=== PATIENT | female | born 1935 | race Caucasian/White ===

== ENCOUNTER 2019-10-21 13:04 | Inpatient (IN) | payer MEDICARE, SELFPAY ==
[2019-10-21 13:56] VITALS: BMI 28.0
[2019-10-21 14:09] VITALS: BP 154/78; PULSE 84; RESP 18; TEMP 36.3; O2SAT 95
--- NOTE | 2019-10-21 14:21 | CTR_ITS ---
PROCEDURE INFORMATION: Exam: CT Angiography Chest With Contrast Exam date and time: 10/21/2019 6:28 PM Age: 84 years old Clinical indication: Abdominal pain; Other: Hypoxia; Prior surgery; Surgery date: 6+ months; Additional info: Abdominal pain and hypoxia TECHNIQUE: Imaging protocol: Computed tomographic angiography of the chest with intravenous contrast. 3D rendering: MIP and/or 3D reconstructed images were created by the technologist. Total DLP: 1273.65 mGy-cm Radiation optimization: All CT scans at this facility use at least one of these dose optimization techniques: automated exposure control; mA and/or kV adjustment per patient size (includes targeted exams where dose is matched to clinical indication); or iterative reconstruction. Contrast material: OMNI 350; Contrast volume: 95 ml; Contrast route: 20G; COMPARISON: CTA Chest-Pulmonary Emb [id number] 04/22/2018 3:14 PM FINDINGS: Pulmonary arteries: Acute bilateral pulmonary embolism it is present including a saddle embolus. Aorta: Unremarkable. No aortic aneurysm. No aortic dissection. Lungs: There is no pulmonary infarction or atelectasis. Pleural space: Unremarkable. No pneumothorax. No pleural effusion. Heart: No indication of right ventricular strain. Heavy calcified plaque in the coronary arteries. The left atrium is mildly enlarged. Lymph nodes: Unremarkable. No enlarged lymph nodes. Bones/joints: Degenerative changes in the right glenohumeral joint. Soft tissues: Unremarkable. Other findings: Clots are nonocclusive. Mild generalized pulmonary fibrosis. IMPRESSION: Acute saddle pulmonary embolus. However no significant right ventricular strain. No pulmonary infarction. PROCEDURE INFORMATION: Exam: CT Abdomen And Pelvis With Contrast Exam date and time: 10/21/2019 6:28 PM Age: 84 years old Clinical indication: Abdominal pain; Other: Hypoxia; Prior surgery; Surgery date: 6+ months; Additional info: Abdominal pain and hypoxia TECHNIQUE: Imaging protocol: Computed tomography of the abdomen and pelvis with intravenous contrast. Total DLP: 1273.65 mGy-cm Radiation optimization: All CT scans at this facility use at least one of these dose optimization techniques: automated exposure control; mA and/or kV adjustment per patient size (includes targeted exams where dose is matched to clinical indication); or iterative reconstruction. Contrast material: OMNI 350; Contrast volume: 95 ml; Contrast route: 20G; COMPARISON: CTA Chest-Pulmonary Emb [id number] 04/22/2018 3:14 PM FINDINGS: Liver: Normal. No mass. Gallbladder and bile ducts: Normal. No calcified stones. No ductal dilation. Pancreas: Normal. No ductal dilation. Spleen: Normal. No splenomegaly. Adrenals: Normal. No mass. Kidneys and ureters: Normal. No hydronephrosis. Stomach and bowel: There is edema and wall thickening in the ascending colon indicating colitis. No pneumatosis, perforation or abscess. The transverse and descending colon are normal. Appendix: No evidence of appendicitis. Intraperitoneal space: No free fluid or mesenteric edema. In the right lower quadrant there is a circumscribed fluid collection measuring 4.6 x 3.1 cm. Several additional adjacent smaller fluid collections measuring up to 2.4 cm. These are most likely seromas or liquified hematomas. Vasculature: Numerous calcified plaques in the abdominal aorta. Lymph nodes: Unremarkable. No enlarged lymph nodes. Bladder: Unremarkable as visualized. Reproductive: The uterus is surgically absent and the ovaries are not seen. Bones/joints: Chronic lumbar degenerative disc disease without significant central spinal stenosis. Soft tissues: Unremarkable. CT/CT angio chest w abd pel w con IMPRESSION: 1. Colitis of the ascending colon. No perforation or abscess. No pneumatosis. 2. Extensive atherosclerosis. 3. Several right lower quadrant fluid collections. These are probably seromas or liquified hematomas. Radiation Dose CTDIVOL = (mGy): DLP = 1273.65~1273.65 (mGy-cm)
[2019-10-21 15:40] VITALS: BP 183/74; PULSE 76; RESP 18; TEMP 36.6; O2SAT 98
[2019-10-21 17:04] LABS: Alanine Aminotransferase 11 U/L (0-33); Albumin Level 3.5 g/dL (3.5-5.2); Alkaline Phosphatase 111 IU/L (35-105); Anion Gap 17.4 (5-19); Aspartate Amino Transferase 21 U/L (0-32); Blood Urea Nitrogen 16 mg/dL (8-23); C Reactive Protein 97.5 mg/L (0.0-4.9); Calcium 9.6 mg/Dl (8.8-10.2); Carbon Dioxide 22 mmol/L (22-29); Chloride 103 mmol/L (98-107); Globulin 3.8 g/dL (1.3-4.6); Glucose 95 mg/dL (74-106); Potassium 3.4 mmol/L (3.5-5.1); Sodium 139 mmol/L (136-145); Total Bilirubin 0.3 mg/dL (0.15-1.2); Total Protein 7.3 g/dL (6.6-8.7)
--- NOTE | 2019-10-21 17:14 | PC.PHAR ---
Vancomycin dosing per Pharmacy 1250 mg q24h Patient: Floor: Age: 84 yo Serum creatinine: 0.7 mg/dL Height: 61.8 Inches Weight (kg): 70 IBW (kg): 49.64 Dosing wt(kg): 70 Estimated Creatinine clearance (ml/min): 48.6 CRCL method: Cockcroft and Gault using ibw(default). Drug selected: Vancomycin Loading dose (mg): Vd (liters): 49.0 (factor used: 0.7 L/kg) Vinnie (hr-1): 0.045 Half life (hrs): 15.40 CLvanco= 2.205 L/hr Recommended dose: 1250 mg Interval: 24 hrs Infusion time (hrs): 1 Predicted peak (mcg/mL): 37.8 Predicted trough (mcg/mL): 13.43 Total body weight is being used for vancomycin dosing. Recommendations: Give Vancomycin 1250 mg q 24 hrs with an expected Cpeak of 37.8 mcg/ml and an expected Ctrough of 13.43 mcg/ml
[2019-10-21 17:18] LABS: Basophils % 0.4 %; Eosinophils # 0.2 10^3/uL (0.0-0.8); Eosinophils % 1.9 %; Hematocrit 35.1 % (37.0-47.0); Hemoglobin 10.2 g/dL (11.5-15.3); Lymphocytes # 2.6 10^3/uL (0.8-4.8); Lymphocytes % 25.3 %; Mean Corpuscular HGB Conc 29.1 g/dL (30.0-36.0); Mean Corpuscular Hemoglobin 25.6 pg (28.0-34.0); Mean Corpuscular Volume 88.2 fL (81-99); Monocytes # 0.7 10^3/uL (0.2-0.9); Monocytes % 6.8 %; Neutrophils # 6.7 10^3/uL (1.8-7.7); Neutrophils % 65.2 %; Nucleated Red Blood Cells % 0 %; Platelet Count 292 10^3/cmm (130-400); Red Blood Count 3.98 10^6/uL (4.1-5.3); Red Cell Distribution Width 16.8 % (12.1-15.1); White Blood Count 10.3 10^3/uL (4.0-10.0)
[2019-10-21] MEDS: enoxaparin 40 mg/0.4 mL Syringe SUBCUT (18:58)
[2019-10-21 20:00] VITALS: BP 150/73; PULSE 73; RESP 20; TEMP 37.4; O2SAT 96
[2019-10-21 20:12] LABS: Urine Appearance SL Hazy (CLEAR); Urine Color Yellow (Yellow); pH Urine 5 (5-7)
[2019-10-21 20:13] LABS: Add Urine Microscopic? YES; Bilirubin Urine Neg (NEGATIVE); Blood Urine Neg (Negative); Glucose Urine UA Norm (Normal); Ketones Urine 1+ (Negative); Nitrate Urine Positive (Negative); Protein Urine Trace (Negative); Urobilinogen Urine 1 mg/dL (Negative)
[2019-10-21 20:22] LABS: Leukocyte Esterase Urine Trace (Negative)
[2019-10-21 20:24] LABS: Bacteria Urine 4+; Calcium Oxalate Crystals Urine 40-55 /hpf
[2019-10-21 20:25] LABS: Add Urine Culture? Yes; Amorphous Sediment Urine 4+
[2019-10-21] MEDS: piperacillin-tazobactam 3.375 GM in sodium chloride 0.9% (plus) 50 ML IV (21:27)
[2019-10-22] VITALS (7 sets, daily range): BP systolic 146–198; BP diastolic 68–74; PULSE 76–96; RESP 16–20; TEMP 36.4–36.9; O2SAT 95–97
[2019-10-22] MEDS: iohexol 350 mg/mL 100 mL Btl IV (01:52)
[2019-10-22 02:13] LABS: Erythrocyte Sedimentation Rate 45 mm/hr (0-15)
[2019-10-22] MEDS: piperacillin-tazobactam 3.375 GM in sodium chloride 0.9% (plus) 50 ML IV ×3 (05:11→21:14)
--- NOTE | 2019-10-22 07:23 | USCV_ITS ---
Ana Laurent Age: 84 Gender: F : 1935 Exam Date: 10/22/2019 08:30 Ordering Phys: Ousmane Reaves MD Technologist: Delia Garcias [place]am Location: [facility] [place] Indication: pe HISTORY: Pulmonary embolism. PROCEDURES: Venous duplex imaging was performed in bilateral lower extremities. The following venous structures were evaluated: common femoral vein, profunda vein, proximal portion of the greater saphenous vein, superficial femoral vein, and the popliteal vein. In addition, the posterior tibial and peroneal trunk were evaluated. Serial compression, augmentation maneuvers, and spectral Doppler flow evaluation were performed. FINDINGS: Normal 2-D Doppler and augmentation and compressibility throughout the lower extremity venous structures. Additional imaging through the proximal calf veins also reveals no thrombus. Limited evaluation of the greater saphenous vein is patent with no thrombus.. CONCLUSIONS No evidence of right lower extremity DVT. No evidence of left lower extremity DVT. Hossein Duncan MD (Electronically Signed) Final Date: 22 October 2019 13:17 S
--- NOTE | 2019-10-22 07:29 | P.HP_ITS ---
Providers/Chief Complaint Admitting Physician: Ousmane Reaves MD Primary Care Provider: Ousmane Reaves MD Chief Complaint: hypoxia/abdominal pain History of Present Illness Ana Laurent is a 84 year old female who presents to the clinic with increasing shortness of breath. She started having symptoms of increasing shortness of breath about 3 months ago. She noted it when walking her dog 1 day. She has an extensive history of coronary disease. She was seen by cardiology and evaluated for this. An angiogram was done and showed a blockage in the right coronary. Dr. Steward was only able to stent this. She was then sent to [facility] to have this fixed. They were able to get it opened up and a stent placed. She did not have any improvement in her symptoms though. This was done towards the end of August. Her shortness of breath is progressively gotten a bit worse since then. She is also noted over the past 4 weeks increasing weakness, difficulty with swallowing. She is also developed some diarrhea and right lower quadrant pain. Patient was evaluated in the clinic for this couple weeks ago. Stool studies at that time including C. difficile was a ll negative. Labs were all normal with the exception of a markedly elevated CRP up to a 75. Sed rate was 39. CBC was normal at that time. Patient was given 80 mg of Depo-Medrol last week with no improvement in her symptoms. She was noted in the clinic to be slightly hypoxic which she had not been before. For this reason she was directly admitted yesterday to the hospital. Past medical history Coronary artery disease with no history of MIs though. She has had 3 stents placed in the past. 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 History of hypertension, hyperlipidemia, osteoarthritis, peripheral vascular disease, obstructive sleep apnea but she does not wear her machine. Past surgical history 3 stents placed in 2005. Total abdominal hysterectomy at age 25 for a bad infection. 5 vaginal deliveries. Subclavian bypass in 1988. Bladder tie up with mesh in 1983. Carpal tunnel in both hands. Right elbow bursa removed. Right shoulder surgery. Angiogram again in July 2019 that revealed some occlusions in August 2019 right coronary artery stent was placed Family history Noncontributory Social history Patient goes by Andrew. She is and has 1 child lives in the area. 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 She likes to work on her computer and play with her dogs currently. She quit smoking and drinking at the age of 50. [id number] smoking history prior to this. No alcohol use currently. Review of Systems Narrative: General: No chronic fevers or chronic weight changes. HEENT: No acute changes in vision. No acute hearing loss. No new difficulty swallowing. Heart: See history of present illness. Lungs: No history of TB. No chronic lung disease. GI: No history of GI bleeding. No hepatitis. No chronic nausea or vomitting. Renal: No dysuria or frequency. No hematuria Neuro: No acute neurological changes or deficits. Musculoskeletal: No acutely worsening joint pain or swelling. Medications/Allergies Home Medications Medication Instructions Recorded Confirmed Last Taken Type acetaminophen [Tylenol Extra 500 mg PO DAILY PRN 10/21/19 10/21/19 10/20/19 20:00 History Strength] aspirin [Aspir-81] 81 mg PO DAILY 10/21/19 10/21/19 10/20/19 20:00 History clopidogrel [Plavix] 75 mg PO DAILY 10/21/19 10/21/19 10/21/19 08:00 History coenzyme Q10 [CoQ-10] 100 mg PO DAILY 10/21/19 10/21/19 10/20/19 20:00 History isosorbide mononitrate 30 mg PO BID 10/21/19 10/21/19 10/21/19 08:00 History losartan 50 mg PO DAILY 10/21/19 10/21/19 10/21/19 08:00 History metoprolol tartrate 50 mg PO BID 10/21/19 10/21/19 10/21/19 08:00 History mirtazapine 15 mg PO DAILY 10/21/19 10/21/19 10/20/19 20:00 History nitroglycerin [Nitrostat] 0.4 mg SUBLINGUAL Q5M PRN 10/21/19 10/21/19 Unknown History sertraline [Zoloft] 100 mg PO DAILY 10/21/19 10/21/19 10/21/19 08:00 History Allergies Allergy/AdvReac Type Severity Reaction Status Date / Time morphine Allergy Unknown Unknown Verified 10/21/19 14:37 Sulfa (Sulfonamide Allergy Unknown Unknown Verified 10/21/19 14:37 Antibiotics) PFSH Acute PFSH: Statuses (acute, chronic, etc) shown below reflect problem list status as previously entered and may not be historically accurate Medical History (Updated 10/22/19 @ 07:44 by Ousmane Revaes MD) Coronary arteriosclerosis (Acute) Pulmonary embolism (Acute) This appears to be her primary problem. After talking with her I have to think that her first PE was probably 3 months ago when all of this dyspnea started. Her symptoms did not improve after she had her coronary stent place d. I suspect the PE has progressed since then. We will go ahead and put her on Lovenox. Transition to Eliquis in the next few days. We will go ahead and do an ultrasound of her legs. No obvious etiology for this is found yet. CT of the abdomen pelvis revealed no malignancy. She had no trauma or recent hospitalization prior to this 3 months ago to explain a PE. Continue oxygen for now as well. Family History (Updated 10/21/19 @ 14:19 by Ruthie Altman RN) Sister Cancer Mother Cardiac complication Father Cardiac complication Social History (Updated 10/21/19 @ 14:22 by Ruthie Altman RN) Smoking and tobacco status: former smoker Quit status (tobacco): has quit using tobacco Second hand smoke exposure: No Smoking risk assessment/counseling performed?: No Alcohol intake: former Desire information about alcohol rehabilitation?: No Counseling given: No Substance/Drug Use: never Marital status: Number of children: 5 Number of grandchildren: 29 Highest education level completed: High School Graduate service: No Current occupational status: retired Vitals/I&O/Wt Last Vital Signs Temp 97.6 F 10/22/19 04:00 Pulse 85 10/22/19 04:00 Resp 18 10/22/19 04:00 BP 187/68 10/22/19 04:00 Pulse Ox 97 10/22/19 04:00 10/21/19 10/22/19 10/22/19 22:59 06:59 14:59 Intake Total 120 / 460 340 / 460 Output Total 150 / 650 500 / 650 Balance -30 / -190 -160 / -190 Weight last 48 hrs Weight 73.845 kg Weight 69.763 kg Weight 69.4 kg Physical Exam Narrative: EXAM NARRATIVE: General: No acute distress, Alert. Well nourished. HEENT: PERRLA, EOMI. vision grossly normal. Throat clear. Neck: supple, no adenopathy. Heart: Regular rate and rhythm. No murmurs, rubs or gallops. Normal capillary refill. Lungs: Clear to auscultation. No wheezes, rhonchi or rales. Abdomen: Positive bowel sounds. Non-tender, non-distended. No hepatosplenomegaly. No gaurding. Extremities: No clubbing, cyanosis, or edema. Negative Virgen's. Data Micro: Micro: Microbiology 10/21/19 16:10 Blood Culture - Pr eliminary Blood [facility] 10/21/19 16:19 Blood Culture - Pr eliminary Blood [facility] A&P Assessment and plan (1) Pulmonary embolism: Status: Acute Code(s): I26.99 - Other pulmonary embolism without acute cor pulmonale (2) Coronary arteriosclerosis: This appears stable at this point. She had her last angiogram and stenting of the RCA done in August. Status: Acute Code(s): I25.10 - Atherosclerotic heart disease of [place] coronary artery without angina pectoris (3) Colitis: She has had the symptoms going on for about a month. Stool cultures were all negative in the clinic 2 weeks ago. We will go ahead and repeat stool cultures and C. difficile. She is on Zosyn and we will add Flagyl at this time. Continue the vancomycin for right now. May remove this in the next couple days. She had a colonoscopy about 12 years ago that was normal. Discussed with her malignancy seems a bit unlikely. Status: Acute Code(s): K52.9 - Noninfective gastroenteritis and colitis, unspecified (4) Dysphagia: This is also new for her in the past 2 to 3 weeks. Unclear what the etiology for this is. We will get a swallowing study done today. She may need to have an EGD done at some point as well. Status: Acute Code(s): R13.10 - Dysphagia, unspecified Attestations Medical Necessity Statement*: Patient is an 84-year-old female with shortness of breath hypoxia secondary to pulmonary embolism. She also has severe colitis all requiring inpatient hospitalization and IV treatments. Coding Level of Care Code Acute [facility] Intern for [facility] Diagnoses Pulmonary embolism I26.99 Coronary arteriosclerosis I25.10 Colitis K52.9 Dysphagia R13.10
[2019-10-22] MEDS: losartan 50 mg Tablet PO (09:27)
[2019-10-22] MEDS: pantoprazole DR 40 mg Tablet PO (09:28)
[2019-10-22] MEDS: enoxaparin 80 mg/0.8 mL Syringe 70 MG SUBCUT ×2 (09:28→21:13)
[2019-10-22] MEDS: metroNIDAZOLE IV 500 MG/100 ML PREMIX 100 MG IV ×2 (09:39→18:59)
[2019-10-22] MEDS: mirtazapine 15 mg Tablet PO (09:45)
[2019-10-22] MEDS: sodium chloride 0.9% 1,000 ML 75 ML IV (09:45)
[2019-10-22 12:19] LABS: Glucose Point of Care 149 mg/dL (70-110)
--- NOTE | 2019-10-22 12:24 | PC.NURSE ---
Patient stated that she just could not eat any of her lunch that she was not hungry, but she ate her ice cream.
--- NOTE | 2019-10-22 14:07 | PC.CHAP ---
Pastoral Care Encounter/Spiritual Assessment Type of Contact [] Declined recovery assistant visit [] Patient/Family/Request visit [] Outpatient visit [] Follow-up visit [] Physician referral [] Code/Alert [] Routine visit [] Staff referral [] Actively dying [] Patient sleeping [] Family support [] [] Out of room [] Palliative care [] [] Receiving care in room [] Pre-surgical visit [] Trauma [] Long length of stay [] ICU visit [] Other: Relational/Emotional Strength [] Patient feels connected with others/family/visitors/staff [] Distress [] Loneliness/isolation [] Abandonment Spirituality of Patient [x Person of Bonny [x] Attends Muslim of their [place] [x Believes in Prayer [] Reads Bible or Yarsanism materials [] There are Spiritual issues to be addressed Front Desk Agent Interventions [x] Prayer [x] Active listening [x Non-anxious presence [x] Spiritual/emotional support [] Crisis/trauma care [] Spiritual counseling [] Bereavement support [] Provided bereavement packet [] Provided Bible/devotional materials [] Provided toy/stuffed animal, coloring book to patient or family member [x] Completed spiritual assessment [] Provided Communion [] Anointing/[place] [] Salvation [] Other: Impact on Illness or Injury [] Angry [] Fearful [] Anxious [] Often cries [] Exhaustion [] Unable to work [] Unable to attend mandaen [x] Unable to walk/stand [] Unable to read [] Unable to drive [x Unable to eat/drink [] Unable to sleep [] Unable to be with family [] Other: Summary she says that food has no taste and this has been a problem for weeks un able to walk visited by pancho seaman Time spent with patient 9 min
--- NOTE | 2019-10-22 14:30 | FL_ITS ---
WS: [id number] MODIFIED BARIUM SWALLOW TECHNIQUE: Modified barium swallow with speech therapy using multiple consistencies. FLUOROSCOPY TIME: 1.7 minutes. CLINICAL INFORMATION: Oropharyngeal dysphagia COMPARISON: None. FINDINGS: Multiple consistencies utilized. Pooling in the vallecula. No evidence of derian aspiration. Penetrati on with tomato juice and thin liquids. Barium tablet briefly lodged at the GE junction which subseque ntly cleared with additional contrast. No visualized high-grade stricture. This can be further evalua emerald with endoscopy. Mild esophageal dysmotility with delayed emptying. FL/FL barium swallow modifd [id number] IMPRESSION: 1. No evidence of derian aspiration. Penetration with thin liquids. 2. Delayed transit of the barium tablet at the GE junction with mild narrowing . This can be further evaluated with endoscopy. No high-grade stricture. 3. Mild esophageal dysmotility with delayed emptying.
[2019-10-22] MEDS: metoprolol tartrate 50 mg Tablet PO (18:58)
[2019-10-22] MEDS: isosorbide mononitrate ER 30 mg Tablet PO (18:58)
--- NOTE | 2019-10-22 19:00 | PC.NURSE ---
Introduction of staff and report received, aidet.
[2019-10-23] VITALS (8 sets, daily range): BP systolic 172–195; BP diastolic 70–81; PULSE 16–93; RESP 16–22; TEMP 36.6–36.8; O2SAT 95–97
[2019-10-23] MEDS: metroNIDAZOLE IV 500 MG/100 ML PREMIX 100 MG IV ×3 (02:27→17:18)
[2019-10-23] MEDS: sodium chloride 0.9% 1,000 ML 75 ML IV ×2 (04:17→17:17)
[2019-10-23] MEDS: piperacillin-tazobactam 3.375 GM in sodium chloride 0.9% (plus) 50 ML IV ×3 (04:21→21:22)
[2019-10-23 06:14] LABS: Basophils % 0.3 %; Eosinophils # 0.2 10^3/uL (0.0-0.8); Eosinophils % 1.8 %; Hematocrit 34.1 % (37.0-47.0); Hemoglobin 10.4 g/dL (11.5-15.3); Lymphocytes # 3.1 10^3/uL (0.8-4.8); Lymphocytes % 32.5 %; Mean Corpuscular HGB Conc 30.5 g/dL (30.0-36.0); Mean Corpuscular Hemoglobin 26.1 pg (28.0-34.0); Mean Corpuscular Volume 85.5 fL (81-99); Monocytes # 0.7 10^3/uL (0.2-0.9); Monocytes % 6.8 %; Neutrophils # 5.5 10^3/uL (1.8-7.7); Neutrophils % 58.3 %; Nucleated Red Blood Cells % 0 %; Platelet Count 286 10^3/cmm (130-400); Red Blood Count 3.99 10^6/uL (4.1-5.3); Red Cell Distribution Width 16.6 % (12.1-15.1); White Blood Count 9.5 10^3/uL (4.0-10.0)
[2019-10-23 06:17] LABS: Alanine Aminotransferase 9 U/L (0-33); Alkaline Phosphatase 95 IU/L (35-105); Anion Gap 20.6 (5-19); Blood Urea Nitrogen 6 mg/dL (8-23); Calcium 9.2 mg/Dl (8.8-10.2); Carbon Dioxide 22 mmol/L (22-29); Chloride 102 mmol/L (98-107); Globulin 2.3 g/dL (1.3-4.6); Glucose 117 mg/dL (74-106); Potassium 3.6 mmol/L (3.5-5.1); Sodium 141 mmol/L (136-145); Total Bilirubin 0.5 mg/dL (0.15-1.2); Total Protein 6.3 g/dL (6.6-8.7)
--- NOTE | 2019-10-23 06:55 | PM.PN ---
Vitals/I&O/Wt Last Vital Signs Temp 98.0 F 10/23/19 04:00 Pulse 78 10/23/19 04:00 Resp 20 H 10/23/19 04:00 BP 195/71 10/23/19 04:00 Pulse Ox 96 10/23/19 04:00 10/22/19 10/22/19 10/23/19 14:59 22:59 06:59 Intake Total 750 / 2900.000 1142.917 / 2900.000 1007.083 / 2900.000 Output Total 550 / 1250 700 / 1250 Balance 200 / 1650.000 442.917 / 8833.249 9260.083 / 1650.000 Weight last 48 hrs Weight 151 lb 2 oz Weight 146 lb 8 oz Weight 162 lb 12.8 oz Weight 153 lb 12.8 oz Weight 153 lb Physical Exam Narrative: EXAM NARRATIVE: General: No acute distress, Alert. Well nourished. Heart: Regular rate and rhythm. No murmurs, rubs or gallops. Normal capillary refill. Lungs: Clear to auscultation. No wheezes, rhonchi or rales. Abdomen: Positive bowel sounds. Mild right lower quadrant tenderness. This is better from yesterday., non-distended. No hepatosplenomegaly. No gaurding. Extremities: No clubbing, cyanosis, or edema. Negative Virgen's Data Micro: Micro: Microbiology 10/21/19 16:10 Blood Culture - Pr eliminary Blood NEGATIVE TO MANUEL E 10/21/19 16:19 Blood Culture - Pr eliminary Blood NEGATIVE TO MANUEL E A&P Assessment and plan (1) Pulmonary embolism: This appears to be her primary problem. Patient seems to be improving. She has less shortness of breath. No chest pain. Oxygen saturations seem to be doing well. We will probably plan to transition to Eliis tomorrow. Continue the Lovenox for now. Status: Acute Code(s): I26.99 - Other pulmonary embolism without acute cor pulmonale (2) Coronary arteriosclerosis: This appears stable at this point. She had her last angiogram and stenting of the RCA done in August. Status: Acute Code(s): I25.10 - Atherosclerotic heart disease of [place] coronary artery without angina pectoris (3) Colitis: She has had the symptoms going on for about a month. Stool cultures were all negative in the clinic 2 weeks ago. We will continue with Zeynep and Carmen for now. Still awaiting repeat stool cultures. 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 Status: Acute Code(s): K52.9 - Noninfective gastroenteritis and colitis, unspecified (4) Dysphagia: This appears to be functional based off of her barium swallow test. No strictures or masses seen. She thinks she will do better with her appetite when she gets home.. Status: Acute Code(s): R13.10 - Dysphagia, unspecified Attestations Medical Necessity Statement*: Patient has pulmonary embolism and severe colitis requiring continued inpatient IV treatments and monitoring. Anticipate discharge home in the next 1 to 2 days. Coding Level of Care Code Acute Family Practice Physician for [facility] Diagnoses Pulmonary embolism I26.99 Coronary arteriosclerosis I25.10 Colitis K52.9 Dysphagia R13.10
[2019-10-23 07:42] LABS: C Reactive Protein 103.9 mg/L (0.0-4.9)
[2019-10-23 07:52] LABS: Aspartate Amino Transferase 21 U/L (0-32)
[2019-10-23] MEDS: ondansetron 2 mg/ML SDV 2 mL 4 MG IVP ×3 (10:05→22:56)
[2019-10-23] MEDS: isosorbide mononitrate ER 30 mg Tablet PO ×2 (10:08→17:21)
[2019-10-23] MEDS: clopidogrel 75 mg Tablet PO (10:08)
[2019-10-23] MEDS: pantoprazole DR 40 mg Tablet PO (10:08)
[2019-10-23] MEDS: metoprolol tartrate 50 mg Tablet PO ×2 (10:08→17:21)
[2019-10-23] MEDS: losartan 50 mg Tablet PO (10:09)
[2019-10-23] MEDS: enoxaparin 80 mg/0.8 mL Syringe 70 MG SUBCUT ×2 (10:09→21:23)
[2019-10-23] MEDS: mirtazapine 15 mg Tablet PO (10:09)
[2019-10-24] VITALS (7 sets, daily range): BP systolic 165–195; BP diastolic 71–79; PULSE 76–86; RESP 18–20; TEMP 36.4–37.1; O2SAT 80–98
[2019-10-24] MEDS: metroNIDAZOLE IV 500 MG/100 ML PREMIX 100 MG IV ×2 (01:36→10:09)
[2019-10-24] MEDS: piperacillin-tazobactam 3.375 GM in sodium chloride 0.9% (plus) 50 ML IV (04:28)
[2019-10-24] MEDS: ondansetron 2 mg/ML SDV 2 mL 4 MG IVP (04:36)
--- NOTE | 2019-10-24 07:08 | USCV_ITS ---
Ana Laurent Age: 84 Gender: F : 1935 Exam Date: 10/24/2019 13:43 Ordering Phys: Ousmane Reaves MD Technologist: Maris Roland [place] [facility] [place]: PE BILATERALLY BP: 165 / 52 HR: 80 Rhythm: Sinus Technical Quality: MEASUREMENTS (Male / Female) Normal Values 2D ECHO LV Diastolic Diameter PLAX 4.1 cm 4.2 - 5.9 / 3.9 - 5.3 cm LV Systolic Diameter PLAX 1.8 cm LV Chamber Size 3.1 cm IVS Diastolic Thickness 1.1 cm 0.6 - 1.0 / 0.6 - 0.9 cm IVS Systolic Thickness 1.3 cm LVPW Diastolic Thickness 1.4 cm 0.6 - 1.0 / 0.6 - 0.9 cm LVPW Systolic Thickness 1.7 cm RV Chamber Size 2.4 cm LVOT Diameter 2.0 cm LV Ejection Fraction 2D Teich 86.5 % LV Ejection Fraction MOD 2C 70.9 % LV Ejection Fraction 2C AL 74.4 % LA Diameter 2.9 cm LA Width 2.7 cm LA Height 4.1 cm RA Width 2.7 cm RA Height 3.0 cm Aorta at Sinotubular Diameter 2.6 cm M-MODE LV Diastolic Diameter MM 3.9 cm 4.2 - 5.9 / 3.9 - 5.3 cm LV Systolic Diameter MM 2.5 cm LV Ejection Fraction MM Teich 68.6 % IVS Diastolic Thickness MM 1.3 cm 0.6 - 1.0 / 0.6 - 0.9 cm IVS Systolic Thickness MM 1.3 cm LVPW Diastolic Thickness MM 1.3 cm 0.6 - 1.0 / 0.6 - 0.9 cm LVPW Systolic Thickness MM 1.5 cm RV Diastolic Diameter MM 1.4 cm Aortic Annulus Diameter 2.8 cm LA Ao Ratio MM 1.0 MV E Point Septal Separation 0.3 cm DOPPLER AV Peak Velocity 172.0 cm/s LVOT Peak Velocity 88.0 cm/s AV Area Cont Eq vti 1.9 cm squared AV Area Cont Eq pk 1.7 cm squared MV Area PHT 4.2 cm squared Mitral E to A Ratio 0.8 MV E' Velocity 10.0 cm/s Mitral E to MV E' Ratio 10.0 Mitral E to LV E' Lateral Ratio 9.7 Mitral E to LV E' Septal Ratio 10.4 TR Peak Velocity 331.7 cm/s TR Peak Gradient 44.0 mmHg TR Mean Velocity 291.6 cm/s TR Mean Gradient 34.3 mmHg TR Velocity Time Integral 116.6 cm TV Peak E Velocity 56.0 cm/s PV Peak Velocity 77.0 cm/s RV Acceleration Time 0.2 s RV Ejection Time 0.3 s RV AcT/ET 0.5 FINDINGS Left Ventricle Normal left ventricular size and systolic function, EF 64 %. Moderate left ventricular hypertrophy. No regional wall motion abnormalities. Grade I/IV diastolic dysfunction (abnormal relaxation filling pattern), normal to mildly elevated filling pressures. Right Ventricle The right ventricle is normal in size and function. Right Atrium The right atrium is normal in size. Left Atrium The left atrium is normal in size. Mitral Valve Mild mitral valve regurgitation. Aortic Valve Trace aortic valve regurgitation. Thickened aortic valve. Tricuspid Valve Moderate tricuspid valve regurgitation. Pulmonic Valve Trace pulmonary valve regurgitation. Pericardium Normal pericardium without effusion. Aorta Normal ascending aorta dimension. CONCLUSIONS Normal left ventricular size and systolic function, EF 64 %. Moderate left ventricular hypertrophy. No regional wall motion abnormalities. Grade I/IV diastolic dysfunction (abnormal relaxation filling pattern), normal to mildly elevated filling pressures. Mild mitral valve regurgitation. Trace aortic valve regurgitation. Thickened aortic valve. Moderate tricuspid valve regurgitation. Trace pulmonary valve regurgitation. There is no pericardial effusion. There are no intracardiac masses. No previous study is available for comparison. Dr Reynaldo Helm MD [facility] (Electronically Signed) Final Date: 24 October 2019 19:55 S
[2019-10-24] MEDS: metoprolol tartrate 50 mg Tablet PO ×2 (08:04→17:19)
[2019-10-24] MEDS: isosorbide mononitrate ER 30 mg Tablet PO ×2 (08:04→17:18)
[2019-10-24] MEDS: losartan 50 mg Tablet PO (08:05)
[2019-10-24] MEDS: clopidogrel 75 mg Tablet PO (08:05)
[2019-10-24] MEDS: mirtazapine 15 mg Tablet PO (08:05)
[2019-10-24] MEDS: levofloxacin-dextrose 5 % 750 MG/150 ML PREMIX 150 MG IV (08:05)
[2019-10-24] MEDS: pantoprazole DR 40 mg Tablet PO (08:06)
[2019-10-24] MEDS: enoxaparin 80 mg/0.8 mL Syringe 70 MG SUBCUT (08:07)
[2019-10-24] MEDS: sodium chloride 0.9% 1,000 ML 75 ML IV (08:14)
[2019-10-24 08:28] LABS: C Reactive Protein 62.3 mg/L (0.0-4.9)
--- NOTE | 2019-10-24 11:35 | PC.SOCIAL ---
IMM Page 2 of IMM explained to and signed by patient. Initialed, dated, and timed and placed in chart. Copy provided to patient.
--- NOTE | 2019-10-24 13:09 | PM.PN ---
Subjective Subjective: Interval history: Overall patient seems to be improving. No chest pain. Shortness of breath is improving. Less weakness. She still has poor appetite. Nothing tastes well. She thinks it is due to her poor dentition for which she has been seeing a dentist. Her abdominal pain is a lot better. She still having diarrhea though and some stool incontinence. Vitals/I&O/Wt Last Vital Signs Temp 98.1 F 10/24/19 11:58 Pulse 86 10/24/19 11:58 Resp 18 10/24/19 11:58 BP 176/78 10/24/19 11:58 Pulse Ox 96 10/24/19 11:58 10/23/19 10/24/19 10/24/19 22:59 06:59 14:59 Intake Total 1365 / 2785 1150 / 2785 100 / 100 Balance 1365 / 2784 1150 / 2784 100 / 100 Weight last 48 hrs Weight 70.987 kg Weight 72.745 kg Weight 72.03 kg Weight 68.549 kg Physical Exam Narrative: EXAM NARRATIVE: General: No acute distress, Alert. Well nourished. Heart: Regular rate and rhythm. No murmurs, rubs or gallops. Normal capillary refill. Lungs: Clear to auscultation. No wheezes, rhonchi or rales. Abdomen: Positive bowel sounds. Mild right lower quadrant tenderness, much improved. , non-distended. No hepatosplenomegaly. No gaurding. Extremities: No clubbing, cyanosis, or edema. Negative Virgen's A&P Assessment and plan (1) Pulmonary embolism: This appears to be her primary problem. Patient seems to be improving. She has less shortness of breath. No chest pain. Oxygen saturations seem to be doing well. Changed over to Eliquis today. Will probably discharge her on that tomorrow. Go ahead and try to wean oxygen to room air. Discussed with her she may need this for a short time after discharge. Status: Acute Code(s): I26.99 - Other pulmonary embolism without acute cor pulmonale (2) Coronary arteriosclerosis: This appears stable at this point. She had her last angiogram and stenting of the RCA done in August. Status: Acute Code(s): I25.10 - Atherosclerotic heart disease of [place] coronary artery without angina pectoris (3) Colitis: She has had the symptoms going on for about a month. Stool cultures were all negative in the clinic 2 weeks ago. Stool studies here in the hospital are pending still. With continued diarrhea we will change the Zosyn over to Levaquin. We will change to oral Flagyl and Levaquin. Her CRP is improved significantly today from yesterday. If she continues to do well anticipate discharge tomorrow. Status: Acute Code(s): K52.9 - Noninfective gastroenteritis and colitis, unspecified (4) Dysphagia: This appears to be functional based off of her barium swallow test. No strictures or masses seen. She thinks she will do better with her appetite when she gets home.. Status: Acute Code(s): R13.10 - Dysphagia, unspecified Attestations Medical Necessity Statement*: 84-year-old female with pulmonary embolism and colitis requiring continued inpatient treatments. Anticipate discharge probably tomorrow. Coding Level of Care Code Acute Director Business Integration for [facility] Diagnoses Pulmonary embolism I26.99 Coronary arteriosclerosis I25.10 Colitis K52.9 Dysphagia R13.10
[2019-10-24] MEDS: lactobacillus 1 Tablet 4 TAB PO ×2 (16:28→21:17)
[2019-10-24] MEDS: metroNIDAZOLE 500 MG Tablet PO ×2 (16:28→21:22)
[2019-10-24] MEDS: apixaban 5 mg Tablet 10 MG PO (17:20)
[2019-10-25] VITALS (8 sets, daily range): BP systolic 154–197; BP diastolic 69–93; PULSE 64–97; RESP 18; TEMP 36.7–36.9; O2SAT 80–97
[2019-10-25] MEDS: levoFLOXacin 750 mg Tablet PO (06:23)
[2019-10-25] MEDS: clopidogrel 75 mg Tablet PO (08:19)
[2019-10-25] MEDS: apixaban 5 mg Tablet 10 MG PO (08:19)
[2019-10-25] MEDS: losartan 50 mg Tablet PO (08:20)
[2019-10-25] MEDS: metoprolol tartrate 50 mg Tablet PO (08:20)
[2019-10-25] MEDS: isosorbide mononitrate ER 30 mg Tablet PO (08:20)
[2019-10-25] MEDS: lactobacillus 1 Tablet 4 TAB PO (08:25)
[2019-10-25] MEDS: pantoprazole DR 40 mg Tablet PO (08:25)
[2019-10-25] MEDS: metroNIDAZOLE 500 MG Tablet PO (08:25)
--- NOTE | 2019-10-25 12:04 | PM.DCS ---
Discharge Providers Date of Admission: 10/21/19 13:04 Date of Discharge: 10/25/19 Attending Provider at Admission: Ousmane Reaves MD Attending Provider at Discharge: Mandy Steen MD Primary Care Provider: Ousmane Reaves MD Diagnoses at Discharge Discharge Diagnosis (1) Pulmonary embolism: Status: Acute Problem details: 5 mg twice dailyDischarge to home with Eliquis 10 mg twice daily (2) Coronary arteriosclerosis: Status: Acute (3) Colitis: Status: Acute Problem details: Continue on Levaquin and Flagyl Loose stools have improved (4) Dysphagia: Status: Acute Reason for Visit Reason for Visit: Reason For Visit: hypoxia/abdominal pain Hospital Course Hospital Course: Patient is an 84-year-old female that presented to her primary care provider's office due to increasing shortness of breath. She had been having increasing shortness of breath for the past 3 months. Patient was directly admitted to the hospital from her primary care provider's office and noted to have saddle pulmonary embolism. She was started on Lovenox and monitored closely. Patient was also noted to have dysphasia over the past 2 to 3 weeks and recommendation was to have outpatient EGD. She was also noted to have concern for colitis which had been progressive over the past month. She had repeat cultures performed in the hospital which were negative for any infectious process. Patient was On Flagyl and Levaquin and eventually transitioned from Lovenox to Eliquis. On date of discharge patient reported that she was feeling better she denied any chest pain or shortness of breath. Discussed with patient plan of care and medication changes and she verbalized understanding and agreed with plan. Physical Exam Const: COMMON NORMALS: oriented x3 and alert GENERAL APPEARANCE: cooperative ORIENTATION/CONSCIOUSNESS: Yes awake, Yes oriented to person, Yes oriented to place and Yes oriented to time HENMT: COMMON NORMALS: normocephalic and head/scalp atraumatic HEAD & SCALP: normocephalic and atraumatic Eye: COMMON NORMALS: PERRL PUPIL: Yes PERRL Resp: COMMON NORMALS: normal respiratory effort and clear to auscultation bilaterally EFFORT & INSPECTION: Yes able to speak in complete sentences AUSCULTATION: clear to auscultation bilaterally, no rhonchi and no wheezes Cardio: COMMON NORMALS: regular rate, regular rhythm and no murmurs RATE: regular rate RHYTHM: regular rhythm GI: COMMON NORMALS: soft to palpation and non-tender INSPECTION: No abdominal distension AUSCULTATION: Yes normoactive bowel sounds PALPATION: Yes soft Extremity: COMMON NORMALS: no clubbing, cyanosis or edema and no calf tenderness Neuro: COMMON NORMALS: oriented x3, CN's II-XII intact bilaterally, moves all extremities and no focal motor deficits SENSORIUM/ORIENTATION: Yes alert, Yes oriented to person, Yes oriented to place and Yes oriented to time SPEECH: speech normal Psych: COMMON NORMALS: mental status grossly normal and cooperative Skin: COMMON NORMALS: no rashes or lesions noted GENERAL SKIN EXAM: no rashes or lesions noted Discharge Data Data Completed and Pending: Completed Studies During Hospitalization Category Date Time Status CT abdomen pelvis [CT angio chest w abd pel w con] Cat Scan 10/21/19 14:21 Completed Routine CV echo complete* [id number] Routine Ultrasound 10/24/19 07:08 [place] [id number] Routin e Ultrasound 10/22/19 07:23 Completed Pending at discharge Category Date Time Status FL barium swallow modifd [id number] Rout ine Exams 10/22/19 07:23 Ordered Blood Culture Sta t Lab 10/21/19 16:10 Results Ova and Parasite Exam Stat Lab 10/22/19 07:27 Uncollected Vitals: Last Vital Signs Temp 98.5 F 10/25/19 08:00 Pulse 94 10/25/19 09:18 Resp 18 10/25/19 08:00 BP 154/69 10/25/19 08:00 Pulse Ox 97 10/25/19 09:18 Discharge Plan Discharge Patient Disposition: Home, Self-Care Condition: Stable Prescriptions: New metronidazole 500 mg Tablet 500 mg PO TID 7 Days Qty: 21 RF: 0 levofloxacin 750 mg Tablet 750 mg PO DAILY@0600 7 Days Qty: 7 RF: 0 Floranex 1 million cell Tablet 4 tab PO TID 30 Days Qty: 360 RF: 0 pantoprazole 40 mg Tablet,Delayed Release (Dr/Ec) 40 mg PO DAILY 30 Days Qty: 30 RF: 0 Eliquis 5 mg (74 tabs) tablets,dose pack See Rx Instructions .ROUTE .COMPLEX Qty: 74 RF: 0 Continued Plavix 75 mg Tablet 75 mg PO DAILY RF: 0 isosorbide mononitrate 30 mg Tablet Extended Release 24 Hr 30 mg PO BID RF: 0 losartan 50 mg Tablet 50 mg PO DAILY RF: 0 Zoloft 100 mg Tablet 100 mg PO DAILY RF: 0 metoprolol tartrate 50 mg Tablet 50 mg PO BID RF: 0 mirtazapine 15 mg Tablet 15 mg PO DAILY RF: 0 Nitrostat 0.4 mg Tablet, Sublingual 0.4 mg SUBLINGUAL Q5M PRN (Reason: Chest Pain) RF: 0 Aspir-81 81 mg Tablet,Delayed Release (Dr/Ec) 81 mg PO DAILY RF: 0 Tylenol Extra Strength 500 mg Tablet 500 mg PO DAILY PRN (Reason: Pain) RF: 0 CoQ-10 100 mg Capsule 100 mg PO DAILY RF: 0 Discharge Orders: Discharge Order (Routine); Ordered 10/25/19 Ordered By: Mandy Steen Other Ambulatory Orders: DME: Oxygen (Order) Location: None Selected Ordered By: Mandy Steen Referrals: Ousmane Reaves MD [Primary Care Provider] - 1-3 days (As previously scheduled) Discharge Diet: Elizabeth, low-fat cardiac diet, increase as tolerated Discharge Activity: Increase activity as tolerated Activity Restrictions/Additional Instructions: Gradually increase activity as tolerated. Continue with oxygen by nasal cannula as prescribed, and follow-up with primary care provider to titrate off oxygen as tolerated Started on Eliquis, 10mg twice daily for 1 week then change to 5mg twice daily and continue on this dose. Call Your physician or present to the ER for any acute illness or concerns Discharge Attestations Time Spent in Discharge Care*: greater than 30 min Quality Metrics Clinical Quality Measures During this hospital stay, did patient experience: VTE Contraindication to Overlap Therapy: Overlap treatment not indicated VTE Discharge Education: Education about treatment options/disease process, Medication side effects education and Follow-up arranged Coding Level of Care Code Acute Operational Assistant for [facility] Diagnoses Pulmonary embolism I26.99 Coronary arteriosclerosis I25.10 Colitis K52.9 Dysphagia R13.10
--- NOTE | 2019-10-25 12:53 | PC.NURSE ---
Discharge prescriptions electronically sent to [facility] pharmacy in error. This nurse called in prescriptions to [facility] for pt family to shredder picker. This nurse left a voicemail with [facility] pharmacy to cancel the orders sent to them in error.
== END 2019-10-25 18:09 | disposition home or self-care (01) | DRG 176 ==
PROVIDERS: Admitting Provider Family Medicine; Family Provider Family Medicine; PCP Family Medicine; Visit Provider Family Medicine
DX: I26.99 Other pulmonary embolism without acute cor pulmonale (principal); K52.9 Noninfective gastroenteritis and colitis, unspecified; I25.10 Atherosclerotic heart disease of native coronary artery without angina pectoris; Z87.891 Personal history of nicotine dependence; Z79.02 Long term (current) use of antithrombotics/antiplatelets; Z79.82 Long term (current) use of aspirin; Z95.5 Presence of coronary angioplasty implant and graft; I10 Essential (primary) hypertension; E78.5 Hyperlipidemia, unspecified; M19.90 Unspecified osteoarthritis, unspecified site; I73.9 Peripheral vascular disease, unspecified; G47.33 Obstructive sleep apnea (adult) (pediatric)
CPT/HCPCS: 36415; 36416; 71275; 74177; 74230; 80053; 81003; 82962; 85025; 85651; 86140; 87040; 87046; 87493; 87505; 92611; 93306; 93970; 96105; 96372; 96375; 99221; G0379; J1650; J1956; J2405; J2543; J3370; J7030; J7050; Q9967; S0030

== ENCOUNTER 2019-11-04 12:32 | Inpatient (IN) | payer MEDICARE, SELFPAY ==
[2019-11-04 13:48] VITALS: BMI 27.1
[2019-11-04 13:51] VITALS: BP 169/81; PULSE 102; RESP 20; TEMP 36.5; O2SAT 97
--- NOTE | 2019-11-04 14:03 | CT_ITS ---
WS: [id number] CT ABDOMEN PELVIS TECHNIQUE: Contrast-enhanced CT of the abdomen and pelvis with coronal and sagittal reformatted image s. CLINICAL INFORMATION: dehydration, vomitting COMPARISON: None. DLP: 888.[address] scans at [facility] use at least one of these dose optimization techniques: automat ed exposure control; mA and/or kV adjustment per patient size (includes targeted exams where dose is matched to clinical indication); or iterative reconstruction. FINDINGS: Again seen is diffuse enhancing colonic thickening with inflammatory stranding and edema involving th e ascending right colon. Diffuse bowel wall thickening and enhancement extends to the hepatic flexure . Diffuse submucosal heterogeneous enhancement is similar in appearance. Findings are consistent with ascending colitis. No evidence of perforation or pneumatosis. Fluid-filled distal cecum. Multiple en larged lymph nodes in the right lower quadrant likely reactive. Recommend follow-up colitis to resolu tion to exclude underlying carcinoma. Normal liver. Normal portal vein and splenic vein. Normal spleen. Normal pancreas. Adrenal glands are normal. Normal renal parenchymal enhancement. Aortic calcification. A few air-fluid levels in small bowel in the midabdomen likely due to ileus. Again seen are small flu id collections in the right lower quadrant and along the proximal inguinal canal. The largest measuri ng 3.7 x 2.3 CM previously felt to represent resolving hematoma or seroma. Infected fluid collections not excluded. Regardless these are decreased in size from previous. Additional smaller surrounding f luid collections have also improved. CT/CT abdomen pelvis w con* [id number] IMPRESSION: 1. Diffuse ascending colitis with prominent submucosal enhancement is not sign ificantly changed since the prior examination. Recommend follow-up to resolutio n to exclude underlying carcinoma. No pneumatosis or free air. 2. Fluid distended loops of small bowel in the midabdomen likely due to ileus. 3. Prominent lymph nodes in the right lower quadrant likely reactive. 4. Small previously described fluid collections along the right lower quadrant and proximal inguinal canal have decreased in size compared to previous. 5. Tiny bilateral pleural effusions with bibasilar atelectasis.
[2019-11-04] MEDS: sodium chlor 0.9% + KCl 20 mEq 20 MEQ/1,000 ML BAG 125 MEQ IV (14:33)
[2019-11-04] MEDS: ondansetron 2 mg/ML SDV 2 mL 4 MG IVP ×2 (14:35→21:23)
[2019-11-04 14:47] VITALS: PULSE 79; O2SAT 94
[2019-11-04 14:48] LABS: Basophils % 0.4 %; Eosinophils % 0.4 %; Hematocrit 33.4 % (37.0-47.0); Lymphocytes # 1.5 10^3/uL (0.8-4.8); Lymphocytes % 19.4 %; Mean Corpuscular HGB Conc 29.9 g/dL (30.0-36.0); Mean Corpuscular Hemoglobin 25.3 pg (28.0-34.0); Mean Corpuscular Volume 84.3 fL (81-99); Mean Platelet Volume 9.6 fL (7.4-10.4); Monocytes # 0.6 10^3/uL (0.2-0.9); Neutrophils # 5.4 10^3/uL (1.8-7.7); Neutrophils % 71.4 %; Nucleated Red Blood Cells % 0 %; Platelet Count 325 10^3/cmm (130-400); Red Blood Count 3.96 10^6/uL (4.1-5.3); Red Cell Distribution Width 17.5 % (12.1-15.1); White Blood Count 7.6 10^3/uL (4.0-10.0)
[2019-11-04 15:07] LABS: Alanine Aminotransferase 7 U/L (0-33); Albumin Level 3.3 g/dL (3.5-5.2); Alkaline Phosphatase 73 IU/L (35-105); Anion Gap 16.5 (5-19); Aspartate Amino Transferase 15 U/L (0-32); Blood Urea Nitrogen 12 mg/dL (8-23); Calcium 9.5 mg/Dl (8.8-10.2); Carbon Dioxide 28 mmol/L (22-29); Chloride 98 mmol/L (98-107); Globulin 4.2 g/dL (1.3-4.6); Glucose 133 mg/dL (74-106); Lipase 34 U/L (13-60); Sodium 140 mmol/L (136-145); Total Bilirubin 0.4 mg/dL (0.15-1.2); Total Protein 7.5 g/dL (6.6-8.7)
[2019-11-04 15:40] LABS: Potassium 2.5 mmol/L (3.5-5.1)
[2019-11-04 15:54] VITALS: BP 186/72; PULSE 79; RESP 18; TEMP 36.9; O2SAT 95
[2019-11-04] MEDS: potassium chloride premix 40 MEQ/100 ML PREMIX 25 MEQ IV ×2 (17:08→21:28)
[2019-11-04] MEDS: lidocaine 1% INJ 20 mL 5 ML IV (17:12)
[2019-11-04] MEDS: metroNIDAZOLE IV 500 MG/100 ML PREMIX 100 MG IV (17:52)
[2019-11-04] MEDS: metoprolol tartrate 50 mg Tablet PO (17:54)
[2019-11-04] MEDS: apixaban 5 mg Tablet PO (17:54)
[2019-11-04] MEDS: isosorbide mononitrate ER 30 mg Tablet PO (17:54)
[2019-11-04 19:10] VITALS: BP 177/88; PULSE 92; RESP 20; TEMP 36.9; O2SAT 94
[2019-11-04] MEDS: lactobacillus 1 Tablet 4 TAB PO (21:23)
[2019-11-04] MEDS: acetaminophen 325 mg Tablet 650 MG PO (21:23)
[2019-11-04] MEDS: piperacillin-tazobactam 3.375 GM in sodium chloride 0.9% (plus) 50 ML IV (21:24)
[2019-11-05] VITALS (7 sets, daily range): BP systolic 124–187; BP diastolic 71–97; PULSE 79–105; RESP 18–20; TEMP 36.3–36.6; O2SAT 92–98
[2019-11-05] MEDS: metroNIDAZOLE IV 500 MG/100 ML PREMIX 100 MG IV ×3 (01:41→19:06)
[2019-11-05 04:22] LABS: Basophils % 0.2 %; Eosinophils % 0.5 %; Hematocrit 32.6 % (37.0-47.0); Hemoglobin 9.6 g/dL (11.5-15.3); Lymphocytes # 1.5 10^3/uL (0.8-4.8); Lymphocytes % 25.5 %; Mean Corpuscular HGB Conc 29.4 g/dL (30.0-36.0); Mean Corpuscular Volume 84.9 fL (81-99); Mean Platelet Volume 10.2 fL (7.4-10.4); Monocytes # 0.5 10^3/uL (0.2-0.9); Neutrophils # 3.9 10^3/uL (1.8-7.7); Neutrophils % 64.3 %; Nucleated Red Blood Cells % 0 %; Platelet Count 299 10^3/cmm (130-400); Red Blood Count 3.84 10^6/uL (4.1-5.3); Red Cell Distribution Width 17.9 % (12.1-15.1)
[2019-11-05 04:38] LABS: Alanine Aminotransferase < 5 U/L (0-33); Albumin Level 2.5 g/dL (3.5-5.2); Alkaline Phosphatase 62 IU/L (35-105); Anion Gap 19.6 (5-19); Aspartate Amino Transferase 14 U/L (0-32); Blood Urea Nitrogen 9 mg/dL (8-23); Calcium 9.2 mg/Dl (8.8-10.2); Carbon Dioxide 19 mmol/L (22-29); Chloride 105 mmol/L (98-107); Globulin 3.7 g/dL (1.3-4.6); Glucose 130 mg/dL (74-106); Potassium 3.6 mmol/L (3.5-5.1); Sodium 140 mmol/L (136-145); Total Bilirubin 0.4 mg/dL (0.15-1.2); Total Protein 6.2 g/dL (6.6-8.7)
[2019-11-05] MEDS: piperacillin-tazobactam 3.375 GM in sodium chloride 0.9% (plus) 50 ML IV ×3 (05:23→22:08)
[2019-11-05] MEDS: sodium chlor 0.9% + KCl 20 mEq 20 MEQ/1,000 ML BAG 125 MEQ IV ×2 (05:25→21:59)
--- NOTE | 2019-11-05 07:43 | P.HP_ITS ---
Providers/Chief Complaint Admitting Physician: Ousmane Reaves MD Primary Care Provider: Ousmane Reaves MD Chief Complaint: NAUSEA, VOMITING, DEHYDRATION History of Present Illness Ana Laurent is a 84 year old female who presented to the clinic yesterday with increasing weakness, nausea and vomiting. She also had increasing diarrhea. Patient was admitted 2 weeks ago for a 3-month history of increasing shortness of breath and at that point developing abdominal pain and diarrhea. She was found to have a saddle embolism and was placed on Eliquis which she is still taking. She was also found to have a markedly elevated CRP and mildly elevated white blood cell count and significant colitis in the ascending colon on CT scan. Patient was placed on vancomycin, Flagyl, and Zosyn. She had had stool cultures done in the clinic prior to that admission which were negative. She had stool cultures performed again during the admission which were negative. She had a C. difficile done last night which was negative as well. Patient was discharged home on Levaquin and Flagyl after her last admission. She had had a round of steroids to try to help with the diarrhea and colitis in the clinic prior to her last admission which did not help. It was after this that she was admitted to the hospital last time. After getting home from the hospital 2 weeks ago she is continued to decline. Her diarrhea has returned. It had resolved at the time of her discharge. She is now developed some nausea and vomiting. She has no appetite. She had a fairly sudden onset a few weeks ago of feel like things tasted bad and has not really been able to eat well since then. She does also have some dental work that is needing to be done. This morning she is feeling a little bit better. Had some vomiting again last night. No fevers overnight. Past medical history Coronary artery disease with no history of MIs though. She has had [address] aced in the past. Dr. 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 History of hypertension, hyperlipidemia, osteoarthritis, peripheral vascular disease, obstructive sleep apnea but she does not wear her machine. Past surgical history 3 stents placed in 2005. Total abdominal hysterectomy at age 25 for a bad infection. 5 vaginal deliveries. Subclavian bypass in 1988. Bladder tie up with mesh in 1983. Carpal tunnel in both hands. Right elbow bursa removed. Right shoulder surgery. Angiogram again in July 2019 that revealed some occlusions in August 2019 right coronary artery stent was placed Family history Noncontributory Social history Patient goes by Andrew. She is and has 1 child lives in the area. 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 She likes to work on her computer and play with her dogs currently. She quit smoking and drinking at the age of 50. [id number] smoking history prior to this. No alcohol use currently. Review of Systems Narrative: General: No chronic fevers or chronic weight changes. HEENT: No acute changes in vision. No acute hearing loss. No new difficulty swallowing. Heart: She has significant coronary disease and see past medical history Lungs: No history of TB. No chronic lung disease. GI: No history of GI bleeding. No hepatitis. No chronic nausea or vomitting. Renal: No dysuria or frequency. No hematuria Neuro: No acute neurological changes or deficits. Musculoskeletal: No acutely worsening joint pain or swelling. Medications/Allergies Home Medications Medication Instructions Recorded Confirmed Last Taken Type glucosamine sulfate [Glucosamine] 1,000 mg PO DAILY 11/04/19 11/05/19 Unknown History rosuvastatin [Crestor] 20 mg PO BEDTIME 11/04/19 11/05/19 Unknown History Allergies Allergy/AdvReac Type Severity Reaction Status Date / Time morphine Allergy Unknown Unknown Verified 10/21/19 14:37 Sulfa (Sulfonamide Allergy Unknown Unknown Verified 10/21/19 14:37 Antibiotics) belladonna alkaloids Allergy Unknown Verified 11/04/19 16:37 imipramine Allergy Unknown Verified 11/04/19 16:37 nitrofurantoin Allergy Unknown Verified 11/04/19 16:37 PFSH Acute PFSH: Statuses (acute, chronic, etc) shown below reflect problem list status as previously entered and may not be historically accurate Medical History (Updated 11/05/19 @ 07:56 by Ousmane Reaves MD) Coronary arteriosclerosis (Acute) Pulmonary embolism (Acute) Family History (Updated 10/21/19 @ 14:19 by Ruthie Altman RN) Sister Cancer Mother Cardiac complication Father Cardiac complication Social History (Updated 10/21/19 @ 14:22 by Ruthie Altman, MONIQUE) Smoking and tobacco status: former smoker Quit status (tobacco): has quit using tobacco Second hand smoke exposure: No Smoking risk assessment/counseling performed?: No Alcohol intake: former Desire information about alcohol rehabilitation?: No Counseling given: No Marital status: Number of children: 5 Number of grandchildren: 29 Highest education level completed: High School Graduate service: No Current occupational status: retired Vitals/I&O/Wt Last Vital Signs Temp 97.5 F L 11/05/19 04:00 Pulse 97 11/05/19 04:00 Resp 18 11/05/19 04:00 BP 144/81 11/05/19 04:00 Pulse Ox 96 11/05/19 04:00 11/04/19 11/05/19 11/05/19 22:59 06:59 14:59 Intake Total 784.583 / 1305.416 520.833 / 1305.416 Balance 784.583 / 1305.416 520.833 / 1305.416 Weight last 48 hrs Weight 145 lb 2 oz Weight 143 lb 9.6 oz Physical Exam Narrative: EXAM NARRATIVE: General: No acute distress, Alert. Well nourished. HEENT: PERRLA, EOMI. vision grossly normal. Throat clear. Neck: supple, no adenopathy. Heart: Regular rate and rhythm. No murmurs, rubs or gallops. Normal capillary refill. Lungs: Clear to auscultation. No wheezes, rhonchi or rales. Abdomen: Positive bowel sounds. Non-tender, non-distended. No hepatosplenomegaly. No gaurding. Extremities: No clubbing, cyanosis, or edema. Negative Virgen's. Data : 11/05/19 03:30 11/05/19 03:30 Micro: Microbiology 11/05/19 02:00 C.difficile Toxin B Gene (PCR) - Final Stool A&P Assessment and plan (1) Colitis: This seems to be her primary problem right now. She has a significant ascending colon colitis. Stool cultures have been negative x3. It appears to be infectious. It had no response to the steroids early in the course. She had some significant improvement with IV vancomycin, Flagyl, Zosyn on her last admission. She got worse when she was sent home with just Levaquin and Flagyl. CRP is markedly elevated. Discussed with her the risks of doing a colonoscopy at this point. I think we will keep that as a last resort. We will start her on IV Flagyl and Zosyn and see how she does. May need to consider Zithromax. She is getting a bit malnourished due to the prolonged course. Encourage aggressive protein shakes and oral intake. She is also been having significant difficulty with no appetite and everything tastes poorly. She had sudden onset of this a few weeks ago. At the same time she had difficulties swallowing. Swallowing study showed some oropharyngeal dysfunction. We will go ahead and get a MRI of her head to rule out any CVA or tumor. Status: Acute Code(s): K52.9 - Noninfective gastroenteritis and colitis, unspecified (2) Pulmonary embolism: She had a saddle embolism diagnosed 2 weeks ago at her last admission. She is still on Eliquis. Stable from the standpoint. Source had not been fo und. Ultrasound of her legs at that time were negative. Status: Acute Code(s): I26.99 - Other pulmonary embolism without acute cor pulmonale (3) Coronary arteriosclerosis: Stable Status: Acute Code(s): I25.10 - Atherosclerotic heart disease of [place] coronary artery without angina pectoris (4) Dysphagia: Status: Acute Code(s): R13.10 - Dysphagia, unspecified Attestations Medical Necessity Statement*: This is an 84-year-old female with significant colitis and ileus dehydration with nausea and vomiting requiring continued inpatient IV treatments and monitoring. Coding Level of Care Code Acute It Admin for [facility] Diagnoses Colitis K52.9 Pulmonary embolism I26.99 Coronary arteriosclerosis I25.10 Dysphagia R13.10
[2019-11-05] MEDS: apixaban 5 mg Tablet PO ×2 (09:54→19:07)
[2019-11-05] MEDS: lactobacillus 1 Tablet 4 TAB PO ×3 (09:54→22:00)
[2019-11-05] MEDS: pantoprazole DR 40 mg Tablet PO (09:54)
[2019-11-05] MEDS: losartan 50 mg Tablet PO (09:55)
[2019-11-05] MEDS: isosorbide mononitrate ER 30 mg Tablet PO ×2 (09:58→19:07)
[2019-11-05] MEDS: clopidogrel 75 mg Tablet PO (09:58)
[2019-11-05] MEDS: metoprolol tartrate 50 mg Tablet PO ×2 (09:58→19:07)
--- NOTE | 2019-11-05 10:32 | MR_ITS ---
WS: [id number] MRI BRAIN WITH AND WITHOUT CONTRAST HISTORY: evaluate for CVA/ Tumor COMPARISON: None available. TECHNIQUE: Multiplanar imaging performed through the brain with Prohance 13 ml's IV. No acute infarcts are seen. Dey-white matter differentiation is well preserved. Mild scattered micro vascular ischemic changes in the white matter. No prior infarcts. No susceptibility artifacts or prior lacunar infarcts. Mild bilateral cerebral atrophy as expected fo r age. Ventricles and extra-axial spaces are normal. Clivus and pituitary gland are normal. Increased ischemic changes in the darrell bilaterally. Increased soft tissue surrounding the odontoid pr ocess. Decreased signal intensity in the odontoid. May be related to pannus. Correlate for possible r heumatoid arthritis. Postcontrast images are negative for masses or vascular malformations. Dural venous sinuses are normal. Paranasal sinuses: Well aerated with no significant disease. Mastoid air cells: Normal. Calvarium and scalp: Normal. MR/MR head wo/w con [id number] IMPRESSION: 1. No acute infarct or enhancing mass. 2. Mild atrophy and chronic ischemic changes in the supratentorial white matte r and also in the darrell. 3. Increased soft tissue, likely pannus, surrounding the odontoid process. Thi s can be seen with inflammatory arthritis.
[2019-11-05] MEDS: ondansetron 2 mg/ML SDV 2 mL 4 MG IVP ×2 (13:04→17:20)
--- NOTE | 2019-11-05 19:00 | PC.NURSE ---
INTRODUCTION OF STAFF AND REPORT RECEIVED, AIDET.
[2019-11-05] MEDS: acetaminophen 325 mg Tablet 650 MG PO (22:00)
[2019-11-06] VITALS (9 sets, daily range): BP systolic 148–180; BP diastolic 68–84; PULSE 68–100; RESP 18–22; TEMP 36.4–36.9; O2SAT 91–98
[2019-11-06] MEDS: metroNIDAZOLE IV 500 MG/100 ML PREMIX 100 MG IV ×3 (02:53→18:09)
[2019-11-06 05:35] LABS: Basophils % 0.4 %; Eosinophils # 0.1 10^3/uL (0.0-0.8); Hematocrit 28.2 % (37.0-47.0); Hemoglobin 8.3 g/dL (11.5-15.3); Lymphocytes % 28.6 %; Mean Corpuscular HGB Conc 29.4 g/dL (30.0-36.0); Mean Corpuscular Hemoglobin 25.2 pg (28.0-34.0); Mean Corpuscular Volume 85.5 fL (81-99); Mean Platelet Volume 10.1 fL (7.4-10.4); Monocytes # 0.6 10^3/uL (0.2-0.9); Monocytes % 8.3 %; Neutrophils # 4.4 10^3/uL (1.8-7.7); Neutrophils % 61.4 %; Nucleated Red Blood Cells % 0 %; Platelet Count 307 10^3/cmm (130-400); Red Cell Distribution Width 17.6 % (12.1-15.1); White Blood Count 7.1 10^3/uL (4.0-10.0)
[2019-11-06] MEDS: piperacillin-tazobactam 3.375 GM in sodium chloride 0.9% (plus) 50 ML IV ×3 (05:44→22:30)
[2019-11-06] MEDS: sodium chlor 0.9% + KCl 20 mEq 20 MEQ/1,000 ML BAG 125 MEQ IV ×2 (05:57→15:20)
[2019-11-06 06:05] LABS: Alanine Aminotransferase 8 U/L (0-33); Albumin Level 2.6 g/dL (3.5-5.2); Alkaline Phosphatase 57 IU/L (35-105); Anion Gap 15.5 (5-19); Aspartate Amino Transferase 28 U/L (0-32); Blood Urea Nitrogen 13 mg/dL (8-23); C Reactive Protein 39.5 mg/L (0.0-4.9); Calcium 8.7 mg/Dl (8.8-10.2); Carbon Dioxide 22 mmol/L (22-29); Chloride 104 mmol/L (98-107); Globulin 3.1 g/dL (1.3-4.6); Glucose 87 mg/dL (74-106); Potassium 3.5 mmol/L (3.5-5.1); Sodium 138 mmol/L (136-145); Total Bilirubin 0.3 mg/dL (0.15-1.2); Total Protein 5.7 g/dL (6.6-8.7)
[2019-11-06] MEDS: clopidogrel 75 mg Tablet PO (08:55)
[2019-11-06] MEDS: isosorbide mononitrate ER 30 mg Tablet PO ×2 (08:56→18:09)
[2019-11-06] MEDS: lactobacillus 1 Tablet 4 TAB PO ×3 (08:56→20:35)
[2019-11-06] MEDS: metoprolol tartrate 50 mg Tablet PO ×2 (08:56→18:09)
[2019-11-06] MEDS: losartan 50 mg Tablet PO (08:56)
[2019-11-06] MEDS: pantoprazole DR 40 mg Tablet PO (08:56)
[2019-11-06] MEDS: apixaban 5 mg Tablet PO ×2 (08:56→18:09)
[2019-11-06] MEDS: ondansetron 2 mg/ML SDV 2 mL 4 MG IVP (13:55)
--- NOTE | 2019-11-06 14:21 | P.PN_ITS ---
Subjective Subjective: Interval history: Patient seen to be feeling a bit better today. She had a lot of diarrhea last night. Abdominal pain though seems improved this morning. She is only had one episode of diarrhea this morning. She was able to eat a little bit yesterday and done well with breakfast this morning. No fevers or chills. MRI came back unremarkable. Vitals/I&O/Wt Last Vital Signs Temp 98.4 F 11/06/19 10:54 Pulse 78 11/06/19 10:54 Resp 18 11/06/19 10:54 BP 150/84 11/06/19 10:54 Pulse Ox 97 11/06/19 10:54 11/05/19 11/06/19 11/06/19 22:59 06:59 14:59 Intake Total 270 / 2791.25 1131.25 / 2791.25 938.75 / 938.75 Balance 270 / 2791.25 1131.25 / 2791.25 938.75 / 938.75 Weight last 48 hrs Weight 146 lb 6 oz Weight 145 lb 2 oz Physical Exam Narrative: EXAM NARRATIVE: General: No acute distress, Alert. Well nourished. Heart: Regular rate and rhythm. No murmurs, rubs or gallops. Normal capillary refill. Lungs: Clear to auscultation. No wheezes, rhonchi or rales. Abdomen: Positive bowel sounds. Non-tender, non-distended. No hepatosplenomegaly. No gaurding. Extremities: No clubbing, cyanosis, or edema. Negative Virgen's Data : 11/06/19 04:20 11/06/19 04:20 A&P Assessment and plan (1) Colitis: Still suspect this is infectious. Seems to be improving. CRP is markedly better today. We will continue IV antibiotics. Continue to monitor. Status: Acute Code(s): K52.9 - Noninfective gastroenteritis and colitis, unspecified (2) Pulmonary embolism: Continue Eliquis. Status: Acute Code(s): I26.99 - Other pulmonary embolism without acute cor pulmonale (3) Dysphagia: Status: Acute Code(s): R13.10 - Dysphagia, unspecified (4) Anemia: This may be secondary to colitis and anticoagulation. Monitor this closely. May need to stop some of the anticoagulation. Status: Acute Code(s): D64.9 - Anemia, unspecified Attestations Medical Necessity Statement*: 84-year-old female with severe colitis requiring continued IV treatments and monitoring. Coding Level of Care Code Acute Retail Consultant for [facility] Diagnoses Colitis K52.9 Pulmonary embolism I26.99 Dysphagia R13.10 Anemia D64.9
[2019-11-06] MEDS: acetaminophen 325 mg Tablet 650 MG PO (20:35)
[2019-11-07] VITALS (11 sets, daily range): BP systolic 107–194; BP diastolic 61–108; PULSE 74–99; RESP 18; TEMP 36.5–36.7; O2SAT 93–97
[2019-11-07] MEDS: metroNIDAZOLE IV 500 MG/100 ML PREMIX 100 MG IV ×3 (02:43→21:27)
[2019-11-07] MEDS: sodium chlor 0.9% + KCl 20 mEq 20 MEQ/1,000 ML BAG 125 MEQ IV ×3 (02:44→21:23)
--- NOTE | 2019-11-07 07:21 | XRR_ITS ---
PROCEDURE INFORMATION: Exam: XR Abdomen, 1 View Exam date and time: 11/07/2019 8:25 AM Age: 84 years old Clinical indication: Abdominal pain; Additional info: Ileus follow up TECHNIQUE: Imaging protocol: XR of the abdomen. Views: Frontal supine view of the abdomen. 1 View. COMPARISON: CT abdomen pelvis w con* [id number] 11/04/2019 3:40 PM FINDINGS: Lower thorax: Asymmetric elevation of the right hemidiaphragm. Gastrointestinal tract: Marked small bowel dilatation in the setting of CT detected obstruction at the level of the ascending colon. Vasculature: Pelvic vascular calcifications. Bones/joints: Degenerative change. XR/XR KUB [id number] IMPRESSION: Marked small bowel dilatation in the setting of CT detected obstruction at the level of the ascending colon.
[2019-11-07] MEDS: piperacillin-tazobactam 3.375 GM in sodium chloride 0.9% (plus) 50 ML IV ×3 (08:51→23:51)
[2019-11-07] MEDS: ondansetron 2 mg/ML SDV 2 mL 4 MG IVP ×2 (09:19→14:46)
[2019-11-07] MEDS: apixaban 5 mg Tablet PO ×2 (10:08→19:30)
[2019-11-07] MEDS: clopidogrel 75 mg Tablet PO (10:08)
[2019-11-07] MEDS: pantoprazole DR 40 mg Tablet PO (10:08)
[2019-11-07] MEDS: isosorbide mononitrate ER 30 mg Tablet PO ×2 (10:08→19:31)
[2019-11-07] MEDS: losartan 50 mg Tablet PO ×2 (10:09→19:30)
[2019-11-07] MEDS: metoprolol tartrate 50 mg Tablet PO ×2 (10:09→19:30)
[2019-11-07] MEDS: lactobacillus 1 Tablet 4 TAB PO ×3 (10:09→22:08)
--- NOTE | 2019-11-07 12:12 | PC.SOCIAL ---
IMM Update Pg 2 of IMM given and explained to patient who voiced understanding. Signed/dated/timed and placed in chart. Copy provided to patient.
--- NOTE | 2019-11-07 13:01 | P.PN_ITS ---
Subjective Subjective: Interval history: Patient still struggling with nausea. She had some vomiting yesterday. So far this morning she has not had any vomiting. No fevers or chills. No chest pain. No increased shortness of breath. Diarrhea has improved some today. No abdominal pain. Vitals/I&O/Wt Last Vital Signs Temp 98.1 F 11/07/19 11:16 Pulse 80 11/07/19 11:16 Resp 18 11/07/19 11:16 BP 194/80 11/07/19 11:16 Pulse Ox 94 11/07/19 11:16 11/06/19 11/07/19 11/07/19 22:59 06:59 14:59 Intake Total 1270 / 2810.00 270 / 2810.00 1000 / 1000 Balance 1270 / 2810.00 270 / 2810.00 1000 / 1000 Weight last 48 hrs Weight 149 lb Weight 146 lb 6 oz Physical Exam Narrative: EXAM NARRATIVE: General: No acute distress, Alert. Well nourished. Heart: Regular rate and rhythm. No murmurs, rubs or gallops. Normal capillary refill. Lungs: Clear to auscultation. No wheezes, rhonchi or rales. Abdomen: Positive bowel sounds. Non-tender, non-distended. No hepatosplenomegaly. No gaurding. Extremities: No clubbing, cyanosis, or edema. Negative Virgen's Data : 11/06/19 04:20 11/06/19 04:20 A&P Assessment and plan (1) Colitis: Still suspect this is infectious. Seems to be improving, but slowly. Still seems to have some obstructive process going on.. We will add oral vancomycin. We will continue IV antibiotics. Start PPN for nutrition. If she continues to vomit we will place an NG tube. Continue to monitor. Status: Acute Code(s): K52.9 - Noninfective gastroenteritis and colitis, unspecified (2) Pulmonary embolism: Continue Eliquis. Status: Acute Code(s): I26.99 - Other pulmonary embolism without acute cor pulmonale (3) Dysphagia: Status: Acute Code(s): R13.10 - Dysphagia, unspecified (4) Anemia: This may be secondary to colitis and anticoagulation. Monitor this closely. May need to stop some of the anticoagulation. Status: Acute Code(s): D64.9 - Anemia, unspecified Attestations Medical Necessity Statement*: This is an 84-year-old female with colitis of un clear etiology. Requiring continued inpatient treatment and monitoring. 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
--- NOTE | 2019-11-07 17:18 | PC.RESP ---
Information left with patient for Pulmonary Rehab.
[2019-11-07] MEDS: labetalol 5 mg/mL SDV 20mL 10 MG IVP (17:55)
--- NOTE | 2019-11-07 19:56 | PC.NURSE ---
pt iv in right ac was leaking, fluids stopped and a new iv was started in the same area with a 22g by natalie AMAYA. FLUIDS WERE RESTARTED.
[2019-11-07] MEDS: acetaminophen 325 mg Tablet 650 MG PO (22:08)
[2019-11-08] VITALS (7 sets, daily range): BP systolic 168–182; BP diastolic 50–92; PULSE 72–89; RESP 17–18; TEMP 36.4–36.8; O2SAT 93–98
[2019-11-08] MEDS: metroNIDAZOLE IV 500 MG/100 ML PREMIX 100 MG IV ×3 (05:11→21:26)
[2019-11-08 06:23] LABS: Basophils % 0.7 %; Eosinophils # 0.1 10^3/uL (0.0-0.8); Eosinophils % 1.9 %; Hematocrit 30.5 % (37.0-47.0); Hemoglobin 8.8 g/dL (11.5-15.3); Lymphocytes # 2.1 10^3/uL (0.8-4.8); Lymphocytes % 35.2 %; Mean Corpuscular HGB Conc 28.9 g/dL (30.0-36.0); Mean Corpuscular Hemoglobin 24.6 pg (28.0-34.0); Mean Corpuscular Volume 85.4 fL (81-99); Mean Platelet Volume 9.5 fL (7.4-10.4); Monocytes # 0.5 10^3/uL (0.2-0.9); Monocytes % 9.2 %; Neutrophils # 3.1 10^3/uL (1.8-7.7); Neutrophils % 52.7 %; Nucleated Red Blood Cells % 0 %; Platelet Count 307 10^3/cmm (130-400); Red Blood Count 3.57 10^6/uL (4.1-5.3); Red Cell Distribution Width 17.9 % (12.1-15.1); White Blood Count 5.9 10^3/uL (4.0-10.0)
[2019-11-08] MEDS: piperacillin-tazobactam 3.375 GM in sodium chloride 0.9% (plus) 50 ML IV (06:37)
[2019-11-08 06:40] LABS: Alanine Aminotransferase 8 U/L (0-33); Albumin Level 2.9 g/dL (3.5-5.2); Alkaline Phosphatase 60 IU/L (35-105); Anion Gap 16.5 (5-19); Aspartate Amino Transferase 22 U/L (0-32); Blood Urea Nitrogen 4 mg/dL (8-23); C Reactive Protein 16.7 mg/L (0.0-4.9); Calcium 8.7 mg/dL (8.5-10.5); Carbon Dioxide 20 mmol/L (22-29); Chloride 105 mmol/L (98-107); Creatinine Clr Calc Pharmacy 47.8724; Globulin 3.2 g/dL (1.3-4.6); Glucose 112 mg/dL (74-106); Potassium 3.5 mmol/L (3.5-5.1); Sodium 138 mmol/L (136-145); Total Bilirubin 0.2 mg/dL (0.15-1.2); Total Protein 6.1 g/dL (6.6-8.7)
--- NOTE | 2019-11-08 08:30 | USR_ITS ---
PROCEDURE INFORMATION: Exam: US Duplex Right Lower Extremity Veins, Limited Exam date and time: 11/08/2019 8:32 AM Age: 84 years old Clinical indication: Swelling (edema) of limb; Upper extremity, right; Additional info: Arm swelling TECHNIQUE: Imaging protocol: Real-time Duplex ultrasound of the Right Lower Extremity with 2-D mcdowell scale, color Doppler flow and spectral waveform analysis with image documentation. Limited exam was focused on the right lower extremity veins. COMPARISON: No relevant prior studies available. FINDINGS: Right deep veins: Unremarkable. The common femoral, femoral, proximal profunda femoral and popliteal veins are patent without thrombus. Normal Doppler waveforms. Normal compressibility and/or augmentation response. Right superficial veins: Unremarkable. Saphenofemoral junction is patent without thrombus. Soft tissues: Diffuse right arm edema. Other findings: No DVT. [place] [id number] IMPRESSION: 1. Diffuse right arm edema. 2. No DVT.
--- NOTE | 2019-11-08 08:35 | USR_ITS ---
PROCEDURE INFORMATION: Exam: US Abdomen Limited, Right Upper Quadrant Exam date and time: 11/08/2019 10:05 AM Age: 84 years old Clinical indication: Nausea; Additional info: Gallbladder US TECHNIQUE: Imaging protocol: Real-time ultrasound of the abdomen with image documentation. Examination was focused on the right upper quadrant. COMPARISON: US abdomen limited [id number] 05/21/2018 7:14 AM FINDINGS: Liver: 12.5 cm liver. Gallbladder: 2 mm gallbladder wall. Possible gallbladder Phrygian cap. Common bile duct: 4 mm common bile duct. Pancreas: Visualized pancreas is unremarkable. Right kidney: 11.5 x 4.3 x 4.3 cm right kidney with 1.3 cm right renal cortex. Aorta: 1.5 cm proximal abdominal aortic diameter. Other findings: Examination is limited by bowel gas. US/US abdomen limited [id number] IMPRESSION: Normal gallbladder.
--- NOTE | 2019-11-08 08:40 | PM.PN ---
Subjective Subjective: Interval history: Nausea is improved significantly overnight. Doing better this morning. Actually sipping on some juice this morning. No fevers or chills. No chest pain. No shortness of breath. Right arm has swollen up some but we think that is from when infiltrate. No redness or pain. Still having some diarrhea but not as bad as it was. No abdominal pain. Vitals/I&O/Wt Last Vital Signs Temp 98.1 F 11/08/19 07:31 Pulse 72 11/08/19 07:31 Resp 18 11/08/19 07:31 BP 179/72 11/08/19 07:31 Pulse Ox 95 11/08/19 07:31 11/07/19 11/08/19 11/08/19 22:59 06:59 14:59 Intake Total 1150 / 2350 50 / 2350 Balance 1150 / 2350 50 / 2350 Weight last 48 hrs Weight 150 lb 3.2 oz Weight 149 lb Physical Exam Narrative: EXAM NARRATIVE: General: No acute distress, Alert. Well nourished. Heart: Regular rate and rhythm. No murmurs, rubs or gallops. Normal capillary refill. Lungs: Clear to auscultation. No wheezes, rhonchi or rales. Abdomen: Positive bowel sounds. Non-tender, non-distended. No hepatosplenomegaly. No gaurding. Extremities: No clubbing, cyanosis, or edema. Negative Virgen's Data : 11/08/19 05:35 11/08/19 05:35 A&P Assessment and plan (1) Colitis: Still suspect this is infectious. Seems to be improving, but slowly. CRP is markedly improved. Doing oral vancomycin, IV Zosyn and Flagyl. We will hold off on colonoscopy as long as we continue to have improvement. Cultures have been negative by multiple times. Still not taking very good oral intake with no appetite. We will check a gallbladder ultrasound today. With right arm swelling we will get an ultrasound of her arm today as well. Continue PPN at the same dosing for now. Status: Acute Code(s): K52.9 - Noninfective gastroenteritis and colitis, unspecified (2) Pulmonary embolism: Continue Eliquis. Status: Acute Code(s): I26.99 - Other pulmonary embolism without acute cor pulmonale (3) Dysphagia: Status: Acute Code(s): R13.10 - Dysphagia, unspecified (4) Anemia: This may be secondary to colitis and anticoagulation. Monitor this closely. May need to stop some of the anticoagulation. Status: Acute Code(s): D64.9 - Anemia, unspecified Attestations Medical Necessity Statement*: 84-year-old female with severe colitis requiring continued inpatient treatment with IV therapies. 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
--- NOTE | 2019-11-08 08:43 | PC.NURSE ---
New IV placed in left forearm, 20 g x1 attempt with good blood return. IV to right AC pulled out while patient up to bathroom. Site where IV was is noted to be swollen, and pink at insertion site.
[2019-11-08] MEDS: metoprolol tartrate 50 mg Tablet PO ×2 (09:52→17:23)
[2019-11-08] MEDS: pantoprazole DR 40 mg Tablet PO (09:52)
[2019-11-08] MEDS: losartan 50 mg Tablet PO ×2 (09:52→17:22)
[2019-11-08] MEDS: lactobacillus 1 Tablet 4 TAB PO ×3 (09:52→21:27)
[2019-11-08] MEDS: clopidogrel 75 mg Tablet PO (09:53)
[2019-11-08] MEDS: apixaban 5 mg Tablet PO ×2 (09:53→17:23)
[2019-11-08] MEDS: isosorbide mononitrate ER 30 mg Tablet PO ×2 (09:53→17:23)
--- NOTE | 2019-11-08 09:55 | PC.NURSE ---
Ultrasound in room finishing ordered procedure at this time. 0 s/s of distress noted.
--- NOTE | 2019-11-08 13:44 | PC.NURSE ---
Pt resting in bed. Cool wash cloth placed on right arm R/T swelling from previous IV. Pt denies any complaints at this time. Pt does state that when she tried to eat her sandwich at lunch she felt a little nauseous 0 s/s of distress noted at this time.
--- NOTE | 2019-11-08 15:20 | PC.NURSE ---
Pt resting quietly in bed with eyes closed Daughter at bedside. Call to Dr Reaves regarding unable to obtain second IV site. Order to place IV in foot if able to obtain.
[2019-11-08] MEDS: ondansetron 2 mg/ML SDV 2 mL 4 MG IVP (17:23)
--- NOTE | 2019-11-08 18:17 | PC.NURSE ---
Attempt to obtain IV in left foot x1 attempt w/o success.
[2019-11-08] MEDS: sodium chlor 0.9% + KCl 20 mEq 20 MEQ/1,000 ML BAG 125 MEQ IV (20:13)
[2019-11-08] MEDS: acetaminophen 325 mg Tablet 650 MG PO (21:27)
[2019-11-09] VITALS (8 sets, daily range): BP systolic 154–193; BP diastolic 60–90; PULSE 74–95; RESP 17–24; TEMP 36.5–36.9; O2SAT 92–98
[2019-11-09] MEDS: piperacillin-tazobactam 3.375 GM in sodium chloride 0.9% (plus) 50 ML IV ×3 (01:02→17:22)
[2019-11-09] MEDS: metroNIDAZOLE IV 500 MG/100 ML PREMIX 100 MG IV ×3 (05:03→21:03)
[2019-11-09] MEDS: sodium chlor 0.9% + KCl 20 mEq 20 MEQ/1,000 ML BAG 125 MEQ IV (05:04)
--- NOTE | 2019-11-09 07:43 | CTR_ITS ---
PROCEDURE INFORMATION: Exam: CT Abdomen And Pelvis With Contrast Exam date and time: 11/09/2019 7:51 AM Age: 84 years old Clinical indication: Abdominal tenderness and other: Colitis; Abdominal pain; Generalized; Prior surgery; Surgery date: 6+ months; Surgery type: Gb, hyst; Additional info: Colitis follow up TECHNIQUE: Imaging protocol: Computed tomography of the abdomen and pelvis with intravenous contrast. Total DLP: 835.08 mGy-cm Radiation optimization: All CT scans at this facility use at least one of these dose optimization techniques: automated exposure control; mA and/or kV adjustment per patient size (includes targeted exams where dose is matched to clinical indication); or iterative reconstruction. Contrast material: Omnipaque 300; Contrast volume: 95 ml; Contrast route: IV; COMPARISON: CT abdomen pelvis w con* [id number] 11/04/2019 3:40 PM FINDINGS: Liver: Normal. No mass. Gallbladder and bile ducts: A normal gallbladder appears to be present despite the clinical history. No calculi. Pancreas: Normal. No ductal dilation. Spleen: Normal. No splenomegaly. Adrenals: Normal. No mass. Kidneys and ureters: Mild bilateral renal cortical scarring. 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 Distal small bowel luminal dilatation likely secondary to right colonic partial obstruction. Appendix: No evidence of appendicitis. Intraperitoneal space: Nonspecific mild posterior pelvic peritoneal fluid. Vasculature: Marked aortic atherosclerotic calcification without aneurysm. The iliac arteries show marked bilateral atherosclerotic calcifications without evidence of aneurysm. LAD and RCA calcified coronary atherosclerosis. Lymph nodes: Abnormal lymph nodes medial to the ascending colon demonstrating peripheral enhancement and infiltration of the surrounding adipose, the largest measuring up to 2 9.6 mm short axis, approximately 8 in number. Bladder: 2.4 mm periurethral calculus redemonstrated. Reproductive: The uterus is status post hysterectomy. The ovaries are not identified. Bones/joints: L5-S1 spondylosis with LEFT neural foraminal stenosis. No acute fracture. Soft tissues: Unremarkable. Other findings: Benign-appearing left mammary macrocalcification. CT/CT abdomen pelvis w con* [id number] IMPRESSION: 1. 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 2. Abnormal pericolonic lymphadenopathy as described. Neoplastic involvement suggested. 3. Mild bilateral renal cortical scarring. 4. Nonspecific mild posterior pelvic peritoneal fluid, new. 5. Prior hysterectomy. 6. Coronary atherosclerosis. Radiation Dose CTDIVOL = (mGy): DLP = 835.08 (mGy-cm)
--- NOTE | 2019-11-09 07:46 | P.PN_ITS ---
Subjective Subjective: Interval history: Overall her nausea is improved. She did have one episode of emesis yesterday evening but she thinks it was after taking the oral vancomycin. No fevers or chills. No significant abdominal pain. Diarrhea seems to be improving some though. She continues to have no appetite though. She has very poor IV access. Vitals/I&O/Wt Last Vital Signs Temp 98 F 11/09/19 04:00 Pulse 78 11/09/19 04:00 Resp 17 11/09/19 04:00 BP 165/84 11/09/19 04:00 Pulse Ox 93 11/09/19 04:00 11/08/19 11/09/19 11/09/19 22:59 06:59 14:59 Intake Total 660 / 2510 1240 / 2510 Output Total 425 / 425 Balance 235 / 2085 1240 / 5 Weight last 48 hrs Weight 150 lb 1.6 oz Weight 150 lb 3.2 oz Physical Exam Narrative: EXAM NARRATIVE: General: No acute distress, Alert. Well nourished. Heart: Regular rate and rhythm. No murmurs, rubs or gallops. Normal capillary refill. Lungs: Clear to auscultation. No wheezes, rhonchi or rales. Abdomen: Positive bowel sounds. Non-tender, non-distended. No hepatosplenomegaly. No gaurding. Extremities: No clubbing, cyanosis, or edema. Negative Virgen's Data : 11/08/19 05:35 11/08/19 05:35 A&P Assessment and plan (1) Colitis: Still suspect this is infectious. Seems to be improving, but slowly. CRP is markedly improved. Doing oral vancomycin, IV Zosyn and Flagyl. We will hold off on colonoscopy as long as we continue to have improvement. Cultures have been negative by multiple times. Still not taking very good oral intake with no appetite. -Gallbladder ultrasound was negative -We will proceed with repeat CT scan of the abdomen and pelvis this morning. -Continue PPN and encourage better oral intake. -Plan for PICC line in the morning for better IV access. Status: Acute Code(s): K52.9 - Noninfective gastroenteritis and colitis, unspecified (2) Pulmonary embolism: Continue Eliquis. Status: Acute Code(s): I26.99 - Other pulmonary embolism without acute cor pulmonale (3) Dysphagia: Status: Acute Code(s): R13.10 - Dysphagia, unspecified (4) Anemia: This may be secondary to colitis and anticoagulation. Monitor this closely. May need to stop some of the anticoagulation. Status: Acute Code(s): D64.9 - Anemia, unspecified Attestations Medical Necessity Statement*: Patient is 84-year-old female with significant colitis and poor appetite requiring continued inpatient monitoring and treatment. 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
[2019-11-09] MEDS: lactobacillus 1 Tablet 4 TAB PO ×3 (08:16→21:00)
[2019-11-09] MEDS: losartan 50 mg Tablet PO ×2 (08:16→17:22)
[2019-11-09] MEDS: metoprolol tartrate 50 mg Tablet PO ×2 (08:17→17:22)
[2019-11-09] MEDS: apixaban 5 mg Tablet PO ×2 (08:17→17:22)
[2019-11-09] MEDS: clopidogrel 75 mg Tablet PO (08:17)
[2019-11-09] MEDS: pantoprazole DR 40 mg Tablet PO (08:17)
[2019-11-09] MEDS: isosorbide mononitrate ER 30 mg Tablet PO ×2 (08:17→17:22)
[2019-11-09] MEDS: iohexol 300 mg/mL 100 mL Btl IV (08:21)
--- NOTE | 2019-11-09 09:24 | PC.SOCIAL ---
IMM Update Pg. 2 of IMM given and explained to patient. Copy provided.
--- NOTE | 2019-11-09 11:27 | PC.NURSE ---
Pt resting in bed with eyes closed. 0 s/s of distress noted. Resp even and unlabored.
[2019-11-09] MEDS: ondansetron 2 mg/ML SDV 2 mL 4 MG IVP ×2 (11:44→15:09)
--- NOTE | 2019-11-09 12:29 | PC.NURSE ---
Call from Dr Reaevs at this time for update. Reported patient IV to left FA began leaking and had to be removed, and that TPN was being ran through that site. Order to hold TPN and continue with fluids and iv abt at this time.
--- NOTE | 2019-11-09 15:05 | PC.NURSE ---
Call to Dr Reaves regarding patient emesis x1, and abdominal pain. New orders received to DC oral vancomycin and for toradol 15mg IVP Q6 hours as needed.
[2019-11-09] MEDS: ketorolac 30 mg/mL INJ 15 MG IVP (15:09)
--- NOTE | 2019-11-09 15:29 | PC.NURSE ---
Pt with small emesis x2. PRN medication given as ordered.
[2019-11-09] MEDS: acetaminophen 325 mg Tablet 650 MG PO (21:00)
[2019-11-10] VITALS (7 sets, daily range): BP systolic 153–187; BP diastolic 67–92; PULSE 73–106; RESP 17–24; TEMP 36.6–37.2; O2SAT 91–98
[2019-11-10] MEDS: piperacillin-tazobactam 3.375 GM in sodium chloride 0.9% (plus) 50 ML IV ×3 (00:59→17:29)
[2019-11-10] MEDS: metroNIDAZOLE IV 500 MG/100 ML PREMIX 100 MG IV ×3 (05:03→20:49)
[2019-11-10 06:38] LABS: Basophils % 0.6 %; Eosinophils # 0.2 10^3/uL (0.0-0.8); Eosinophils % 3.4 %; Hematocrit 29.4 % (37.0-47.0); Hemoglobin 8.8 g/dL (11.5-15.3); Lymphocytes # 1.9 10^3/uL (0.8-4.8); Lymphocytes % 35.9 %; Mean Corpuscular HGB Conc 29.9 g/dL (30.0-36.0); Mean Corpuscular Hemoglobin 24.6 pg (28.0-34.0); Mean Corpuscular Volume 82.4 fL (81-99); Mean Platelet Volume 9.6 fL (7.4-10.4); Monocytes # 0.4 10^3/uL (0.2-0.9); Monocytes % 7.9 %; Neutrophils # 2.8 10^3/uL (1.8-7.7); Neutrophils % 51.8 %; Nucleated Red Blood Cells % 0 %; Platelet Count 304 10^3/cmm (130-400); Red Blood Count 3.57 10^6/uL (4.1-5.3); Red Cell Distribution Width 18.4 % (12.1-15.1); White Blood Count 5.4 10^3/uL (4.0-10.0)
[2019-11-10 06:42] LABS: Alanine Aminotransferase 10 U/L (0-33); Albumin Level 3.2 g/dL (3.5-5.2); Alkaline Phosphatase 55 IU/L (35-105); Anion Gap 13.3 (5-19); Aspartate Amino Transferase 23 U/L (0-32); Blood Urea Nitrogen 4 mg/dL (8-23); C Reactive Protein 9.3 mg/L (0.0-4.9); Calcium 8.9 mg/dL (8.5-10.5); Carbon Dioxide 26 mmol/L (22-29); Chloride 102 mmol/L (98-107); Glucose 101 mg/dL (74-106); Potassium 3.3 mmol/L (3.5-5.1); Sodium 138 mmol/L (136-145); Total Bilirubin 0.4 mg/dL (0.15-1.2); Total Protein 6.2 g/dL (6.6-8.7)
--- NOTE | 2019-11-10 06:59 | PM.PN ---
Subjective Subjective: Interval history: Overall her nausea is improved. She had one episode of emesis but again thinks it is associated with the vancomycin. This was stopped. Diarrhea is improved significantly. She still has some intermittent pain. No pain this morning though. Vitals/I&O/Wt Last Vital Signs Temp 98.0 F 11/10/19 04:00 Pulse 73 11/10/19 04:00 Resp 20 H 11/10/19 04:00 BP 153/67 11/10/19 04:00 Pulse Ox 97 11/10/19 04:00 11/09/19 11/09/19 11/10/19 14:59 22:59 06:59 Intake Total 750 / 1380 630 / 1380 Output Total 300 / 550 250 / 550 Balance 450 / 830 380 / 830 Weight last 48 hrs Weight 146 lb 12.8 oz Weight 146 lb 12.8 oz Weight 150 lb 1.6 oz Physical Exam Narrative: EXAM NARRATIVE: General: No acute distress, Alert. Well nourished. Heart: Regular rate and rhythm. No murmurs, rubs or gallops. Normal capillary refill. Lungs: Clear to auscultation. No wheezes, rhonchi or rales. Abdomen: Positive bowel sounds. Non-tender, non-distended. No hepatosplenomegaly. No gaurding. Extremities: No clubbing, cyanosis, or edema. Negative Virgen's Data : 11/10/19 06:16 11/10/19 06:16 CT Abd/Pel: Radiologist's impression: CT/CT abdomen pelvis w con* [id number] IMPRESSION: 1. 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 2. Abnormal pericolonic lymphadenopathy as described. Neoplastic involvement suggested. 3. Mild bilateral renal cortical scarring. 4. Nonspecific mild posterior pelvic peritoneal fluid, new. 5. Prior hysterectomy. 6. Coronary atherosclerosis. 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 I will review this with the radiologist this morning. Most likely proceed with consultation of surgery to attempt colonoscopy and biopsy. - Still suspect there is an infectious component. Some of her symptoms have improved including the diarrhea with the antibiotics. She does not seem to be tolerating vancomycin well though. Her CRP is now down to 9 from initially being over 100 on admission. Continue with IV Flagyl and Zosyn. -Gallbladder ultrasound was negative -She has poor IV access we will plan for PICC line today.. Status: Acute Code(s): K52.9 - Noninfective gastroenteritis and colitis, unspecified (2) Pulmonary embolism: Continue Eliquis. Status: Acute Code(s): I26.99 - Other pulmonary embolism without acute cor pulmonale (3) Dysphagia: Status: Acute Code(s): R13.10 - Dysphagia, unspecified (4) Anemia: This may be secondary to colitis and anticoagulation. Monitor this closely. May need to stop some of the anticoagulation. Status: Acute Code(s): D64.9 - Anemia, unspecified Attestations Medical Necessity Statement*: 84-year-old female with colitis and pulmonary embolism and possible colon cancer requiring continued inpatient treatment and monitoring. 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
[2019-11-10] MEDS: labetalol 5 mg/mL SDV 20mL 10 MG IVP (08:14)
[2019-11-10] MEDS: isosorbide mononitrate ER 30 mg Tablet PO ×2 (08:15→17:29)
[2019-11-10] MEDS: clopidogrel 75 mg Tablet PO (08:15)
[2019-11-10] MEDS: losartan 50 mg Tablet PO ×2 (08:15→17:29)
[2019-11-10] MEDS: lactobacillus 1 Tablet 4 TAB PO ×3 (08:15→20:45)
[2019-11-10] MEDS: pantoprazole DR 40 mg Tablet PO (08:15)
[2019-11-10] MEDS: metoprolol tartrate 50 mg Tablet PO ×2 (08:15→17:29)
[2019-11-10] MEDS: apixaban 5 mg Tablet PO (08:15)
--- NOTE | 2019-11-10 12:00 | XR_ITS ---
WS: [id number] PORTABLE CHEST HISTORY: PICC PLACEMENT COMPARISON: 04/16/2018 Right-sided PICC line terminates in the distal SVC/RIGHT atrial junction. Lungs are clear and well expanded. No pleural effusion or pneumothorax. Cardiac size: Mildly enlarged cardiac silhouette. Mediastinum/Aorta: Mild atherosclerosis aorta. Surgical clips overlying the LEFT lower neck. No osseous abnormality seen. XR/XR chest 1V portable [id number] IMPRESSION: Satisfactory positioning of a RIGHT PICC line.
--- NOTE | 2019-11-10 12:05 | PC.NURSE ---
Dr Reaves in patient room discussing plan of care with patient and family
--- NOTE | 2019-11-10 13:05 | PC.NURSE ---
Pt off unit having PICC line placed per Dr washington
--- NOTE | 2019-11-10 14:17 | PC.NURSE ---
Pt resting in bed with eyes closed. 0 s/s of distress noted.
--- NOTE | 2019-11-10 16:18 | PM.CONSULT ---
Providers/Reason For Consult Consulting Physican/Specialty*: Dr. Reaves Reason for Consult*: Ascending colon mass Attending Physician: Ousmane Reaves MD Primary Care Provider: Ousmane Reaves MD History of Present Illness History of Present Illness Ana Laurent is a 84 year old female who has been having a rough course over the last 4 months with abdominal pain, nausea vomiting and chronic diarrhea. She has had multiple school cultures which have been negative. She was recently diagnosed with PE and has been on Eliquis. She was seen in the clinic with abdominal pain, worsening diarrhea and weakness and was therefore admitted to the hospital for IV antibiotics. She had a repeat CT scan today which showed worsening inflammation with mass in the ascending colon. In the hospital she continues to have multiple loose bowel movements and she had one episode of nausea and vomiting prior to my evaluation. She has had a colonoscopy a long time ago. Her father had colon cancer. Review of Systems General: Reports: 10 or more systems reviewed and unremarkable except in HPI and below Meds/Allergies Home Medications and Allergies Home Medications Medication Instructions Recorded Confirmed Type acetaminophen [Tylenol Extra 500 mg PO DAILY PRN 10/21/19 11/05/19 History Strength] clopidogrel [Plavix] 75 mg PO DAILY 10/21/19 11/05/19 History coenzyme Q10 [CoQ-10] 100 mg PO BEDTIME 10/21/19 11/05/19 History isosorbide mononitrate 30 mg PO BID 10/21/19 11/05/19 History losartan 50 mg PO DAILY 10/21/19 11/05/19 History metoprolol tartrate 100 mg PO BID 10/21/19 11/05/19 History nitroglycerin [Nitrostat] 0.4 mg SUBLINGUAL Q5M PRN 10/21/19 11/05/19 History sertraline [Zoloft] 100 mg PO DAILY 10/21/19 11/05/19 History glucosamine sulfate [Glucosamine] 1,000 mg PO DAILY 11/04/19 11/05/19 History rosuvastatin [Crestor] 20 mg PO BEDTIME 11/04/19 11/05/19 History Allergies Allergy/AdvReac Type Severity Reaction Status Date / Time morphine Allergy Unknown Unknown Verified 10/21/19 14:37 Sulfa (Sulfonamide Allergy Unknown Unknown Verified 10/21/19 14:37 Antibiotics) belladonna alkaloids Allergy Unknown Verified 11/04/19 16:37 imipramine Allergy Unknown Verified 11/04/19 16:37 nitrofurantoin Allergy Unknown Verified 11/04/19 16:37 Current Medications Current Medications Generic Name Dose Route Start Last Admin Trade Name Freq PRN Reason Stop Dose Admin Acetaminophen 650 mg 11/04/19 21:00 11/09/19 21:00 Tylenol PO 650 mg BEDTIME NICK Administration Apixaban 5 mg 11/04/19 18:00 11/10/19 08:15 Eliquis PO 5 mg BID NICK Administration Clopidogrel Bisulfate 75 mg 11/05/19 09:00 11/10/19 08:15 Plavix PO 75 mg DAILY NICK Administration Piperacillin Sod/Tazobactam 50 mls @ 12.5 mls/hr 11/04/19 18:00 11/10/19 08:14 Sod 3.375 gm/ Sodium Chloride IV 12.5 mls/hr Q8H NICK Administration Protocol Metronidazole 500 mg in 100 mls @ 100 mls/hr 11/04/19 16:30 11/10/19 14:05 Flagyl Iv IV 100 mls/hr Q8H NICK Administration Protocol Multivitamins 10 ml/ Chromium/ 1,015 mls @ 42 mls/hr 11/08/19 16:30 11/08/19 17:17 Copper/Manganese/Zinc 5 ml/ IV 42 mls/hr Amino Acids/Electrolytes .Q24H NICK Administration Fat Emulsion Intravenous 125 mls @ 10.417 mls/hr 11/07/19 17:00 11/08/19 17:18 Intralipid 20% IV 10.4 mls/hr Q24H NICK Administration Isosorbide Mononitrate 30 mg 11/04/19 18:00 11/10/19 08:15 Imdur PO 30 mg BID NICK Administration Ketorolac Tromethamine 15 mg 11/09/19 15:01 11/09/19 15:09 Toradol IVP 11/14/19 15:00 15 mg Q6H PRN Administration MODERATE PAIN Labetalol HCl 10 mg 11/07/19 16:22 11/10/19 08:14 Trandate IVP 10 mg Q2H PRN Administration for high blood pressure Lactobacillus Acidophilus 4 tab 11/04/19 21:00 11/10/19 15:27 Floranex PO 4 tab TID NICK Administration Losartan Potassium 50 mg 11/07/19 18:00 11/10/19 08:15 Cozaar PO 50 mg BID NICK Administration Metoprolol Tartrate 50 mg 11/04/19 18:00 11/10/19 08:15 Lopressor PO 50 mg BID NICK Administration Ondansetron HCl 4 mg 11/04/19 13:15 11/09/19 15:09 Zofran IVP 4 mg Q4H PRN Administration NAUSEA AND VOMITING Pantoprazole Sodium 40 mg 11/05/19 09:00 11/10/19 08:15 Protonix PO 40 mg DAILY NICK Administration PFSH Acute PFSH: Statuses (acute, chronic, etc) shown below reflect problem list status as previously entered and may not be historically accurate Medical History (Updated 11/10/19 @ 21:45 by Torey Kwon MD) Coronary arteriosclerosis (Acute) Pulmonary embolism (Acute) Surgical History History of hysterectomy (Acute) Family History (Updated 10/21/19 @ 14:19 by Ruthie Altman RN) Sister Cancer Mother Cardiac complication Father Cardiac complication Social History (Updated 10/21/19 @ 14:22 by Ruthie Altman RN) Smoking and tobacco status: former smoker Quit status (tobacco): has quit using tobacco Second hand smoke exposure: No Smoking risk assessment/counseling performed?: No Alcohol intake: former Desire information about alcohol rehabilitation?: No Counseling given: No Marital status: Number of children: 5 Number of grandchildren: 29 Highest education level completed: High School Graduate service: No Current occupational status: retired Vitals/I&O/Wt Last Vital Signs Temp 98.2 F 11/10/19 12:00 Pulse 91 11/10/19 16:02 Resp 18 11/10/19 12:00 BP 165/75 11/10/19 12:00 Pulse Ox 96 11/10/19 16:02 11/10/19 11/10/19 11/10/19 06:59 14:59 22:59 Intake Total 150 / 1530 Balance 150 / 980 Weight last 48 hrs Weight 146 lb 12.8 oz Weight 146 lb 12.8 oz Weight 150 lb 1.6 oz Physical Exam Narrative: EXAM NARRATIVE: HEENT: Normocephalic Eye: Sclera /conjunctiva normal Respiratory and chest: Bilateral clear breath sounds on auscultation Cardiovascular: Normal S1 and S2 heart sounds Abdomen: Soft to palpation, soft, minimally distended, tender, no guarding or rigidity Neurological: Oriented to place person and time Skin: Intact, no lesions appreciated on gross exam Data Imaging^: CT Abd/Pel: Radiologist's impression: 1. 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 2. Abnormal pericolonic lymphadenopathy as described. Neoplastic involvement suggested. 3. Mild bilateral renal cortical scarring. 4. Nonspecific mild posterior pelvic peritoneal fluid, new. 5. Prior hysterectomy. 6. Coronary atherosclerosis. A&P Assessment and plan (1) Pulmonary embolism: We will hold the Eliquis tomorrow prior to colonoscopy the day after. We can start the Lovenox after the colonoscopy. Status: Acute Code(s): I26.99 - Other pulmonary embolism without acute cor pulmonale (2) Colonic mass: Will plan for colonoscopy under MAC day after tomorrow Bowel prep instructions placed Clear liquid diet tomorrow Procedure, risks, benefits and alternatives have been discussed with the patient who wishes to proceed with surgery. Status: Acute Code(s): K63.89 - Other specified diseases of intestine Consult Attestations Medical Necessity Statement: Colitis with ascending colon mass Coding Level of Care Code Acute Administrative Officer for Ketan Reddy Diagnoses Pulmonary embolism I26.99 Colonic mass K63.89
--- NOTE | 2019-11-10 19:02 | PC.NURSE ---
Introduction of staff and report received, aidet.
[2019-11-10] MEDS: ondansetron 2 mg/ML SDV 2 mL 4 MG IVP (20:45)
[2019-11-10] MEDS: acetaminophen 325 mg Tablet 650 MG PO (20:47)
[2019-11-10 21:10] LABS: Carcinoembryonic Antigen 72.8 ng/mL (0.0-4.7)
[2019-11-10 22:23] LABS: Glucose Point of Care 116 mg/dL (70-110)
[2019-11-11] VITALS (8 sets, daily range): BP systolic 157–196; BP diastolic 72–91; PULSE 78–98; RESP 16–20; TEMP 36.5–37; O2SAT 90–97
[2019-11-11] MEDS: piperacillin-tazobactam 3.375 GM in sodium chloride 0.9% (plus) 50 ML IV ×3 (01:47→18:23)
[2019-11-11] MEDS: labetalol 5 mg/mL SDV 20mL 10 MG IVP (04:31)
[2019-11-11] MEDS: metroNIDAZOLE IV 500 MG/100 ML PREMIX 100 MG IV ×3 (05:07→21:47)
--- NOTE | 2019-11-11 06:51 | PM.PN ---
Subjective Subjective: Interval history: Overall her nausea is improved. She had an episode of nausea and vomiting again last night. She is starting to have more right upper quadrant abdominal pain. Diarrhea is still doing well.. Vitals/I&O/Wt Last Vital Signs Temp 98.1 F 11/11/19 04:00 Pulse 78 11/11/19 04:00 Resp 17 11/11/19 04:00 BP 183/72 11/11/19 05:50 Pulse Ox 97 11/11/19 04:00 11/10/19 11/10/19 11/11/19 14:59 22:59 06:59 Intake Total 50 / 1020 970 / 1020 Output Total 1500 / 1900 400 / 1900 Balance 50 / -880 -530 / -880 -400 / -880 Weight last 48 hrs Weight 142 lb 14.4 oz Weight 146 lb 12.8 oz Weight 146 lb 12.8 oz Physical Exam Narrative: EXAM NARRATIVE: General: No acute distress, Alert. Well nourished. Heart: Regular rate and rhythm. No murmurs, rubs or gallops. Normal capillary refill. Lungs: Clear to auscultation. No wheezes, rhonchi or rales. Abdomen: Positive bowel sounds. Mild right upper quadrant pain., non-distended. No hepatosplenomegaly. No gaurding. Extremities: No clubbing, cyanosis, or edema. Negative Virgen's Data : 11/10/19 06:16 11/10/19 06:16 A&P Assessment and plan (1) Colitis: -CT scan from 11/09/2019 is suspicious for a constricting colon adenocarcinoma. Surgery is been consulted and will plan for a colonoscopy tomorrow.. - Still suspect there is an infectious component. Some of her symptoms have improved including the diarrhea with the antibiotics. She does not seem to be tolerating vancomycin well though. Her CRP is now down to 9 from initially being over 100 on admission. Continue with IV Flagyl and Zosyn. -Gallbladder ultrasound was negative -PICC line has been placed and will start TPN today.. Status: Acute Code(s): K52.9 - Noninfective gastroenteritis and colitis, unspecified (2) Pulmonary embolism: Continue to hold Eliquis in anticipation of procedure. We will give Lovenox x1 this morning and probably hold anticoagulation until after the colonoscopy is done tomorrow. Status: Acute Code(s): I26.99 - Other pulmonary embolism without acute cor pulmonale (3) Dysphagia: Status: Acute Code(s): R13.10 - Dysphagia, unspecified (4) Anemia: This may be secondary to colitis and anticoagulation. Monitor this closely. May need to stop some of the anticoagulation. Status: Acute Code(s): D64.9 - Anemia, unspecified Attestations Medical Necessity Statement*: This is an 84-year-old female with colitis and a sending colon stricture most likely secondary to malignancy. She requires continued inpatient testing and treatment. Coding Level of Care Code Acute Magazine Supervisor for [facility] Fwd Diagnoses Colitis K52.9 Pulmonary embolism I26.99 Dysphagia R13.10 Anemia D64.9
[2019-11-11] MEDS: enoxaparin 40 mg/0.4 mL Syringe SUBCUT (08:28)
[2019-11-11] MEDS: lactobacillus 1 Tablet 4 TAB PO ×3 (08:29→21:41)
[2019-11-11] MEDS: isosorbide mononitrate ER 30 mg Tablet PO (08:29)
[2019-11-11] MEDS: clopidogrel 75 mg Tablet PO (08:29)
[2019-11-11] MEDS: losartan 50 mg Tablet PO (08:30)
[2019-11-11] MEDS: pantoprazole DR 40 mg Tablet PO (08:31)
[2019-11-11] MEDS: metoprolol tartrate 50 mg Tablet PO (08:31)
[2019-11-11] MEDS: magnesium citrate Btl 296 mL PO (11:40)
[2019-11-11] MEDS: bisacodyl 5 mg Tablet 40 MG PO (11:41)
[2019-11-11] MEDS: ondansetron 2 mg/ML SDV 2 mL 4 MG IVP ×3 (11:41→19:52)
--- NOTE | 2019-11-11 14:03 | XR_ITS ---
WS: [id number] Portable AP upright chest, 11/11/2019 Clinical Data: PICC placement, replaced Comparison: Portable chest, 11/10/2019 Findings: The right PICC line has been replaced. The new PICC line enters from the right and ends in the superior vena cava. No pneumothorax is seen. The pulmonary vascularity is not increased. No pneum onia or pneumothorax is seen. There are surgical clips in the left supraclavicular fossa. XR/XR chest 1V portable [id number] Impression: Right PICC line.
[2019-11-11] MEDS: sodium chloride 0.9% 1,000 ML 30 ML IV (14:05)
--- NOTE | 2019-11-11 19:05 | PC.NURSE ---
Introduction of staff and report received, aidet.
[2019-11-11] MEDS: acetaminophen 325 mg Tablet 650 MG PO (21:41)
[2019-11-12] VITALS (18 sets, daily range): BP systolic 147–204; BP diastolic 70–99; PULSE 81–108; RESP 16–20; TEMP 36.4–36.9; O2SAT 92–100
[2019-11-12] MEDS: ondansetron 2 mg/ML SDV 2 mL 4 MG IVP ×3 (00:36→13:40)
[2019-11-12] MEDS: piperacillin-tazobactam 3.375 GM in sodium chloride 0.9% (plus) 50 ML IV ×2 (00:59→18:15)
[2019-11-12 04:08] LABS: Basophils % 0.2 %; Eosinophils % 0.5 %; Hematocrit 32.4 % (37.0-47.0); Hemoglobin 9.8 g/dL (11.5-15.3); Lymphocytes # 1.6 10^3/uL (0.8-4.8); Lymphocytes % 24.3 %; Mean Corpuscular HGB Conc 30.2 g/dL (30.0-36.0); Mean Corpuscular Hemoglobin 24.8 pg (28.0-34.0); Mean Platelet Volume 10.1 fL (7.4-10.4); Monocytes # 0.4 10^3/uL (0.2-0.9); Monocytes % 6.1 %; Neutrophils # 4.5 10^3/uL (1.8-7.7); Neutrophils % 68.4 %; Nucleated Red Blood Cells % 0 %; Platelet Count 337 10^3/cmm (130-400); Red Blood Count 3.95 10^6/uL (4.1-5.3); Red Cell Distribution Width 18.7 % (12.1-15.1); White Blood Count 6.6 10^3/uL (4.0-10.0)
[2019-11-12 04:26] LABS: Albumin Level 3.1 g/dL (3.5-5.2); Alkaline Phosphatase 57 IU/L (35-105); Anion Gap 16.6 (5-19); Blood Urea Nitrogen 9 mg/dL (8-23); Calcium 9.3 mg/dL (8.5-10.5); Carbon Dioxide 27 mmol/L (22-29); Chloride 99 mmol/L (98-107); Globulin 4.1 g/dL (1.3-4.6); Glucose 224 mg/dL (74-106); Potassium 3.6 mmol/L (3.5-5.1); Sodium 139 mmol/L (136-145); Total Bilirubin 0.4 mg/dL (0.15-1.2); Total Protein 7.2 g/dL (6.6-8.7)
[2019-11-12 05:27] LABS: C Reactive Protein 14.3 mg/L (0.0-4.9)
[2019-11-12 05:52] LABS: Alanine Aminotransferase 12 U/L (0-33); Aspartate Amino Transferase 30 U/L (0-32)
[2019-11-12] MEDS: labetalol 5 mg/mL SDV 20mL 10 MG IVP (06:57)
[2019-11-12] MEDS: metroNIDAZOLE IV 500 MG/100 ML PREMIX 100 MG IV ×3 (07:15→21:55)
--- NOTE | 2019-11-12 08:36 | P.PN_ITS ---
Subjective Subjective: Interval history: Patient a lot more nausea and vomiting overnight. Having more abdominal pain. No fevers or chills. Vitals/I&O/Wt Last Vital Signs Temp 97.9 F 11/12/19 08:30 Pulse 87 11/12/19 08:30 Resp 18 11/12/19 08:30 BP 147/96 11/12/19 08:30 Pulse Ox 94 11/12/19 08:30 11/11/19 11/12/19 11/12/19 22:59 06:59 14:59 Intake Total 250 / 600 300 / 600 Output Total 750 / 750 Balance 250 / -150 -450 / -150 Weight last 48 hrs Weight 145 lb 1.6 oz Weight 142 lb 14.4 oz Physical Exam Narrative: EXAM NARRATIVE: General: No acute distress, Alert. Well nourished. Heart: Regular rate and rhythm. No murmurs, rubs or gallops. Normal capillary refill. Lungs: Clear to auscultation. No wheezes, rhonchi or rales. Abdomen: Positive bowel sounds. Mild right upper quadrant pain., non-distended. No hepatosplenomegaly. No gaurding. Extremities: No clubbing, cyanosis, or edema. Negative Virgen's Data : 11/12/19 03:28 11/12/19 03:28 A&P Assessment and plan (1) Colitis: -CT scan from 11/09/2019 is suspicious for a constricting colon adenocarcinoma. CEA level was elevated. Surgery is been consulted and will plan for a colonoscopy this morning probable resection tomorrow. I feel like she is having some obstruction from this and will probably need an NG tube this morning... - Still suspect there is an infectious component. Some of her symptoms have improved including the diarrhea with the antibiotics. She does not seem to be tolerating vancomycin well though. Her CRP is now down to 9 from initially being over 100 on admission. Continue with IV Flagyl and Zosyn. -Gallbladder ultrasound was negative -PICC line has been placed and will continue TPN... Status: Acute Code(s): K52.9 - Noninfective gastroenteritis and colitis, unspecified (2) Pulmonary embolism: Continue to hold Eliquis in anticipation of procedure. We will give Lovenox x1 this morning and probably hold anticoagulation until after the colonoscopy is done. Status: Acute Code(s): I26.99 - Other pulmonary embolism without acute cor pulmonale (3) Dysphagia: Status: Acute Code(s): R13.10 - Dysphagia, unspecified (4) Anemia: This may be secondary to colitis and anticoagulation. Monitor this closely. May need to stop some of the anticoagulation. 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 Coding Level of Care Code Acute Director Biology for [facility] Fwd Diagnoses Colitis K52.9 Pulmonary embolism I26.99 Dysphagia R13.10 Anemia D64.9
[2019-11-12] MEDS: sodium chloride 0.9% 1,000 ML 30 ML IV ×2 (08:40→14:26)
--- NOTE | 2019-11-12 08:48 | ANES.PREANES ---
Pre-Anesthetic Assessment Pre-Anesthetic Assessment: Height/Weight: Height 1.55 m Weight 65.816 kg Temp Pulse Resp BP Pulse Ox 97.9 F 87 18 147/96 94 11/12/19 08:30 11/12/19 08:30 11/12/19 08:30 11/12/19 08:30 11/12/19 08:30 Preop Diagnosis: Ascending colon mass Proposed Procedure: Operation Date: 11/12/19 12:40 Proposed Procedures p Colonoscopy(Not Applicable) - Torey Kwon MD Familial anesthetic complications: No trouble with anesthisa Was Beta Daniel taken within 24 hours: N/A Last intake: NPO for days, unfortunately since taking the colon prep patient has been vomiting quite a bit, currently nauseated. Last vomited < 1 hr ago Social: Packs per day: Former smoker (20 pack years, quit at age 50) Comment: Former alcohol, quit drinking at age 50 Airway: Cervical ROM: WNL MP: 1 Dentition: Chipped (missing and crowns) Additional comments: [place] artery bypass in 1988 Pulmonary: Pulmonary: Sleep apnea (CPAP (but not wearing it)) and SOB Comments: Patient found to saddle thrombus (PE), with out pulmonary infarction or significant RV strain. She is was on eliquis (PE) and plavix (for stent), she'd been having increase SOB and fatigue, came to hsopital with mild hypoxia CV/HEM: CV/HEM: CAD Comments: Stents,l most recent one in RCA in sep 02. Echo 10/24/19 w/ ef 64%, LVH grade I diastolic dysfunction, mild MVR, trace TVR, PVR, mild to mod LVH : : None reported Hepatic: Hepatic: None reported GI: Comments: Colon mass leading to near obstruction vs inflammation/infectious component. Discussed with surgeon that if patient needs surgery, colonoscopy may be redundant. Doyle states that we do need a diagnosis as this may not actually be cancer and the colonoscopy can potentially help us avoid a more invasive surgery on this high risk patient Metabolic: Metabolic: None reported Musc/skel: Musc/skel: None reported Neuropsych: Neuropsych: None reported Anesthetic Plan: ASA status: V Anesthesia: General Risk of > 500 ml blood loss (7ml/kg in children): No Other Pertinent Information: Patient rescinding DNR during procedure, afterwads she wishes to revert to DNR Meds/Allergies Current Medications: Current Medications Generic Name Dose Route Start Last Admin Trade Name Troyq PRN Reason Stop Dose Admin Acetaminophen 650 mg 11/04/19 21:00 11/11/19 21:41 Tylenol PO 650 mg BEDTIME NICK Administration Apixaban 5 mg 11/04/19 18:00 11/10/19 08:15 Eliquis PO 5 mg BID NICK Administration Clopidogrel Bisulf ate 75 mg 11/05/19 09:00 11/11/19 08:29 Plavix PO 75 mg DAILY NICK Administration Piperacillin Sod/T azobactam 50 mls @ 12.5 mls /hr 11/04/19 18:00 11/12/19 00:59 Sod 3.375 gm/ So dium Chloride IV 12.5 mls/hr Q8H NICK Administration Protocol Metronidazole 500 mg in 100 mls @ 100 mls/hr 11/04/19 16:30 11/12/19 07:15 Flagyl Iv IV 100 mls/hr Q8H NICK Administration Protocol Multivitamins 10 m l/ Chromium/ 1,015 mls @ 0 mls /hr 11/11/19 09:00 11/11/19 09:23 Copper/Manganese/Z inc 5 ml/ IV 30 mls/hr Amino Acids/Electr olytes .Q0M NICK Administration Protocol Per Protocol Fat Emulsion Intra venous 125 mls @ 10.417 mls/hr 11/11/19 09:00 11/11/19 09:25 Intralipid 20% IV 10.4 mls/hr Q24H NICK Administration Sodium Chloride 1,000 mls @ 30 ml s/hr 11/11/19 09:16 11/12/19 08:40 Sodium Chloride 0.9% IV 11/12/19 09:15 30 mls/hr .Q24H ONE Administration Isosorbide Mononit rate 30 mg 11/04/19 18:00 11/11/19 18:26 Imdur PO Not Given BID [facility] Ketorolac Trometha mine 15 mg 11/09/19 15:01 11/09/19 15:09 Toradol IVP 11/14/19 15:00 15 mg Q6H PRN Administration MODERATE PAIN Labetalol HCl 10 mg 11/07/19 16:22 11/12/19 06:57 Trandate IVP 10 mg Q2H PRN Administration for high blood pr essure Lactobacillus Acid ophilus 4 tab 11/04/19 21:00 11/11/19 21:41 Floranex PO 4 tab TID NICK Administration Losartan Potassium 50 mg 11/07/19 18:00 11/11/19 18:26 Cozaar PO Not Given BID NICK Metoprolol Tartrat e 50 mg 11/04/19 18:00 11/11/19 18:26 Lopressor PO Not Given BID NICK Ondansetron HCl 4 mg 11/04/19 13:15 11/12/19 06:00 Zofran IVP 4 mg Q4H PRN Administration NAUSEA AND VOMITI NG Pantoprazole Sodiu m 40 mg 11/05/19 09:00 11/11/19 08:31 Protonix PO 40 mg DAILY NICK Administration PFSH Anesthesia PFSH: Medical History (Updated 11/10/19 @ 21:45 by Torey Kwon MD) Coronary arteriosclerosis (Acute) Pulmonary embolism (Acute) Surgical History (Updated 11/10/19 @ 21:44 by Torey Kwon MD) History of hysterectomy (Acute) Status post colonoscopy (Acute) Family History (Updated 10/21/19 @ 14:19 by Ruthie Altman RN) Sister Cancer Mother Cardiac complication Father Cardiac complication Social History (Updated 10/21/19 @ 14:22 by Ruthie Altman RN) Smoking and tobacco status: former smoker Quit status (tobacco): has quit using tobacco Second hand smoke exposure: No Smoking risk assessment/counseling performed?: No Alcohol intake: former Desire information about alcohol rehabilitation?: No Counseling given: No Marital status: Number of children: 5 Number of grandchildren: 29 Highest education level completed: High School Graduate service: No Current occupational status: retired Data Anesthesia CBC & Chem 7: 11/12/19 03:28 11/12/19 03:28 Other Labs: Laboratory Results - last 48 hr 11/10/19 11/10/19 11/12/19 17:00 21:47 03:28 WBC 6.6 RBC 3.95 L Hgb 9.8 L Hct 32.4 L MCV 82.0 MCH 24.8 L MCHC 30.2 RDW 18.7 H Plt Count 337 MPV 10.1 Neut % (Auto) 68.4 Lymph % (Auto) 24.3 [place] % (Auto) 6.1 Eos % (Auto) 0.5 Baso % (Auto) 0.2 Neut # (Auto) 4.5 Lymph # (Auto) 1.6 [place] # (Auto) 0.4 Eos # (Auto) 0.0 Baso # (Auto) 0.0 Nucleated RBC % (auto) 0 Nucleated RBCs # 0.0 Sodium Potassium Chloride Carbon Dioxide Anion Gap BUN Creatinine Glucose POC Glucose 116 Calcium Total Bilirubin AST ALT Alkaline Phosphatase C-Reactive Protein Total Protein Albumin Globulin Carcinoembryonic Ag 72.8 H 11/12/19 03:28 WBC RBC Hgb Hct MCV MCH MCHC RDW Plt Count MPV Neut % (Auto) Lymph % (Auto) [place] % (Auto) Eos % (Auto) Baso % (Auto) Neut # (Auto) Lymph # (Auto) [place] # (Auto) Eos # (Auto) Baso # (Auto) Nucleated RBC % (auto) Nucleated RBCs # Sodium 139 Potassium 3.6 Chloride 99 Carbon Dioxide 27 Anion Gap 16.6 BUN 9 Creatinine 0.6 Glucose 224 H POC Glucose Calcium 9.3 Total Bilirubin 0.4 AST 30 ALT 12 Alkaline Phosphatase 57 C-Reactive Protein 14.3 H Total Protein 7.2 Albumin 3.1 L Globulin 4.1 Carcinoembryonic Ag Cardiac Studies: No Data to Display
[2019-11-12] MEDS: labetalol 5 mg/mL SDV 20mL IVP ×3 (10:35→11:07)
--- NOTE | 2019-11-12 10:43 | SUR.PHASEI ---
1029- RECEIVED PATIENT IN PACU FROM OR VIA [facility]. RESP ARE EVEN AND NONLABORED. SIMPLE MASK APPLIED AT 6LPM, SAT 100%. SHE IS AWAKE BUT DROWSY. NG TO RIGHT NARE, CLAMPED AND SECURED. SCDS ON AND PUMPING. NO S/S PAIN OR NAUSEA.
--- NOTE | 2019-11-12 10:52 | PM.OP ---
Operative Report Date of procedure: 11/12/19 Pre-op Diagnosis: Ascending colon mass Post-op diagnosis: same Post-op Diagnosis: 7 mm pedunculated polyp sigmoid colon removed with a hot snare Diverticulosis Internal hemorrhoids Procedure Done: Colonoscopy with biopsy using cold biopsy forceps Colonoscopy with polypectomy using hot snare Specimens removed/disposition: Biopsies from ascending colon mass Surgeon: Torey Kwon Anesthesia: General Condition: stable Disposition: PACU Procedure: The patient was taken to the operating room and intubated under general anesthesia. She was placed in left lateral position and an NG tube was placed with drainage of 400 cc of bilious output. Digital rectal exam revealed internal hemorrhoids Ascending colon: There was a circumferential malignant appearing mass noted in the ascending colon beyond which I could not pass the colonoscopy. Multiple biopsies were obtained with cold biopsy forceps Transverse colon: Normal Descending colon: Normal Sigmoid colon: 7 mm pedunculated polyp removed with a hot snare, moderate closest Rectum:: Internal hemorrhoids The patient was transferred to PACU with NG tube in place
--- NOTE | 2019-11-12 10:53 | SUR.PHASEI ---
1055- ATTEMPT TO UPDATE FAMILY IN SURGICAL WAITING AREA, NO FAMILY PRESENT
--- NOTE | 2019-11-12 11:08 | P.PN_ITS ---
Subjective Subjective: Interval history: Patient had multiple episodes of nausea and vomiting though she was able to do the bowel prep Medications: Reviewed: Yes Vitals/I&O/Wt Last Vital Signs Temp 98.2 F 11/12/19 11:05 Pulse 85 11/12/19 11:05 Resp 18 11/12/19 11:05 BP 194/89 11/12/19 11:05 Pulse Ox 97 11/12/19 11:05 11/11/19 11/12/19 11/12/19 22:59 06:59 14:59 Intake Total 250 / 600 300 / 600 557.5 / 557.5 Output Total 750 / 750 0 / 0 Balance 250 / -150 -450 / -150 557.5 / 557.5 Weight last 48 hrs Weight 145 lb 1.6 oz Weight 142 lb 14.4 oz Physical Exam Narrative: EXAM NARRATIVE: Abdomen: Soft, tender, mildly distended Data : 11/12/19 03:28 11/12/19 03:28 A&P Assessment and plan (1) Colonic mass: Plan for colonoscopy under MAC Placement of NG tube while patient is intubated Procedure, risks, benefits and alternatives have been discussed with the patient who wishes to proceed with surgery. Status: Acute Code(s): K63.89 - Other specified diseases of intestine Attestations Medical Necessity Statement*: Colonic mass Coding Level of Care Code Acute Cook Restaurant for Ketan Reddy Diagnoses Colonic mass K63.89
[2019-11-12] MEDS: ketorolac 30 mg/mL INJ 15 MG IVP (13:46)
[2019-11-12 14:06] LABS: Glucose Point of Care 112 mg/dL (70-110)
[2019-11-12] MEDS: lactobacillus 1 Tablet 4 TAB PO ×2 (15:38→21:57)
[2019-11-12] MEDS: losartan 50 mg Tablet PO (18:12)
[2019-11-12] MEDS: isosorbide mononitrate ER 30 mg Tablet PO (18:12)
[2019-11-12] MEDS: metoprolol tartrate 50 mg Tablet PO (18:13)
--- NOTE | 2019-11-12 19:00 | PC.NURSE ---
Introduction of staff and report received, aidet.
[2019-11-12] MEDS: acetaminophen 325 mg Tablet 650 MG PO (21:58)
[2019-11-13] VITALS (27 sets, daily range): BP systolic 124–186; BP diastolic 68–99; PULSE 82–100; RESP 16–24; TEMP 36.4–36.8; O2SAT 90–100
[2019-11-13] MEDS: piperacillin-tazobactam 3.375 GM in sodium chloride 0.9% (plus) 50 ML IV (04:04)
[2019-11-13] MEDS: metroNIDAZOLE IV 500 MG/100 ML PREMIX 100 MG IV ×2 (06:42→17:55)
[2019-11-13] MEDS: losartan 50 mg Tablet PO ×2 (08:44→18:00)
[2019-11-13] MEDS: metoprolol tartrate 50 mg Tablet PO ×2 (08:44→18:00)
[2019-11-13] MEDS: isosorbide mononitrate ER 30 mg Tablet PO ×2 (08:44→17:59)
[2019-11-13] MEDS: phenol oral Spray 177 mL 5 SPRAY MUCOUS MEM (08:45)
--- NOTE | 2019-11-13 09:11 | P.ANES_ITS ---
Pre-Anesthetic Assessment Pre-Anesthetic Assessment: Height/Weight: Height 1.55 m Weight 64.909 kg Temp Pulse Resp BP Pulse Ox 97.5 F L 92 17 162/78 91 11/13/19 07:19 11/13/19 08:48 11/13/19 08:48 11/13/19 08:44 11/13/19 08:48 Preop Diagnosis: Ascending colon mass Proposed Procedure: Operation Date: 11/12/19 12:40 Proposed Procedures p Colonoscopy(Not Applicable) - Torey Kwon MD Operation Date: 11/13/19 09:00 Proposed Procedures p Laparoscopic Colon Resection(Not Applicable) - Torey Kwon MD Last intake: Intake Last Liquid Date 11/12/19 Last Liquid Time 07:00 Last Solid Date 11/12/19 Last Solid Time 23:55 Social: Social History: Tobacco (quit) Exam: Pre-Anes Outpt Exam: alert, oriented x 3, clear to auscultation bilaterally and regular rate & rhythm Airway: Submandibular: WNL Cervical ROM: WNL MP: 2 Dentition: Other (teeth poor) Pulmonary: Pulmonary: POLANCO and Sleep apnea Comments: PE CV/HEM: CV/HEM: CAD and HTN Comments: PTCA 08/2019 : : None reported Hepatic: Hepatic: None reported Metabolic: Metabolic: Hyperlipidemia [facility] [place]/skel: Musc/skel: OA/DJD Neuropsych: Neuropsych: Anxiety and Depression Anesthetic Plan: ASA status: IV Anesthesia: Anesthesia Evaluation Other: Pt very high risk for PE Risk of > 500 ml blood loss (7ml/kg in children): Yes, adequate IV access and fluids planned Meds/Allergies Current Medications: Current Medications Generic Name Dose Route Start Last Admin Trade Name Troyq PRN Reason Stop Dose Admin Acetaminophen 650 mg 11/04/19 21:00 11/12/19 21:58 Tylenol PO 650 mg BEDTIME NICK Administration Clopidogrel Bisulf ate 75 mg 11/05/19 09:00 11/11/19 08:29 Plavix PO 75 mg DAILY NICK Administration Piperacillin Sod/T azobactam 50 mls @ 12.5 mls /hr 11/04/19 18:00 11/13/19 04:04 Sod 3.375 gm/ So dium Chloride IV 12.5 mls/hr Q8H NICK Administration Protocol Metronidazole 500 mg in 100 mls @ 100 mls/hr 11/04/19 16:30 11/13/19 06:42 Flagyl Iv IV 100 mls/hr Q8H NICK Administration Protocol Multivitamins 10 m l/ Chromium/ 1,015 mls @ 0 mls /hr 11/11/19 09:00 11/11/19 09:23 Copper/Manganese/Z inc 5 ml/ IV 30 mls/hr Amino Acids/Electr olytes .Q0M NICK Administration Protocol Per Protocol Fat Emulsion Intra venous 125 mls @ 10.417 mls/hr 11/11/19 09:00 11/12/19 21:30 Intralipid 20% IV Infused Q24H NICK Infusion Isosorbide Mononit rate 30 mg 11/04/19 18:00 11/13/19 08:44 Imdur PO 30 mg BID NICK Administration Ketorolac Trometha mine 15 mg 11/09/19 15:01 11/12/19 13:46 Toradol IVP 11/14/19 15:00 15 mg Q6H PRN Administration MODERATE PAIN Labetalol HCl 5 mg 11/12/19 10:38 11/12/19 11:07 Trandate IVP 5 mg Q2H PRN Administration for high blood pr essure Lactobacillus Acid ophilus 4 tab 11/04/19 21:00 11/12/19 21:57 Floranex PO 4 tab TID [facility] Administration Losartan Potassium 50 mg 11/07/19 18:00 11/13/19 08:44 Cozaar PO 50 mg BID NICK Administration Metoprolol Tartrat e 50 mg 11/04/19 18:00 11/13/19 08:44 Lopressor PO 50 mg BID NICK Administration Ondansetron HCl 4 mg 11/04/19 13:15 11/12/19 13:40 Zofran IVP 4 mg Q4H PRN Administration NAUSEA AND VOMITI NG Pantoprazole Sodiu m 40 mg 11/05/19 09:00 11/11/19 08:31 Protonix PO 40 mg DAILY NICK Administration Phenol 5 spray 11/13/19 07:13 11/13/19 08:45 Phenaseptic MUCOUS MEM 5 spray Q2H PRN Administration SORE THROAT PFSH Anesthesia PFSH: Medical History Congestive heart failure (CHF) (Acute) Coronary arteriosclerosis (Acute) FH: CABG (coronary artery bypass surgery) (Acute) Pulmonary embolism (Acute) Urinary incontinence (Acute) Surgical History History of hysterectomy (Acute) Status post colonoscopy (Acute) Family History Sister Cancer Mother Cardiac complication Father Cardiac complication Social History Smoking and tobacco status: former smoker Quit status (tobacco): has quit using tobacco Second hand smoke exposure: No Smoking risk assessment/counseling performed?: No Alcohol intake: former Desire information about alcohol rehabilitation?: No Counseling given: No Marital status: Number of children: 5 Number of grandchildren: 29 Highest education level completed: High School Graduate service: No Current occupational status: retired Data Anesthesia CBC & Chem 7: 11/12/19 03:28 11/12/19 03:28 Other Labs: Laboratory Results - last 48 hr 11/12/19 11/12/19 11/12/19 03:28 03:28 13:59 WBC 6.6 RBC 3.95 L Hgb 9.8 L Hct 32.4 L MCV 82.0 MCH 24.8 L MCHC 30.2 RDW 18.7 H Plt Count 337 MPV 10.1 Neut % (Auto) 68.4 Lymph % (Auto) 24.3 [place] % (Auto) 6.1 Eos % (Auto) 0.5 Baso % (Auto) 0.2 Neut # (Auto) 4.5 Lymph # (Auto) 1.6 [place] # (Auto) 0.4 Eos # (Auto) 0.0 Baso # (Auto) 0.0 Nucleated RBC % (auto) 0 Nucleated RBCs # 0.0 Sodium 139 Potassium 3.6 Chloride 99 Carbon Dioxide 27 Anion Gap 16.6 BUN 9 Creatinine 0.6 Glucose 224 H POC Glucose 112 Calcium 9.3 Total Bilirubin 0.4 AST 30 ALT 12 Alkaline Phosphatase 57 C-Reactive Protein 14.3 H Total Protein 7.2 Albumin 3.1 L Globulin 4.1 Cardiac Studies: No Data to Display
--- NOTE | 2019-11-13 09:29 | PM.PN ---
Subjective Subjective: Interval history: No issues overnight, patient denies any significant abdominal pain, NG output has been bilious Medications: Reviewed: Yes Vitals/I&O/Wt Last Vital Signs Temp 98.2 F 11/13/19 09:18 Pulse 100 11/13/19 09:18 Resp 18 11/13/19 09:18 BP 175/99 11/13/19 09:18 Pulse Ox 96 11/13/19 09:18 11/12/19 11/13/19 11/13/19 22:59 06:59 14:59 Intake Total 300 / 1177.5 220 / 1177.5 Output Total 300 / 1850 1550 / 1850 Balance 0 / -672.5 -1330 / -672.5 Weight last 48 hrs Weight 143 lb 1.6 oz Weight 145 lb 1.6 oz Physical Exam Narrative: EXAM NARRATIVE: Abdomen: Soft, minimally distended, nontender Data : 11/12/19 03:28 11/12/19 03:28 A&P Assessment and plan (1) Primary adenocarcinoma of ascending colon: Plan for laparoscopic possible open extended right hemicolectomy under general anesthesia today Procedure, risks, benefits and alternatives have been discussed with the patient who wishes to proceed with surgery. Type and screen Status: Acute Code(s): C18.2 - Malignant neoplasm of ascending colon Attestations Medical Necessity Statement*: Obstructing colon mass Coding Level of Care Code Acute Technical Support Professional for [facility] Fw Diagnoses Primary adenocarcinoma of ascending colon C18.2
[2019-11-13] MEDS: sodium chloride 0.9% 1,000 ML 30 ML IV (09:35)
--- NOTE | 2019-11-13 11:22 | SUR.OPER ---
Family called in OPS waiting area and updated on patient status
[2019-11-13] MEDS: fentaNYL 50 mcg/mL INJ 2mL IVP ×2 (12:31→12:36)
[2019-11-13] MEDS: HYDROmorphone 1 mg/mL INJ 1 mL 0.25 MG IVP (13:00)
--- NOTE | 2019-11-13 13:11 | SUR.PHASEI ---
REPORT CALLED EARLIER, PT WAS DOZIING BUT AWAKES AND RATES PAIN AT 10 SO SEE PAIN MED GIVEN AT 1300, PT NOW SLEEPS IF NOT DISTURBED AND BP LOWER AT 168/80 WELL IN PT NORMAL NUMBERS ABD SOFT EXOFIN D/I NO S/S OF PAIN
--- NOTE | 2019-11-13 14:02 | SUR.PHASEI ---
1330 PTTO ROOM, FAMILY IN ROOM , PT AWAKES AND TALKES TO FAMILY AND NURSE HILARIO CAMPBELL NG IN PLACE SECURED WITH VENAGUARD, CLAMPED , MEJÍA WITH YELLOW URINE, ABD SOFT WITH DRESSING D/I BP 155/73, HR 73, RESP 20 SATS ON 3LNC 100%
--- NOTE | 2019-11-13 14:36 | P.PN_ITS ---
Subjective Subjective: Interval history: Patient was seen this morning prior to surgery and again this afternoon. She seems to be doing well postop. She is awake. Having some discomfort from the NG tube. Overall seem to done well with surgery. No chest pain or shortness of breath. Medications: Reviewed: Yes Vitals/I&O/Wt Last Vital Signs Temp 98.2 F 11/13/19 13:10 Pulse 89 11/13/19 13:10 Resp 19 H 11/13/19 13:10 BP 168/80 11/13/19 13:10 Pulse Ox 99 11/13/19 13:10 11/12/19 11/13/19 11/13/19 22:59 06:59 14:59 Intake Total 300 / 1177.5 220 / 1177.5 1999 Output Total 300 / 1850 1550 / 1850 175 / 175 Balance 0 / -672.5 -1330 / -672.5 1825 / 1825 Weight last 48 hrs Weight 143 lb 1.6 oz Weight 145 lb 1.6 oz Physical Exam Narrative: EXAM NARRATIVE: General: No acute distress, Alert. Well nourished. Heart: Regular rate and rhythm. No murmurs, rubs or gallops. Normal capillary refill. Lungs: Clear to auscultation. No wheezes, rhonchi or rales. Abdomen: Absent. Mild right upper quadrant pain., non-distended. No hepatosplenomegaly. No gaurding. Extremities: No clubbing, cyanosis, or edema. Negative Virgen's Urinary Catheter Management^: Olmstead: Cath Placed During This Visit: no Data : 11/12/19 03:28 11/12/19 03:28 A&P Assessment and plan (1) Primary adenocarcinoma of ascending colon: -Doing well postoperatively. Pain is well controlled at this time. Co ntinue to follow normal postoperative care. Status: Acute Code(s): C18.2 - Malignant neoplasm of ascending colon (2) Colitis: -I feel like this is improved. We will probably continue antibiotics for a little while longer. Status: Acute Code(s): K52.9 - Noninfective gastroenteritis and colitis, unspecified (3) Pulmonary embolism: Continue to hold Eliquis in anticipation of procedure. Restart Lovenox postoperatively. Status: Acute Code(s): I26.99 - Other pulmonary embolism without acute cor pulmonale (4) Dysphagia: Status: Acute Code(s): R13.10 - Dysphagia, unspecified (5) Anemia: This may be secondary to colitis and anticoagulation. Monitor this closely. . Status: Acute Code(s): D64.9 - Anemia, unspecified Attestations Medical Necessity Statement*: This is an 84-year-old female with a right colon adenocarcinoma requiring surgery. She requiring continued inpatient postoperative care. Coding Level of Care Code Acute Health Program Specialist for [facility] Fwd Diagnoses Primary adenocarcinoma of ascending colon C18.2 Colitis K52.9 Pulmonary embolism I26.99 Dysphagia R13.10 Anemia D64.9
--- NOTE | 2019-11-13 15:38 | PC.SOCIAL ---
IMM updated Pg 2 of IMM was updated with patient and daughter and a copy was provided. Daughter verbalized understanding and had no questions. Patient was sleeping. Initialed, dated, and timed copy in chart.
[2019-11-13] MEDS: HYDROcodone-acetaminophen 5-325 mg Tablet 1 TAB PO (16:24)
[2019-11-13] MEDS: famotidine 20 mg/2 mL INJ IVP (16:29)
[2019-11-13] MEDS: docusate sodium 100 mg Capsule PO (17:59)
--- NOTE | 2019-11-13 18:08 | PC.NURSE ---
NG clamped for 30 minutes to allow for absorption of medications.
--- NOTE | 2019-11-13 18:57 | P.OP_ITS ---
Operative Report Date of procedure: November 13, 2019 Pre-op Diagnosis: Ascending colon mass Post-op Diagnosis: Adenocarcinoma ascending colon No evidence of liver metastasis No evidence of peritoneal carcinomatosis Procedure Done: Laparoscopic extended right hemicolectomy with stapled [id number] anastomosis Pathology: Ileum, ascending colon, proximal 2/3 transverse colon Surgeon: Torey Kwon Anesthesia: General Estimated blood loss (mL): 50 IV fluids (mL): 1,400 Urine output (mL): 100 Condition: stable Disposition: PACU Procedure: The patient was taken to the operating room and placed in the supine position under general anesthesia after IV antibiotic had been administered. A Olmstead catheter was placed and the abdomen was prepped and draped in a sterile manner. A 2 cm midline supraumbilical incision was made and using open Segal technique the peritoneal cavity was entered and an 11 mm port was placed and 15 mm of pneumoperitoneum was created. 10 mm 30? scope was introduced. 5 mm ports were placed in the suprapubic region, left upper and left lower quadrant in the midclavicular line under direct visualization. The patient was placed in Trendelenburg position and steep tilt to the left placing the small bowel in the left side within the peritoneal cavity and the transverse colon was retracted superiorly. The cecum was retracted laterally and the tenting of the ileocolic pedicle was noted. The peritoneum overlying the pedicle was opened and a window created posterior to the pedicle just lateral to the third portion of the duodenum. Dissection was carried superiorly lateral to the duodenum along the avascular plane. Using LigaSure the ileocolic pedicle was divided. The avascular plane was dissected laterally towards the right paracolic gutter and superiorly towards the hepatic flexure.The transverse mesocolon was divided using LigaSure and this was continued medially. The right colic vessels were divided with LigaSure. The mid colic vessels were then skeletonized and divided with LigaSure. The anterior leaflet of the greater omentum was divided near the midpoint of the transverse colon to enter the lesser sac. The greater omentum was divided using LigaSure and the hepatic flexure was taken down. The dissection was carried along the line of Toldt until the ascending colon and down to ileum to completely free it up. The mesentery of the terminal ileum was divided using LigaSure. At this point the pneumoperitoneum was released and the mobilized colon and small bowel was exteriorized through the supraumbilical incision which had been extended and a wound protector had been placed. Interrupted 4-0 Vicryl suture was placed to approximate the ileum to the transverse colon and enterotomies were created on the transverse colon and small bowel and and 75 mm blue load JUANIS stapler was introduced and fired creating a [id number] stapled anastomosis. There was no bleeding noted from the staple line and enterotomies were grasped with Allis clamps and another load of 75 mm blue load JUANIS stapler x 2 was fired to resect the specimen distal to the enterotomies. 4-0 Vicryl sutures were placed on the edges and the intersection of the staple line. The bowel was reintroduced into the peritoneal cavity, and a GelPort placed and pneumoperitoneum was recreated. 20 cc of saline mixed with 20 cc of 1% lidocaine with 20 cc of was injected under laparoscopic visualization for a TAP block bilaterally. The peritoneal cavity was irrigated with 2 L of warm saline. All ports were removed under direct visualization and there was no bleeding noted from the port sites. The midline incision was closed using running #1 loop PDS. The wound was irrigated with saline, and subcutaneous tissue approxim ated using 3-0 Vicryl suture and skin at all 4 port sites were closed with 4-0 Monocryl and surgical glue. The patient was transferred to the recovery room in stable condition with a Olmstead catheter and NG tube in place.
[2019-11-13] MEDS: morphine 4 mg/mL SDV 1 mL 3 MG IVP ×2 (19:28→22:17)
--- NOTE | 2019-11-13 19:55 | PC.RESP ---
pt sleeping no respiratory distress noted at this time
[2019-11-13] MEDS: enoxaparin 60 mg/0.6 mL Syringe SUBCUT (22:15)
[2019-11-13] MEDS: lactobacillus 1 Tablet 4 TAB PO (22:16)
[2019-11-13] MEDS: acetaminophen 325 mg Tablet 650 MG PO (22:16)
[2019-11-14] VITALS (9 sets, daily range): BP systolic 113–189; BP diastolic 69–98; PULSE 88–107; RESP 16–19; TEMP 36.6–36.9; O2SAT 90–95
[2019-11-14] MEDS: metroNIDAZOLE IV 500 MG/100 ML PREMIX 100 MG IV ×2 (03:43→03:48)
[2019-11-14] MEDS: famotidine 20 mg/2 mL INJ IVP ×2 (03:43→15:39)
[2019-11-14] MEDS: HYDROcodone-acetaminophen 5-325 mg Tablet 1 TAB PO (03:44)
[2019-11-14 06:04] LABS: Basophils % 0.4 %; Eosinophils # 0.1 10^3/uL (0.0-0.8); Eosinophils % 1.1 %; Hematocrit 27.6 % (37.0-47.0); Hemoglobin 7.9 g/dL (11.5-15.3); Lymphocytes # 1.6 10^3/uL (0.8-4.8); Lymphocytes % 22.8 %; Mean Corpuscular HGB Conc 28.6 g/dL (30.0-36.0); Mean Corpuscular Hemoglobin 24.2 pg (28.0-34.0); Mean Corpuscular Volume 84.7 fL (81-99); Mean Platelet Volume 10.3 fL (7.4-10.4); Monocytes # 0.5 10^3/uL (0.2-0.9); Monocytes % 7.4 %; Neutrophils # 4.8 10^3/uL (1.8-7.7); Nucleated Red Blood Cells % 0 %; Platelet Count 256 10^3/cmm (130-400); Red Blood Count 3.26 10^6/uL (4.1-5.3); Red Cell Distribution Width 19.4 % (12.1-15.1); White Blood Count 7.1 10^3/uL (4.0-10.0)
[2019-11-14 06:21] LABS: Blood Urea Nitrogen 18 mg/dL (8-23); Carbon Dioxide 27 mmol/L (22-29); Chloride 103 mmol/L (98-107); Glucose 155 mg/dL (74-106); Osmolality Calculated 288 mOsm/kg (285-295); Sodium 139 mmol/L (136-145)
[2019-11-14] MEDS: potassium chloride premix 40 MEQ/100 ML PREMIX 25 MEQ IV (08:11)
[2019-11-14] MEDS: lidocaine 1% INJ 20 mL 5 ML IV (08:14)
[2019-11-14] MEDS: enoxaparin 60 mg/0.6 mL Syringe SUBCUT ×2 (08:24→20:17)
[2019-11-14] MEDS: metoprolol tartrate 50 mg Tablet PO ×2 (08:28→17:58)
[2019-11-14] MEDS: clopidogrel 75 mg Tablet PO (08:28)
[2019-11-14] MEDS: docusate sodium 100 mg Capsule PO ×2 (08:29→17:59)
[2019-11-14] MEDS: lactobacillus 1 Tablet 4 TAB PO ×3 (08:29→20:22)
[2019-11-14] MEDS: losartan 50 mg Tablet PO ×2 (08:30→18:00)
[2019-11-14] MEDS: isosorbide mononitrate ER 30 mg Tablet PO ×2 (08:30→18:00)
[2019-11-14] MEDS: acetaminophen 500 mg Tablet PO (10:05)
--- NOTE | 2019-11-14 10:30 | P.PN_ITS ---
Subjective Subjective: Interval history: Status post laparoscopic extended right hemicolectomy postop day 1 Patient slept well last night her abdominal pain is bearable. No flatus or BM. NG output was less than 200 cc. Vitals/I&O/Wt Last Vital Signs Temp 97.9 F 11/14/19 08:00 Pulse 88 11/14/19 08:00 Resp 16 11/14/19 08:00 BP 151/71 11/14/19 08:30 Pulse Ox 95 11/14/19 08:00 11/13/19 11/14/19 11/14/19 22:59 06:59 14:59 Intake Total 280 / 2280 120 / 120 Output Total 100 / 850 575 / 850 175 / 175 Balance 180 / 1430 -575 / 1430 -55 / -55 Weight last 48 hrs Weight 158 lb 3 oz Weight 143 lb 1.6 oz Physical Exam Narrative: EXAM NARRATIVE: Abdomen: Soft, minimally distended, tender, incision clean dry and intact, NG tube to suction, Olmstead to gravity Urinary Catheter Management^: Ol[place]: Cath Placed During This Visit: no Data : 11/14/19 05:10 11/14/19 05:10 A&P Assessment and plan (1) Pulmonary embolism: Restarted Lovenox last night at 60 mg subcu twice daily, will hold off on Eliquis at this point Status: Acute Code(s): I26.99 - Other pulmonary embolism without acute cor pulmonale (2) Status post partial colectomy: DC Olmstead catheter Clamp NG tube Start clear liquid diet Continue TPN Stop antibiotics after completing 2 doses of Ancef and Flagyl Ambulate with physical therapy Status: Acute Code(s): Z90.49 - Acquired absence of other specified parts of digestive tract (3) Anemia: Hemoglobin is down to 7.9 at this point patient is asymptomatic Status: Acute Code(s): D64.9 - Anemia, unspecified Attestations Medical Necessity Statement*: Status post partial colectomy requiring continued inpatient stay for resolution of ileus Coding Level of Care Code Acute [employer] Locomotive for Chg Fwd Diagnoses Pulmonary embolism I26.99 Status post partial colectomy Z90.49 Anemia D64.9
--- NOTE | 2019-11-14 13:18 | P.PN_ITS ---
Subjective Subjective: Interval history: Seems to be doing well this morning. Pain seems well controlled. Still having some out the NG tube. No nausea. No fevers or chills. No chest pain or shortness of breath. Medications: Reviewed: Yes Vitals/I&O/Wt Last Vital Signs Temp 98.4 F 11/14/19 12:00 Pulse 96 11/14/19 12:00 Resp 18 11/14/19 12:00 BP 159/83 11/14/19 12:00 Pulse Ox 95 11/14/19 12:00 11/13/19 11/14/19 11/14/19 22:59 06:59 14:59 Intake Total 280 / 2280 120 / 120 Output Total 100 / 850 575 / 850 175 / 175 Balance 180 / 1430 -575 / 1430 -55 / -55 Weight last 48 hrs Weight 158 lb 3 oz Weight 143 lb 1.6 oz Physical Exam Narrative: EXAM NARRATIVE: General: No acute distress, Alert. Well nourished. Heart: Regular rate and rhythm. No murmurs, rubs or gallops. Normal capillary refill. Lungs: Clear to auscultation. No wheezes, rhonchi or rales. Abdomen: Absent. Mild right upper quadrant pain., non-distended. No hepatosplenomegaly. No gaurding. Extremities: No clubbing, cyanosis, or edema. Negative Virgen's Urinary Catheter Management^: Olmstead: Cath Placed During This Visit: no Data : 11/14/19 05:10 11/14/19 05:10 Other Labs: Laboratory Tests 11/14/19 05:10 Hgb 7.9 L All Labs last 24 hrs except CBC/BMP 11/04/19 11/05/19 11/06/19 14:26 03:30 04:20 RBC Hgb 10.0 L 9.6 L 8.3 L MCV MCH MCHC RDW MPV Neut % (Auto) Lymph % (Auto) [place] % (Auto) Eos % (Auto) Baso % (Auto) Neut # (Auto) Lymph # (Auto) [place] # (Auto) Eos # (Auto) Baso # (Auto) Nucleated RBC % (auto) Nucleated RBCs # Calculated Osmolality Calcium 11/08/19 11/10/19 11/12/19 05:35 06:16 03:28 RBC Hgb 8.8 L 8.8 L 9.8 L MCV MCH MCHC RDW MPV Neut % (Auto) Lymph % (Auto) [place] % (Auto) Eos % (Auto) Baso % (Auto) Neut # (Auto) Lymph # (Auto) [place] # (Auto) Eos # (Auto) Baso # (Auto) Nucleated RBC % (auto) Nucleated RBCs # Calculated Osmolality Calcium 11/14/19 11/14/19 05:10 05:10 RBC 3.26 L Hgb 7.9 L MCV 84.7 MCH 24.2 L MCHC 28.6 L RDW 19.4 H MPV 10.3 Neut % (Auto) 68.0 Lymph % (Auto) 22.8 [place] % (Auto) 7.4 Eos % (Auto) 1.1 Baso % (Auto) 0.4 Neut # (Auto) 4.8 Lymph # (Auto) 1.6 [place] # (Auto) 0.5 Eos # (Auto) 0.1 Baso # (Auto) 0.0 Nucleated RBC % (auto) 0 Nucleated RBCs # 0.0 Calculated Osmolality 288 Calcium 8.0 L A&P Assessment and plan (1) Primary adenocarcinoma of ascending colon: -Postop day 1. Doing well postoperatively. Pain is well controlled at this time. Continue to follow normal postoperative care per Dr. Kwon. Status: Acute Code(s): C18.2 - Malignant neoplasm of ascending colon (2) Colitis: -I feel like this is improved. We will probably go ahead and stop antibiotics postoperatively. Status: Acute Code(s): K52.9 - Noninfective gastroenteritis and colitis, unspecified (3) Pulmonary embolism: -Stable. Continue with Lovenox. Will transition back to Eliquis upon discharge.. Status: Acute Code(s): I26.99 - Other pulmonary embolism without acute cor pulmonale (4) Dysphagia: Status: Acute Code(s): R13.10 - Dysphagia, unspecified (5) Anemia: -Chronic I suspect due to the colon malignancy. Acutely worsened postoperatively. Not symptomatic. -We will repeat a CBC this afternoon continue to monitor closely. -Would not transfuse until hemoglobin is less than 7 or she becomes symptomatic. Status: Acute Code(s): D64.9 - Anemia, unspecified Attestations Medical Necessity Statement*: 84-year-old female status post right hemicolectomy requiring continued inpatient postoperative care. Coding Level of Care Code Acute [place] Layer for g Fwd Diagnoses Primary adenocarcinoma of ascending colon C18.2 Colitis K52.9 Pulmonary embolism I26.99 Dysphagia R13.10 Anemia D64.9
[2019-11-14 14:42] LABS: Basophils % 0.3 %; Eosinophils # 0.1 10^3/uL (0.0-0.8); Hematocrit 30.2 % (37.0-47.0); Lymphocytes # 2.4 10^3/uL (0.8-4.8); Mean Corpuscular HGB Conc 29.8 g/dL (30.0-36.0); Mean Corpuscular Hemoglobin 25.9 pg (28.0-34.0); Mean Corpuscular Volume 86.8 fL (81-99); Mean Platelet Volume 10.1 fL (7.4-10.4); Monocytes # 0.5 10^3/uL (0.2-0.9); Monocytes % 5.4 %; Neutrophils # 6.8 10^3/uL (1.8-7.7); Neutrophils % 68.9 %; Nucleated Red Blood Cells % 0 %; Platelet Count 290 10^3/cmm (130-400); Red Blood Count 3.48 10^6/uL (4.1-5.3); Red Cell Distribution Width 19.6 % (12.1-15.1); White Blood Count 9.9 10^3/uL (4.0-10.0)
[2019-11-14] MEDS: acetaminophen 325 mg Tablet 650 MG PO (20:19)
--- NOTE | 2019-11-14 20:30 | PC.NURSE ---
While patient was taking her night time medications she began to vomit. NG hooked back up to intermit suction. Patient had a total of 800 out. NG was again capped off at 2200. Patient is resting in bed.
[2019-11-14] MEDS: sodium chlor 0.9% + KCl 20 mEq 20 MEQ/1,000 ML BAG 55 MEQ IV (20:50)
[2019-11-15] VITALS (10 sets, daily range): BP systolic 161–198; BP diastolic 80–102; PULSE 87–114; RESP 16–18; TEMP 36.3–37.1; O2SAT 91–95
--- NOTE | 2019-11-15 00:11 | PC.NURSE ---
Patient's son called the nurses station and stated that the patient has been moaning in her sleep. Patient's son wants the NG tube reconnected to intermit suction for a little while. Patient agrees. NG tube hooked back up to intermit suction at this time.
[2019-11-15] MEDS: HYDROcodone-acetaminophen 5-325 mg Tablet 1 TAB PO ×2 (00:53→10:57)
--- NOTE | 2019-11-15 00:53 | PC.NURSE ---
NG tube clamped at this time for 45 minutes so pain pill can have time to work. Offered patient IV Morphine instead of Hydrocodone but patient requested the pill.
--- NOTE | 2019-11-15 01:35 | PC.NURSE ---
NG tube placed back on intermit suction at this time.
[2019-11-15] MEDS: famotidine 20 mg/2 mL INJ IVP ×2 (04:31→14:35)
[2019-11-15 06:33] LABS: Basophils % 0.2 %; Eosinophils # 0.2 10^3/uL (0.0-0.8); Eosinophils % 2.3 %; Hematocrit 28.4 % (37.0-47.0); Hemoglobin 8.4 g/dL (11.5-15.3); Lymphocytes # 2.3 10^3/uL (0.8-4.8); Lymphocytes % 28.6 %; Mean Corpuscular HGB Conc 29.6 g/dL (30.0-36.0); Mean Corpuscular Hemoglobin 24.7 pg (28.0-34.0); Mean Corpuscular Volume 83.5 fL (81-99); Mean Platelet Volume 10.7 fL (7.4-10.4); Monocytes # 0.6 10^3/uL (0.2-0.9); Monocytes % 6.7 %; Neutrophils % 61.8 %; Nucleated Red Blood Cells % 0 %; Platelet Count 200 10^3/cmm (130-400); Red Cell Distribution Width 19.3 % (12.1-15.1); White Blood Count 8.2 10^3/uL (4.0-10.0)
[2019-11-15 07:00] LABS: Alanine Aminotransferase < 5 U/L (0-33); Albumin Level 2.7 g/dL (3.5-5.2); Alkaline Phosphatase 58 IU/L (35-105); Anion Gap 13.4 (5-19); Aspartate Amino Transferase 15 U/L (0-32); Blood Urea Nitrogen 13 mg/dL (8-23); Calcium 8.8 mg/dL (8.5-10.5); Carbon Dioxide 26 mmol/L (22-29); Chloride 103 mmol/L (98-107); Globulin 3.4 g/dL (1.3-4.6); Glucose 132 mg/dL (74-106); Magnesium 2.1 mg/dL (1.7-2.3); Potassium 3.4 mmol/L (3.5-5.1); Sodium 139 mmol/L (136-145); Total Bilirubin 0.4 mg/dL (0.15-1.2); Total Protein 6.1 g/dL (6.6-8.7)
[2019-11-15] MEDS: enoxaparin 60 mg/0.6 mL Syringe SUBCUT ×2 (07:46→20:14)
[2019-11-15] MEDS: docusate sodium 100 mg Capsule PO ×2 (09:20→18:36)
[2019-11-15] MEDS: losartan 50 mg Tablet PO ×2 (09:20→18:36)
[2019-11-15] MEDS: clopidogrel 75 mg Tablet PO (09:20)
[2019-11-15] MEDS: lactobacillus 1 Tablet 4 TAB PO ×3 (09:20→20:15)
[2019-11-15] MEDS: isosorbide mononitrate ER 30 mg Tablet PO ×2 (09:20→18:36)
[2019-11-15] MEDS: metoprolol tartrate 50 mg Tablet PO (09:21)
--- NOTE | 2019-11-15 10:30 | PM.PN ---
Subjective Subjective: Interval history: Patient had been doing well yesterday with clears and NG tube clamped but last night had an episode of emesis. This morning she has been passing flatus and had small bowel movement Vitals/I&O/Wt Last Vital Signs Temp 98.6 F 11/15/19 07:41 Pulse 114 H 11/15/19 07:41 Resp 16 11/15/19 07:41 BP 165/85 11/15/19 09:20 Pulse Ox 91 11/15/19 07:41 11/14/19 11/15/19 11/15/19 22:59 06:59 14:59 Intake Total 485 / 605 360 / 360 Output Total 150 / 325 100 / 100 Balance 335 / 280 260 / 260 Weight last 48 hrs Weight 158 lb 4.8 oz Weight 158 lb 3 oz Physical Exam Narrative: EXAM NARRATIVE: Abdomen: Soft, minimally tender, minimally distended, incision clean dry and intact. NG tube clamped Urinary Catheter Management^: [place]: Cath Placed During This Visit: no Data : 11/15/19 05:44 11/15/19 05:44 A&P Assessment and plan (1) Status post partial colectomy: Patient has been doing well, postop ileus appears to be resolving. Her hemoglobin is at 8.2 continue clear liquid Clamp NG tube Protonix 40 mg IV twice daily Lactulose 15 cc p.o. twice daily Continue TPN Ambulate with physical therapy Status: Acute Code(s): Z90.49 - Acquired absence of other specified parts of digestive tract Attestations Medical Necessity Statement*: Status post laparoscopic right colectomy with postop ileus will need continued inpatient stay to ensure resolution Coding Level of Care Code Acute Funeral Home Attendant for Chg Fwd Diagnoses Status post partial colectomy Z90.49
[2019-11-15 12:20] LABS: Hematocrit 31.7 % (37.0-47.0); Hemoglobin 9.2 g/dL (11.5-15.3)
--- NOTE | 2019-11-15 13:30 | PC.SOCIAL ---
IMM Updated Updated pt on Pg 2 IMM. No questions voiced. A copy was provided & left on pt's bedside table. Signed, dated, & timed original in chart.
[2019-11-15] MEDS: sodium chlor 0.9% + KCl 20 mEq 20 MEQ/1,000 ML BAG 55 MEQ IV (14:35)
--- NOTE | 2019-11-15 16:43 | P.PN_ITS ---
Subjective Subjective: Interval history: This morning patient was seen ambulating the hallways, doing better, had one small bowel movement this morning, not passing gas, [place] catheter was removed, currently enjoying a clear liquid diet, her hemoglobin is 9.2, is trending down, denies bloody stools, or black stools Vitals/I&O/Wt Last Vital Signs Temp 97.7 F 11/15/19 11:55 Pulse 107 H 11/15/19 11:55 Resp 16 11/15/19 11:55 BP 198/80 11/15/19 11:55 Pulse Ox 95 11/15/19 11:55 11/15/19 11/15/19 11/15/19 06:59 14:59 22:59 Intake Total 1576.25 / 1576.25 Output Total 200 / 200 Balance 1376.25 / 1376.25 Weight last 48 hrs Weight 71.804 kg Weight 71.753 kg Physical Exam Const: COMMON NORMALS: no apparent distress and oriented x3 HENMT: COMMON NORMALS: normocephalic HEAD & SCALP: normocephalic Neck/C-Spine: COMMON NORMALS: no JVD Resp: COMMON NORMALS: normal respiratory effort, no retractions, no use of accessory muscles and clear to auscultation bilaterally AUSCULTATION: clear to auscultation bilaterally Cardio: COMMON NORMALS: no JVD, regular rate, regular rhythm, S1 normal heart sound and S2 normal heart sound RATE: regular rate RHYTHM: regular rhythm HEART SOUNDS: S1 normal and S2 normal GI: COMMON NORMALS: normal to inspection, nondistended, normoactive bowel sounds and soft to palpation PALPATION: Yes soft OTHER: Surgical site looks clean and dry Extremity: COMMON NORMALS: normal capillary refill, no clubbing, cyanosis or edema, no calf tenderness and no pedal edema Neuro: COMMON NORMALS: oriented x3 Psych: COMMON NORMALS: mental status grossly normal Urinary Catheter Management^: [place]: Cath Placed During This Visit: no Data : 11/15/19 11:47 11/15/19 05:44 A&P Assessment and plan (1) Primary adenocarcinoma of ascending colon: Postop day [address] Kwon on consult NG tube clamped Clear liquid diet receiving TPN On Protonix 40 twice daily Lactulose Physical therapy Status: Acute Code(s): C18.2 - Malignant neoplasm of ascending colon (2) Anemia: Hemoglobin 9.2, no active signs of bleeding Patient is on Lovenox and Plavix Monitor for bloody stools, monitor hemodynamics Monitor hemoglobin, transfuse if less than 8 Status: Acute Code(s): D64.9 - Anemia, unspecified (3) Dysphagia: Protonix Status: Acute Code(s): R13.10 - Dysphagia, unspecified (4) Pulmonary embolism: On therapeutic Lovenox Status: Acute Code(s): I26.99 - Other pulmonary embolism without acute cor pulmonale (5) Coronary arteriosclerosis: On Plavix Status: Acute Code(s): I25.10 - Atherosclerotic heart disease of [place] coronary artery without angina pectoris Attestations Medical Necessity Statement*: Primary adenocarcinoma of the ascending colon status post right hemicolectomy Coding Level of Care Code Acute Inventory Specialist for [facility] Fwd Diagnoses Primary adenocarcinoma of ascending colon C18.2 Anemia D64.9 Dysphagia R13.10 Pulmonary embolism I26.99 Coronary arteriosclerosis I25.10
[2019-11-15] MEDS: metoprolol tartrate 50 mg Tablet 75 MG PO (18:36)
[2019-11-15] MEDS: amlodipine 10 mg Tablet PO (18:37)
[2019-11-15 19:36] LABS: Hematocrit 30.2 % (37.0-47.0)
[2019-11-15] MEDS: hyDRALAzine 20 mg/mL INJ 1 mL 10 MG IVP (20:14)
[2019-11-15] MEDS: acetaminophen 325 mg Tablet 650 MG PO (20:16)
[2019-11-15 22:11] LABS: Glucose Point of Care 136 mg/dL (70-110)
[2019-11-16] VITALS (9 sets, daily range): BP systolic 142–177; BP diastolic 72–85; PULSE 102–118; RESP 18–24; TEMP 36.4–37.2; O2SAT 92–94
[2019-11-16 05:00] LABS: Basophils % 0.3 %; Eosinophils # 0.2 10^3/uL (0.0-0.8); Eosinophils % 2.8 %; Hematocrit 27.9 % (37.0-47.0); Hemoglobin 8.3 g/dL (11.5-15.3); Lymphocytes # 1.6 10^3/uL (0.8-4.8); Lymphocytes % 23.5 %; Mean Corpuscular HGB Conc 29.7 g/dL (30.0-36.0); Mean Corpuscular Hemoglobin 24.7 pg (28.0-34.0); Mean Platelet Volume 10.3 fL (7.4-10.4); Monocytes # 0.4 10^3/uL (0.2-0.9); Monocytes % 6.5 %; Neutrophils # 4.5 10^3/uL (1.8-7.7); Neutrophils % 66.6 %; Nucleated Red Blood Cells % 0 %; Platelet Count 249 10^3/cmm (130-400); Red Blood Count 3.36 10^6/uL (4.1-5.3); Red Cell Distribution Width 19.5 % (12.1-15.1); White Blood Count 6.8 10^3/uL (4.0-10.0)
[2019-11-16 05:29] LABS: Anion Gap 14.2 (5-19); Blood Urea Nitrogen 8 mg/dL (8-23); Calcium 8.7 mg/dL (8.5-10.5); Carbon Dioxide 26 mmol/L (22-29); Chloride 101 mmol/L (98-107); Glucose 145 mg/dL (74-106); Osmolality Calculated 284 mOsm/kg (285-295); Potassium 3.2 mmol/L (3.5-5.1); Sodium 138 mmol/L (136-145)
[2019-11-16 05:55] LABS: Magnesium 1.9 mg/dL (1.7-2.3); Phosphorus 2.3 mg/dL (2.5-4.5)
[2019-11-16] MEDS: enoxaparin 60 mg/0.6 mL Syringe SUBCUT (07:51)
[2019-11-16] MEDS: famotidine 20 mg/2 mL INJ IVP ×2 (07:51→19:08)
--- NOTE | 2019-11-16 08:28 | P.PN_ITS ---
Subjective Subjective: Interval history: Patient had episode of gagging while trying to swallow pills and therefore her NG tube was hooked up to suction last night currently is clamped. Patient denies significant abdominal pain nausea or vomiting. Her son thinks that she is passing flatus though she is not sure. No bowel movements Medications: Reviewed: Yes Vitals/I&O/Wt Last Vital Signs Temp 97.9 F 11/16/19 07:38 Pulse 118 H 11/16/19 07:38 Resp 24 H 11/16/19 07:38 BP 142/85 11/16/19 07:38 Pulse Ox 94 11/16/19 07:38 11/15/19 11/16/19 11/16/19 22:59 06:59 14:59 Intake Total 125 / 1941.25 240 / 1941.25 Output Total 650 / 1200 350 / 1200 Balance -525 / 741.25 -110 / 741.25 Weight last 48 hrs Weight 160 lb Weight 158 lb 1.6 oz Weight 158 lb 4.8 oz Physical Exam Narrative: EXAM NARRATIVE: Abdomen: Soft, minimally tender, minimally distended, incision clean dry and intact Urinary Catheter Management^: [place]: Cath Placed During This Visit: no Data : 11/16/19 04:25 11/16/19 04:25 A&P Assessment and plan (1) Status post partial colectomy: Continue clear liquid diet DC NG tube Continue TPN Protonix 40 mg IV twice daily Ambulate with physical therapy Hypokalemia: 60 mEq KCl p.o. given Status: Acute Code(s): Z90.49 - Acquired absence of other specified parts of digestive tract (2) Anemia: Status: Acute Code(s): D64.9 - Anemia, unspecified Attestations Medical Necessity Statement*: Status post right hemicolectomy postop ileus aw aiting return of bowel function Coding Level of Care Code Acute Person Investigator for [facility] Fwd Diagnoses Status post partial colectomy Z90.49 Anemia D64.9
[2019-11-16 09:54] LABS: Ferritin 191 ng/mL (15-150); Iron 35 ug/dL (37-145); Percent Saturation 19.2 % (20-50); Total Iron Binding Capacity 182 mcg/dl; Unsaturated Iron Binding 147 ug/dL (112-347)
[2019-11-16] MEDS: potassium chloride oral liq 20 mEq/15 mL UDC 60 MEQ PO (10:25)
[2019-11-16] MEDS: sodium chlor 0.9% + KCl 20 mEq 20 MEQ/1,000 ML BAG 55 MEQ IV (10:26)
[2019-11-16] MEDS: lactobacillus 1 Tablet 4 TAB PO ×3 (10:27→20:36)
[2019-11-16] MEDS: sennosides-docusate Tablet 1 TAB PO ×2 (10:28→17:34)
[2019-11-16] MEDS: isosorbide mononitrate ER 30 mg Tablet PO ×2 (10:28→17:34)
[2019-11-16] MEDS: metoprolol tartrate 50 mg Tablet 75 MG PO ×2 (10:28→17:34)
[2019-11-16] MEDS: losartan 50 mg Tablet PO ×2 (10:29→17:34)
[2019-11-16] MEDS: amlodipine 10 mg Tablet PO (10:29)
[2019-11-16] MEDS: ondansetron 2 mg/ML SDV 2 mL 4 MG IVP ×2 (10:56→17:08)
[2019-11-16 11:57] LABS: Hematocrit 33.3 % (37.0-47.0); Hemoglobin 9.6 g/dL (11.5-15.3)
--- NOTE | 2019-11-16 13:46 | PC.CHAP ---
Pastoral Care Encounter/Spiritual Assessment Type of Contact [] Declined stoneworking belt sander visit [x] Patient/Family/Request visit [] Outpatient visit [] Follow-up visit [] Physician referral [] Code/Alert [x] Routine visit [] Staff referral [] Actively dying [] Patient sleeping [x] Family support [] [] Out of room [] Palliative care [] [] Receiving care in room [] Pre-surgical visit [] Trauma [] Long length of stay [] ICU visit [x] Other: pt. had surgery and wanted Saw Runner visit Relational/Emotional Strength [x] Patient feels connected with others/family/visitors/staff [] Distress [] Loneliness/isolation [] Abandonment Spirituality of Patient [x] Person of [place] [x] Attends Anglican of their [place] [x] Believes in Prayer [x] Reads Bible or Hindu materials [] There are Spiritual issues to be addressed Saw Runner Interventions [x] Prayer [x] Active listening [x] Non-anxious presence [x] Spiritual/emotional support [] Crisis/trauma care [x] Spiritual counseling [] Bereavement support [] Provided bereavement packet [] Provided Bible/devotional materials [] Provided toy/stuffed animal, coloring book to patient or family member [] Provided Communion [] Anointing/[place] [] Salvation [x] Completed spiritual assessment [] Other: Impact on Illness or Injury [] Angry [] Fearful [] Anxious [] Often cries [] Exhaustion [] Unable to work [] Unable to attend temple [] Unable to walk/stand [] Unable to read [] Unable to drive [] Unable to eat/drink [] Unable to sleep [] Unable to be with family [] Patient intubated [] Other: Summaryx= a very nice lady , her daughter in law was there with her and her son will stay the night. Time spent with patient 15 min,
[2019-11-16 14:09] LABS: Hematocrit 29.3 % (37.0-47.0); Hemoglobin 8.9 g/dL (11.5-15.3)
--- NOTE | 2019-11-16 19:02 | P.PN_ITS ---
Subjective Subjective: Interval history: This morning patient has been ambulating, currently on a clear liquid diet, had a small bowel movement this morning, no abdominal pain, surgical site looks clean and dry, urinating appropriately, has no other complaints Vitals/I&O/Wt Last Vital Signs Temp 98.6 F 11/16/19 15:24 Pulse 112 H 11/16/19 15:24 Resp 20 H 11/16/19 15:24 BP 147/82 11/16/19 17:34 Pulse Ox 94 11/16/19 15:24 11/16/19 11/16/19 11/16/19 06:59 14:59 22:59 Intake Total 240 / 1941.25 1600 / 1600 360 / 1960 Output Total 350 / 1200 100 / 100 Balance -110 / 741.25 1600 / 1600 260 / 1860 Weight last 48 hrs Weight 72.575 kg Weight 71.713 kg Weight 71.804 kg Physical Exam Const: COMMON NORMALS: no apparent distress and oriented x3 HENMT: COMMON NORMALS: normocephalic HEAD & SCALP: normocephalic Neck/C-Spine: COMMON NORMALS: no JVD Resp: COMMON NORMALS: normal respiratory effort, no retractions, no use of accessory muscles and clear to auscultation bilaterally AUSCULTATION: clear to auscultation bilaterally Cardio: COMMON NORMALS: no JVD, regular rate, regular rhythm, S1 normal heart sound and S2 normal heart sound RATE: regular rate RHYTHM: regular rhythm HEART SOUNDS: S1 normal and S2 normal GI: COMMON NORMALS: normal to inspection, nondistended, normoactive bowel sounds, soft to palpation, non-tender, no hepatosplenomegaly, no masses and no bruits PALPATION: Yes soft and Yes no hepatosplenomegaly OTHER: Vertical incision site looks clean and dry Extremity: COMMON NORMALS: normal capillary refill, no clubbing, cyanosis or edema, no calf tenderness and no pedal edema Neuro: COMMON NORMALS: oriented x3 Psych: COMMON NORMALS: mental status grossly normal Urinary Catheter Management^: [place]: Cath Placed During This Visit: no Data : 11/16/19 13:53 11/16/19 04:25 A&P Assessment and plan (1) Primary adenocarcinoma of ascending colon: Postop day [address] Kwon on consult NG tube removed Clear liquid diet receiving TPN On Protonix 40 twice daily Lactulose Physical therapy Status: Inactive Code(s): C18.2 - Malignant neoplasm of ascending colon (2) Anemia: Hemoglobin 8.3, no active signs of bleeding Patient is on Lovenox for saddle embolus and Plavix for CAD. This morning these medications were held -I had a discussion about the risks and benefits of Lovenox and Plavix, risks of continuing the medication include worsening GI bleed, risk of holding the medications include DVTs PEs and [place]. Patient voiced understanding, all questions answered, patient agrees to hold the medications and monitor hemoglobin -If tomorrow patient's hemoglobin remained stable, likely continue to hold Plavix, we can try heparin drip and monitor hemoglobin -Other possibilities if patient's hemoglobin remains low is an IVC filter, however patient is wary about another surgical procedure Monitor for bloody stools, monitor hemodynamics Monitor hemoglobin, transfuse if less than 8 Status: Acute Code(s): D64.9 - Anemia, unspecified (3) Dysphagia: Protonix Status: Acute Code(s): R13.10 - Dysphagia, unspecified (4) Pulmonary embolism: On therapeutic Lovenox Status: Acute Code(s): I26.99 - Other pulmonary embolism without acute cor pulmonale (5) Coronary arteriosclerosis: Plavix has been held Status: Acute Code(s): I25.10 - Atherosclerotic heart disease of [place] coronary artery without angina pectoris Attestations Medical Necessity Statement*: Patient requires continued hospitalization status post right hemicolectomy, concerns for bleeding Coding Level of Care Code Acute Access Nurse for [facility] Fwd Diagnoses Primary adenocarcinoma of ascending colon C18.2 Anemia D64.9 Dysphagia R13.10 Pulmonary embolism I26.99 Coronary arteriosclerosis I25.10
[2019-11-16 20:10] LABS: Hematocrit 26.2 % (37.0-47.0)
[2019-11-16] MEDS: acetaminophen 325 mg Tablet 650 MG PO (20:36)
[2019-11-17] VITALS (8 sets, daily range): BP systolic 133–179; BP diastolic 73–94; PULSE 84–92; RESP 16–20; TEMP 36.6–37.2; O2SAT 94–97
[2019-11-17 02:39] LABS: Basophils % 0.3 %; Eosinophils # 0.3 10^3/uL (0.0-0.8); Eosinophils % 4.1 %; Hemoglobin 8.3 g/dL (11.5-15.3); Lymphocytes # 1.7 10^3/uL (0.8-4.8); Lymphocytes % 28.7 %; Mean Corpuscular HGB Conc 29.6 g/dL (30.0-36.0); Mean Corpuscular Hemoglobin 24.6 pg (28.0-34.0); Mean Corpuscular Volume 83.1 fL (81-99); Mean Platelet Volume 10.2 fL (7.4-10.4); Monocytes # 0.4 10^3/uL (0.2-0.9); Monocytes % 5.8 %; Neutrophils # 3.7 10^3/uL (1.8-7.7); Neutrophils % 60.8 %; Nucleated Red Blood Cells % 0 %; Platelet Count 265 10^3/cmm (130-400); Red Blood Count 3.37 10^6/uL (4.1-5.3); Red Cell Distribution Width 19.8 % (12.1-15.1); White Blood Count 6.1 10^3/uL (4.0-10.0)
[2019-11-17 02:52] LABS: Anion Gap 14.8 (5-19); Blood Urea Nitrogen 9 mg/dL (8-23); Calcium 8.9 mg/dL (8.5-10.5); Carbon Dioxide 22 mmol/L (22-29); Chloride 104 mmol/L (98-107); Creatinine Clr Calc Pharmacy 49.3941; Glucose 114 mg/dL (74-106); Osmolality Calculated 279 mOsm/kg (285-295); Potassium 4.8 mmol/L (3.5-5.1); Sodium 136 mmol/L (136-145)
[2019-11-17 02:53] LABS: Magnesium 1.9 mg/dL (1.7-2.3); Phosphorus 4.1 mg/dL (2.5-4.5)
[2019-11-17] MEDS: famotidine 20 mg/2 mL INJ IVP ×2 (08:35→21:41)
[2019-11-17] MEDS: sodium chlor 0.9% + KCl 20 mEq 20 MEQ/1,000 ML BAG 55 MEQ IV (08:35)
[2019-11-17] MEDS: isosorbide mononitrate ER 30 mg Tablet PO ×2 (08:36→17:42)
[2019-11-17] MEDS: lactobacillus 1 Tablet 4 TAB PO ×3 (08:36→21:42)
[2019-11-17] MEDS: amlodipine 10 mg Tablet PO (08:36)
[2019-11-17] MEDS: losartan 50 mg Tablet PO ×2 (08:36→17:42)
[2019-11-17] MEDS: sennosides-docusate Tablet 1 TAB PO ×2 (08:36→17:42)
[2019-11-17] MEDS: metoprolol tartrate 50 mg Tablet 75 MG PO ×2 (08:36→17:42)
[2019-11-17 08:46] LABS: Hematocrit 30.5 % (37.0-47.0); Hemoglobin 8.7 g/dL (11.5-15.3)
--- NOTE | 2019-11-17 09:15 | PC.NURSE ---
Unable to save scan of TPN. Order verified with second nurse and pharmacy. TPN began at 0915.
--- NOTE | 2019-11-17 11:42 | PC.SOCIAL ---
IMM updated Pg 2 of IMM was updated with patient and a copy provided. She verbalized understanding and had no questions. Initialed, dated, and timed copy in chart.
--- NOTE | 2019-11-17 12:52 | P.PN_ITS ---
Subjective Subjective: Interval history: Patient seems to be doing better. Pains better. She is passing little bit of stool and some gas. Still struggling little bit to eat. Has some nausea with this. No fevers or chills. No chest pain or shortness of breath. Medications: Reviewed: Yes Vitals/I&O/Wt Last Vital Signs Temp 98.6 F 11/17/19 11:21 Pulse 84 11/17/19 11:21 Resp 18 11/17/19 11:21 BP 150/94 11/17/19 11:21 Pulse Ox 95 11/17/19 11:21 11/16/19 11/17/19 11/17/19 22:59 06:59 14:59 Intake Total 835 / 3835 1400 / 3835 120 / 120 Output Total 100 / 100 Balance 735 / 3735 1400 / 3735 120 / 120 Weight last 48 hrs Weight 146 lb 5 oz Weight 160 lb Weight 158 lb 1.6 oz Physical Exam Narrative: EXAM NARRATIVE: General: No acute distress, Alert. Well nourished. Heart: Regular rate and rhythm. No murmurs, rubs or gallops. Normal capillary refill. Lungs: Clear to auscultation. No wheezes, rhonchi or rales. Abdomen: Still a bit quiet.. Mild right upper quadrant pain., non-distended. No hepatosplenomegaly. No gaurding. Extremities: No clubbing, cyanosis, or edema. Negative Virgen's Urinary Catheter Management^: [place]: Cath Placed During This Visit: no Data : 11/17/19 08:33 11/17/19 02:30 A&P Assessment and plan (1) Primary adenocarcinoma of ascending colon: -Postop day 4. Doing well postoperatively. Pain is well controlled at this time. Continue to follow normal postoperative care per Dr. Kwon. Continue advancing diet as tolerated. We will probably consider stopping TPN tomorrow. Status: Inactive Code(s): C18.2 - Malignant neoplasm of ascending colon (2) Colitis: -I feel like this is improved. Status: Acute Code(s): K52.9 - Noninfective gastroenteritis and colitis, unspecified (3) Pulmonary embolism: -Stable. Continue with Lovenox. Will transition back to [facility] upon discharge.. Status: Acute Code(s): I26.99 - Other pulmonary embolism without acute cor pulmonale (4) Dysphagia: Status: Acute Code(s): R13.10 - Dysphagia, unspecified (5) Anemia: -Chronic I suspect due to the colon malignancy. Acutely worsened postoperatively. Not symptomatic. -We will repeat a CBC this afternoon continue to monitor closely. -Would not transfuse until hemoglobin is less than 7 or she becomes symptomatic. Status: Acute Code(s): D64.9 - Anemia, unspecified Attestations Medical Necessity Statement*: 84-year-old female with status post bowel resection secondary to adenocarcinoma requiring continued inpatient hos pitalization for postoperative care. Coding Level of Care Code Acute Photo Finish Photographer for [facility] Fwd Diagnoses Primary adenocarcinoma of ascending colon C18.2 Colitis K52.9 Pulmonary embolism I26.99 Dysphagia R13.10 Anemia D64.9
--- NOTE | 2019-11-17 12:56 | PM.PN ---
Subjective Subjective: Interval history: Patient has been doing well, had multiple bowel movements over the last 24 hours, had some nausea but no vomiting. She would like to have some regular food Medications: Reviewed: Yes Vitals/I&O/Wt Last Vital Signs Temp 98.6 F 11/17/19 11:21 Pulse 84 11/17/19 11:21 Resp 18 11/17/19 11:21 BP 150/94 11/17/19 11:21 Pulse Ox 95 11/17/19 11:21 11/16/19 11/17/19 11/17/19 22:59 06:59 14:59 Intake Total 835 / 3835 1400 / 3835 120 / 120 Output Total 100 / 100 Balance 735 / 3735 1400 / 3735 120 / 120 Weight last 48 hrs Weight 146 lb 5 oz Weight 160 lb Weight 158 lb 1.6 oz Physical Exam Narrative: EXAM NARRATIVE: Abdomen: Soft, minimally distended, minimally tender, incision clean dry and intact Urinary Catheter Management^: [place]: Cath Placed During This Visit: no Data : 11/17/19 08:33 11/17/19 02:30 A&P Assessment and plan (1) Status post partial colectomy: Advance to GI soft diet with Ensure TPN can be discontinued once she is finished the current back Hopefully she can go to rehab tomorrow Maintain aggressive bowel regimen Status: Acute Code(s): Z90.49 - Acquired absence of other specified parts of digestive tract (2) Pulmonary embolism: Her hemoglobin has remained stable and we can therefore restart the Lovenox Status: Acute Code(s): I26.99 - Other pulmonary embolism without acute cor pulmonale Attestations Medical Necessity Statement*: Status post right hemicolectomy postop ileus Coding Level of Care Code Acute Strategic Business Development for [facility] Fwd Diagnoses Status post partial colectomy Z90.49 Pulmonary embolism I26.99
[2019-11-17 14:20] LABS: Hemoglobin 8.2 g/dL (11.5-15.3)
[2019-11-17] MEDS: acetaminophen 325 mg Tablet 650 MG PO (21:41)
[2019-11-18] VITALS: BP 159/82; PULSE 91; RESP 20; TEMP 36.6; O2SAT 94
[2019-11-18] MEDS: sodium chlor 0.9% + KCl 20 mEq 20 MEQ/1,000 ML BAG 55 MEQ IV ×2 (03:06→20:40)
[2019-11-18 04:00] VITALS: BP 157/73; PULSE 68; RESP 18; TEMP 36.7; O2SAT 93
[2019-11-18 05:49] LABS: Magnesium 1.9 mg/dL (1.7-2.3); Phosphorus 4.4 mg/dL (2.5-4.5)
[2019-11-18 07:16] VITALS: BP 176/85; PULSE 83; RESP 16; TEMP 36.8; O2SAT 94
[2019-11-18] MEDS: famotidine 20 mg/2 mL INJ IVP ×2 (09:25→19:53)
[2019-11-18] MEDS: lactobacillus 1 Tablet 4 TAB PO ×3 (09:26→20:40)
[2019-11-18] MEDS: sennosides-docusate Tablet 1 TAB PO ×2 (09:26→18:20)
[2019-11-18] MEDS: isosorbide mononitrate ER 30 mg Tablet PO ×2 (09:26→18:20)
[2019-11-18] MEDS: losartan 50 mg Tablet PO ×2 (09:26→18:20)
[2019-11-18] MEDS: metoprolol tartrate 50 mg Tablet 75 MG PO ×2 (09:26→18:20)
[2019-11-18] MEDS: amlodipine 10 mg Tablet PO (09:26)
--- NOTE | 2019-11-18 10:44 | PC.NURSE ---
TPN and fat emulsions given per Dr order at this time.Unable to scan medications, verified by this nurse and Bryant AMAYA
[2019-11-18 10:58] VITALS: BP 174/94; PULSE 97; RESP 16; TEMP 36.7; O2SAT 91
--- NOTE | 2019-11-18 11:57 | PM.PN ---
Subjective Subjective: Interval history: Overall she still struggling with some nausea and not eating as well as she should. No fevers or chills. No chest pain or shortness of breath. She is having some gas and passing small bowel movements. Medications: Reviewed: Yes Vitals/I&O/Wt Last Vital Signs Temp 98.0 F 11/18/19 10:58 Pulse 97 11/18/19 10:58 Resp 16 11/18/19 10:58 BP 174/94 11/18/19 10:58 Pulse Ox 91 11/18/19 10:58 11/17/19 11/18/19 11/18/19 22:59 06:59 14:59 Intake Total 749 / 2349 1000 / 2349 120 / 120 Balance 749 / 2349 1000 / 2349 120 / 120 Weight last 48 hrs Weight 147 lb 4 oz Weight 146 lb 5 oz Physical Exam Narrative: EXAM NARRATIVE: General: No acute distress, Alert. Well nourished. Heart: Regular rate and rhythm. No murmurs, rubs or gallops. Normal capillary refill. Lungs: Clear to auscultation. No wheezes, rhonchi or rales. Abdomen: Still a bit quiet.. Mild right upper quadrant pain., non-distended. No hepatosplenomegaly. No gaurding. Extremities: No clubbing, cyanosis, or edema. Negative Virgen's Urinary Catheter Management^: [place]: Cath Placed During This Visit: no Data : 11/17/19 14:12 11/17/19 02:30 A&P Assessment and plan (1) Primary adenocarcinoma of ascending colon: -Postop day 5. Doing well postoperatively. Pain is well controlled at this time. Continue to follow normal postoperative care per Dr. Kwon. Continue advancing diet as tolerated. We will probably consider stopping TPN tomorrow. Likely discharge to rehab in the next 1 to 2 days. Status: Inactive Code(s): C18.2 - Malignant neoplasm of ascending colon (2) Colitis: -I feel like this is improved. Status: Acute Code(s): K52.9 - Noninfective gastroenteritis and colitis, unspecified (3) Pulmonary embolism: -Stable. Continue with Lovenox. [facility].. Status: Acute Code(s): I26.99 - Other pulmonary embolism without acute cor pulmonale (4) Dysphagia: Status: Acute Code(s): R13.10 - Dysphagia, unspecified (5) Anemia: -Chronic I suspect due to the colon malignancy. Acutely worsened postoperatively. Not symptomatic. -We will repeat a CBC this afternoon continue to monitor closely. -Would not transfuse until hemoglobin is less than 7 or she becomes symptomatic. Status: Acute Code(s): D64.9 - Anemia, unspecified Attestations Medical Necessity Statement*: 84-year-old female status post hemicolectomy having a slow recovery. Need to continued postoperative care in the hospital setting. Coding Level of Care Code Acute Neighborhood Service Center Director for [facility] Fwd Diagnoses Primary adenocarcinoma of ascending colon C18.2 Colitis K52.9 Pulmonary embolism I26.99 Dysphagia R13.10 Anemia D64.9
--- NOTE | 2019-11-18 13:21 | PC.NURSE ---
The patient is refusing to eat. She only is taking in fluids. Family is upset with her because she just refuses to take a thien of anything. She just wont try it.
--- NOTE | 2019-11-18 14:51 | PC.NURSE ---
This nurse called to patient room for patient complaint of feeling like she could pass out upon arriving in room patient states i just got a sharp pain under my breast bone, its gone now though Pt assisted to bed at this time w/ steady gait noted. Denies any pain/discomfort when this nurse exits room
[2019-11-18 15:49] VITALS: BP 167/84; PULSE 95; RESP 16; TEMP 36.7; O2SAT 94
--- NOTE | 2019-11-18 16:41 | PM.PN ---
Subjective Subjective: Interval history: Patient doing fairly well, no nausea or vomiting, tolerating GI soft diet though she does not have much of an appetite. Had small bowel movements Vitals/I&O/Wt Last Vital Signs Temp 98.1 F 11/18/19 15:49 Pulse 95 11/18/19 15:49 Resp 16 11/18/19 15:49 BP 167/84 11/18/19 15:49 Pulse Ox 94 11/18/19 15:49 11/18/19 11/18/19 11/18/19 06:59 14:59 22:59 Intake Total 1000 / 2349 480 / 720 240 / 720 Balance 1000 / 2349 480 / 720 240 / 720 Weight last 48 hrs Weight 147 lb 4 oz Weight 146 lb 5 oz Physical Exam Narrative: EXAM NARRATIVE: Abdomen: Soft, tender, nondistended, incision clean dry and intact Urinary Catheter Management^: [place]: Cath Placed During This Visit: yes, but has since been removed by the nurse Reason for Continuing Indwelling Catheter: Not indwelling catheter Urinary Catheter Date of Insertion: 11/13/19 Urinary Catheter Time of Insertion: 10:05 Date Urinary Catheter Removed: 11/14/19 Time Urinary Catheter Discontinued: 09:30 Data : 11/17/19 14:12 11/17/19 02:30 A&P Assessment and plan (1) Status post partial colectomy: With postop ileus, appears to be resolving Continue Lovenox DC TPN once her oral intake is improved Encouraged to increase oral nutritional supplements Hopefully she can go to group home in the next day or so Status: Acute Code(s): Z90.49 - Acquired absence of other specified parts of digestive tract Attestations Medical Necessity Statement*: Status post right hemicolectomy with ileus resolving Coding Level of Care Code Acute Wheel Of Fortune Dealer for [facility] Fwd Diagnoses Status post partial colectomy Z90.49
--- NOTE | 2019-11-18 18:22 | PC.NURSE ---
Pt resting in bed with eyes open. Alert and oriented. Pt has ambulated x3 this shift. Tolerated well.
--- NOTE | 2019-11-18 19:00 | PC.NURSE ---
INTRODUCTION OF STAFF AND REPORT RECEIVED, AIDET.
[2019-11-18 20:00] VITALS: BP 169/74; PULSE 82; RESP 20; TEMP 36.9; O2SAT 94
[2019-11-18] MEDS: acetaminophen 325 mg Tablet 650 MG PO (20:40)
[2019-11-19] VITALS: BP 159/68; PULSE 75; RESP 20; TEMP 36.4; O2SAT 95
[2019-11-19 04:00] VITALS: BP 168/75; PULSE 91; RESP 20; TEMP 36.4; O2SAT 95
[2019-11-19 05:54] LABS: Basophils % 0.5 %; Eosinophils # 0.1 10^3/uL (0.0-0.8); Eosinophils % 2.9 %; Hemoglobin 7.9 g/dL (11.5-15.3); Lymphocytes # 1.3 10^3/uL (0.8-4.8); Lymphocytes % 28.4 %; Mean Corpuscular HGB Conc 29.3 g/dL (30.0-36.0); Mean Corpuscular Volume 85.4 fL (81-99); Mean Platelet Volume 11.5 fL (7.4-10.4); Monocytes # 0.3 10^3/uL (0.2-0.9); Monocytes % 7.7 %; Neutrophils # 2.7 10^3/uL (1.8-7.7); Nucleated Red Blood Cells % 0 %; Platelet Count 177 10^3/cmm (130-400); Red Blood Count 3.16 10^6/uL (4.1-5.3); Red Cell Distribution Width 19.7 % (12.1-15.1); White Blood Count 4.4 10^3/uL (4.0-10.0)
[2019-11-19 06:09] LABS: Alanine Aminotransferase 29 U/L (0-33); Albumin Level 2.9 g/dL (3.5-5.2); Alkaline Phosphatase 115 IU/L (35-105); Anion Gap 14.8 (5-19); Aspartate Amino Transferase 43 U/L (0-32); Blood Urea Nitrogen 10 mg/dL (8-23); C Reactive Protein 8.4 mg/L (0.0-4.9); Calcium 8.9 mg/dL (8.5-10.5); Carbon Dioxide 21 mmol/L (22-29); Chloride 104 mmol/L (98-107); Globulin 3.2 g/dL (1.3-4.6); Potassium 4.8 mmol/L (3.5-5.1); Sodium 135 mmol/L (136-145); Total Bilirubin 0.2 mg/dL (0.15-1.2); Total Protein 6.1 g/dL (6.6-8.7)
[2019-11-19 06:35] LABS: Carcinoembryonic Antigen 28.4 ng/mL (0.0-4.7)
[2019-11-19 07:35] VITALS: BP 138/79; PULSE 91; RESP 18; TEMP 36.7; O2SAT 95
[2019-11-19 09:15] LABS: Glucose 409 mg/dL (65-115)
[2019-11-19] MEDS: losartan 50 mg Tablet PO (09:41)
[2019-11-19] MEDS: metoprolol tartrate 50 mg Tablet 75 MG PO (09:41)
[2019-11-19] MEDS: amlodipine 10 mg Tablet PO (09:42)
[2019-11-19] MEDS: famotidine 20 mg/2 mL INJ IVP (09:42)
[2019-11-19] MEDS: sennosides-docusate Tablet 1 TAB PO (09:42)
[2019-11-19] MEDS: isosorbide mononitrate ER 30 mg Tablet PO (09:42)
[2019-11-19] MEDS: lactobacillus 1 Tablet 4 TAB PO (09:42)
[2019-11-19 10:40] VITALS: BP 138/79; PULSE 91; RESP 18; TEMP 36.7; O2SAT 95
[2019-11-19 11:54] VITALS: BP 163/73; PULSE 80; RESP 18; TEMP 36.6; O2SAT 94
--- NOTE | 2019-11-19 12:36 | P.PN_ITS ---
Subjective Subjective: Interval history: Patient doing well denies any pain, tolerating GI soft diet, had bowel movements Vitals/I&O/Wt Last Vital Signs Temp 97.9 F 11/19/19 11:54 Pulse 80 11/19/19 11:54 Resp 18 11/19/19 11:54 BP 163/73 11/19/19 11:54 Pulse Ox 94 11/19/19 11:54 11/18/19 11/19/19 11/19/19 22:59 06:59 14:59 Intake Total 1446.167 / 1926.167 240 / 240 Output Total 200 / 200 Balance 1246.167 / 1726.167 240 / 240 Weight last 48 hrs Weight 143 lb Weight 143 lb 3 oz Weight 143 lb 3 oz Weight 143 lb 3 oz Weight 147 lb 4 oz Physical Exam Narrative: EXAM NARRATIVE: Abdomen: Soft, nondistended, nontender Urinary Catheter Management^: [place]: Cath Placed During This Visit: yes, but has since been removed by the nurse Reason for Continuing Indwelling Catheter: Not indwelling catheter Urinary Catheter Date of Insertion: 11/13/19 Urinary Catheter Time of Insertion: 10:05 Date Urinary Catheter Removed: 11/14/19 Time Urinary Catheter Discontinued: 09:30 Data : 11/19/19 05:14 11/19/19 05:14 A&P Assessment and plan (1) Status post partial colectomy: Doing well DC to skilled nursing today Status: Resolved Code(s): Z90.49 - Acquired absence of other specified parts of digestive tract Attestations Medical Necessity Statement*: Status post total partial colectomy Coding Level of Care Code Acute Sole Filler for [facility] Fwd Diagnoses Status post partial colectomy Z90.49
--- NOTE | 2019-11-19 14:07 | PM.DCS ---
Discharge Providers Date of Admission: 11/04/19 12:32 Date of Discharge: Date of Discharge: November 19, 2019 Attending Provider at Admission: Ousmane Reaves MD Attending Provider at Discharge: Ousmane Reaves MD Primary Care Provider: Ousmane Reaves MD Diagnoses at Discharge Discharge Diagnosis (1) Status post partial colectomy: Status: Resolved Problem details: 11/13/2019: Laparoscopic extended right hemicolectomy Reason for Visit Reason for Visit: Reason For Visit: NAUSEA, VOMITING, DEHYDRATION Hospital Course Discharge Summary: Patient is admitted to the hospital for increased abdominal pain and nausea. She was found to have recurrence of the colitis in her right a sending colon. Patient was given IV antibiotics with Zosyn and Flagyl and her diarrhea did improve. However, she continued to have symptoms of partial obstruction. Repeat CT scan did not reveal any improvement. Suspicion for an adenocarcinoma became greater. Her CRP was over 100 initially on admission but came down to 14 prior to this repeat CT scan. With no improvement like we expected we consulted surgery for colonoscopy to confirm diagnosis of colon cancer. Dr. Kwon was consulted. Colonoscopy confirmed colon adenocarcinoma. Surgery was scheduled couple days later. She had resection and hemicolectomy on the right side. She has had a bit of a slow postoperative course. Still continued to have some ileus problems. Overall she is improving though. She is having some bowel sounds and bowel movements. She has been tolerating p.o. for the last couple of days. Just has a poor appetite. She is getting 3-4 ensures in a day though. Patient has been on TPN through a PICC line since admission. [facility] the [facility] 1 to 2 weeks. Until she is able to go home. She also has a history of saddle embolism. She was held on her Eliquis for the surgery but placed on Lovenox. She is going to be transitioned back to her Eliquis upon discharge. Physical Exam Narrative: EXAM NARRATIVE: General: No acute distress, Alert. Well nourished. HEENT: PERRLA, EOMI. vision grossly normal. Throat clear. Neck: supple, no adenopathy. Heart: Regular rate and rhythm. No murmurs, rubs or gallops. Normal capillary refill. Lungs: Clear to auscultation. No wheezes, rhonchi or rales. Abdomen: Positive bowel sounds. Non-tender, non-distended. No hepatosplenomegaly. No gaurding. Extremities: No clubbing, cyanosis, or edema. Negative Virgen's. Urinary Catheter Management^: [place]: Cath Placed During This Visit: yes, but has since been removed by the nurse Reason for Continuing Indwelling Catheter: Not indwelling catheter Urinary Catheter Date of Insertion: 11/13/19 Urinary Catheter Time of Insertion: 10:05 Date Urinary Catheter Removed: 11/14/19 Time Urinary Catheter Discontinued: 09:30 Discharge Data Data Completed and Pending: Completed Studies During Hospitalization Category Date Time Status CT abdomen pelvis w con* [id number] Rout ine Cat Scan 11/04/19 14:[address] abdomen pelvis w con* [id number] Rout ine Cat Scan 11/09/19 07:43 Completed XR KUB [id number] Rout ine Exams 11/07/19 07:21 Completed XR chest 1V beulah ble [id number] Routine Exams 11/10/19 12:00 Completed XR chest 1V beulah ble [id number] Routine Exams 11/11/19 14:03 Completed MR head wo/w con [id number] Routine MRI 11/05/19 10:32 Completed Pathology: Surgic al [PTH] Routine Pth 11/17/19 09:30 Completed Pathology: Surgic al [PTH] Stat Pth 11/12/19 10:26 [place] [id number] Routin e Ultrasound 11/08/19 08:30 Completed [place] abdomen limite d [id number] Routine Ultrasound 11/08/19 08:35 Completed Pending at discharge Category Date Time Status ES surgery / GI i mages Routine Exams 11/13/19 07:04 Taken Miscellaneous Mimi t Routine Lab 11/12/19 11:32 Received Labs from last 24 hours 11/19/19 11/19/19 11/19/19 05:14 05:14 05:14 WBC 4.4 RBC 3.16 L Hgb 7.9 L Hct 27.0 L MCV 85.4 MCH 25.0 L MCHC 29.3 L RDW 19.7 H Plt Count 177 MPV 11.5 H Neut % (Auto) 60.0 Lymph % (Auto) 28.4 Angelina % (Auto) 7.7 Eos % (Auto) 2.9 Baso % (Auto) 0.5 Neut # (Auto) 2.7 Lymph # (Auto) 1.3 Angelina # (Auto) 0.3 Eos # (Auto) 0.1 Baso # (Auto) 0.0 Nucleated RBC % (a uto) 0 Nucleated RBCs # 0.0 Sodium 135 L Potassium 4.8 Chloride 104 Carbon Dioxide 21 L Anion Gap 14.8 BUN 10 Creatinine 0.5 Glucose 409 H Calcium 8.9 Total Bilirubin 0.2 AST 43 H ALT 29 Alkaline Phosphata se 115 H C-Reactive Protein 8.4 H Total Protein 6.1 L Albumin 2.9 L Globulin 3.2 Carcinoembryonic A g 28.4 H Vitals: Last Vital Signs Temp 97.9 F 11/19/19 11:54 Pulse 80 11/19/19 11:54 Resp 18 11/19/19 11:54 BP 163/73 11/19/19 11:54 Pulse Ox 94 11/19/19 11:54 Discharge Plan Discharge Patient Disposition: Rehab Fac w Plan Readm Condition: Stable Prescriptions: New sennosides-docusate sodium 8.6-50 mg Tablet 1 tab PO BID Qty: 60 RF: 0 Continued clopidogrel [Plavix] 75 mg Tablet 75 mg PO DAILY RF: 0 isosorbide mononitrate 30 mg Tablet Extended Release 24 Hr 30 mg PO BID RF: 0 losartan 50 mg Tablet 50 mg PO DAILY RF: 0 sertraline [Zoloft] 100 mg Tablet 100 mg PO DAILY RF: 0 metoprolol tartrate 50 mg Tablet 100 mg PO BID RF: 0 nitroglycerin [Nitrostat] 0.4 mg Tablet, Sublingual 0.4 mg SUBLINGUAL Q5M PRN (Reason: Chest Pain) RF: 0 acetaminophen [Tylenol Extra Strength] 500 mg Tablet 500 mg PO DAILY PRN (Reason: Pain) RF: 0 coenzyme Q10 [CoQ-10] 100 mg Capsule 100 mg PO BEDTIME RF: 0 pantoprazole 40 mg Tablet,Delayed Release (Dr/Ec) 40 mg PO DAILY 30 Days Qty: 30 RF: 0 Eliquis DVT-PE Treat 30D Start 5 mg (74 tabs) tablets,dose pack See Rx Instructions .ROUTE .COMPLEX Qty: 74 RF: 0 glucosamine sulfate [Glucosamine] 500 mg Tablet 1,000 mg PO DAILY RF: 0 rosuvastatin [Crestor] 20 mg Tablet 20 mg PO BEDTIME RF: 0 Discharge Orders: Discharge Order (Routine); Ordered 11/19/19 Ordered By: Ousmane Reaves Referrals: [facility] [Outside] Torey Kwon MD [Physician] - 2 weeks Ousmane Reaves MD [Primary Care Provider] - 11/26/19 10:40 am Discharge Diet: GI Soft Discharge Activity: Resume usual activity Patient Instructions: Laxative, Stool Softeners (By mouth), Malnutrition (GEN), Colectomy (GEN) Activity Restrictions/Additional Instructions: -Discharge to rehab with Dr. Reaves attending physician -Encouraged her to do for Ensure shakes a day -Leave PICC line in and do routine PIC care. Remove PICC line prior to discharge or in 1 week if doing well. -Check a CBC, CMP, CRP in 2 days. -Physical therapy and Occupational Therapy to assess and treat -Call if increasing abdominal pain, nausea vomiting, fevers. -Follow-up with Dr. Reaves in 1 week. General surgery discharge orders 1. Up and walking as tolerated. 2. Ok to shower in 48 hours 3. Remove surgical glue dressing in 7-10 days. 4. Advised to return to ER or contact my office if there are any signs of infection like, increasing pain, fevers, chills, redness or drainage of pus. Discharge Attestations Time Spent in Discharge Care*: greater than 30 min Quality Metrics Clinical Quality Measures During this hospital stay, did patient experience: None Coding Level of Care Code Acute Complaint Evaluation Supervisor for Chg Fwd Diagnoses Status post partial colectomy Z90.49
[2019-11-24 10:44] LABS: Miscellaneous Test See Scanned Lab Rpt
== END 2019-11-19 13:30 | disposition skilled nursing facility (03) | DRG 329 ==
PROVIDERS: Family Medicine; Surgery; Admitting Provider Family Medicine; Family Provider Family Medicine; PCP Family Medicine; Visit Provider Family Medicine
PROC: 0DJD8ZZ Inspection of Lower Intestinal Tract, Via Natural or Artificial Opening Endoscopic (ICD-10-PCS; CPT 45378; principal; 2019-11-12 12:30)
PROC: 0DTE4ZZ Resection of Large Intestine, Percutaneous Endoscopic Approach (ICD-10-PCS; principal; 2019-11-13 10:00)
DX: C18.2 Malignant neoplasm of ascending colon (principal); I26.99 Other pulmonary embolism without acute cor pulmonale; K56.699 Other intestinal obstruction unspecified as to partial versus complete obstruction; K56.7 Ileus, unspecified; K52.9 Noninfective gastroenteritis and colitis, unspecified; D64.9 Anemia, unspecified; I25.10 Atherosclerotic heart disease of native coronary artery without angina pectoris; K63.89 Other specified diseases of intestine; R13.10 Dysphagia, unspecified; Z79.02 Long term (current) use of antithrombotics/antiplatelets; Z79.01 Long term (current) use of anticoagulants; Z95.5 Presence of coronary angioplasty implant and graft; I10 Essential (primary) hypertension; E78.5 Hyperlipidemia, unspecified; M19.90 Unspecified osteoarthritis, unspecified site; G47.33 Obstructive sleep apnea (adult) (pediatric); I73.9 Peripheral vascular disease, unspecified; Z87.891 Personal history of nicotine dependence
CPT/HCPCS: 12345; 36415; 36416; 36592; 51702; 70553; 71045; 74018; 74177; 76705; 80048; 80053; 82378; 82728; 82962; 83540; 83550; 83690; 83735; 84100; 85014; 85018; 85025; 85045; 86140; 86850; 86900; 87493; 88305; 88309; 88341; 88342; 93971; 96360; 96361; 96365; 96366; 96372; 96375; 97110; 97116; 97161; 97530; A9579; C1751; C9290; J0330; J0360; J0690; J1170; J1650; J1885; J2001; J2270; J2405; J2543; J2704; J3010; J3370; J3480; J3490; J7030; Q9967; S0030

== ENCOUNTER 2019-12-18 13:41 | Outpatient (CLI) | payer MEDICARE, SELFPAY ==
[2019-12-18 17:53] LABS: Basophils % 0.5 %; Eosinophils # 0.2 10^3/uL (0.0-0.8); Eosinophils % 2.7 %; Hematocrit 28.4 % (37.0-47.0); Hemoglobin 8.4 g/dL (11.5-15.3); Lymphocytes # 2.8 10^3/uL (0.8-4.8); Mean Corpuscular HGB Conc 29.6 g/dL (30.0-36.0); Mean Corpuscular Hemoglobin 26.4 pg (28.0-34.0); Mean Corpuscular Volume 89.3 fL (81-99); Mean Platelet Volume 10.2 fL (7.4-10.4); Monocytes # 0.6 10^3/uL (0.2-0.9); Monocytes % 9.9 %; Neutrophils # 2.4 10^3/uL (1.8-7.7); Neutrophils % 39.7 %; Nucleated Red Blood Cells % 0 %; Platelet Count 241 10^3/cmm (130-400); Red Blood Count 3.18 10^6/uL (4.1-5.3); Red Cell Distribution Width 20.5 % (12.1-15.1); White Blood Count 5.9 10^3/uL (4.0-10.0)
[2019-12-18 18:42] LABS: Folate Level 4.2 ng/mL (4.8-37.3)
[2019-12-18 18:43] LABS: Carcinoembryonic Antigen 5.2 ng/mL (0.0-4.7); Vitamin B12 182 pg/mL (232-1245)
[2019-12-18 18:55] LABS: Alanine Aminotransferase 8 U/L (0-33); Albumin Level 3.6 g/dL (3.5-5.2); Alkaline Phosphatase 72 IU/L (35-105); Anion Gap 16.6 (5-19); Aspartate Amino Transferase 17 U/L (0-32); Blood Urea Nitrogen 12 mg/dL (8-23); Calcium 9.3 mg/dL (8.5-10.5); Carbon Dioxide 25 mmol/L (22-29); Chloride 105 mmol/L (98-107); Ferritin 81 ng/mL (15-150); Globulin 3.3 g/dL (1.3-4.6); Glucose 112 mg/dL (65-115); Iron 55 ug/dL (37-145); Percent Saturation 16.2 % (20-50); Potassium 3.6 mmol/L (3.5-5.1); Sodium 143 mmol/L (136-145); Total Bilirubin 0.5 mg/dL (0.15-1.2); Total Iron Binding Capacity 338 mcg/dl; Total Protein 6.9 g/dL (6.6-8.7); Unsaturated Iron Binding 283 ug/dL (112-347)
--- NOTE | 2019-12-19 13:06 | ONC CON_ITS ---
Dr. Call New Patient Note Patient: Ana Laurent Unit #: [id number]: [id number] Dicatated By: Allyssa Call M.D.Date of Visit: Dec 18, 2019 Onc MED New Patient/Consult Referring Physician: Dr. CLARICE EVANS M.D. History of Present Illness: Mrs. Ana Laurent, is a 84-year-old female with history of progressive generalized weakness and fatigue and abdominal pain underwent CT scan of abdomen pelvis on 11/04/2019 which showed annular constricting carcinoma ascending colon, causing partial obstruction with mild interval increase. Abnormal pericolonic lymphadenopathy. Nonspecific mild posterior pelvic peritoneal fluid. Post hysterectomy. Liver normal. 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 and (colonic adenocarcinoma with this phenotype associated with improved disease-free and overall survival in untreated stage II and III colorectal carcinomas and most commonly found in sporadic colonic glandular neoplasms, additional testing for MLH 1 gene caused by premotor hyper methylation or Ronquillo syndrome is probably not indicated) Subsequently on 11/17/2019 patient underwent right hemicolectomy and final pathology report showed moderately differentiated adenocarcinoma of colon extending through muscularis propria focally into pericolonic fat, tumor is completely excised with clear surgical margins, tumor size 6 x 5 cm in the cecum, low-grade type, no vascular invasion identified,, no perforation, e.g. pT3 7 out of 19 lymph nodes showed metastatic disease e.g.pN2 Stage IIIB Labs done on 02/17/2020 shows white blood count 4.4 hemoglobin 7.9 hematocrit 27 platelets 177,000 MCV 85.4 CMP within normal limits except glucose 409, AST 43, albumin 2.9, and CEA 28.4. Patient denies any specific complaint today, no fever or chills, no nausea or vomiting, no abdominal pain but generalized weakness and fatigue. No melena or hematochezia no diarrhea constipation no jaundice. Past Medical History: Ms. Laurent's medical history consists of coronary artery disease, hyperlipidemia, and hypertension. Past Surgical History: Ms. Leals surgical/procedural history consists of bilateral rotator cuff repair, carpal tunnel release, hysterectomy/bilateral salpingectomy-oophorectomy, left carotid artery, and PTCA/stent. Medications: Cholecalciferol 1 (50,000 Units) Capsule Oral every am on W, Crestor 1 (20 mg) Tablet Oral every am, Eliquis 1 (5 mg) Tablet Oral daily, Isosorbide Mononitrate 1 (30 mg) Tablet Oral b.i.d., Losartan Potassium 1 (50 mg) Tablet Oral every am, Metoprolol Tartrate 1 (50 mg) Tablet Oral b.i.d., Pantoprazole Sodium 1 (40 mg) Tablet, enteric coated Oral daily, Plavix 1 (75 mg) Tablet Oral every am, Zoloft 1 (100 mg) Tablet Oral every am Allergies: Belladonna, Imipramine HCl, Macrobid, Morphine Derivatives, and sulfabenzamide. Social History: Ms. Laurent is and she is retired. Ms. Laurent quit smoking 30 years ago but had smoked for 10 years. She has no history of drinking. Family History: Ms. Laurent's mother at age 96: congestive heart failure, and hypertension. Ms. Laurent's father at age 92: myocardial infarctin. Review Of Symptoms: Review of Systems is not available for this patient. Vital Signs: Performed on Dec 18, 2019 15:34: 5, 0, 26.01, 1.65 sq.m, 62 in, 96 %, 76 /min, 16 /min, 179/72 mm(hg) (HIGH), 98.1 F (LOW), and 142.2 lbs (HIGH). Performance Status: 0 - Fully active, able to carry on all predisease activities without restrictions. (ECOG) Physical Examination: ENMT - No oral exudates, ulcers, masses, thrush or mucositis. Oropharynx clear. Tongue normal, Respiratory - Lungs are clear to auscultation without rhonchi or wheezing, Cardiovascular - Regular rate and rhythm of heart, Abdomen - Non-tender, non-distended, Good bowel sounds. No guarding or rebound tenderness. No pulsatile masses, Extremities - trace edema bilaterally. Lab/Imaging: Most recent lab results are not available for this patient. Impression: Moderately differentiated adenocarcinoma of the cecum status post right hemicolectomy done on 11/17/2019, final pathology report showed moderately differentiated adenocarcinoma of the colon extending through muscularis propria focally into pericolonic fat, low-grade, no vascular invasion seen, clear surgical margins,pT3 7 out of 19 lymph nodes showed metastatic disease pN2 Stage IIIB CEA checked on 11/19/2019 was 28.4, again right hemicolectomy was done on 11/17/2019, question whether lab was drawn before surgery but he reported on 02/17/2020 or ? Metastases Normocytic normochromic anemia, etiology combined iron deficiency/B12 or anemia of chronic disease or considering her age underlying myelodysplasia Plan: Discussed with patient regarding her disease status and treatment options, main concern is for surgery lab workup showed elevated CEA e.g. 28.4 on 11/19/2019 whereas patient underwent right hemicolectomy on 11/17/2019, it could be due to lab error regarding reporting or patient may have metastatic disease. So this point we will repeat her CEA if elevated will consider CT PET scan to rule out metastatic disease if normal then will discuss about role of adjuvant chemotherapy e.g. capeox 3 months versus 6 month or FOLFOX ???12 or Xeloda alone, as patient is a high risk for recurrence being stage III B We will also consider anemia workup which include CBC iron studies B12 folic acid level reticulocyte count and patient return to clinic in 1 week for discussion and further planning. Signed By: Allyssa Call M.D. <<Signature on File>>
== END 2019-12-18 13:42 | disposition home or self-care (01) ==
PROVIDERS: Family Provider Family Medicine; PCP Family Medicine; Referring Provider Surgery; Visit Provider Internal Medicine Hematology & Oncology
DX: C18.2 Malignant neoplasm of ascending colon (principal); C77.2 Secondary and unspecified malignant neoplasm of intra-abdominal lymph nodes; I25.10 Atherosclerotic heart disease of native coronary artery without angina pectoris; E78.5 Hyperlipidemia, unspecified; I10 Essential (primary) hypertension; Z90.49 Acquired absence of other specified parts of digestive tract
CPT/HCPCS: 80053; 82378; 82607; 82728; 82746; 83540; 83550; 85025; 85045; 99203

== ENCOUNTER 2019-12-23 07:42 | Outpatient (CLI) | payer MEDICARE, SELFPAY ==
[2019-12-23] MEDS: cyanocobalamin 1,000 mcg/mL SDV 1000 MCG IM (09:20)
--- NOTE | 2019-12-23 12:05 | ONC FU_ITS ---
Dr. Call follow up note Patient: Ana Laurent Unit #: [id number]: 1935 Dicatated By: Allyssa Call M.D.Date of Visit:Dec 23, 2019 Onc Med Follow-up/Prog Note History of Present Illness: Mrs. Ana Laurent, is a 84-year-old female with history of progressive generalized weakness and fatigue and abdominal pain underwent CT scan of abdomen pelvis on 11/04/2019 which showed annular constricting carcinoma ascending colon, causing partial obstruction with mild interval increase. Abnormal pericolonic lymphadenopathy. Nonspecific mild posterior pelvic peritoneal fluid. Post hysterectomy. Liver normal. 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 and (colonic adenocarcinoma with this phenotype associated with improved disease-free and overall survival in untreated stage II and III colorectal carcinomas and most commonly found in sporadic colonic glandular neoplasms, additional testing for MLH 1 gene caused by premotor hyper methylation or Ronquillo syndrome is probably not indicated) Subsequently on 11/17/2019 patient underwent right hemicolectomy and final pathology report showed moderately differentiated adenocarcinoma of colon extending through muscularis propria focally into pericolonic fat, tumor is completely excised with clear surgical margins, tumor size 6 x 5 cm in the cecum, low-grade type, no vascular invasion identified,, no perforation, e.g. pT3 7 out of 19 lymph nodes showed metastatic disease e.g.pN2 Stage IIIB Labs done on 02/17/2020 shows white blood count 4.4 hemoglobin 7.9 hematocrit 27 platelets 177,000 MCV 85.4 CMP within normal limits except glucose 409, AST 43, albumin 2.9, and CEA 28.4.repeat CEA on December 27 clinically was 5.2 Came for follow-up, denies any specific complaint except generalized weakness and fatigue and mild peripheral numbness in the fingertips otherwise no melena hematochezia no diarrhea constipation no abdominal pain no fever or chills Medications: Cholecalciferol 1 (50,000 Units) Capsule Oral every am on W, Crestor 1 (20 mg) Tablet Oral every am, Eliquis 1 (5 mg) Tablet Oral b.i.d., Isosorbide Mononitrate 1 (30 mg) Tablet Oral b.i.d., Losartan Potassium 1 (50 mg) Tablet Oral every am, Metoprolol Tartrate 1 (50 mg) Tablet Oral b.i.d., Pantoprazole Sodium 1 (40 mg) Tablet, enteric coated Oral daily, Plavix 1 (75 mg) Tablet Oral every am, Zoloft 2 Tablet (of 100 mg) Oral every am Allergies: Belladonna, Imipramine HCl, Macrobid, Morphine Derivatives, and sulfabenzamide. Review of Systems: Constitutional - Appetite is poor and weight is stable. No fever, chills, hot flashes, or night sweats. Energy level is fair, ENMT - No sinus congestion/drainage. No mouth sores. No sore throat or difficulty swallowing, Hematologic/Lymphatic - Positive for easy bruising, Respiratory - Positive for shortness of breath. No cough. No pleuritic pain or hemoptysis, Cardiovascular - No angina pain. No palpitations, Gastrointestinal - Positive for nausea, no vomiting. No heartburn or acid reflux. No diarrhea or constipation. No blood in the stool or black stools, Genitourinary (F) - No dysuria or hematuria. No urinary frequency. No urgency. Positive for incontinence, Musculoskeletal - Positive for joint pain, Neurologic - No headache or dizziness. No numbness/paresthesias or other focal neurologic symptoms, Psychiatric - Positive for depression and anxiety. Vital Signs: Performed on Dec 23, 2019 08:14 Height - 62.00 in Weight - 142.4 lbs (HIGH) BSA - 1.65 sq.m BMI - 26.05 Temperature - 97.6 F (LOW) Pulse - 68 /min Respiration - 18 /min BP - 148/72 mm(hg) (HIGH) O2 Sat - 97 % Pain - 0 Performance Status: 0 - Fully active, able to carry on all predisease activities without restrictions. (ECOG) Physical Examination: ENMT - No oral exudates, ulcers, masses, thrush or mucositis. Oropharynx clear. Tongue normal, Respiratory - Lungs are clear to auscultation without rhonchi or wheezing, Cardiovascular - Regular rate and rhythm of heart, Abdomen - Non-tender, non-distended, Good bowel sounds. No guarding or rebound tenderness. No pulsatile masses, Extremities - no edema. Lab/Imaging: Most recent lab results are not available for this patient. Impression: Moderately differentiated adenocarcinoma of the cecum status post right hemicolectomy done on 11/17/2019, final pathology report showed moderately differentiated adenocarcinoma of the colon extending through muscularis propria focally into pericolonic fat, low-grade, no vascular invasion seen, clear surgical margins,pT3 7 out of 19 lymph nodes showed metastatic disease pN2 Stage IIIB CEA checked on 11/19/2019 was 28.4, again right hemicolectomy was done on 11/17/2019, question whether lab was drawn before surgery but he reported on 02/17/2020 or ? Metastases Normocytic normochromic anemia, etiology combined iron deficiency/B12 or anemia of chronic disease or considering her age underlying myelodysplasia Plan: Discussed with patient regarding her labs from 12/28/2019 showed CEA 5.2 compared to 28.4 on 11/19/2019 and CBC showed white blood count 5.9 hemoglobin 8.4 crit 28.4 platelets 241,000 MCV 89.3 CMP within normal limits ferritin 81, iron 55, TIBC 338, B12 182 Clinically, patient is doing reasonably well now recovering from surgery her repeat lab showed CEA close to normal range compared to 28.4 on 11/19/2019, in that case we would not consider CT PET scan as CT scan of abdomen done prior to surgery showed no evidence of metastatic disease As for the anemia is concern, could be multifactorial, considering her age underlying myelodysplasia cannot be ruled out but her B12 level is low which could be due to malabsorption so we will consider B12 supplement thousand micrograms IM weekly ???4 loading dose then monthly as maintenance. Patient has mild peripheral numbness in the fingertip , she thought those due to poor circulation. Could be due to B12 deficiency. We'll monitor. We will monitor her H&H, there is no improvement with B12 supplement, we may try Injectafer for functional iron deficiency and if there is no improvement may consider bone marrow evaluation to rule out underlying MDS. Role of adjuvant chemotherapy in stage IIIB disease was discussed again, patient has a grandson named Doc, who has pharmacy background she wants me to discuss with him regarding the treatment and if he agrees then she will consider. So we will discuss with him, patient will return to clinic in 1 week for further discussion and she will also talk to her family. Signed By: Allyssa Call M.D. <<Signature on File>>
== END 2019-12-23 07:43 | disposition home or self-care (01) ==
LOC: ONCMED 07:46
PROVIDERS: Family Provider Family Medicine; PCP Family Medicine; Visit Provider Internal Medicine Hematology & Oncology
DX: C18.2 Malignant neoplasm of ascending colon (principal); C77.2 Secondary and unspecified malignant neoplasm of intra-abdominal lymph nodes; D64.9 Anemia, unspecified; Z79.01 Long term (current) use of anticoagulants; Z79.899 Other long term (current) drug therapy; Z90.49 Acquired absence of other specified parts of digestive tract
CPT/HCPCS: 96372; 99214; J3420

== ENCOUNTER 2020-01-05 05:42 | Outpatient (RCR) | payer MEDICARE, SELFPAY ==
[2019-12-30 15:03] LABS: Alanine Aminotransferase 10 U/L (0-33); Albumin Level 3.6 g/dL (3.5-5.2); Alkaline Phosphatase 67 IU/L (35-105); Anion Gap 12.8 (5-19); Aspartate Amino Transferase 23 U/L (0-32); Blood Urea Nitrogen 13 mg/dL (8-23); Calcium 9.3 mg/dL (8.5-10.5); Carbon Dioxide 30 mmol/L (22-29); Chloride 107 mmol/L (98-107); Globulin 3.4 g/dL (1.3-4.6); Glucose 80 mg/dL (65-115); Osmolality Calculated 297 mOsm/kg (285-295); Potassium 3.8 mmol/L (3.5-5.1); Sodium 146 mmol/L (136-145); Total Bilirubin 0.5 mg/dL (0.15-1.2)
[2019-12-30 15:06] LABS: Basophils % 0.5 %; Eosinophils # 0.1 10^3/uL (0.0-0.8); Eosinophils % 2.4 %; Hemoglobin 9.5 g/dL (11.5-15.3); Lymphocytes # 2.6 10^3/uL (0.8-4.8); Lymphocytes % 44.2 %; Mean Corpuscular HGB Conc 29.7 g/dL (30.0-36.0); Mean Corpuscular Hemoglobin 27.8 pg (28.0-34.0); Mean Corpuscular Volume 93.6 fL (81-99); Mean Platelet Volume 10.5 fL (7.4-10.4); Monocytes # 0.5 10^3/uL (0.2-0.9); Monocytes % 8.6 %; Neutrophils # 2.6 10^3/uL (1.8-7.7); Neutrophils % 44.1 %; Nucleated Red Blood Cells % 0 %; Platelet Count 259 10^3/cmm (130-400); Red Blood Count 3.42 10^6/uL (4.1-5.3); Red Cell Distribution Width 19.5 % (12.1-15.1); White Blood Count 5.8 10^3/uL (4.0-10.0)
[2019-12-31] MEDS: cyanocobalamin 1,000 mcg/mL SDV 1000 MCG IM (11:14)
[2020-01-05] MEDS: cyanocobalamin 1,000 mcg/mL SDV 1000 MCG IM (13:55)
--- NOTE | 2020-01-05 14:11 | ONC FU_ITS ---
Dr. Call follow up note Patient: Ana Laurent Unit #: [id number]: 1935 Dicatated By: Allyssa Call M.D.Date of Visit:Jan 05, 2020 Onc Med Follow-up/Prog Note History of Present Illness: Mrs. Ana Laurent, is a 84-year-old female with history of progressive generalized weakness and fatigue and abdominal pain underwent CT scan of abdomen pelvis on 11/04/2019 which showed annular constricting carcinoma ascending colon, causing partial obstruction with mild interval increase. Abnormal pericolonic lymphadenopathy. Nonspecific mild posterior pelvic peritoneal fluid. Post hysterectomy. Liver normal. 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 and (colonic adenocarcinoma with this phenotype associated with improved disease-free and overall survival in untreated stage II and III colorectal carcinomas and most commonly found in sporadic colonic glandular neoplasms, additional testing for MLH 1 gene caused by premotor hyper methylation or Ronquillo syndrome is probably not indicated) Subsequently on 11/17/2019 patient underwent right hemicolectomy and final pathology report showed moderately differentiated adenocarcinoma of colon extending through muscularis propria focally into pericolonic fat, tumor is completely excised with clear surgical margins, tumor size 6 x 5 cm in the cecum, low-grade type, no vascular invasion identified,, no perforation, e.g. pT3 7 out of 19 lymph nodes showed metastatic disease e.g.pN2 Stage IIIB Labs done on 02/17/2020 shows white blood count 4.4 hemoglobin 7.9 hematocrit 27 platelets 177,000 MCV 85.4 CMP within normal limits except glucose 409, AST 43, albumin 2.9, and CEA 28.4.repeat CEA on December 27 clinically was 5.2 Came for follow-up, denies any specific complaints, no nausea or vomiting no diarrhea constipation no abdominal pain. Medications: 8 Hour Pain Relief 1 Tablet (of 650 mg) Tablet, controlled release Oral daily, Acetaminophen 1 - 2 Tablet (of 325 mg) Oral daily PRN, Cholecalciferol 1 (50,000 Units) Capsule Oral every am on W, Co Q 10 1 Capsule (of 100 mg) Oral daily, Crestor 1 (20 mg) Tablet Oral every am, Eliquis 1 (5 mg) Tablet Oral b.i.d., Isosorbide Mononitrate 1 (30 mg) Tablet Oral b.i.d., Losartan Potassium 1 (50 mg) Tablet Oral every am, Metoprolol Tartrate 1 (50 mg) Tablet Oral b.i.d., Pantoprazole Sodium 1 (40 mg) Tablet, enteric coated Oral daily, Plavix 1 (75 mg) Tablet Oral every am, Zoloft 2 Tablet (of 100 mg) Oral every am Allergies: Belladonna, Imipramine HCl, Macrobid, Morphine Derivatives, and sulfabenzamide. Review of Systems: Constitutional - Appetite is poor and weight is stable. No fever, chills, hot flashes, or night sweats. Energy level is fair, ENMT - No sinus congestion/drainage. No mouth sores. No sore throat or difficulty swallowing, Hematologic/Lymphatic - Positive for easy bruising, Respiratory - Positive for shortness of breath. No cough. No pleuritic pain or hemoptysis, Cardiovascular - No angina pain. No palpitations, Gastrointestinal - Positive for nausea, no vomiting. No heartburn or acid reflux. No diarrhea or constipation. No blood in the stool or black stools, Genitourinary (F) - No dysuria or hematuria. No urinary frequency. No urgency. Positive for incontinence, Musculoskeletal - Positive for joint pain, Neurologic - No headache or dizziness. No numbness/paresthesias or other focal neurologic symptoms, Psychiatric - Positive for depression and anxiety. Vital Signs: Performed on Jan 05, 2020 13:04 Height - 62.00 in Weight - 142.0 lbs (HIGH) BSA - 1.65 sq.m BMI - 25.97 Temperature - 97.0 F (LOW) Pulse - 73 /min Respiration - 18 /min BP - 153/72 mm(hg) (HIGH) O2 Sat - 95 % (LOW) Pain - 0 Performance Status: 0 - Fully active, able to carry on all predisease activities without restrictions. (ECOG) Physical Examination: ENMT - No oral exudates, ulcers, masses, thrush or mucositis. Oropharynx clear. Tongue normal, Respiratory - Lungs are clear to auscultation without rhonchi or wheezing, Cardiovascular - Regular rate and rhythm of heart, Abdomen - Non-tender, non-distended,Good bowel sounds. No guarding or rebound tenderness. No pulsatile masses, Extremities - no edema. Lab/Imaging: Most recent lab results are not available for this patient. Impression: Moderately differentiated adenocarcinoma of the cecum status post right hemicolectomy done on 11/17/2019, final pathology report showed moderately differentiated adenocarcinoma of the colon extending through muscularis propria focally into pericolonic fat, low-grade, no vascular invasion seen, clear surgical margins,pT3 7 out of 19 lymph nodes showed metastatic disease pN2 Stage IIIB CEA checked on 11/19/2019 was 28.4, again right hemicolectomy was done on 11/17/2019, question whether lab was drawn before surgery but he reported on 02/17/2020 or ? Metastases Normocytic normochromic anemia, etiology combined iron deficiency/B12 or anemia of chronic disease or considering her age underlying myelodysplasia Plan: Discussed with patient regarding her disease status and treatment options, patient has a family member who is a pharmacist in a hospital in [place], considering patient's age and comorbid conditions , patient has history of coronary artery disease status post multiple stents and questionable history of congestive heart failure and family is considering Xeloda alone or no treatment. Patient has stage IIIB disease e.g. high risk for recurrence and as per N CCN guidelines, patient is a candidate for adjuvant therapy as, it may improve disease-free survival but again considering, as mentioned above her age, comorbid conditions , coronary artery disease status post multiple stents and now with chao virus issues , we will consider single agent adjuvant therapy with Xeloda. All the side effects possible benefits associated with Xeloda including but not limited to bone marrow suppression, skin rash, liver toxicity, nausea vomiting diarrhea, [id number] syndrome were mentioned further teaching will be done by chemotherapy nurse. We will also modify her dose to minimize risk of toxicity and then titrate up as tolerated. Plan to give her Xeloda as 750 mg/m??? twice a day for 2 weeks on and then week off and repeat cycle every 21 days for 6 months as long as tolerated. In the meantime we'll continue with B12 supplements for a total deficiency anemia. Next Return to clinic 2 weeks after chemotherapy is initiated with CBC CMP Signed By: Allyssa Call M.D. <<Signature on File>>
== END 2020-01-13 23:59 | disposition home or self-care (01) ==
LOC: ONCMED 05:42
PROVIDERS: Family Provider Family Medicine; PCP Family Medicine; Visit Provider Internal Medicine Hematology & Oncology
DX: C18.2 Malignant neoplasm of ascending colon (principal); C54.1 Malignant neoplasm of endometrium; C77.2 Secondary and unspecified malignant neoplasm of intra-abdominal lymph nodes; D50.9 Iron deficiency anemia, unspecified; E53.8 Deficiency of other specified B group vitamins; I25.10 Atherosclerotic heart disease of native coronary artery without angina pectoris; Z79.01 Long term (current) use of anticoagulants; Z79.899 Other long term (current) drug therapy; Z79.02 Long term (current) use of antithrombotics/antiplatelets; Z90.49 Acquired absence of other specified parts of digestive tract; Z95.5 Presence of coronary angioplasty implant and graft
CPT/HCPCS: 80053; 85025; 96372; 99214; J3420

== ENCOUNTER 2020-01-28 06:43 | Outpatient (RCR) | payer MEDICARE, SELFPAY ==
[2020-01-14] MEDS: cyanocobalamin 1,000 mcg/mL SDV 1000 MCG IM (10:53)
[2020-01-27 09:36] LABS: Basophils % 0.6 %; Eosinophils # 0.2 10^3/uL (0.0-0.8); Eosinophils % 2.6 %; Hemoglobin 10.2 g/dL (11.5-15.3); Lymphocytes # 3.5 10^3/uL (0.8-4.8); Mean Corpuscular Hemoglobin 27.9 pg (28.0-34.0); Mean Corpuscular Volume 93.2 fL (81-99); Mean Platelet Volume 10.3 fL (7.4-10.4); Monocytes # 0.7 10^3/uL (0.2-0.9); Monocytes % 10.6 %; Neutrophils # 2.4 10^3/uL (1.8-7.7); Neutrophils % 35.1 %; Nucleated Red Blood Cells % 0 %; Platelet Count 228 10^3/cmm (130-400); Red Blood Count 3.65 10^6/uL (4.1-5.3); Red Cell Distribution Width 19.2 % (12.1-15.1); White Blood Count 6.8 10^3/uL (4.0-10.0)
[2020-01-27 09:54] LABS: Alanine Aminotransferase 14 U/L (0-33); Albumin Level 4.2 g/dL (3.5-5.2); Alkaline Phosphatase 85 IU/L (35-105); Anion Gap 13.9 (5-19); Aspartate Amino Transferase 23 U/L (0-32); Blood Urea Nitrogen 18 mg/dL (8-23); Calcium 9.4 mg/dL (8.5-10.5); Carbon Dioxide 28 mmol/L (22-29); Chloride 104 mmol/L (98-107); Globulin 2.7 g/dL (1.3-4.6); Glucose 62 mg/dL (65-115); Osmolality Calculated 288 mOsm/kg (285-295); Potassium 3.9 mmol/L (3.5-5.1); Sodium 142 mmol/L (136-145); Total Bilirubin 0.7 mg/dL (0.15-1.2); Total Protein 6.9 g/dL (6.6-8.7)
--- NOTE | 2020-01-28 17:12 | ONC FU_ITS ---
Dr. Call follow up note Patient: Ana Laurent Unit #: [id number]: 1935 Dicatated By: Allyssa Call M.D.Date of Visit:Jan 28, 2020 Onc Med Follow-up/Prog Note History of Present Illness: Mrs. Ana Laurent, is a 84-year-old female with history of progressive generalized weakness and fatigue and abdominal pain underwent CT scan of abdomen pelvis on 11/04/2019 which showed annular constricting carcinoma ascending colon, causing partial obstruction with mild interval increase. Abnormal pericolonic lymphadenopathy. Nonspecific mild posterior pelvic peritoneal fluid. Post hysterectomy. Liver normal. 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 and (colonic adenocarcinoma with this phenotype associated with improved disease-free and overall survival in untreated stage II and III colorectal carcinomas and most commonly found in sporadic colonic glandular neoplasms, additional testing for MLH 1 gene caused by premotor hyper methylation or Ronquillo syndrome is probably not indicated) Subsequently on 11/17/2019 patient underwent right hemicolectomy and final pathology report showed moderately differentiated adenocarcinoma of colon extending through muscularis propria focally into pericolonic fat, tumor is completely excised with clear surgical margins, tumor size 6 x 5 cm in the cecum, low-grade type, no vascular invasion identified,, no perforation, e.g. pT3 7 out of 19 lymph nodes showed metastatic disease e.g.pN2 Stage IIIB Labs done on 02/17/2020 shows white blood count 4.4 hemoglobin 7.9 hematocrit 27 platelets 177,000 MCV 85.4 CMP within normal limits except glucose 409, AST 43, albumin 2.9, and CEA 28.4.repeat CEA on December 27 clinically was 5.2 Started on adjuvant chemotherapy with Xeloda 2 weeks on 1 week off for 6-8 cycles on 01/07/2020 Came for follow-up, denies any specific complaints, no nausea or vomiting no fever or chills, no diarrhea constipation, no mouth sores, no [id number] skin rash tolerated first course of adjuvant chemotherapy with Xeloda alone well and starting second cycle in the morning. Medications: Acetaminophen 1 - 2 Tablet (of 325 mg) Oral daily PRN, Cholecalciferol 1 (50,000 Units) Capsule Oral every am on , Co Q 10 1 Capsule (of 100 mg) Oral daily, Crestor 1 (20 mg) Tablet Oral every am, Eliquis 1 (5 mg) Tablet Oral b.i.d., Isosorbide Mononitrate 1 (30 mg) Tablet Oral b.i.d., Losartan Potassium 1 (50 mg) Tablet Oral every am, Metoprolol Tartrate 1 (50 mg) Tablet Oral b.i.d., Nitrostat 1 Tablet (of 0.4 mg) Tablet, sublingual Sublingual daily PRN, Ondansetron HCl 1 Tablet (of 4 mg) Oral t.i.d. PRN, Pantoprazole Sodium 1 (40 mg) Tablet, enteric coated Oral daily, Plavix 1 (75 mg) Tablet Oral every am, Stool Softener Tablet Oral, Xeloda 2 Tablet (of 500 mg) Oral b.i.d. for 14 days, Xeloda 1 Tablet (of 150 mg) Oral b.i.d. for 14 days, Zoloft 2 Tablet (of 100 mg) Oral every am Allergies: Belladonna, Imipramine HCl, Macrobid, Morphine Derivatives, and sulfabenzamide. Review of Systems: Constitutional - Appetite is poor and weight is stable. No fever, chills, hot flashes, or night sweats. Energy level is fair, ENMT - No sinus congestion/drainage. No mouth sores. No sore throat or difficulty swallowing, Hematologic/Lymphatic - Positive for easy bruising, Respiratory - Positive for shortness of breath. No cough. No pleuritic pain or hemoptysis, Cardiovascular - No angina pain. No palpitations, Gastrointestinal - Positive for nausea, no vomiting. No heartburn or acid reflux. No diarrhea or constipation. No blood in the stool or black stools, Genitourinary (F) - No dysuria or hematuria. No urinary frequency. No urgency. Positive for incontinence, Musculoskeletal - Positive for joint pain, Neurologic - No headache or dizziness. No numbness/paresthesias or other focal neurologic symptoms, Psychiatric - Positive for depression and anxiety. Vital Signs: Performed on Jan 28, 2020 15:21 Height - 62.00 in Weight - 144.8 lbs (HIGH) BSA - 1.67 sq.m BMI - 26.48 Temperature - 98.3 F (LOW) Pulse - 76 /min Respiration - 19 /min BP - 146/64 mm(hg) (HIGH) O2 Sat - 96 % Pain - 0 Performance Status: 0 - Fully active, able to carry on all predisease activities without restrictions. (ECOG) Physical Examination: ENMT - no mouth sores or, Respiratory - Lungs are clear, Cardiovascular - Regular rate and rhythm, Abdomen - no abdominal pain or fullness, Extremities - no edema or skin rash. Lab/Imaging: Test performed on Dec 30, 2019 07:20 Sodium 146 mmol/L Potassium 3.8 mmol/L Chloride 107 mmol/L CO2 30 mmol/L Anion Gap 12.8 BUN 13 mg/dL Creatinine 0.7 mg/dL Cr Clearance (Est) 63.01 mL/min Glucose 80 mg/dL Calcium 9.3 mg/dL Protein, Total 7.0 g/dL Albumin 3.6 g/dL Globulin 3.4 g/dL Bilirubin, Total 0.5 mg/dL ALT (SGPT) 10 U/L AST (SGOT) 23 U/L Alkaline Phosphatase 67 IU/L WBC 5.8 10 3/uL RBC 3.42 10 6/uL HGB 9.5 g/dL HCT 32.0 % MCV 93.6 fL MCH 27.8 pg MCHC 29.7 g/dL RDW 19.5 % Platelet Count 259 10 3/cmm MPV 10.5 fL Neutrophils 2.6 10 3/uL Lymphocytes 2.6 10 3/uL Monocytes 0.5 10 3/uL Eosinophils 0.1 10 3/uL Basophils 0.0 10 3/uL Neutrophil % 44.1 % Lymphocyte % 44.2 % Monocyte % 8.6 % Eosinophil % 2.4 % Basophils % 0.5 % Test performed on Dec 18, 2019 16:37 Ferritin 81 ng/mL Iron 55 ug/dL Vitamin B12 182 pg/mL Iron Binding Capacity (TIBC) 338 mcg/dl % Iron Saturation 16.2 % UIBC 283 ug/dL CEA 5.2 ng/mL Impression: Moderately differentiated adenocarcinoma of the cecum status post right hemicolectomy done on 11/17/2019, final pathology report showed moderately differentiated adenocarcinoma of the colon extending through muscularis propria focally into pericolonic fat, low-grade, no vascular invasion seen, clear surgical margins,pT3 7 out of 19 lymph nodes showed metastatic disease pN2 Stage IIIB CEA checked on 11/19/2019 was 28.4, again right hemicolectomy was done on 11/17/2019, question whether lab was drawn before surgery but he reported on 02/17/2020 or ? Metastases repeat CEA level on 12/18/2019 was 5.2 started on adjuvant chemotherapy with Xeloda 750 mg/m??? twice a day for 2 weeks on 1 week off for 6-8 cycles on 01/07/2020 Normocytic normochromic anemia,due to B12 deficiency Plan: Discussed with patient regarding her labs white blood count 6.8 hemoglobin 10.2 crit 34 platelets 228,000 CMP within normal limits Clinically, patient is doing well, tolerating adjuvant chemotherapy with oral Xeloda alone well but with expected side effects. Patient has completed first cycle with oral Xeloda well and now starting her second cycle with oral Xeloda in the morning for 2 weeks and then she'll have 1 week off. So we'll repeat her CBC CMP on 02/16/2020 and if reasonable then she will start her next cycle on 02/18/2020. B12 deficiency on B12 supplements, we'll give her next dose B12 today then change to every month. As her hemoglobin is improving. Signed By: Allyssa Call M.D. <<Signature on File>>
== END 2020-02-12 23:59 | disposition home or self-care (01) ==
LOC: ONCMED 06:43
PROVIDERS: Family Provider Family Medicine; PCP Family Medicine; Visit Provider Internal Medicine Hematology & Oncology
DX: C18.2 Malignant neoplasm of ascending colon (principal); C77.2 Secondary and unspecified malignant neoplasm of intra-abdominal lymph nodes; D51.9 Vitamin B12 deficiency anemia, unspecified; Z79.899 Other long term (current) drug therapy; Z90.49 Acquired absence of other specified parts of digestive tract
CPT/HCPCS: 80053; 85025; 96372; 99214; J3420

== ENCOUNTER 2020-03-12 06:46 | Outpatient (RCR) | payer MEDICARE, SELFPAY ==
[2020-02-16 13:08] LABS: Basophils % 0.5 %; Eosinophils # 0.2 10^3/uL (0.0-0.8); Eosinophils % 2.8 %; Hematocrit 33.9 % (37.0-47.0); Hemoglobin 10.3 g/dL (11.5-15.3); Lymphocytes # 2.8 10^3/uL (0.8-4.8); Lymphocytes % 46.3 %; Mean Corpuscular HGB Conc 30.4 g/dL (30.0-36.0); Mean Corpuscular Hemoglobin 28.5 pg (28.0-34.0); Mean Corpuscular Volume 93.9 fL (81-99); Mean Platelet Volume 10.1 fL (7.4-10.4); Monocytes # 0.5 10^3/uL (0.2-0.9); Monocytes % 8.9 %; Neutrophils # 2.5 10^3/uL (1.8-7.7); Neutrophils % 41.5 %; Nucleated Red Blood Cells % 0 %; Platelet Count 245 10^3/cmm (130-400); Red Blood Count 3.61 10^6/uL (4.1-5.3); Red Cell Distribution Width 19.8 % (12.1-15.1); White Blood Count 6.1 10^3/uL (4.0-10.0)
[2020-02-16 13:14] LABS: Alanine Aminotransferase 10 U/L (0-33); Albumin Level 4.2 g/dL (3.5-5.2); Alkaline Phosphatase 74 IU/L (35-105); Aspartate Amino Transferase 21 U/L (0-32); Blood Urea Nitrogen 16 mg/dL (8-23); Calcium 9.4 mg/dL (8.5-10.5); Carbon Dioxide 26 mmol/L (22-29); Chloride 105 mmol/L (98-107); Globulin 3.1 g/dL (1.3-4.6); Glucose 96 mg/dL (65-115); Osmolality Calculated 288 mOsm/kg (285-295); Sodium 141 mmol/L (136-145); Total Bilirubin 0.9 mg/dL (0.15-1.2); Total Protein 7.3 g/dL (6.6-8.7)
--- NOTE | 2020-02-23 10:33 | ONC FU_ITS ---
Dr. Call follow up note Patient: Ana Laurent Unit #: [id number]: 1935 Dicatated By: Allyssa Call M.D.Date of Visit:February 17, 2020 Onc Med Follow-up/Prog Note History of Present Illness: Mrs. Ana Laurent, is a 84-year-old female with history of progressive generalized weakness and fatigue and abdominal pain underwent CT scan of abdomen pelvis on 11/04/2019 which showed annular constricting carcinoma ascending colon, causing partial obstruction with mild interval increase. Abnormal pericolonic lymphadenopathy. Nonspecific mild posterior pelvic peritoneal fluid. Post hysterectomy. Liver normal. 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 and (colonic adenocarcinoma with this phenotype associated with improved disease-free and overall survival in untreated stage II and III colorectal carcinomas and most commonly found in sporadic colonic glandular neoplasms, additional testing for MLH 1 gene caused by premotor hyper methylation or Ronquillo syndrome is probably not indicated) Subsequently on 11/17/2019 patient underwent right hemicolectomy and final pathology report showed moderately differentiated adenocarcinoma of colon extending through muscularis propria focally into pericolonic fat, tumor is completely excised with clear surgical margins, tumor size 6 x 5 cm in the cecum, low-grade type, no vascular invasion identified,, no perforation, e.g. pT3 7 out of 19 lymph nodes showed metastatic disease e.g.pN2 Stage IIIB Labs done on 02/17/2020 shows white blood count 4.4 hemoglobin 7.9 hematocrit 27 platelets 177,000 MCV 85.4 CMP within normal limits except glucose 409, AST 43, albumin 2.9, and CEA 28.4.repeat CEA on December 27 clinically was 5.2 Started on adjuvant chemotherapy with Xeloda 2 weeks on 1 week off for 6-8 cycles on 01/07/2020 Evaluated via telemedicine, patient denies any fever or chills, denies any nausea vomiting, denies any diarrhea constipation denies any mouth sores, denies any skin rash, tolerating oral Xeloda well and starting next cycle tomorrow for 2 weeks. Medications: Acetaminophen 1 - 2 Tablet (of 325 mg) Oral daily PRN, Cholecalciferol 1 (50,000 Units) Capsule Oral every am on W, Co Q 10 1 Capsule (of 100 mg) Oral daily, Crestor 1 (20 mg) Tablet Oral every am, Eliquis 1 (5 mg) Tablet Oral b.i.d., Isosorbide Mononitrate 1 (30 mg) Tablet Oral b.i.d., Losartan Potassium 1 (50 mg) Tablet Oral every am, Metoprolol Tartrate 1 (50 mg) Tablet Oral b.i.d., Nitrostat 1 Tablet (of 0.4 mg) Tablet, sublingual Sublingual daily PRN, Ondansetron HCl 1 Tablet (of 4 mg) Oral t.i.d. PRN, Pantoprazole Sodium 1 (40 mg) Tablet, enteric coated Oral daily, Plavix 1 (75 mg) Tablet Oral every am, Stool Softener Tablet Oral, Xeloda 2 Tablet (of 500 mg) Oral b.i.d. for 14 days, Xeloda 1 Tablet (of 150 mg) Oral b.i.d. for 14 days, Zoloft 2 Tablet (of 100 mg) Oral every am Allergies: Belladonna, Imipramine HCl, Macrobid, Morphine Derivatives, and sulfabenzamide. Review of Systems: Review of Systems is not available for this patient. Vital Signs: Vitals are not available for this patient. Performance Status: 0 - Fully active, able to carry on all predisease activities without restrictions. (ECOG) Physical Examination: ENMT - patient denies any mouth sores, or jaundice, Respiratory - patient denies any shortness of breath or wheezing, Cardiovascular - denies any tachycardia or palpitation, Abdomen - denies any abdominal pain or fullness, Extremities - denies any edema or rash. Lab/Imaging: Test performed on February 16, 2020 09:30 Sodium 141 mmol/L Potassium 4.0 mmol/L Chloride 105 mmol/L CO2 26 mmol/L Anion Gap 14.0 BUN 16 mg/dL Creatinine 0.9 mg/dL Cr Clearance (Est) 49.9700 mL/min Glucose 96 mg/dL Calcium 9.4 mg/dL Protein, Total 7.3 g/dL Albumin 4.2 g/dL Globulin 3.1 g/dL Bilirubin, Total 0.9 mg/dL ALT (SGPT) 10 U/L AST (SGOT) 21 U/L Alkaline Phosphatase 74 IU/L WBC 6.1 10 3/uL RBC 3.61 10 6/uL HGB 10.3 g/dL HCT 33.9 % MCV 93.9 fL MCH 28.5 pg MCHC 30.4 g/dL RDW 19.8 % Platelet Count 245 10 3/cmm MPV 10.1 fL Neutrophils 2.5 10 3/uL Lymphocytes 2.8 10 3/uL Monocytes 0.5 10 3/uL Eosinophils 0.2 10 3/uL Basophils 0.0 10 3/uL Neutrophil % 41.5 % Lymphocyte % 46.3 % Monocyte % 8.9 % Eosinophil % 2.8 % Basophils % 0.5 % Test performed on Dec 18, 2019 16:37 Ferritin 81 ng/mL Iron 55 ug/dL Vitamin B12 182 pg/mL Iron Binding Capacity (TIBC) 338 mcg/dl % Iron Saturation 16.2 % UIBC 283 ug/dL CEA 5.2 ng/mL Impression: Moderately differentiated adenocarcinoma of the cecum status post right hemicolectomy done on 11/17/2019, final pathology report showed moderately differentiated adenocarcinoma of the colon extending through muscularis propria focally into pericolonic fat, low-grade, no vascular invasion seen, clear surgical margins,pT3 7 out of 19 lymph nodes showed metastatic disease pN2 Stage IIIB CEA checked on 11/19/2019 was 28.4, again right hemicolectomy was done on 11/17/2019, question whether lab was drawn before surgery but he reported on 02/17/2020 or ? Metastases repeat CEA level on 12/18/2019 was 5.2 started on adjuvant chemotherapy with Xeloda 750 mg/m??? twice a day for 2 weeks on 1 week off for 6-8 cycles on 01/07/2020 Normocytic normochromic anemia,due to B12 deficiency Plan: Discussed with patient via telemedicine regarding her labs white blood count 6.1 hemoglobin 10.3 crit 33.9 platelets 245,000 CMP within normal limits Clinically, patient is doing well, tolerating adjuvant therapy with oral Xeloda well but with expected side effects. Her follow-up lab workup looks reasonable and patient will start her next cycle with oral Xeloda for 2 weeks in the morning. And she will return to clinic in 3 weeks with CBC CMP and for B12 supplement. Signed By: Allyssa Call M.D. <<Signature on File>>
[2020-03-10 12:04] LABS: Basophils % 0.4 %; Eosinophils # 0.2 10^3/uL (0.0-0.8); Eosinophils % 2.7 %; Hematocrit 36.2 % (37.0-47.0); Hemoglobin 11.1 g/dL (11.5-15.3); Lymphocytes # 3.5 10^3/uL (0.8-4.8); Lymphocytes % 47.6 %; Mean Corpuscular HGB Conc 30.7 g/dL (30.0-36.0); Mean Corpuscular Hemoglobin 29.1 pg (28.0-34.0); Mean Platelet Volume 10.3 fL (7.4-10.4); Monocytes # 0.8 10^3/uL (0.2-0.9); Monocytes % 10.4 %; Neutrophils # 2.8 10^3/uL (1.8-7.7); Neutrophils % 38.8 %; Nucleated Red Blood Cells % 0 %; Platelet Count 209 10^3/cmm (130-400); Red Blood Count 3.81 10^6/uL (4.1-5.3); Red Cell Distribution Width 20.1 % (12.1-15.1); White Blood Count 7.3 10^3/uL (4.0-10.0)
[2020-03-10 12:21] LABS: Alanine Aminotransferase 11 U/L (0-33); Albumin Level 4.4 g/dL (3.5-5.2); Alkaline Phosphatase 77 IU/L (35-105); Anion Gap 15.3 (5-19); Aspartate Amino Transferase 22 U/L (0-32); Blood Urea Nitrogen 19 mg/dL (8-23); Calcium 10.1 mg/dL (8.5-10.5); Carbon Dioxide 26 mmol/L (22-29); Chloride 105 mmol/L (98-107); Glucose 96 mg/dL (65-115); Osmolality Calculated 290 mOsm/kg (285-295); Potassium 4.3 mmol/L (3.5-5.1); Sodium 142 mmol/L (136-145); Total Bilirubin 1.5 mg/dL (0.15-1.2); Total Protein 7.4 g/dL (6.6-8.7)
[2020-03-12] MEDS: cyanocobalamin 1,000 mcg/mL SDV 1000 MCG IM (10:40)
--- NOTE | 2020-03-12 13:18 | ONC FU_ITS ---
Dr. Call follow up note Patient: Ana Laurent Unit #: [id number]: [id number] Dicatated By: Allyssa Call M.D.Date of Visit:March 12, 2020 Onc Med Follow-up/Prog Note History of Present Illness: Mrs. Ana Laurent, is a 84-year-old female with history of progressive generalized weakness and fatigue and abdominal pain underwent CT scan of abdomen pelvis on 11/04/2019 which showed annular constricting carcinoma ascending colon, causing partial obstruction with mild interval increase. Abnormal pericolonic lymphadenopathy. Nonspecific mild posterior pelvic peritoneal fluid. Post hysterectomy. Liver normal. 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 and (colonic adenocarcinoma with this phenotype associated with improved disease-free and overall survival in untreated stage II and III colorectal carcinomas and most commonly found in sporadic colonic glandular neoplasms, additional testing for MLH 1 gene caused by premotor hyper methylation or Ronquillo syndrome is probably not indicated) Subsequently on 11/17/2019 patient underwent right hemicolectomy and final pathology report showed moderately differentiated adenocarcinoma of colon extending through muscularis propria focally into pericolonic fat, tumor is completely excised with clear surgical margins, tumor size 6 x 5 cm in the cecum, low-grade type, no vascular invasion identified,, no perforation, e.g. pT3 7 out of 19 lymph nodes showed metastatic disease e.g.pN2 Stage IIIB Labs done on 02/17/2020 shows white blood count 4.4 hemoglobin 7.9 hematocrit 27 platelets 177,000 MCV 85.4 CMP within normal limits except glucose 409, AST 43, albumin 2.9, and CEA 28.4.repeat CEA on December 27 clinically was 5.2 Started on adjuvant chemotherapy with Xeloda 2 weeks on 1 week off for 6-8 cycles on 01/07/2020 Came for follow-up, denies any specific complaint except now with progressive hallucinations, as per patient other day while she was sleeping next to her , she noticed his hands and legs were tied, she went to kitchen to get the knife to untie but when she turned on the light, she realized she was hallucinating. Then she had another episode, where she was talking to her mother, who was not alive. As per patient she had mild hallucination off and on long time back, but now since she is on oral Xeloda, she thinks it is happening more often. Other than that she has completed 3 cycles of oral Xeloda and denies any specific complaints like mouth sores, no jaundice, no skin rash, no diarrhea, no fever or chills. Medications: Acetaminophen 1 - 2 Tablet (of 325 mg) Oral daily PRN, Cholecalciferol 1 (50,000 Units) Capsule Oral every am on , Co Q 10 1 Capsule (of 100 mg) Oral daily, Crestor 1 (20 mg) Tablet Oral every am, Eliquis 1 (5 mg) Tablet Oral b.i.d., Isosorbide Mononitrate 1 (30 mg) Tablet Oral b.i.d., Losartan Potassium 1 (50 mg) Tablet Oral every am, Metoprolol Tartrate 1 (50 mg) Tablet Oral b.i.d., Nitrostat 1 Tablet (of 0.4 mg) Tablet, sublingual Sublingual daily PRN, Ondansetron HCl 1 Tablet (of 4 mg) Oral t.i.d. PRN, Pantoprazole Sodium 1 (40 mg) Tablet, enteric coated Oral daily, Plavix 1 (75 mg) Tablet Oral every am, Stool Softener Tablet Oral, Xeloda 2 Tablet (of 500 mg) Oral b.i.d. for 14 days, Xeloda 1 Tablet (of 150 mg) Oral b.i.d. for 14 days, Zoloft 2 Tablet (of 100 mg) Oral every am Allergies: Belladonna, Imipramine HCl, Macrobid, Morphine Derivatives, and sulfabenzamide. Review of Systems: Constitutional - Appetite is poor and weight is stable. No fever, chills, hot flashes, or night sweats. Energy level is fair, ENMT - No sinus congestion/drainage. No mouth sores. No sore throat or difficulty swallowing, Hematologic/Lymphatic - Positive for easy bruising, Respiratory - Positive for shortness of breath. No cough. No pleuritic pain or hemoptysis, Cardiovascular - No angina pain. No palpitations, Gastrointestinal - Positive for nausea, no vomiting. No heartburn or acid reflux. No diarrhea or constipation. No blood in the stool or black stools, Genitourinary (F) - No dysuria or hematuria. No urinary frequency. No urgency. Positive for incontinence, Musculoskeletal - Positive for joint pain, Neurologic - No headache or dizziness. No numbness/paresthesias or other focal neurologic symptoms, Psychiatric - Positive for depression and anxiety. Pt also reports significant confusion recently. Vital Signs: Performed on March 12, 2020 10:03 Height - 62.00 in Weight - 144.6 lbs (LOW) BSA - 1.67 sq.m BMI - 26.45 Temperature - 96.8 F (LOW) Pulse - 66 /min Respiration - 14 /min BP - 160/73 mm(hg) (HIGH) O2 Sat - 97 % Pain - 0 Performance Status: 1 - No physically strenuous activity, but ambulatory and able to carry out light or sedentary work (e.g. office work, light house work). (ECOG) Physical Examination: ENMT - no mouth sores, no thrush, no jaundice, Respiratory - Lungs are clear, Cardiovascular - Regular rate and rhythm of heart, Abdomen - soft , bowel sounds present, Extremities - , no visible edema or rash. Lab/Imaging: Test performed on March 10, 2020 11:27 Sodium 142 mmol/L Potassium 4.3 mmol/L Chloride 105 mmol/L CO2 26 mmol/L Anion Gap 15.3 BUN 19 mg/dL Creatinine 1.0 mg/dL Cr Clearance (Est) 44.9700 mL/min Glucose 96 mg/dL Calcium 10.1 mg/dL Protein, Total 7.4 g/dL Albumin 4.4 g/dL Globulin 3.0 g/dL Bilirubin, Total 1.5 mg/dL ALT (SGPT) 11 U/L AST (SGOT) 22 U/L Alkaline Phosphatase 77 IU/L WBC 7.3 10 3/uL RBC 3.81 10 6/uL HGB 11.1 g/dL HCT 36.2 % MCV 95.0 fL MCH 29.1 pg MCHC 30.7 g/dL RDW 20.1 % Platelet Count 209 10 3/cmm MPV 10.3 fL Neutrophils 2.8 10 3/uL Lymphocytes 3.5 10 3/uL Monocytes 0.8 10 3/uL Eosinophils 0.2 10 3/uL Basophils 0.0 10 3/uL Neutrophil % 38.8 % Lymphocyte % 47.6 % Monocyte % 10.4 % Eosinophil % 2.7 % Basophils % 0.4 % Test performed on Dec 18, 2019 16:37 Ferritin 81 ng/mL Iron 55 ug/dL Vitamin B12 182 pg/mL Iron Binding Capacity (TIBC) 338 mcg/dl % Iron Saturation 16.2 % UIBC 283 ug/dL CEA 5.2 ng/mL Impression: Moderately differentiated adenocarcinoma of the cecum status post right hemicolectomy done on 11/17/2019, final pathology report showed moderately differentiated adenocarcinoma of the colon extending through muscularis propria focally into pericolonic fat, low-grade, no vascular invasion seen, clear surgical margins,pT3 7 out of 19 lymph nodes showed metastatic disease pN2 Stage IIIB CEA checked on 11/19/2019 was 28.4, again right hemicolectomy was done on 11/17/2019, question whether lab was drawn before surgery but he reported on 02/17/2020 or ? Metastases repeat CEA level on 12/18/2019 was 5.2 started on adjuvant chemotherapy with Xeloda 750 mg/m??? twice a day for 2 weeks on 1 week off for 6-8 cycles on 01/07/2020 Normocytic normochromic anemia,due to B12 deficiency Plan: Discussed with patient regarding her labs white blood count 7.3 hemoglobin 11.1 crit 36.2 platelets 209,000 CMP within normal limits Clinically, patient is doing well, tolerating adjuvant chemotherapy with oral Xeloda well but with expected side effects. Now her and her family's concern is progressive hallucinations, patient may have underlying Alzheimer's or dementia, as she is more forgetful too. Family's question is whether chemotherapy is causing it, it is less likely but we will hold oral Xeloda for one month and reevaluate her and if her hallucinations improves then we'll discontinue adjuvant therapy, as patient has completed 3 cycles out of 6-8 recommended. On the other hand if there is a no improvement in his hallucinations, then will consider refer to psychiatric or neurology for evaluation. We'll proceed with her B12 supplement today and then return to clinic in one month with CBC CMP and B12 level Signed By: Allyssa Call M.D. <<Signature on File>>
== END 2020-03-14 23:59 | disposition home or self-care (01) ==
LOC: ONCMED 06:46
PROVIDERS: Family Provider Family Medicine; PCP Family Medicine; Visit Provider Internal Medicine Hematology & Oncology
DX: C18.0 Malignant neoplasm of cecum (principal); C77.2 Secondary and unspecified malignant neoplasm of intra-abdominal lymph nodes; D51.9 Vitamin B12 deficiency anemia, unspecified; R44.3 Hallucinations, unspecified; Z90.49 Acquired absence of other specified parts of digestive tract; Z79.899 Other long term (current) drug therapy
CPT/HCPCS: 36415; 80053; 85025; 96372; 99214; J3420

== ENCOUNTER 2020-04-12 06:48 | Outpatient (RCR) | payer MEDICARE, MEDICAID, SELFPAY ==
[2020-04-08 09:55] LABS: Basophils % 0.7 %; Eosinophils # 0.3 10^3/uL (0.0-0.8); Eosinophils % 4.4 %; Hemoglobin 11.5 g/dL (11.5-15.3); Lymphocytes # 2.6 10^3/uL (0.8-4.8); Lymphocytes % 44.3 %; Mean Corpuscular HGB Conc 31.1 g/dL (30.0-36.0); Mean Corpuscular Hemoglobin 29.3 pg (28.0-34.0); Mean Corpuscular Volume 94.1 fL (81-99); Mean Platelet Volume 10.2 fL (7.4-10.4); Monocytes # 0.6 10^3/uL (0.2-0.9); Monocytes % 9.7 %; Neutrophils # 2.4 10^3/uL (1.8-7.7); Neutrophils % 40.9 %; Nucleated Red Blood Cells % 0 %; Platelet Count 242 10^3/cmm (130-400); Red Blood Count 3.93 10^6/uL (4.1-5.3); Red Cell Distribution Width 17.8 % (12.1-15.1); White Blood Count 5.9 10^3/uL (4.0-10.0)
[2020-04-08 10:16] LABS: Alanine Aminotransferase 13 U/L (0-33); Albumin Level 4.2 g/dL (3.5-5.2); Alkaline Phosphatase 78 IU/L (35-105); Anion Gap 17.4 (5-19); Blood Urea Nitrogen 17 mg/dL (8-23); Calcium 9.3 mg/dL (8.5-10.5); Carbon Dioxide 24 mmol/L (22-29); Chloride 102 mmol/L (98-107); Globulin 3.3 g/dL (1.3-4.6); Glucose 105 mg/dL (65-115); Osmolality Calculated 285 mOsm/kg (285-295); Potassium 4.4 mmol/L (3.5-5.1); Sodium 139 mmol/L (136-145); Total Bilirubin 0.8 mg/dL (0.15-1.2); Total Protein 7.5 g/dL (6.6-8.7)
[2020-04-08 10:32] LABS: Vitamin B12 480 pg/mL (232-1245)
[2020-04-08 10:56] LABS: Aspartate Amino Transferase 26 U/L (0-32)
[2020-04-12] MEDS: cyanocobalamin 1,000 mcg/mL SDV 1000 MCG SUBCUT (10:05)
--- NOTE | 2020-04-12 14:58 | ONC FU_ITS ---
Dr. Call follow up note Patient: Ana Laurent Unit #: [id number]: [id number] Dicatated By: Allyssa Call M.D.Date of Visit:Apr 12, 2020 Onc Med Follow-up/Prog Note History of Present Illness: Mrs. Ana Laurnet, is a 84-year-old female with history of progressive generalized weakness and fatigue and abdominal pain underwent CT scan of abdomen pelvis on 11/04/2019 which showed annular constricting carcinoma ascending colon, causing partial obstruction with mild interval increase. Abnormal pericolonic lymphadenopathy. Nonspecific mild posterior pelvic peritoneal fluid. Post hysterectomy. Liver normal. 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 and (colonic adenocarcinoma with this phenotype associated with improved disease-free and overall survival in untreated stage II and III colorectal carcinomas and most commonly found in sporadic colonic glandular neoplasms, additional testing for MLH 1 gene caused by premotor hyper methylation or Ronquillo syndrome is probably not indicated) Subsequently on 11/17/2019 patient underwent right hemicolectomy and final pathology report showed moderately differentiated adenocarcinoma of colon extending through muscularis propria focally into pericolonic fat, tumor is completely excised with clear surgical margins, tumor size 6 x 5 cm in the cecum, low-grade type, no vascular invasion identified,, no perforation, e.g. pT3 7 out of 19 lymph nodes showed metastatic disease e.g.pN2 Stage IIIB Labs done on 02/17/2020 shows white blood count 4.4 hemoglobin 7.9 hematocrit 27 platelets 177,000 MCV 85.4 CMP within normal limits except glucose 409, AST 43, albumin 2.9, and CEA 28.4.repeat CEA on December 27 clinically was 5.2 Started on adjuvant chemotherapy with Xeloda 2 weeks on 1 week off for 6-8 cycles on 01/07/2020, Was put on hold after third cycle, due to hallucinations and confusion and as per patient she underwent extensive work-up for Alzheimer's at PMDs office and it was inconclusive and then restarted on April 12, 2020 Came for follow-up, denies any specific complaints except off and on forgetfulness, she has follow-up appointment with Dr. Reaves her PMD regarding Alzheimer's/dementia. As per patient not much change with holding off Xeloda and now wants to start it. Denies any fever or chills denies any mouth sores denies any skin rash denies any diarrhea or constipation denies any jaundice denies any abdominal pain.No seizure-like activity, or hallucinations. Medications: Acetaminophen 1 - 2 Tablet (of 325 mg) Oral daily PRN, Cholecalciferol 1 (50,000 Units) Capsule Oral every am on W, Co Q 10 1 Capsule (of 100 mg) Oral daily, Crestor 1 (20 mg) Tablet Oral every am, Eliquis 1 (5 mg) Tablet Oral b.i.d., Isosorbide Mononitrate 1 (30 mg) Tablet Oral b.i.d., Losartan Potassium 1 (50 mg) Tablet Oral every am, Metoprolol Tartrate 1 (50 mg) Tablet Oral b.i.d., Nitrostat 1 Tablet (of 0.4 mg) Tablet, sublingual Sublingual daily PRN, Ondansetron HCl 1 Tablet (of 4 mg) Oral t.i.d. PRN, Pantoprazole Sodium 1 (40 mg) Tablet, enteric coated Oral daily, Plavix 1 (75 mg) Tablet Oral every am, Stool Softener Tablet Oral, Xeloda 2 Tablet (of 500 mg) Oral b.i.d. for 14 days, Xeloda 1 Tablet (of 150 mg) Oral b.i.d. for 14 days, Zoloft 2 Tablet (of 100 mg) Oral every am Allergies: Belladonna, Imipramine HCl, Macrobid, Morphine Derivatives, and sulfabenzamide. Review of Systems: Constitutional - Appetite is poor and weight is stable. No fever, chills, hot flashes, or night sweats. Energy level is fair, ENMT - No sinus congestion/drainage. No mouth sores. No sore throat or difficulty swallowing, Hematologic/Lymphatic - Positive for easy bruising, Respiratory - Positive for shortness of breath. No cough. No pleuritic pain or hemoptysis, Cardiovascular - No angina pain. No palpitations, Gastrointestinal - Positive for nausea, no vomiting. No heartburn or acid reflux. No diarrhea or constipation. No blood in the stool or black stools, Genitourinary (F) - No dysuria or hematuria. No urinary frequency. No urgency. Positive for incontinence, Musculoskeletal - Positive for joint pain, Neurologic - No headache or dizziness. No numbness/paresthesias or other focal neurologic symptoms, Psychiatric - Positive for depression and anxiety. Pt continues to report confusion. Vital Signs: Performed on Apr 12, 2020 09:32 Height - 62.00 in Weight - 145.4 lbs (HIGH) BSA - 1.67 sq.m BMI - 26.59 Temperature - 97.1 F (LOW) Pulse - 66 /min Respiration - 18 /min BP - 148/73 mm(hg) (HIGH) O2 Sat - 96 % Pain - 0 Performance Status: 0 - Fully active, able to carry on all predisease activities without restrictions. (ECOG) Physical Examination: ENMT - No mouth sores, no thrush, no jaundice, Respiratory - Lungs are clear, Cardiovascular - Regular rate and rhythm of heart, Abdomen - Soft, bowel sounds present, Extremities - No edema or rash. Lab/Imaging: Test performed on March 10, 2020 11:27 Sodium 142 mmol/L Potassium 4.3 mmol/L Chloride 105 mmol/L CO2 26 mmol/L Anion Gap 15.3 BUN 19 mg/dL Creatinine 1.0 mg/dL Cr Clearance (Est) 44.9700 mL/min Glucose 96 mg/dL Calcium 10.1 mg/dL Protein, Total 7.4 g/dL Albumin 4.4 g/dL Globulin 3.0 g/dL Bilirubin, Total 1.5 mg/dL ALT (SGPT) 11 U/L AST (SGOT) 22 U/L Alkaline Phosphatase 77 IU/L WBC 7.3 10 3/uL RBC 3.81 10 6/uL HGB 11.1 g/dL HCT 36.2 % MCV 95.0 fL MCH 29.1 pg MCHC 30.7 g/dL RDW 20.1 % Platelet Count 209 10 3/cmm MPV 10.3 fL Neutrophils 2.8 10 3/uL Lymphocytes 3.5 10 3/uL Monocytes 0.8 10 3/uL Eosinophils 0.2 10 3/uL Basophils 0.0 10 3/uL Neutrophil % 38.8 % Lymphocyte % 47.6 % Monocyte % 10.4 % Eosinophil % 2.7 % Basophils % 0.4 % Test performed on Dec 18, 2019 16:37 Ferritin 81 ng/mL Iron 55 ug/dL Vitamin B12 182 pg/mL Iron Binding Capacity (TIBC) 338 mcg/dl % Iron Saturation 16.2 % UIBC 283 ug/dL CEA 5.2 ng/mL Impression: Moderately differentiated adenocarcinoma of the cecum status post right hemicolectomy done on 11/17/2019, final pathology report showed moderately differentiated adenocarcinoma of the colon extending through muscularis propria focally into pericolonic fat, low-grade, no vascular invasion seen, clear surgical margins,pT3 7 out of 19 lymph nodes showed metastatic disease pN2 Stage IIIB CEA checked on 11/19/2019 was 28.4, again right hemicolectomy was done on 11/17/2019, question whether lab was drawn before surgery but he reported on 02/17/2020 or ? Metastases repeat CEA level on 12/18/2019 was 5.2 started on adjuvant chemotherapy with Xeloda 750 mg/m??? twice a day for 2 weeks on 1 week off for 6-8 cycles on 01/07/2020 Normocytic normochromic anemia,due to B12 deficiency Plan: Discussed with patient regarding her labs white blood count 5.9 hemoglobin 11.5 g compared to 9.5 g on December 30, 2019, prior to B12 supplement, and hematocrit 37 platelets 242,000 CMP within normal limits B12 480 Clinically, patient is doing reasonably well, tolerating adjuvant chemotherapy with single agent modified dose Xeloda well, her Xeloda was put on hold because of patient and family mentioned off and on hallucinations and forgetfulness although as per patient, underwent extensive work-up for Alzheimer's, but work-up was inconclusive and now she has follow-up appointment with Dr. Reaves regarding further evaluation regarding her Alzheimer's or dementia. Patient said she is emotional at the time and then maybe contributing to her forgetfulness but not sure about depression. Was offered to see psychiatry, she will discuss with her primary care physician. Patient was advised to start her next cycle #4 with modified dose Xeloda for 2 weeks and then week off, patient return to clinic in 3 weeks with CBC and CMP and plan to give her total 6-8 cycles, as long as tolerated. Patient was advised in case any worsening of hallucination or mental status, she needed to stop Xeloda immediately and call us and she need to go to hospital immediately Signed By: Allyssa Call M.D. <<Signature on File>>
== END 2020-04-13 23:59 | disposition home or self-care (01) ==
LOC: ONCMED 06:48
PROVIDERS: PCP Family Medicine; Visit Provider Internal Medicine Hematology & Oncology
DX: C18.0 Malignant neoplasm of cecum (principal); C77.2 Secondary and unspecified malignant neoplasm of intra-abdominal lymph nodes; D51.8 Other vitamin B12 deficiency anemias; R41.3 Other amnesia; R44.3 Hallucinations, unspecified; Z90.49 Acquired absence of other specified parts of digestive tract; Z79.899 Other long term (current) drug therapy
CPT/HCPCS: 36415; 80053; 82607; 85025; 96372; 99214; J3420

== ENCOUNTER 2020-05-03 06:44 | Outpatient (RCR) | payer MEDICARE, MEDICAID, SELFPAY ==
[2020-04-29 10:55] LABS: Basophils % 0.5 %; Eosinophils # 0.2 10^3/uL (0.0-0.8); Eosinophils % 3.8 %; Hematocrit 34.7 % (37.0-47.0); Lymphocytes # 2.8 10^3/uL (0.8-4.8); Mean Corpuscular HGB Conc 31.7 g/dL (30.0-36.0); Mean Corpuscular Hemoglobin 29.6 pg (28.0-34.0); Mean Corpuscular Volume 93.3 fL (81-99); Mean Platelet Volume 10.5 fL (7.4-10.4); Monocytes # 0.4 10^3/uL (0.2-0.9); Monocytes % 7.9 %; Neutrophils # 2.08 10^3/uL (1.8-7.7); Neutrophils % 37.6 %; Nucleated Red Blood Cells % 0 %; Platelet Count 223 10^3/cmm (130-400); Red Blood Count 3.72 10^6/uL (4.1-5.3); White Blood Count 5.5 10^3/uL (4.0-10.0)
[2020-04-29 11:06] LABS: Alanine Aminotransferase 13 U/L (0-33); Albumin Level 4.2 g/dL (3.5-5.2); Alkaline Phosphatase 77 IU/L (35-105); Anion Gap 14.2 (5-19); Aspartate Amino Transferase 18 U/L (0-32); Blood Urea Nitrogen 14 mg/dL (8-23); Calcium 8.8 mg/dL (8.5-10.5); Carbon Dioxide 26 mmol/L (22-29); Chloride 105 mmol/L (98-107); Glucose 110 mg/dL (65-115); Osmolality Calculated 289 mOsm/kg (285-295); Potassium 4.2 mmol/L (3.5-5.1); Sodium 141 mmol/L (136-145); Total Bilirubin 1.3 mg/dL (0.15-1.2); Total Protein 7.2 g/dL (6.6-8.7)
--- NOTE | 2020-05-03 09:47 | ONC FU_ITS ---
Dr. Call follow up note Patient: Ana Laurent Unit #: [id number]: [id number] Dicatated By: Allyssa Call M.D.Date of Visit:May 03, 2020 Onc Med Follow-up/Prog Note History of Present Illness: Mrs. Ana Laurent, is a 84-year-old female with history of progressive generalized weakness and fatigue and abdominal pain underwent CT scan of abdomen pelvis on 11/04/2019 which showed annular constricting carcinoma ascending colon, causing partial obstruction with mild interval increase. Abnormal pericolonic lymphadenopathy. Nonspecific mild posterior pelvic peritoneal fluid. Post hysterectomy. Liver normal. 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 and (colonic adenocarcinoma with this phenotype associated with improved disease-free and overall survival in untreated stage II and III colorectal carcinomas and most commonly found in sporadic colonic glandular neoplasms, additional testing for MLH 1 gene caused by premotor hyper methylation or Ronquillo syndrome is probably not indicated) Subsequently on 11/17/2019 patient underwent right hemicolectomy and final pathology report showed moderately differentiated adenocarcinoma of colon extending through muscularis propria focally into pericolonic fat, tumor is completely excised with clear surgical margins, tumor size 6 x 5 cm in the cecum, low-grade type, no vascular invasion identified,, no perforation, e.g. pT3 7 out of 19 lymph nodes showed metastatic disease e.g.pN2 Stage IIIB Labs done on 02/17/2020 shows white blood count 4.4 hemoglobin 7.9 hematocrit 27 platelets 177,000 MCV 85.4 CMP within normal limits except glucose 409, AST 43, albumin 2.9, and CEA 28.4.repeat CEA on December 27 clinically was 5.2 Started on adjuvant chemotherapy with Xeloda 2 weeks on 1 week off for 6-8 cycles on 01/07/2020, Was put on hold after third cycle, due to hallucinations and confusion and as per patient she underwent extensive work-up for Alzheimer's at [facility] office and it was inconclusive and then restarted on April 12, 2020 Came for follow-up, complaining of off and on left arm pain for the last few days, as per patient pain is radiating from her left shoulder to the left hand, denies any palpitation or shortness of breath. But patient has history of coronary artery disease status post multiple stenting. Denies any trauma to her left shoulder or arm. Denies any fever chills denies any nausea or vomiting denies any mouth sores but lack of energy especially when on Xeloda, she completed her fourth cycle on April 27, 2020 Medications: Acetaminophen 1 - 2 Tablet (of 325 mg) Oral daily PRN, Cholecalciferol 1 (50,000 Units) Capsule Oral every am on W, Co Q 10 1 Capsule (of 100 mg) Oral daily, Crestor 1 (20 mg) Tablet Oral every am, Eliquis 1 (5 mg) Tablet Oral b.i.d., Isosorbide Mononitrate 1 (30 mg) Tablet Oral b.i.d., Losartan Potassium 1 (50 mg) Tablet Oral every am, Metoprolol Tartrate 1 (50 mg) Tablet Oral b.i.d., Nitrostat 1 Tablet (of 0.4 mg) Tablet, sublingual Sublingual daily PRN, Ondansetron HCl 1 Tablet (of 4 mg) Oral t.i.d. PRN, Pantoprazole Sodium 1 (40 mg) Tablet, enteric coated Oral daily, Plavix 1 (75 mg) Tablet Oral every am, Stool Softener Tablet Oral, Xeloda 2 Tablet (of 500 mg) Oral b.i.d. for 14 days, Xeloda 1 Tablet (of 150 mg) Oral b.i.d. for 14 days, Zoloft 2 Tablet (of 100 mg) Oral every am Allergies: Belladonna, Imipramine HCl, Macrobid, Morphine Derivatives, and sulfabenzamide. Review of Systems: Constitutional - Appetite is poor and weight is stable. No fever, chills, hot flashes, or night sweats. Energy level is fair, ENMT - No sinus congestion/drainage. No mouth sores. No sore throat or difficulty swallowing, Hematologic/Lymphatic - Positive for easy bruising, Respiratory - Positive for shortness of breath. No cough. No pleuritic pain or hemoptysis, Cardiovascular - Positive for left arm pain (Pt rates 10/10). Pt states she has Nitro but has not taken any, Gastrointestinal - Positive for nausea, no vomiting. No heartburn or acid reflux. No diarrhea or constipation. No blood in the stool or black stools, Genitourinary (F) - No dysuria or hematuria. No urinary frequency. No urgency. Positive for incontinence, Musculoskeletal - Positive for joint pain, Neurologic - No headache or dizziness. No numbness/paresthesias or other focal neurologic symptoms, Psychiatric - Positive for depression and anxiety. Pt continues to report confusion. Vital Signs: Performed on May 03, 2020 09:03 Height - 62.00 in Weight - 148.4 lbs (HIGH) BSA - 1.68 sq.m BMI - 27.14 Temperature - 97.2 F (LOW) Pulse - 68 /min Respiration - 20 /min BP - 157/76 mm(hg) (HIGH) O2 Sat - 97 % Pain - 10 Performance Status: 1 - No physically strenuous activity, but ambulatory and able to carry out light or sedentary work (e.g. office work, light house work). (ECOG) Physical Examination: ENMT - No mouth sores, no thrush,, Respiratory - Lungs are clear, Cardiovascular - Regular rate and rhythm of heart, Abdomen - Soft, bowel sounds present, Extremities - No visible edema or rash. Lab/Imaging: Test performed on Apr 08, 2020 09:15 Sodium 139 mmol/L Vitamin B12 480 pg/mL Potassium 4.4 mmol/L Chloride 102 mmol/L CO2 24 mmol/L Anion Gap 17.4 BUN 17 mg/dL Creatinine 0.6 mg/dL Cr Clearance (Est) 75.27 mL/min Glucose 105 mg/dL Calcium 9.3 mg/dL Protein, Total 7.5 g/dL Albumin 4.2 g/dL Globulin 3.3 g/dL Bilirubin, Total 0.8 mg/dL ALT (SGPT) 13 U/L AST (SGOT) 26 U/L Alkaline Phosphatase 78 IU/L WBC 5.9 10 3/uL RBC 3.93 10 6/uL HGB 11.5 g/dL HCT 37.0 % MCV 94.1 fL MCH 29.3 pg MCHC 31.1 g/dL RDW 17.8 % Platelet Count 242 10 3/cmm MPV 10.2 fL Neutrophils 2.4 10 3/uL Lymphocytes 2.6 10 3/uL Monocytes 0.6 10 3/uL Eosinophils 0.3 10 3/uL Basophils 0.0 10 3/uL Neutrophil % 40.9 % Lymphocyte % 44.3 % Monocyte % 9.7 % Eosinophil % 4.4 % Basophils % 0.7 % NRBC % 0 % Test performed on Dec 18, 2019 16:37 Ferritin 81 ng/mL Iron 55 ug/dL Iron Binding Capacity (TIBC) 338 mcg/dl % Iron Saturation 16.2 % UIBC 283 ug/dL CEA 5.2 ng/mL Impression: Moderately differentiated adenocarcinoma of the cecum status post right hemicolectomy done on 11/17/2019, final pathology report showed moderately differentiated adenocarcinoma of the colon extending through muscularis propria focally into pericolonic fat, low-grade, no vascular invasion seen, clear surgical margins,pT3 7 out of 19 lymph nodes showed metastatic disease pN2 Stage IIIB CEA checked on 11/19/2019 was 28.4, again right hemicolectomy was done on 11/17/2019, question whether lab was drawn before surgery but he reported on 02/17/2020 or ? Metastases repeat CEA level on 12/18/2019 was 5.2 started on adjuvant chemotherapy with Xeloda 750 mg/m??? twice a day for 2 weeks on 1 week off for 6-8 cycles on 01/07/2020 Normocytic normochromic anemia,due to B12 deficiency Plan: Discussed with patient regarding her labs white blood count 5.5 hemoglobin 11 hematocrit 34.7 platelets 223,000 CMP within normal limits except bilirubin 1.3 Clinically, patient is in mild distress due to off and on left arm pain, radiating from left shoulder to the hand, could be musculoskeletal e.g. nerve impingement but patient has history of severe coronary artery disease, as per patient, status post multiple stenting and followed by Dr. Colon, cardiology. And moreover Xeloda has known cardiac toxicity. We will hold her next cycle of chemotherapy with Xeloda today and send her to emergency room for evaluation to rule out cardiac event and she will return to clinic in a week for further discussion regarding adjuvant chemotherapy, as patient was considering stopping her adjuvant chemotherapy because of related side effects specially progressive fatigue, now also concerned about coronary artery disease. Signed By: Allyssa Call M.D. <<Signature on File>>
== END 2020-05-03 09:37 | disposition home or self-care (01) ==
LOC: ONCMED 06:44
PROVIDERS: PCP Family Medicine; Visit Provider Internal Medicine Hematology & Oncology
DX: C18.2 Malignant neoplasm of ascending colon (principal); C77.2 Secondary and unspecified malignant neoplasm of intra-abdominal lymph nodes; M79.602 Pain in left arm; I25.10 Atherosclerotic heart disease of native coronary artery without angina pectoris; D51.9 Vitamin B12 deficiency anemia, unspecified; Z95.5 Presence of coronary angioplasty implant and graft; Z79.899 Other long term (current) drug therapy
CPT/HCPCS: 80053; 85025; 99214

== ENCOUNTER 2020-05-03 09:38 | Emergency (ER) | payer MEDICARE, MEDICAID, SELFPAY ==
[2020-05-03 09:44] VITALS: BMI 27.3
[2020-05-03 09:48] VITALS: BP 159/90; PULSE 68; RESP 18; TEMP 37.1; O2SAT 96
--- NOTE | 2020-05-03 10:08 | XR_ITS ---
WS: [id number] LEFT SHOULDER: 3 VIEW(S) TECHNIQUE: Internal and external rotation with Y view. HISTORY: pain in L shoulder COMPARISON: 01/13/2016 No fracture or dislocation or soft tissue abnormality. Cluster of calcifications extends over length of 2.2 cm over the posterior lateral humeral head. Mode rate AC joint narrowing. Numerous clips at the LEFT apex. XR/XR shoulder LT min 2V* [id number] IMPRESSION: LEFT rotator cuff calcific tendinitis. Increasing calcific deposit since 2016.
[2020-05-03 10:09] LABS: Basophils % 0.4 %; Eosinophils # 0.2 10^3/uL (0.0-0.8); Eosinophils % 2.6 %; Hematocrit 37.2 % (37.0-47.0); Hemoglobin 11.5 g/dL (11.5-15.3); Lymphocytes # 3.3 10^3/uL (0.8-4.8); Lymphocytes % 40.8 %; Mean Corpuscular HGB Conc 30.9 g/dL (30.0-36.0); Mean Corpuscular Hemoglobin 29.6 pg (28.0-34.0); Mean Corpuscular Volume 95.6 fL (81-99); Monocytes # 0.8 10^3/uL (0.2-0.9); Monocytes % 9.4 %; Neutrophils # 3.76 10^3/uL (1.8-7.7); Neutrophils % 46.7 %; Nucleated Red Blood Cells % 0 %; Platelet Count 222 10^3/cmm (130-400); Red Blood Count 3.89 10^6/uL (4.1-5.3); Red Cell Distribution Width 19.6 % (12.1-15.1); White Blood Count 8.1 10^3/uL (4.0-10.0)
--- NOTE | 2020-05-03 10:09 | W.ED.CHESTPA ---
HPI - Chest Pain General: Chief Complaint: Extremity Problem,Nontraumatic Stated Complaint: l arm pain Time Seen by Provider: 05/03/20 09:45 History of Present Illness: HPI narrative: 84-year-old female with a known history of coronary disease and a history of colon cancer. Was at the cancer center this morning was supposed to undergo chemotherapy complaining of left shoulder pain radiating down her right arm. She states this began about 3 AM is reproducible with range of motion. Patient has a history of stage III colon cancer was in to see Dr. Call this morning we held off on chemo because of the complaint of left shoulder and arm pain. She reports the pain that begins in the shoulder is worse with movement of the shoulder it radiates down the arm. she does not have chest pain similar to what she has had in the past. MD complaint: other (Left shoulder pain) Pertinent past history: coronary artery disease Onset (ago): day(s) (1) Timing of current episode: constant Prior episodes: No Onset: during rest Pain location: other (Left shoulder) Pain radiation: left arm Severity: moderate Quality: aching Relieving factors: rest Exacerbating factors: palpation and movement Associated symptoms: Reports no associated symptoms; Deny abdominal pain, dyspnea, fever(s), nausea or vomiting Treatment prior to arrival: none Review of Systems Const: Denies: fever(s), chills, body aches, change in appetite, fatigue or malaise ENMT: Denies: throat pain, ear or mastoid pain, nasal discharge or nasal congestion Card: Denies: chest pain, edema, dyspnea on exertion or orthopnea Resp: Denies: dyspnea, productive cough or non-productive cough GI: Denies: abdominal pain, nausea, vomiting, hematemesis, coffee ground emesis, diarrhea, constipation, bloating, hematochezia or melena : Denies: flank pain, difficulty voiding, dysuria, urinary frequency or urinary urgency Skin/Breast: Denies: rash or pruritus PFSH ED PFSH: Medical History Congestive heart failure (CHF) Coronary arteriosclerosis Hypertension Primary adenocarcinoma of ascending colon [id number] adenocarcinoma of the ascending colon 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 Most likely occurred 3 months prior based off symptoms. Urinary incontinence Surgical History History of hysterectomy Status post colonoscopy Status post partial colectomy 11/13/2019: Laparoscopic extended right hemicolectomy Family History Sister Cancer Mother Cardiac complication Father Cardiac complication Denies family history of Anesthesia complication Bleeding disorder Social History Smoking and tobacco status: former smoker Quit status (tobacco): has quit using tobacco Second hand smoke exposure: No Smoking risk assessment/counseling performed?: No Alcohol intake: former Desire information about alcohol rehabilitation?: No Counseling given: No Lives independently: Yes Household members: spouse Marital status: Number of children: 5 Number of grandchildren: 29 Highest education level completed: High School Graduate service: No Current occupational status: retired Pets and animals: Yes History of recent travel: No Physical Exam Const: COMMON NORMALS: no acute distress GENERAL APPEARANCE: cooperative and comfortable ORIENTATION/CONSCIOUSNESS: Yes awake, Yes oriented to person, Yes oriented to place and Yes oriented to time HENMT: COMMON NORMALS: normocephalic, atraumatic, hearing grossly normal bilaterally, external ears normal, EAC's normal, TM's normal bilaterally, Normal nasal mucous membranes and turbinates present, moist oral mucous membranes and oropharynx normal HEAD & SCALP: normocephalic and atraumatic NOSE: Normal nasal mucous membranes and turbinates present EXTERNAL EAR: Yes external ears normal EXTERNAL AUDITORY CANAL: EAC's normal TYMPANIC MEMBRANE: TM's normal bilaterally Eye: COMMON NORMALS: Equal, round and reactive pupils present, EOMs intact bilaterally, conjunctivae normal and no scleral icterus CONJUNCTIVA: Yes conjunctivae normal PUPIL: Yes Equal, round and reactive pupils present Neck/C-Spine: COMMON NORMALS: full ROM, no lymphadenopathy, supple and no JVD Lymph: LYMPHATIC: no lymphadenopathy noted and no lymphedema noted Resp: COMMON NORMALS: normal respiratory effort, No retractions, No use of accessory muscles and clear to auscultation bilaterally AUSCULTATION: clear to auscultation bilaterally Cardio: COMMON NORMALS: no JVD, regular rate, regular rhythm and No murmurs present (Cardio) RATE: regular rate RHYTHM: regular rhythm GI: COMMON NORMALS: Soft to palpation and No hepatosplenomegaly present AUSCULTATION: Yes normoactive bowel sounds PALPATION: Yes Soft to palpation, No Tenderness to palpation present (GI), No Guarding due to palpation present (GI) and Yes No hepatosplenomegaly present Extremity: COMMON NORMALS: normal to inspection, capillary refill normal, no clubbing, cyanosis or edema, no calf tenderness and no pedal edema NARRATIVE EXTREMITY EXAM: Positive impingement sign with range of motion in the shoulder. It is also reproduces her pain. No pain in the chest with palpation. Neuro: SENSORIUM/ORIENTATION: Yes oriented to person, Yes oriented to place and Yes oriented to time Skin: COMMON NORMALS: no rashes or lesions noted GENERAL SKIN EXAM: no rashes or lesions noted Course Vital Signs: Vital signs: Vital Signs Temperature 98.7 F 05/03/20 09:48 Pulse Rate 62 05/03/20 12:59 Respiratory Rate 18 05/03/20 12:59 Blood Pressure 170/96 05/03/20 12:59 Pulse Oximetry 96 05/03/20 12:59 MDM - Chest Pain MDM Narrative: Medical decision making narrative: On exam her left shoulder pain and subsequent radiation into the left arm is much more indicative of a rotator cuff arthropathy. Reviewed with the patient given her recent cath with definitive treatment and no other lesions beyond what was treated and the fact that she has had this for some time her EKGs and her troponins remain unchanged. I think this is much more likely to be an orthopedic issue referred her back to her primary care doctor to make further advanced imaging if felt appropriate or referral to Ortho. Discussed with the patient and her family also discussed with Dr. Call. Lab Data: Labs: Lab Results 05/03/20 05/03/20 05/03/20 Range/Units 10:00 10:00 10:00 WBC 8.1 (4.0-10.0) 10^3/ uL RBC 3.89 L (4.1-5.3) 10^6/u L Hgb 11.5 (11.5-15.3) g/dL Hct 37.2 (37.0-47.0) % MCV 95.6 (81-99) fL MCH 29.6 (28.0-34.0) pg MCHC 30.9 (30.0-36.0) g/dL RDW 19.6 H (12.1-15.1) % Plt Count 222 (130-400) 10^3/c mm MPV 10.0 (7.4-10.4) fL Neut % (Auto) 46.7 % Lymph % (Auto) 40.8 % [place] % (Auto) 9.4 % Eos % (Auto) 2.6 % Baso % (Auto) 0.4 % Neut # (Auto) 3.76 (1.8-7.7) 10^3/u L Lymph # (Auto) 3.3 (0.8-4.8) 10^3/u L [place] # (Auto) 0.8 (0.2-0.9) 10^3/u L Eos # (Auto) 0.2 (0.0-0.8) 10^3/u L Baso # (Auto) 0.0 (0.0-0.1) 10^3/u L Nucleated RBC % (a uto) 0 % Nucleated RBCs # 0.0 /100WBC PT 16.80 H (10.5-13.3) SECO NDS INR 1.31 H (0.8-1.2) APTT 36.2 (23.9-36.7) SECO NDS Sodium 139 (136-145) mmol/L Potassium 4.3 (3.5-5.1) mmol/L Chloride 106 (98-107) mmol/L Carbon Dioxide 23 (22-29) mmol/L Anion Gap 14.3 (5-19) BUN 15 (8-23) mg/dL Creatinine 0.7 (0.5-0.9) mg/dL Glucose 96 (65-115) mg/dL Calculated Osmolal ity 284 L (285-295) mOsm/k g Calcium 9.0 (8.5-10.5) mg/dL Total Bilirubin 1.2 (0.15-1.2) mg/dL AST 20 (0-32) U/L ALT 12 (0-33) U/L Alkaline Phosphata se 77 (35-105) IU/L Troponin T Baselin e (0-10) ng/L Troponin T 120 Min [place] (0-10) ng/L Delta Troponin T (0-10) ABS# Total Protein 7.0 (6.6-8.7) g/dL Albumin 4.3 (3.5-5.2) g/dL Globulin 2.7 (1.3-4.6) g/dL 05/03/20 05/03/20 Range/Units 10:00 12:12 WBC (4.0-10.0) 10^3/ uL RBC (4.1-5.3) 10^6/u L Hgb (11.5-15.3) g/dL Hct (37.0-47.0) % MCV (81-99) fL MCH (28.0-34.0) pg MCHC (30.0-36.0) g/dL RDW (12.1-15.1) % Plt Count (130-400) 10^3/c mm MPV (7.4-10.4) fL Neut % (Auto) % Lymph % (Auto) % [place] % (Auto) % Eos % (Auto) % Baso % (Auto) % Neut # (Auto) (1.8-7.7) 10^3/u L Lymph # (Auto) (0.8-4.8) 10^3/u L [place] # (Auto) (0.2-0.9) 10^3/u L Eos # (Auto) (0.0-0.8) 10^3/u L Baso # (Auto) (0.0-0.1) 10^3/u L Nucleated RBC % (a uto) % Nucleated RBCs # /100WBC PT (10.5-13.3) SECO NDS INR (0.8-1.2) APTT (23.9-36.7) SECO NDS Sodium (136-145) mmol/L Potassium (3.5-5.1) mmol/L Chloride (98-107) mmol/L Carbon Dioxide (22-29) mmol/L Anion Gap (5-19) BUN (8-23) mg/dL Creatinine (0.5-0.9) mg/dL Glucose (65-115) mg/dL Calculated Osmolal ity (285-295) mOsm/k g Calcium (8.5-10.5) mg/dL Total Bilirubin (0.15-1.2) mg/dL AST (0-32) U/L ALT (0-33) U/L Alkaline Phosphata se (35-105) IU/L Troponin T Baselin e 7 (0-10) ng/L Troponin T 120 Min [place] 7.35 (0-10) ng/L Delta Troponin T 0.35 (0-10) ABS# Total Protein (6.6-8.7) g/dL Albumin (3.5-5.2) g/dL Globulin (1.3-4.6) g/dL Discharge Plan Discharge Patient Disposition: Home, Self-Care Clinical Impression: Rotator cuff arthropathy of left shoulder, Coronary arteriosclerosis Condition: Stable Prescriptions: No Action pantoprazole 40 mg tablet,delayed release (DR/EC) 40 mg PO DAILY RF: 0 ondansetron HCl [Zofran] 4 mg tablet 4 mg PO Q4H PRN (Reason: Nausea) RF: 0 metoprolol tartrate 50 mg tablet 50 mg PO BID Qty: 180 RF: 3 clopidogrel [Plavix] 75 mg Tablet 75 mg PO DAILY RF: 0 isosorbide mononitrate 30 mg Tablet Extended Release 24 Hr 30 mg PO BID RF: 0 losartan 50 mg Tablet 50 mg PO DAILY RF: 0 sertraline [Zoloft] 100 mg Tablet 100 mg PO BID RF: 0 nitroglycerin [Nitrostat] 0.4 mg Tablet, Sublingual 0.4 mg SUBLINGUAL Q5M PRN (Reason: Chest Pain) RF: 0 acetaminophen [Tylenol Extra Strength] 500 mg Tablet 500 mg PO DAILY PRN (Reason: Pain) RF: 0 coenzyme Q10 [CoQ-10] 100 mg Capsule 100 mg PO BEDTIME RF: 0 glucosamine sulfate [Glucosamine] 500 mg Tablet 1,000 mg PO DAILY RF: 0 rosuvastatin [Crestor] 20 mg Tablet 20 mg PO BEDTIME RF: 0 Xeloda 150 mg Tablet 150 mg PO BID RF: 0 aspirin 81 mg Tablet,Chewable 81 mg PO DAILY RF: 0 Eliquis DVT-PE Treat 30D Start 5 mg (74 tabs) tablets,dose pack 5 mg PO BID RF: 0 Referrals: Ousmane Reaves MD [Primary Care Provider] - Discharge Diet: Usual diet Discharge Activity: Resume usual activity Activity Restrictions/Additional Instructions: Follow-up with Dr. Call as previously scheduled. No change in any of her medications at this time. Discharge Date/Time: 05/03/20 13:00 Coding Level of Care Code ED Photocopy Operator for Chg Fwd Exam Comprehensive
[2020-05-03 10:23] LABS: INR 1.31 (0.8-1.2)
[2020-05-03 10:24] LABS: Partial Thromboplastin Time 36.2 SECONDS (23.9-36.7)
[2020-05-03 10:29] LABS: Alanine Aminotransferase 12 U/L (0-33); Albumin Level 4.3 g/dL (3.5-5.2); Alkaline Phosphatase 77 IU/L (35-105); Anion Gap 14.3 (5-19); Aspartate Amino Transferase 20 U/L (0-32); Blood Urea Nitrogen 15 mg/dL (8-23); Carbon Dioxide 23 mmol/L (22-29); Chloride 106 mmol/L (98-107); Creatinine Clr Calc Pharmacy 47.0647; Globulin 2.7 g/dL (1.3-4.6); Glucose 96 mg/dL (65-115); Osmolality Calculated 284 mOsm/kg (285-295); Potassium 4.3 mmol/L (3.5-5.1); Sodium 139 mmol/L (136-145); Total Bilirubin 1.2 mg/dL (0.15-1.2)
[2020-05-03 10:30] LABS: Troponin(5th) Baseline 7 ng/L (0-10)
[2020-05-03 11:00] VITALS: BP 154/86; PULSE 65; RESP 18; O2SAT 97
--- NOTE | 2020-05-03 11:24 | XR_ITS ---
WS: [id number] PORTABLE CHEST HISTORY: Chest pain COMPARISON: 11/11/2019 Lungs are clear and well expanded. No pleural effusion or pneumothorax. Cardiac size: Normal. Mediastinum/Aorta: Mild atherosclerosis aorta. Surgical sutures project over the LEFT upper lung. No osseous abnormality seen. XR/XR chest 1V portable [id number] IMPRESSION: Partially calcified aorta. No pneumonia.
--- NOTE | 2020-05-03 11:46 | ECG_ITS ---
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 Measurements Intervals [place] Rate: 67 P: 54 MD: 179 QRS: -34 QRSD: 88 T: 21 QT: 413 QTc: 437 Interpretive Statements SINUS RHYTHM LEFT AXIS DEVIATION [QRS AXIS < -30] No previous ECG available for comparison Electronically Signed On 05-04-2020 16:28:59 CDT by Jeffy Logan M.D. [id number]
[2020-05-03 12:00] VITALS: BP 186/82; PULSE 64; RESP 18; O2SAT 97
[2020-05-03 12:40] LABS: Troponin 5 2HR 7.35 ng/L (0-10); Troponin 5 2HR Delta 0.35 ABS# (0-10)
[2020-05-03 12:59] VITALS: BP 170/96; PULSE 62; RESP 18; O2SAT 96
== END 2020-05-03 13:00 | disposition home or self-care (01) ==
PROVIDERS: Emergency Provider Family Medicine; PCP Family Medicine
DX: M12.812 Other specific arthropathies, not elsewhere classified, left shoulder (principal); I25.10 Atherosclerotic heart disease of native coronary artery without angina pectoris; Z79.01 Long term (current) use of anticoagulants; Z79.02 Long term (current) use of antithrombotics/antiplatelets; Z79.82 Long term (current) use of aspirin; I11.0 Hypertensive heart disease with heart failure; I50.9 Heart failure, unspecified; Z87.891 Personal history of nicotine dependence
CPT/HCPCS: 12345; 36415; 71045; 73030; 80053; 84484; 85025; 85610; 85730; 93005; 99283; 99284

== ENCOUNTER 2020-05-05 14:29 | Outpatient (RCR) | payer MEDICARE, MEDICAID, SELFPAY ==
--- NOTE | 2020-05-05 15:32 | ONC FU_ITS ---
Dr. Call follow up note Patient: Ana Laurent Unit #: [id number]: 1935 Dicatated By: Allyssa Call M.D.Date of Visit:May 05, 2020 Onc Med Follow-up/Prog Note History of Present Illness: Mrs. Ana Laurent, is a 85-year-old female with history of progressive generalized weakness and fatigue and abdominal pain underwent CT scan of abdomen pelvis on 11/04/2019 which showed annular constricting carcinoma ascending colon, causing partial obstruction with mild interval increase. Abnormal pericolonic lymphadenopathy. Nonspecific mild posterior pelvic peritoneal fluid. Post hysterectomy. Liver normal. 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 and (colonic adenocarcinoma with this phenotype associated with improved disease-free and overall survival in untreated stage II and III colorectal carcinomas and most commonly found in sporadic colonic glandular neoplasms, additional testing for MLH 1 gene caused by premotor hyper methylation or Ronquillo syndrome is probably not indicated) Subsequently on 11/17/2019 patient underwent right hemicolectomy and final pathology report showed moderately differentiated adenocarcinoma of colon extending through muscularis propria focally into pericolonic fat, tumor is completely excised with clear surgical margins, tumor size 6 x 5 cm in the cecum, low-grade type, no vascular invasion identified,, no perforation, e.g. pT3 7 out of 19 lymph nodes showed metastatic disease e.g.pN2 Stage IIIB Labs done on 02/17/2020 shows white blood count 4.4 hemoglobin 7.9 hematocrit 27 platelets 177,000 MCV 85.4 CMP within normal limits except glucose 409, AST 43, albumin 2.9, and CEA 28.4.repeat CEA on December 27 clinically was 5.2 Started on adjuvant chemotherapy with Xeloda 2 weeks on 1 week off for 6-8 cycles on 01/07/2020, Was put on hold after third cycle, due to hallucinations and confusion and as per patient she underwent extensive work-up for Alzheimer's at [facility] office and it was inconclusive and then restarted on April 12, 2020 Came for follow-up, complaining of left shoulder pain with radiating left from, patient was sent to [facility] recently for evaluation where she underwent EKG and cardiac enzymes were checked all came back negative and the impression was probably due to left shoulder pathology like osteoarthritis or tendinitis/bursitis, now patient being scheduled to see PMD Dr. Reaves for possible cortisone injection or management. But cardiac etiology is ruled out as per [facility] evaluation. Patient denies any fever chills, denies any nausea or vomiting, denies any palpitation, denies any mouth sores, denies any jaundice or diarrhea or constipation otherwise. So far tolerating oral Xeloda well, and has completed 4 cycles of adjuvant therapy on April 27, 2020 Medications: Acetaminophen 1 - 2 Tablet (of 325 mg) Oral daily PRN, Cholecalciferol 1 (50,000 Units) Capsule Oral every am on , Co Q 10 1 Capsule (of 100 mg) Oral daily, Crestor 1 (20 mg) Tablet Oral every am, Eliquis 1 (5 mg) Tablet Oral b.i.d., Isosorbide Mononitrate 1 (30 mg) Tablet Oral b.i.d., Losartan Potassium 1 (50 mg) Tablet Oral every am, Metoprolol Tartrate 1 (50 mg) Tablet Oral b.i.d., Nitrostat 1 Tablet (of 0.4 mg) Tablet, sublingual Sublingual daily PRN, Ondansetron HCl 1 Tablet (of 4 mg) Oral t.i.d. PRN, Pantoprazole Sodium 1 (40 mg) Tablet, enteric coated Oral daily, Plavix 1 (75 mg) Tablet Oral every am, Stool Softener Tablet Oral, Xeloda 2 Tablet (of 500 mg) Oral b.i.d. for 14 days, Xeloda 1 Tablet (of 150 mg) Oral b.i.d. for 14 days, Zoloft 2 Tablet (of 100 mg) Oral every am Allergies: Belladonna, Imipramine HCl, Macrobid, Morphine Derivatives, and sulfabenzamide. Review of Systems: Constitutional - Appetite is poor and weight is stable. No fever, chills, hot flashes, or night sweats. Energy level is fair, ENMT - No sinus congestion/drainage. No mouth sores. No sore throat or difficulty swallowing, Hematologic/Lymphatic - Positive for easy bruising, Respiratory - Positive for shortness of breath. No cough. No pleuritic pain or hemoptysis, Cardiovascular - No chest pain or heart palpitations, Gastrointestinal - Positive for nausea, no vomiting. No heartburn or acid reflux. No diarrhea or constipation. No blood in the stool or black stools, Genitourinary (F) - No dysuria or hematuria. No urinary frequency. No urgency. Positive for incontinence, Musculoskeletal - Positive for joint pain, Neurologic - No headache or dizziness. No numbness/paresthesias or other focal neurologic symptoms, Psychiatric - Positive for depression and anxiety. Pt continues to report confusion. Vital Signs: Performed on May 05, 2020 14:58 Height - 62.00 in Weight - 148.0 lbs (LOW) BSA - 1.68 sq.m BMI - 27.07 Temperature - 98.0 F (LOW) Pulse - 76 /min Respiration - 22 /min BP - 160/75 mm(hg) (HIGH) O2 Sat - 96 % Pain - 10 Performance Status: 1 - No physically strenuous activity, but ambulatory and able to carry out light or sedentary work (e.g. office work, light house work). (ECOG) Physical Examination: ENMT - No mouth sores, no thrush, no jaundice, Respiratory - Lungs are clear, Cardiovascular - Regular rate and rhythm of heart, Abdomen - Soft, bowel sounds present, Extremities - No visible edema or rash. Lab/Imaging: Test performed on Apr 08, 2020 09:15 Sodium 139 mmol/L Vitamin B12 480 pg/mL Potassium 4.4 mmol/L Chloride 102 mmol/L CO2 24 mmol/L Anion Gap 17.4 BUN 17 mg/dL Creatinine 0.6 mg/dL Cr Clearance (Est) 75.27 mL/min Glucose 105 mg/dL Calcium 9.3 mg/dL Protein, Total 7.5 g/dL Albumin 4.2 g/dL Globulin 3.3 g/dL Bilirubin, Total 0.8 mg/dL ALT (SGPT) 13 U/L AST (SGOT) 26 U/L Alkaline Phosphatase 78 IU/L WBC 5.9 10 3/uL RBC 3.93 10 6/uL HGB 11.5 g/dL HCT 37.0 % MCV 94.1 fL MCH 29.3 pg MCHC 31.1 g/dL RDW 17.8 % Platelet Count 242 10 3/cmm MPV 10.2 fL Neutrophils 2.4 10 3/uL Lymphocytes 2.6 10 3/uL Monocytes 0.6 10 3/uL Eosinophils 0.3 10 3/uL Basophils 0.0 10 3/uL Neutrophil % 40.9 % Lymphocyte % 44.3 % Monocyte % 9.7 % Eosinophil % 4.4 % Basophils % 0.7 % NRBC % 0 % Test performed on Dec 18, 2019 16:37 Ferritin 81 ng/mL Iron 55 ug/dL Iron Binding Capacity (TIBC) 338 mcg/dl % Iron Saturation 16.2 % UIBC 283 ug/dL CEA 5.2 ng/mL Impression: Moderately differentiated adenocarcinoma of the cecum status post right hemicolectomy done on 11/17/2019, final pathology report showed moderately differentiated adenocarcinoma of the colon extending through muscularis propria focally into pericolonic fat, low-grade, no vascular invasion seen, clear surgical margins,pT3 7 out of 19 lymph nodes showed metastatic disease pN2 Stage IIIB CEA checked on 11/19/2019 was 28.4, again right hemicolectomy was done on 11/17/2019, question whether lab was drawn before surgery but he reported on 02/17/2020 or ? Metastases repeat CEA level on 12/18/2019 was 5.2 started on adjuvant chemotherapy with Xeloda 750 mg/m??? twice a day for 2 weeks on 1 week off for 6-8 cycles on 01/07/2020 Normocytic normochromic anemia,due to B12 deficiency Plan: Discussed with patient regarding her concerns and questions about adjuvant chemotherapy with oral Xeloda, patient's grand children is a pharmacist in the hospital in [place], she did discuss with him on the phone last night and now decided to continue with adjuvant therapy but earlier she was thinking about stopping because of off and on generalized weakness and fatigue, which she thought was due to chemotherapy. Patient will restart her cycle #5/6 or 8 on Sunday, May 10, 2020 and then she will return to clinic on May 31, 2020 with CBC CMP. As far as left shoulder pain/left arm pain is concerned, she will see her PMD in the morning for management. Signed By: Allyssa Call M.D. <<Signature on File>>
== END 2020-05-14 23:59 | disposition home or self-care (01) ==
LOC: ONCMED 14:29
PROVIDERS: PCP Family Medicine; Visit Provider Internal Medicine Hematology & Oncology
DX: C18.2 Malignant neoplasm of ascending colon (principal); C77.2 Secondary and unspecified malignant neoplasm of intra-abdominal lymph nodes; D51.9 Vitamin B12 deficiency anemia, unspecified; M25.512 Pain in left shoulder; Z79.899 Other long term (current) drug therapy; Z90.49 Acquired absence of other specified parts of digestive tract
CPT/HCPCS: 99214

== ENCOUNTER 2020-05-31 05:38 | Outpatient (RCR) | payer MEDICARE, MEDICAID, SELFPAY ==
[2020-05-28 10:24] LABS: Basophils % 0.7 %; Eosinophils # 0.2 10^3/uL (0.0-0.8); Eosinophils % 4.1 %; Hematocrit 37.5 % (37.0-47.0); Hemoglobin 11.3 g/dL (11.5-15.3); Lymphocytes # 2.7 10^3/uL (0.8-4.8); Lymphocytes % 46.1 %; Mean Corpuscular HGB Conc 30.1 g/dL (30.0-36.0); Mean Corpuscular Volume 99.5 fL (81-99); Mean Platelet Volume 9.9 fL (7.4-10.4); Monocytes # 0.4 10^3/uL (0.2-0.9); Monocytes % 6.8 %; Neutrophils # 2.48 10^3/uL (1.8-7.7); Neutrophils % 42.1 %; Nucleated Red Blood Cells % 0 %; Platelet Count 196 10^3/cmm (130-400); Red Blood Count 3.77 10^6/uL (4.1-5.3); Red Cell Distribution Width 20.1 % (12.1-15.1); White Blood Count 5.9 10^3/uL (4.0-10.0)
[2020-05-28 11:04] LABS: Alanine Aminotransferase 14 U/L (0-33); Alkaline Phosphatase 78 IU/L (35-105); Anion Gap 13.3 (5-19); Aspartate Amino Transferase 24 U/L (0-32); Blood Urea Nitrogen 16 mg/dL (8-23); Calcium 9.3 mg/dL (8.5-10.5); Carbon Dioxide 25 mmol/L (22-29); Chloride 106 mmol/L (98-107); Globulin 2.8 g/dL (1.3-4.6); Glucose 115 mg/dL (65-115); Osmolality Calculated 287 mOsm/kg (285-295); Potassium 4.3 mmol/L (3.5-5.1); Sodium 140 mmol/L (136-145); Total Bilirubin 1.1 mg/dL (0.15-1.2); Total Protein 6.8 g/dL (6.6-8.7)
--- NOTE | 2020-05-31 17:35 | ONC FU_ITS ---
Dr. Call follow up note Patient: Ana Laurent Unit #: [id number]: [id number] Dicatated By: Allyssa Call M.D.Date of Visit:May 31, 2020 Onc Med Follow-up/Prog Note History of Present Illness: Mrs. Ana Laurent, is a 85-year-old female with history of progressive generalized weakness and fatigue and abdominal pain underwent CT scan of abdomen pelvis on 11/04/2019 which showed annular constricting carcinoma ascending colon, causing partial obstruction with mild interval increase. Abnormal pericolonic lymphadenopathy. Nonspecific mild posterior pelvic peritoneal fluid. Post hysterectomy. Liver normal. 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 and (colonic adenocarcinoma with this phenotype associated with improved disease-free and overall survival in untreated stage II and III colorectal carcinomas and most commonly found in sporadic colonic glandular neoplasms, additional testing for MLH 1 gene caused by premotor hyper methylation or Ronquillo syndrome is probably not indicated) Subsequently on 11/17/2019 patient underwent right hemicolectomy and final pathology report showed moderately differentiated adenocarcinoma of colon extending through muscularis propria focally into pericolonic fat, tumor is completely excised with clear surgical margins, tumor size 6 x 5 cm in the cecum, low-grade type, no vascular invasion identified,, no perforation, e.g. pT3 7 out of 19 lymph nodes showed metastatic disease e.g.pN2 Stage IIIB Labs done on 02/17/2020 shows white blood count 4.4 hemoglobin 7.9 hematocrit 27 platelets 177,000 MCV 85.4 CMP within normal limits except glucose 409, AST 43, albumin 2.9, and CEA 28.4.repeat CEA on December 27 clinically was 5.2 Started on adjuvant chemotherapy with Xeloda 2 weeks on 1 week off for 6-8 cycles on 01/07/2020, Was put on hold after third cycle, due to hallucinations and confusion and as per patient she underwent extensive work-up for Alzheimer's at [facility] office and it was inconclusive and then restarted on April 12, 2020 Came for follow-up, denies any specific complaints, no nausea vomiting, no diarrhea constipation no mouth sores, no skin rash, no jaundice, tolerating adjuvant chemotherapy with single agent modified dose Xeloda well Medications: Acetaminophen 1 - 2 Tablet (of 325 mg) Oral daily PRN, Cholecalciferol 1 (50,000 Units) Capsule Oral every am on , Co Q 10 1 Capsule (of 100 mg) Oral daily, Crestor 1 (20 mg) Tablet Oral every am, Eliquis 1 (5 mg) Tablet Oral b.i.d., Isosorbide Mononitrate 1 (30 mg) Tablet Oral b.i.d., Losartan Potassium 1 (50 mg) Tablet Oral every am, Metoprolol Tartrate 1 (50 mg) Tablet Oral b.i.d., Nitrostat 1 Tablet (of 0.4 mg) Tablet, sublingual Sublingual daily PRN, Ondansetron HCl 1 Tablet (of 4 mg) Oral t.i.d. PRN, Pantoprazole Sodium 1 (40 mg) Tablet, enteric coated Oral daily, Plavix 1 (75 mg) Tablet Oral every am, Stool Softener Tablet Oral, Xeloda 2 Tablet (of 500 mg) Oral b.i.d. for 14 days, Xeloda 1 Tablet (of 150 mg) Oral b.i.d. for 14 days, Zoloft 2 Tablet (of 100 mg) Oral every am Allergies: Belladonna, Imipramine HCl, Macrobid, Morphine Derivatives, and sulfabenzamide. Review of Systems: Constitutional - Appetite is poor and weight is stable. No fever, chills, hot flashes, or night sweats. Energy level is fair, ENMT - No sinus congestion/drainage. No mouth sores. No sore throat or difficulty swallowing, Hematologic/Lymphatic - Positive for easy bruising, Respiratory - Positive for shortness of breath. No cough. No pleuritic pain or hemoptysis, Cardiovascular - No chest pain or heart palpitations, Gastrointestinal - Positive for nausea, no vomiting. No heartburn or acid reflux. No diarrhea or constipation. No blood in the stool or black stools, Genitourinary (F) - No dysuria or hematuria. No urinary frequency. No urgency. Positive for incontinence, Musculoskeletal - Positive for joint pain, Neurologic - No headache or dizziness. No numbness/paresthesias or other focal neurologic symptoms, Psychiatric - Positive for depression and anxiety. Pt continues to report confusion. Vital Signs: Performed on May 31, 2020 16:03 Height - 62.00 in Weight - 149.6 lbs (HIGH) BSA - 1.69 sq.m BMI - 27.36 Temperature - 98.3 F (LOW) Pulse - 65 /min Respiration - 18 /min BP - 153/62 mm(hg) (HIGH) O2 Sat - 97 % Pain - 0 Performance Status: 0 - Fully active, able to carry on all predisease activities without restrictions. (ECOG) Physical Examination: ENMT - No mouth sores, no thrush, no jaundice, Respiratory - Lungs are clear, Cardiovascular - Regular rate and rhythm of heart, Abdomen - Soft, bowel sounds present, Extremities - No visible edema or rash. Lab/Imaging: Test performed on Apr 29, 2020 10:15 Sodium 141 mmol/L Potassium 4.2 mmol/L Chloride 105 mmol/L CO2 26 mmol/L Anion Gap 14.2 BUN 14 mg/dL Creatinine 0.7 mg/dL Cr Clearance (Est) 64.54 mL/min Glucose 110 mg/dL Calcium 8.8 mg/dL Protein, Total 7.2 g/dL Albumin 4.2 g/dL Globulin 3.0 g/dL Bilirubin, Total 1.3 mg/dL ALT (SGPT) 13 U/L AST (SGOT) 18 U/L Alkaline Phosphatase 77 IU/L WBC 5.5 10 3/uL RBC 3.72 10 6/uL HGB 11.0 g/dL HCT 34.7 % MCV 93.3 fL MCH 29.6 pg MCHC 31.7 g/dL RDW 19.0 % Platelet Count 223 10 3/cmm MPV 10.5 fL Neutrophils 2.08 10 3/uL Lymphocytes 2.8 10 3/uL Monocytes 0.4 10 3/uL Eosinophils 0.2 10 3/uL Basophils 0.0 10 3/uL Neutrophil % 37.6 % Lymphocyte % 50.0 % Monocyte % 7.9 % Eosinophil % 3.8 % Basophils % 0.5 % NRBC % 0 % Test performed on Apr 08, 2020 09:15 Vitamin B12 480 pg/mL Test performed on Dec 18, 2019 16:37 Ferritin 81 ng/mL Iron 55 ug/dL Iron Binding Capacity (TIBC) 338 mcg/dl % Iron Saturation 16.2 % UIBC 283 ug/dL CEA 5.2 ng/mL Impression: Moderately differentiated adenocarcinoma of the cecum status post right hemicolectomy done on 11/17/2019, final pathology report showed moderately differentiated adenocarcinoma of the colon extending through muscularis propria focally into pericolonic fat, low-grade, no vascular invasion seen, clear surgical margins,pT3 7 out of 19 lymph nodes showed metastatic disease pN2 Stage IIIB CEA checked on 11/19/2019 was 28.4, again right hemicolectomy was done on 11/17/2019, question whether lab was drawn before surgery but he reported on 02/17/2020 or ? Metastases repeat CEA level on 12/18/2019 was 5.2 started on adjuvant chemotherapy with Xeloda 750 mg/m??? twice a day for 2 weeks on 1 week off for 6-8 cycles on 01/07/2020 Normocytic normochromic anemia,due to B12 deficiency Plan: Discussed with patient regarding her labs white blood count 5.9 hemoglobin 11.3 hematocrit 37.5 platelets 196,000 CMP within normal limits Clinically, patient doing well with no significant side effects except generalized weakness and fatigue otherwise tolerating adjuvant therapy with modified dose Xeloda well but with expected side effects. Patient has completed 5 cycles of chemotherapy, her lab work-up is reasonable, will proceed with cycle #6/8 and return to clinic in 3 weeks with CBC CMP. Signed By: Allyssa Call M.D. <<Signature on File>>
== END 2020-06-14 23:59 | disposition home or self-care (01) ==
LOC: ONCMED 05:38
PROVIDERS: PCP Family Medicine; Visit Provider Internal Medicine Hematology & Oncology
DX: C18.0 Malignant neoplasm of cecum (principal); C77.8 Secondary and unspecified malignant neoplasm of lymph nodes of multiple regions; D51.9 Vitamin B12 deficiency anemia, unspecified; R53.1 Weakness; R53.83 Other fatigue
CPT/HCPCS: 80053; 85025; 99214

== ENCOUNTER 2020-07-13 05:35 | Outpatient (RCR) | payer MEDICARE, MEDICAID, SELFPAY ==
[2020-06-22 13:46] LABS: Basophils % 0.4 %; Eosinophils # 0.2 10^3/uL (0.0-0.8); Eosinophils % 2.5 %; Hematocrit 37.1 % (37.0-47.0); Hemoglobin 11.5 g/dL (11.5-15.3); Lymphocytes # 3.8 10^3/uL (0.8-4.8); Lymphocytes % 50.4 %; Mean Corpuscular Hemoglobin 30.7 pg (28.0-34.0); Mean Corpuscular Volume 99.2 fL (81-99); Mean Platelet Volume 9.8 fL (7.4-10.4); Monocytes # 0.7 10^3/uL (0.2-0.9); Monocytes % 8.6 %; Neutrophils # 2.86 10^3/uL (1.8-7.7); Neutrophils % 37.8 %; Nucleated Red Blood Cells % 0 %; Platelet Count 197 10^3/cmm (130-400); Red Blood Count 3.74 10^6/uL (4.1-5.3); Red Cell Distribution Width 20.5 % (12.1-15.1); White Blood Count 7.6 10^3/uL (4.0-10.0)
[2020-06-22 14:06] LABS: Alanine Aminotransferase 13 U/L (0-33); Albumin Level 4.1 g/dL (3.5-5.2); Alkaline Phosphatase 75 IU/L (35-105); Anion Gap 14.4 (5-19); Aspartate Amino Transferase 24 U/L (0-32); Blood Urea Nitrogen 18 mg/dL (8-23); Calcium 8.9 mg/dL (8.5-10.5); Carbon Dioxide 23 mmol/L (22-29); Chloride 108 mmol/L (98-107); Glucose 97 mg/dL (65-115); Osmolality Calculated 288 mOsm/kg (285-295); Potassium 4.4 mmol/L (3.5-5.1); Sodium 141 mmol/L (136-145); Total Bilirubin 1.6 mg/dL (0.15-1.2); Total Protein 7.1 g/dL (6.6-8.7)
--- NOTE | 2020-06-26 17:04 | ONC FU_ITS ---
[facility] Patient Note Patient: Ana Laurent Unit #: [id number]: [id number] Dictated By: Ryan EsparzaDate of Visit: Jun 22, 2020 Onc MED Follow-Up/Prog Note Chief Complaint: colon cancer History of Present Illness: Mrs. Laurent is a 85-year-old female with history of progressive generalized weakness and fatigue and abdominal pain. She underwent CT scan of abdomen pelvis on 11/04/2019 which showed annular constricting carcinoma ascending colon, causing partial obstruction with mild interval increase. Abnormal pericolonic lymphadenopathy. Nonspecific mild posterior pelvic peritoneal fluid. Post hysterectomy. Liver normal. 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 and (colonic adenocarcinoma with this phenotype associated with improved disease-free and overall survival in untreated stage II and III colorectal carcinomas and most commonly found in sporadic colonic glandular neoplasms, additional testing for MLH 1 gene caused by premotor hyper methylation or Ronquillo syndrome is probably not indicated) Subsequently on 11/17/2019 patient underwent right hemicolectomy and final pathology report showed moderately differentiated adenocarcinoma of colon extending through muscularis propria focally into pericolonic fat, tumor is completely excised with clear surgical margins, tumor size 6 x 5 cm in the cecum, low-grade type, no vascular invasion identified,, no perforation, e.g. pT3 7 out of 19 lymph nodes showed metastatic disease e.g.pN2 Stage IIIB Labs done on 02/17/2020 shows white blood count 4.4 hemoglobin 7.9 hematocrit 27 platelets 177,000 MCV 85.4 CMP within normal limits except glucose 409, AST 43, albumin 2.9, and CEA 28.4.repeat CEA on December 27 clinically was 5.2 She started on adjuvant chemotherapy with Xeloda 2 weeks on 1 week off for 6-8 cycles on 01/07/2020. Her treatment was put on hold after the third cycle due to hallucinations and confusion. She reported that she underwent extensive work-up for Alzheimer's at [facility] [place] office and it was inconclusive. She did resume her fourth cycle of Xeloda on April 12, 2020. She has tolerated it well since then. Ms Laurent is here today for followup. She is due to resume her next cycle of Xeloda today. This is cycle 7/8. She reports that she is doing good. She states she is eating really good. She denies any new pain. She has had no fever or chills. She denies any mouth sores, sore throat or difficulty swallowing. She denies any skin changes especially of her hands and feet. She states occasionally they get tender but that only last for a couple of hours and then resolves on its own. She has had no skin peeling. She states she is had no particular diarrhea. She denies any abdominal pain. She is had no urinary symptoms. She denies neuropathy. She is able to do all her ADLs although she tires easily she recovers well with rest. She feels that overall she is doing well. Her ECOG is 1. Past Medical History: Coronary artery disease Hyperlipidemia Hypertension Past Surgical History: Bilateral rotator cuff repair Carpal tunnel release Hysterectomy/bilateral salpingectomy-oophorectomy Left carotid artery PTCA/stent Allergies: Belladonna, Imipramine HCl, Macrobid, Morphine Derivatives, and sulfabenzamide. Medications: Acetaminophen 1 - 2 Tablet (of 325 mg) Oral daily PRN Cholecalciferol 1 (50,000 Units) Capsule Oral every am on W Co Q 10 1 Capsule (of 100 mg) Oral daily Crestor 1 (20 mg) Tablet Oral every am Eliquis 1 (5 mg) Tablet Oral b.i.d. Isosorbide Mononitrate 1 (30 mg) Tablet Oral b.i.d. Losartan Potassium 1 (50 mg) Tablet Oral every am Metoprolol Tartrate 1 (50 mg) Tablet Oral b.i.d. Nitrostat 1 Tablet (of 0.4 mg) Tablet, sublingual Sublingual daily PRN Ondansetron HCl 1 Tablet (of 4 mg) Oral t.i.d. PRN Pantoprazole Sodium 1 (40 mg) Tablet, enteric coated Oral daily Plavix 1 (75 mg) Tablet Oral every am Stool Softener Tablet Oral Xeloda 2 Tablet (of 500 mg) Oral b.i.d. for 14 days Xeloda 1 Tablet (of 150 mg) Oral b.i.d. for 14 days Zoloft 1 Tablet (of 100 mg) Oral b.i.d. Family History: Ms. Laurent's mother at age 96: congestive heart failure, and hypertension. Ms. Laurent's father at age 92: myocardial infarctin. Social History: Ms. Laurent is and she is retired. Ms. Laurent quit smoking 30 years ago but had smoked for 10 years. She has no history of drinking. Review Of Symptoms: Constitutional Denies fevers, chills, night sweats, excessive fatigue or weight loss. Some mild fatigue but recovers with rest. Allergic/Immunologic No reactions. Eyes Denies significant visual changes. No diplopia. No amaurosis. ENMT Denies changes in hearing, sore throat, mouth sores, difficulty or changes in swallowing ability, and/or sinus drainage. Endocrine No diabetes, thyroid disease or hormone replacement. Denies hot flashes or night sweats. Hematologic/Lymphatic Denies easy bruising or bleeding. The patient denies any tender or palpable lymph nodes. Respiratory Denies dyspnea on exertion, chest pain, cough or hemoptysis. Denies orthopnea. Cardiovascular Denies anginal chest pain, palpitations or orthopnea. Gastrointestinal Denies nausea, vomiting, diarrhea, GI bleeding, or constipation. Denies change in bowel habits and/or stool color, no heartburn or early satiety. Genitourinary (F) No hematuria, hesitancy, incontinence, vaginal bleeding, discharge or other problems with urination. Musculoskeletal Denies joint pain, swelling or redness. No decreased range of motion. Integumentary Denies chronic rashes, inflammation, ulcerations or skin changes. Neurologic Denies headache, blurred vision, and no areas of focal weakness or numbness. Normal gait. No sensory problems. Psychiatric Denies insomnia, depression, kate or mood swings. Vital Signs: Performed on Jun 22, 2020 15:14 Height - 62.00 in Weight - 158.8 lbs (HIGH) BSA - 1.73 sq.m BMI - 29.05 Temperature - 97.2 F (LOW) Pulse - 74 /min Respiration - 24 /min BP - 114/61 mm(hg) O2 Sat - 96 % Pain - 0,1 - No physically strenuous activity, but ambulatory and able to carry out light or sedentary work (e.g. office work, light house work). (ECOG) Physical Examination: Constitutional Alert, oriented, no acute distress. Skin pink, warm and dry. Head Normocephalic; atraumatic. Eyes Conjunctivae and sclerae are clear and without icterus. Pupils are reactive and equal. Neck Supple without masses or thyromegaly. No jugular venous distension. Hematologic/Lymphatic No petechiae or purpura. No tender or palpable lymph nodes in the cervical or supraclavicular areas. Respiratory Lungs are clear to auscultation without rhonchi or wheezing. Cardiovascular Regular rate and rhythm of heart without murmurs,clicks, gallops or rubs. Abdomen Non-tender, non-distended, no masses or ascites. Good bowel sounds noted in all quads. No guarding or rebound tenderness. No pulsatile masses. Back/Spine Non-tender to palpation. Extremities No visible deformities, no cyanosis, clubbing or edema. Musculoskeletal No tenderness or swelling, normal range of motion without obvious weakness. Integumentary No rashes or lesions. Neurologic No sensory or motor deficits, normal cerebellar function, normal gait. Psychiatric Alert and oriented times three. Coherent speech. Verbalizes understanding of our discussions today. Laboratory:Test performed on Jun 22, 2020 13:35 Sodium 141 mmol/L Potassium 4.4 mmol/L Chloride 108 mmol/L CO2 23 mmol/L Anion Gap 14.4 BUN 18 mg/dL Creatinine 0.7 mg/dL Cr Clearance (Est) 69.24 mL/min Glucose 97 mg/dL Calcium 8.9 mg/dL Protein, Total 7.1 g/dL Albumin 4.1 g/dL Globulin 3.0 g/dL Bilirubin, Total 1.6 mg/dL ALT (SGPT) 13 U/L AST (SGOT) 24 U/L Alkaline Phosphatase 75 IU/L WBC 7.6 10 3/uL RBC 3.74 10 6/uL HGB 11.5 g/dL HCT 37.1 % MCV 99.2 fL MCH 30.7 pg MCHC 31.0 g/dL RDW 20.5 % Platelet Count 197 10 3/cmm MPV 9.8 fL Neutrophils 2.86 10 3/uL Lymphocytes 3.8 10 3/uL Monocytes 0.7 10 3/uL Eosinophils 0.2 10 3/uL Basophils 0.0 10 3/uL Neutrophil % 37.8 % Lymphocyte % 50.4 % Monocyte % 8.6 % Eosinophil % 2.5 % Basophils % 0.4 % NRBC % 0 % Test performed on Apr 08, 2020 09:15 Vitamin B12 480 pg/mL Impression: Moderately differentiated adenocarcinoma of the cecum status post right hemicolectomy done on 11/17/2019, final pathology report showed moderately differentiated adenocarcinoma of the colon extending through muscularis propria focally into pericolonic fat, low-grade, no vascular invasion seen, clear surgical margins,pT3 7 out of 19 lymph nodes showed metastatic disease pN2 Stage IIIB CEA checked on 11/19/2019 was 28.4, again right hemicolectomy was done on 11/17/2019, question whether lab was drawn before surgery but he reported on 02/17/2020 or ? Metastases repeat CEA level on 12/18/2019 was 5.2 started on adjuvant chemotherapy with Xeloda 750 mg/m??? twice a day for 2 weeks on 1 week off for 6-8 cycles on 01/07/2020 Normocytic normochromic anemia,due to B12 deficiency Plan: 1. Proceed with cycle 7 Xeloda. Her current dose is 1150 mg twice daily for 14 days and then off 7 days. She is due to resume her dosing today. 2. Continue current antiemetics as needed thus far she has not needed any. 3. Labs from today were reviewed in detail and discussed with Ms. Laurent and a copy was given to her. WBC 7.6, hemoglobin 11.5, platelets 1 97,000 ANC is 2860. Creatinine 0.7 random glucose 97 LFTs are normal total bilirubin 1.6 however she is asymptomatic. 4. We will plan to see her back in 3 weeks with CBC CMP CEA and vitamin B12. She has been vitamin B12 deficient in the past. She will be due for follow-up and plan to complete cycle 8 Xeloda at that time. 5. Ms. Laurent was instructed to contact us in the interim should questions or problems arise. Signed By: Ryan Esparza-, CNP Allyssa Call MD <<Signature on File>>
[2020-07-09 11:06] LABS: Basophils % 0.5 %; Eosinophils # 0.2 10^3/uL (0.0-0.8); Eosinophils % 2.7 %; Hematocrit 36.3 % (37.0-47.0); Hemoglobin 11.7 g/dL (11.5-15.3); Lymphocytes # 2.8 10^3/uL (0.8-4.8); Lymphocytes % 46.9 %; Mean Corpuscular HGB Conc 32.2 g/dL (30.0-36.0); Mean Corpuscular Hemoglobin 30.8 pg (28.0-34.0); Mean Corpuscular Volume 95.5 fL (81-99); Mean Platelet Volume 9.7 fL (7.4-10.4); Monocytes # 0.5 10^3/uL (0.2-0.9); Neutrophils # 2.46 10^3/uL (1.8-7.7); Neutrophils % 40.7 %; Nucleated Red Blood Cells % 0 %; Platelet Count 193 10^3/cmm (130-400); Red Cell Distribution Width 21.2 % (12.1-15.1)
[2020-07-09 11:25] LABS: Carcinoembryonic Antigen 3.4 ng/mL (0.0-4.7); Vitamin B12 410 pg/mL (232-1245)
[2020-07-09 11:36] LABS: Alanine Aminotransferase 12 U/L (0-33); Albumin Level 4.3 g/dL (3.5-5.2); Alkaline Phosphatase 63 IU/L (35-105); Anion Gap 14.3 (5-19); Aspartate Amino Transferase 21 U/L (0-32); Blood Urea Nitrogen 13 mg/dL (8-23); Calcium 9.2 mg/dL (8.5-10.5); Carbon Dioxide 25 mmol/L (22-29); Chloride 101 mmol/L (98-107); Globulin 2.8 g/dL (1.3-4.6); Glucose 88 mg/dL (65-115); Osmolality Calculated 282 mOsm/kg (285-295); Potassium 4.3 mmol/L (3.5-5.1); Sodium 136 mmol/L (136-145); Total Bilirubin 1.6 mg/dL (0.15-1.2); Total Protein 7.1 g/dL (6.6-8.7)
--- NOTE | 2020-07-15 15:26 | ONC FU_ITS ---
Dr. Call follow up note Patient: Ana Laurent Unit #: [id number]: [id number] Dicatated By: Allyssa Call M.D.Date of Visit:Jul 13, 2020 Onc Med Follow-up/Prog Note History of Present Illness: Mrs. Laurent is a 85-year-old female with history of progressive generalized weakness and fatigue and abdominal pain. She underwent CT scan of abdomen pelvis on 11/04/2019 which showed annular constricting carcinoma ascending colon, causing partial obstruction with mild interval increase. Abnormal pericolonic lymphadenopathy. Nonspecific mild posterior pelvic peritoneal fluid. Post hysterectomy. Liver normal. 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 and (colonic adenocarcinoma with this phenotype associated with improved disease-free and overall survival in untreated stage II and III colorectal carcinomas and most commonly found in sporadic colonic glandular neoplasms, additional testing for MLH 1 gene caused by premotor hyper methylation or Ronquilol syndrome is probably not indicated) Subsequently on 11/17/2019 patient underwent right hemicolectomy and final pathology report showed moderately differentiated adenocarcinoma of colon extending through muscularis propria focally into pericolonic fat, tumor is completely excised with clear surgical margins, tumor size 6 x 5 cm in the cecum, low-grade type, no vascular invasion identified,, no perforation, e.g. pT3 7 out of 19 lymph nodes showed metastatic disease e.g.pN2 Stage IIIB Labs done on 02/17/2020 shows white blood count 4.4 hemoglobin 7.9 hematocrit 27 platelets 177,000 MCV 85.4 CMP within normal limits except glucose 409, AST 43, albumin 2.9, and CEA 28.4.repeat CEA on December 27 clinically was 5.2 She started on adjuvant chemotherapy with Xeloda 2 weeks on 1 week off for 6-8 cycles on 01/07/2020. Her treatment was put on hold after the third cycle due to hallucinations and confusion. She reported that she underwent extensive work-up for Alzheimer's at [facility] office and it was inconclusive. She did resume her fourth cycle of Xeloda on April 12, 2020. She has tolerated it well since then. Came for follow-up, denies any specific complaint except generalized weakness and fatigue but no nausea or vomiting no diarrhea constipation, no melena hematochezia, no jaundice, no mouth sores, appetite is reasonable., Patient has completed 7 cycles of adjuvant therapy with Xeloda. Medications: Acetaminophen 1 - 2 Tablet (of 325 mg) Oral daily PRN, Cholecalciferol 1 (50,000 Units) Capsule Oral every am on , Co Q 10 1 Capsule (of 100 mg) Oral daily, Crestor 1 (20 mg) Tablet Oral every am, Eliquis 1 (5 mg) Tablet Oral b.i.d., Isosorbide Mononitrate 1 (30 mg) Tablet Oral b.i.d., Losartan Potassium 1 (50 mg) Tablet Oral every am, Metoprolol Tartrate 1 (50 mg) Tablet Oral b.i.d., Nitrostat 1 Tablet (of 0.4 mg) Tablet, sublingual Sublingual daily PRN, Ondansetron HCl 1 Tablet (of 4 mg) Oral t.i.d. PRN, Pantoprazole Sodium 1 (40 mg) Tablet, enteric coated Oral daily, Plavix 1 (75 mg) Tablet Oral every am, Stool Softener Tablet Oral, Xeloda 2 Tablet (of 500 mg) Oral b.i.d. for 14 days, Xeloda 1 Tablet (of 150 mg) Oral b.i.d. for 14 days, Zoloft 1 Tablet (of 100 mg) Oral b.i.d. Allergies: Belladonna, Imipramine HCl, Macrobid, Morphine Derivatives, and sulfabenzamide. Review of Systems: Constitutional - Appetite is poor and weight is stable. No fever, chills, hot flashes, or night sweats. Energy level is fair, ENMT - No sinus congestion/drainage. No mouth sores. No sore throat or difficulty swallowing, Hematologic/Lymphatic - Positive for easy bruising, Respiratory - Positive for shortness of breath. No cough. No pleuritic pain or hemoptysis, Cardiovascular - No chest pain or heart palpitations, Gastrointestinal - Positive for nausea, no vomiting. No heartburn or acid reflux. No diarrhea or constipation. No blood in the stool or black stools, Genitourinary (F) - No dysuria or hematuria. No urinary frequency. No urgency. Positive for incontinence, Musculoskeletal - Positive for joint pain, Neurologic - No headache or dizziness. No numbness/paresthesias or other focal neurologic symptoms, Psychiatric - Positive for depression and anxiety. Pt continues to report confusion. Vital Signs: Performed on Jul 13, 2020 11:29 Height - 62.00 in Weight - 150.6 lbs (LOW) BSA - 1.69 sq.m BMI - 27.55 Temperature - 97.2 F (LOW) Pulse - 73 /min Respiration - 20 /min BP - 176/77 mm(hg) (HIGH) O2 Sat - 96 % Pain - 0 Performance Status: 0 - Fully active, able to carry on all predisease activities without restrictions. (ECOG) Physical Examination: ENMT - No mouth sores, no thrush, no jaundice, Respiratory - Lungs are clear to auscultation, Cardiovascular - Regular rate and rhythm of heart, Abdomen - Soft, bowel sounds present, Extremities - No visible edema. Lab/Imaging: Test performed on Jun 22, 2020 13:35 Sodium 141 mmol/L Potassium 4.4 mmol/L Chloride 108 mmol/L CO2 23 mmol/L Anion Gap 14.4 BUN 18 mg/dL Creatinine 0.7 mg/dL Cr Clearance (Est) 69.24 mL/min Glucose 97 mg/dL Calcium 8.9 mg/dL Protein, Total 7.1 g/dL Albumin 4.1 g/dL Globulin 3.0 g/dL Bilirubin, Total 1.6 mg/dL ALT (SGPT) 13 U/L AST (SGOT) 24 U/L Alkaline Phosphatase 75 IU/L Test performed on Apr 29, 2020 10:15 WBC 5.5 10 3/uL RBC 3.72 10 6/uL HGB 11.0 g/dL HCT 34.7 % MCV 93.3 fL MCH 29.6 pg MCHC 31.7 g/dL RDW 19.0 % Platelet Count 223 10 3/cmm MPV 10.5 fL Neutrophils 2.08 10 3/uL Lymphocytes 2.8 10 3/uL Monocytes 0.4 10 3/uL Eosinophils 0.2 10 3/uL Basophils 0.0 10 3/uL Neutrophil % 37.6 % Lymphocyte % 50.0 % Monocyte % 7.9 % Eosinophil % 3.8 % Basophils % 0.5 % NRBC % 0 % Test performed on Apr 08, 2020 09:15 Vitamin B12 480 pg/mL Impression: Moderately differentiated adenocarcinoma of the cecum status post right hemicolectomy done on 11/17/2019, final pathology report showed moderately differentiated adenocarcinoma of the colon extending through muscularis propria focally into pericolonic fat, low-grade, no vascular invasion seen, clear surgical margins,pT3 7 out of 19 lymph nodes showed metastatic disease pN2 Stage IIIB CEA checked on 11/19/2019 was 28.4, again right hemicolectomy was done on 11/17/2019, question whether lab was drawn before surgery but he reported on 02/17/2020 or ? Metastases repeat CEA level on 12/18/2019 was 5.2 started on adjuvant chemotherapy with Xeloda 750 mg/m??? twice a day for 2 weeks on 1 week off for 6-8 cycles on 01/07/2020 Normocytic normochromic anemia,due to B12 deficiency Plan: Discussed with patient regarding her labs white blood count 6 hemoglobin 11.7 hematocrit 36.3 platelets 193,000, CMP within normal limit except bilirubin 1.6 compared to 1.1 on May 28, 2020 but normal transaminases and CEA level 3.4 Clinically, patient is doing well with no signs symptom suggestive of disease progression but her follow-up CMP shows fluctuating hyperbilirubinemia etiology unclear could be due to medication like Xeloda but her transaminases levels is within normal range. Patient has completed his 7 cycles of modified dose of Xeloda and earlier plan was to give her total 6 to 8 cycles as her dose was modified because of her age and comorbid condition so it was planned to give her 8 cycles instead of 6, now because of fluctuating hyperbilirubinemia, we will conclude her chemotherapy after 7 cycles of single agent modified dose of Xeloda. And monitor her liver function test and she will return to clinic in 1 month with CMP if it shows persistent hyperbilirubinemia then will consider further work-up including right upper quadrant sonogram. Signed By: Allyssa Call M.D. <<Signature on File>>
== END 2020-07-14 23:59 | disposition home or self-care (01) ==
LOC: ONCMED 05:35
PROVIDERS: Nurse Practitioner; PCP Family Medicine; Visit Provider Internal Medicine Hematology & Oncology
DX: C18.2 Malignant neoplasm of ascending colon (principal); C77.8 Secondary and unspecified malignant neoplasm of lymph nodes of multiple regions; D51.9 Vitamin B12 deficiency anemia, unspecified
CPT/HCPCS: 36415; 80053; 82378; 82607; 85025; 99214

== ENCOUNTER 2020-08-12 05:16 | Outpatient (RCR) | payer MEDICARE, MEDICAID, SELFPAY ==
[2020-08-10 13:33] LABS: Basophils # 0.1 10^3/uL (0.0-0.1); Basophils % 0.8 %; Eosinophils # 0.2 10^3/uL (0.0-0.8); Eosinophils % 2.7 %; Hematocrit 36.9 % (37.0-47.0); Hemoglobin 11.6 g/dL (11.5-15.3); Lymphocytes # 2.9 10^3/uL (0.8-4.8); Lymphocytes % 45.7 %; Mean Corpuscular HGB Conc 31.4 g/dL (30.0-36.0); Mean Corpuscular Hemoglobin 30.3 pg (28.0-34.0); Mean Corpuscular Volume 96.3 fL (81-99); Mean Platelet Volume 9.8 fL (7.4-10.4); Monocytes # 0.6 10^3/uL (0.2-0.9); Monocytes % 9.9 %; Neutrophils # 2.54 10^3/uL (1.8-7.7); Neutrophils % 40.7 %; Nucleated Red Blood Cells % 0 %; Platelet Count 235 10^3/cmm (130-400); Red Blood Count 3.83 10^6/uL (4.1-5.3); Red Cell Distribution Width 17.7 % (12.1-15.1); White Blood Count 6.2 10^3/uL (4.0-10.0)
[2020-08-10 14:01] LABS: Alanine Aminotransferase 14 U/L (0-33); Albumin Level 4.3 g/dL (3.5-5.2); Alkaline Phosphatase 80 IU/L (35-105); Aspartate Amino Transferase 23 U/L (0-32); Blood Urea Nitrogen 20 mg/dL (8-23); Carbon Dioxide 26 mmol/L (22-29); Chloride 103 mmol/L (98-107); Globulin 2.6 g/dL (1.3-4.6); Glucose 86 mg/dL (65-115); Osmolality Calculated 286 mOsm/kg (285-295); Sodium 137 mmol/L (136-145); Total Bilirubin 0.9 mg/dL (0.15-1.2); Total Protein 6.9 g/dL (6.6-8.7)
[2020-08-10 14:33] LABS: Anion Gap 12.4 (5-19); Potassium 4.4 mmol/L (3.5-5.1)
--- NOTE | 2020-08-12 14:04 | ONC FU_ITS ---
Dr. Call follow up note Patient: Ana Laurent Unit #: [id number]: 1935 Dicatated By: Allyssa Call M.D.Date of Visit:Aug 12, 2020 Onc Med Follow-up/Prog Note History of Present Illness: Mrs. Laurent is a 85-year-old female with history of progressive generalized weakness and fatigue and abdominal pain. She underwent CT scan of abdomen pelvis on 11/04/2019 which showed annular constricting carcinoma ascending colon, causing partial obstruction with mild interval increase. Abnormal pericolonic lymphadenopathy. Nonspecific mild posterior pelvic peritoneal fluid. Post hysterectomy. Liver normal. 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 and (colonic adenocarcinoma with this phenotype associated with improved disease-free and overall survival in untreated stage II and III colorectal carcinomas and most commonly found in sporadic colonic glandular neoplasms, additional testing for MLH 1 gene caused by premotor hyper methylation or Ronquillo syndrome is probably not indicated) Subsequently on 11/17/2019 patient underwent right hemicolectomy and final pathology report showed moderately differentiated adenocarcinoma of colon extending through muscularis propria focally into pericolonic fat, tumor is completely excised with clear surgical margins, tumor size 6 x 5 cm in the cecum, low-grade type, no vascular invasion identified,, no perforation, e.g. pT3 7 out of 19 lymph nodes showed metastatic disease e.g.pN2 Stage IIIB Labs done on 02/17/2020 shows white blood count 4.4 hemoglobin 7.9 hematocrit 27 platelets 177,000 MCV 85.4 CMP within normal limits except glucose 409, AST 43, albumin 2.9, and CEA 28.4.repeat CEA on December 27 clinically was 5.2 She started on adjuvant chemotherapy with Xeloda 2 weeks on 1 week off for 6-8 cycles on 01/07/2020. Her treatment was put on hold after the third cycle due to hallucinations and confusion. She reported that she underwent extensive work-up for Alzheimer's at [facility] office and it was inconclusive. She did resume her fourth cycle of Xeloda on April 12, 2020. Came for follow-up, denies any specific complaint except generalized weakness and fatigue but no nausea or vomiting no diarrhea constipation, no melena hematochezia, no jaundice, no mouth sores, appetite is reasonable., Patient has completed 7 cycles of adjuvant therapy with Xeloda.Completed 7/8 cycles of adjuvant therapy with modified Xeloda on July 09, 2020 ,,8th cycle was not given because of persistent But fluctuating mild hyperbilirubinemia, with discontinue of chemotherapy it did resolve Came for follow-up, denies any specific complaints, no fever chills, no nausea or vomiting, no diarrhea constipation, no melena hematochezia, no mouth sores, no jaundice, no abdominal pain. Medications: Acetaminophen 1 - 2 Tablet (of 325 mg) Oral daily PRN, Cholecalciferol 1 (50,000 Units) Capsule Oral every am on , Co Q 10 1 Capsule (of 100 mg) Oral daily, Crestor 1 (20 mg) Tablet Oral every am, Eliquis 1 (5 mg) Tablet Oral b.i.d., Isosorbide Mononitrate 1 (30 mg) Tablet Oral b.i.d., Losartan Potassium 1 (50 mg) Tablet Oral every am, Metoprolol Tartrate 1 (50 mg) Tablet Oral b.i.d., Nitrostat 1 Tablet (of 0.4 mg) Tablet, sublingual Sublingual daily PRN, Ondansetron HCl 1 Tablet (of 4 mg) Oral t.i.d. PRN, Pantoprazole Sodium 1 (40 mg) Tablet, enteric coated Oral daily, Plavix 1 (75 mg) Tablet Oral every am, Stool Softener Tablet Oral, Xeloda 2 Tablet (of 500 mg) Oral b.i.d. for 14 days, Xeloda 1 Tablet (of 150 mg) Oral b.i.d. for 14 days, Zoloft 1 Tablet (of 100 mg) Oral b.i.d. Allergies: Belladonna, Imipramine HCl, Macrobid, Morphine Derivatives, and sulfabenzamide. Review of Systems: Review of Systems is not available for this patient. Vital Signs: Performed on Aug 12, 2020 13:42 Height - 62.00 in Weight - 152.2 lbs (HIGH) BSA - 1.70 sq.m BMI - 27.84 Temperature - 97.9 F (LOW) Pulse - 69 /min Respiration - 20 /min BP - 170/85 mm(hg) (HIGH) O2 Sat - 96 % Pain - 0 Performance Status: 0 - Fully active, able to carry on all predisease activities without restrictions. (ECOG) Physical Examination: ENMT - No mouth sores, no thrush, no jaundice, Respiratory - Lungs are clear to auscultation, Cardiovascular - Regular rate and rhythm of heart, Abdomen - Soft, bowel sounds present, Extremities - No visible edema. Lab/Imaging: Test performed on Aug 10, 2020 13:09 Sodium 137 mmol/L Potassium 4.4 mmol/L Chloride 103 mmol/L CO2 26 mmol/L Anion Gap 12.4 BUN 20 mg/dL Creatinine 0.8 mg/dL Cr Clearance (Est) 57.4600 mL/min Glucose 86 mg/dL Osmolality - Calculated 286 mOsm/kg Calcium 9.0 mg/dL Protein, Total 6.9 g/dL Albumin 4.3 g/dL Globulin 2.6 g/dL Bilirubin, Total 0.9 mg/dL ALT (SGPT) 14 U/L AST (SGOT) 23 U/L Alkaline Phosphatase 80 IU/L WBC 6.2 10 3/uL RBC 3.83 10 6/uL HGB 11.6 g/dL HCT 36.9 % MCV 96.3 fL MCH 30.3 pg MCHC 31.4 g/dL RDW 17.7 % Platelet Count 235 10 3/cmm MPV 9.8 fL Neutrophils 2.54 10 3/uL Lymphocytes 2.9 10 3/uL Monocytes 0.6 10 3/uL Eosinophils 0.2 10 3/uL Basophils 0.1 10 3/uL Neutrophil % 40.7 % Lymphocyte % 45.7 % Monocyte % 9.9 % Eosinophil % 2.7 % Basophils % 0.8 % NRBC % 0 % Test performed on Apr 08, 2020 09:15 Vitamin B12 480 pg/mL Impression: Moderately differentiated adenocarcinoma of the cecum status post right hemicolectomy done on 11/17/2019, final pathology report showed moderately differentiated adenocarcinoma of the colon extending through muscularis propria focally into pericolonic fat, low-grade, no vascular invasion seen, clear surgical margins,pT3 7 out of 19 lymph nodes showed metastatic disease pN2 Stage IIIB CEA checked on 11/19/2019 was 28.4, again right hemicolectomy was done on 11/17/2019, question whether lab was drawn before surgery but he reported on 02/17/2020 or ? Metastases repeat CEA level on 12/18/2019 was 5.2 started on adjuvant chemotherapy with Xeloda 750 mg/m??? twice a day for 2 weeks on 1 week off for 6-8 cycles on 01/07/2020 And completed 7/8 cycles of adjuvant chemotherapy with modified oral Xeloda on July 09, 2020, 8 cycle was not given because of persistent but fluctuating mild hyperbilirubinemia, which did resolve with the discontinuation of chemotherapy Normocytic normochromic anemia,due to B12 deficiency Plan: Discussed with patient regarding her labs white blood count 6.2 hemoglobin 11.6 hematocrit 36.9 platelets 235,000 CMP within normal limits Clinically, patient is doing well with no new signs symptom suggestive of recurrence of disease, her follow-up labs showed resolution of mild but fluctuating hyperbilirubinemia since she is off oral Xeloda. We will continue to monitor, she will return to clinic in 3 months with CBC CMP and CEA. Signed By: Allyssa Call M.D. <<Signature on File>>
== END 2020-08-14 23:59 | disposition home or self-care (01) ==
LOC: ONCMED 05:16
PROVIDERS: PCP Family Medicine; Visit Provider Internal Medicine Hematology & Oncology
DX: Z08 Encounter for follow-up examination after completed treatment for malignant neoplasm (principal); Z85.038 Personal history of other malignant neoplasm of large intestine; D51.9 Vitamin B12 deficiency anemia, unspecified; Z90.49 Acquired absence of other specified parts of digestive tract; Z92.21 Personal history of antineoplastic chemotherapy
CPT/HCPCS: 36415; 80053; 85025; G0463

== ENCOUNTER 2020-10-07 07:24 | Outpatient (CLI) | payer MEDICARE, MEDICAID, SELFPAY ==
--- NOTE | 2020-10-07 07:38 | USCV_ITS ---
Ana Laurent Age: 85 Gender: F : 1935 Exam Date: 10/07/2020 07:58 Ordering Phys: Ousmane Reaves MD Technologist: [place] [facility] [place]: dyspnea, CAD BP: / HR: 72 Rhythm: Sinus Technical Quality: Adequate MEASUREMENTS (Male / Female) Normal Values 2D ECHO LV Diastolic Diameter PLAX 3.2 cm 4.2 - 5.9 / 3.9 - 5.3 cm LV Systolic Diameter PLAX 1.9 cm LV Chamber Size 4.0 cm IVS Diastolic Thickness 0.8 cm 0.6 - 1.0 / 0.6 - 0.9 cm IVS Systolic Thickness 1.0 cm LVPW Diastolic Thickness 1.0 cm 0.6 - 1.0 / 0.6 - 0.9 cm LVPW Systolic Thickness 1.1 cm RV Chamber Size 2.4 cm LVOT Diameter 2.0 cm LV Ejection Fraction 2D Teich 72.4 % LV Ejection Fraction MOD 2C 58.6 % LV Ejection Fraction 2C AL 60.1 % LA Diameter 2.5 cm LA Width 3.0 cm LA Height 4.2 cm RA Width 3.7 cm Aorta at Sinotubular Diameter 2.6 cm M-MODE LV Diastolic Diameter MM 3.9 cm 4.2 - 5.9 / 3.9 - 5.3 cm LV Systolic Diameter MM 2.4 cm LV Ejection Fraction MM Teich 69.8 % IVS Diastolic Thickness MM 1.0 cm 0.6 - 1.0 / 0.6 - 0.9 cm IVS Systolic Thickness MM 1.2 cm LVPW Diastolic Thickness MM 1.1 cm 0.6 - 1.0 / 0.6 - 0.9 cm LVPW Systolic Thickness MM 1.3 cm RV Diastolic Diameter MM 1.6 cm Aortic Annulus Diameter 2.9 cm LA Ao Ratio MM 1.2 MV E Point Septal Separation 0.3 cm DOPPLER AV Peak Velocity 141.0 cm/s LVOT Peak Velocity 80.0 cm/s AV Area Cont Eq vti 2.0 cm squared AV Area Cont Eq pk 1.8 cm squared MV Area PHT 3.3 cm squared Mitral E to A Ratio 0.8 MV E' Velocity 41.5 cm/s Mitral E to MV E' Ratio 13.5 Mitral E to LV E' Lateral Ratio 12.6 Mitral E to LV E' Septal Ratio 14.8 TR Peak Velocity 252.3 cm/s TR Peak Gradient 25.5 mmHg TR Mean Velocity 203.9 cm/s TR Mean Gradient 18.0 mmHg TR Velocity Time Integral 82.3 cm TV Peak E Velocity 57.0 cm/s Right Atrial Pressure 3.0 mmHg Pulmonary Artery Systolic Pressu 28.5 mmHg PV Peak Velocity 55.0 cm/s RV Acceleration Time 0.2 s RV Ejection Time 0.4 s RV AcT/ET 0.5 FINDINGS Left Ventricle Normal left ventricular size and systolic function with no regional wall motion abnormalities. EF is 60 to 65%. Moderate left ventricular hypertrophy is noted. Grade 1 diastolic dysfunction is present. Right Ventricle The right ventricle is normal in size and function. Right Atrium The right atrium is normal in size. Left Atrium The left atrium is normal in size. Mitral Valve Structurally normal mitral valve without significant stenosis or prolapse. There is trace mitral regurgitation. Aortic Valve Structurally normal aortic valve without significant sclerosis or stenosis. There is mild aortic regurgitation. Tricuspid Valve Grossly normal with mild tricuspid regurgitation. RVSP is 25 to 30 mmHg. RA pressure is normal and is 5 mmHg. Pulmonic Valve Structurally normal pulmonic valve without significant stenosis. There is no pulmonic regurgitation. Pericardium Normal pericardium without effusion. Aorta Normal ascending aorta dimension. CONCLUSIONS LV systolic function is normal with EF of 60 to 65%. Grade 1 diastolic dysfunction is present. Moderate left ventricular hypertrophy is present. There is mild aortic regurgitation seen. Trace mitral regurgitation is present. Compared to prior study from 10/24/2019, no significant changes are noted. Christiano Villegas MD (Electronically Signed) Final Date: 07 October 2020 17:06 S
== END 2020-10-07 07:25 | disposition home or self-care (01) ==
LOC: RAD 07:35
PROVIDERS: PCP Family Medicine; Visit Provider Family Medicine
DX: R06.00 Dyspnea, unspecified (principal); Z85.038 Personal history of other malignant neoplasm of large intestine; I26.99 Other pulmonary embolism without acute cor pulmonale; I25.10 Atherosclerotic heart disease of native coronary artery without angina pectoris; I35.1 Nonrheumatic aortic (valve) insufficiency; I11.9 Hypertensive heart disease without heart failure
CPT/HCPCS: 93306

== ENCOUNTER 2020-10-27 08:02 | Outpatient (CLI) | payer MEDICARE, MEDICAID, SELFPAY ==
--- NOTE | 2020-10-27 08:19 | CT_ITS ---
WS: [id number] CT CHEST, ABDOMEN AND PELVIS WITH CONTRAST. HISTORY: DYSPNEA, COLITIS, ESR, ELEVATED, ABDOMINAL PAIN TECHNIQUE: Contiguous 5 mm axial imaging performed through the chest, abdomen and pelvis with IV cont rast, oral contrast has been provided. Coronal and sagittal reformats chest. Coronal and sagittal ref ormats through the abdomen and pelvis. All CT scans at [facility] use at least one of the se dose optimization techniques: automated exposure control; mA and/or kV adjustment per patient size (includes targeted exams where dose is matched to clinical indication); or iterative reconstruction. CONTRAST: Omnipaque 300; 95 mL IV. DLP: 2066.41 mGycm COMPARISON: 11/09/2019, 11/04/2019, 10/21/2019. Chest CT: 3 mm nodule RIGHT upper lobe, image 12 series 4 was present in 2018. No new or enlarging pu lmonary nodules. No pneumonia. Moderate atherosclerotic plaque within the aorta. No aneurysm. Normal pulmonary artery. Mild enlargement of the heart chambers. Moderate coronary artery plaque. No mediast inal or hilar adenopathy. Small hiatal hernia. Abdomen CT: Diffuse decreased attenuation from the liver from hepatic steatosis. 3 mm area of decreas ed density in the RIGHT lobe of the liver, image 76 of series 2 is too small to characterize. Not onl y seen on prior examinations. Spleen is normal size. Gallbladder, pancreas and adrenal glands are neg ative. Moderate atherosclerosis aorta with no aneurysm. Very heavy calcification around the distal ao rta. Normal size kidneys. No renal mass or obstruction. No adenopathy or ascites. RIGHT sided colectomy. Anastomotic site is intact with no obstruction. No recurrent mass identified n ear the anastomosis. There is increased soft tissue near the rectum and rectosigmoid junction of unce rtain etiology. This area should be readily visible with colonoscopy. There is no obstruction. This i ncreased soft tissue may be due to area of peristalsis and underdistention. Pelvic CT: No free fluid or adenopathy. Minimally distended urinary bladder. Extensive spondylitic changes throughout the lumbar and thoracic spines. No osteoblastic or osteolyti c bone disease. CT/CT chest abd pel w con* IMPRESSION: 1. No evidence for metastatic disease to the chest, abdomen or pelvis. 2. Focal area of mild soft tissue thickening involving the rectosigmoid juncti on of uncertain etiology. This may be an area of early neoplasm, underdistentio n or spasm. Consider follow-up by colonoscopy. 3. No ascites. No pulmonary nodules. 4. Moderate atherosclerosis aorta and coronary arteries. 5. 3 mm new area of decreased density RIGHT lobe the liver. Cannot further cla ssify due to small size. Cannot exclude early neoplasm. Consider follow-up CT a bdomen and pelvis evaluation in 3-4 months.
[2020-10-27] MEDS: iohexol 300 mg/mL 50 mL Btl PO (09:27)
[2020-10-27] MEDS: iohexol 300 mg/mL 100 mL Btl IV (10:12)
== END 2020-10-27 08:03 | disposition home or self-care (01) ==
LOC: RADWPI 08:09
PROVIDERS: PCP Family Medicine; Visit Provider Family Medicine
DX: R06.00 Dyspnea, unspecified (principal); K52.9 Noninfective gastroenteritis and colitis, unspecified; R10.84 Generalized abdominal pain; I70.0 Atherosclerosis of aorta; I25.10 Atherosclerotic heart disease of native coronary artery without angina pectoris
CPT/HCPCS: 71260; 74177; Q9967

== ENCOUNTER 2020-11-09 08:53 | Outpatient (CLI) | payer MEDICARE, MEDICAID, SELFPAY ==
[2020-11-09 09:53] LABS: Basophils % 0.4 %; Eosinophils # 0.2 10^3/uL (0.0-0.8); Eosinophils % 2.9 %; Hematocrit 38.7 % (37.0-47.0); Hemoglobin 12.1 g/dL (11.5-15.3); Lymphocytes # 3.1 10^3/uL (0.8-4.8); Lymphocytes % 38.9 %; Mean Corpuscular HGB Conc 31.3 g/dL (30.0-36.0); Mean Corpuscular Hemoglobin 27.9 pg (28.0-34.0); Mean Corpuscular Volume 89.2 fL (81-99); Mean Platelet Volume 10.6 fL (7.4-10.4); Monocytes # 0.8 10^3/uL (0.2-0.9); Monocytes % 10.3 %; Neutrophils # 3.76 10^3/uL (1.8-7.7); Neutrophils % 47.2 %; Nucleated Red Blood Cells % 0 %; Platelet Count 210 10^3/cmm (130-400); Red Blood Count 4.34 10^6/uL (4.1-5.3); Red Cell Distribution Width 14.9 % (12.1-15.1)
[2020-11-09 11:57] LABS: Alanine Aminotransferase 19 U/L (0-33); Albumin Level 4.2 g/dL (3.5-5.2); Alkaline Phosphatase 95 IU/L (35-105); Anion Gap 14.2 (5-19); Aspartate Amino Transferase 26 U/L (0-32); Blood Urea Nitrogen 17 mg/dL (8-23); Calcium 9.3 mg/dL (8.5-10.5); Carbon Dioxide 25 mmol/L (22-29); Chloride 104 mmol/L (98-107); Globulin 3.4 g/dL (1.3-4.6); Glucose 98 mg/dL (65-115); Osmolality Calculated 290 mOsm/kg (285-295); Potassium 4.2 mmol/L (3.5-5.1); Sodium 139 mmol/L (136-145); Total Bilirubin 0.9 mg/dL (0.15-1.2); Total Protein 7.6 g/dL (6.6-8.7)
== END 2020-11-09 08:54 | disposition home or self-care (01) ==
LOC: ONCMED 08:56
PROVIDERS: PCP Family Medicine; Visit Provider Internal Medicine Hematology & Oncology
DX: C18.2 Malignant neoplasm of ascending colon (principal); Z51.81 Encounter for therapeutic drug level monitoring; Z79.899 Other long term (current) drug therapy
CPT/HCPCS: 36415; 80053; 82378; 85025

== ENCOUNTER 2020-11-11 05:51 | Outpatient (CLI) | payer MEDICARE, MEDICAID, SELFPAY ==
--- NOTE | 2020-11-12 10:59 | ONC FU_ITS ---
Dr. Call follow up note Patient: Ana Laurent Unit #: [id number]: [id number] Dicatated By: Allyssa Call M.D.Date of Visit:Nov 11, 2020 Onc Med Follow-up/Prog Note History of Present Illness: Mrs. Laurent is a 85-year-old female with history of progressive generalized weakness and fatigue and abdominal pain. She underwent CT scan of abdomen pelvis on 11/04/2019 which showed annular constricting carcinoma ascending colon, causing partial obstruction with mild interval increase. Abnormal pericolonic lymphadenopathy. Nonspecific mild posterior pelvic peritoneal fluid. Post hysterectomy. Liver normal. 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 and (colonic adenocarcinoma with this phenotype associated with improved disease-free and overall survival in untreated stage II and III colorectal carcinomas and most commonly found in sporadic colonic glandular neoplasms, additional testing for MLH 1 gene caused by premotor hyper methylation or Ronquillo syndrome is probably not indicated) Subsequently on 11/17/2019 patient underwent right hemicolectomy and final pathology report showed moderately differentiated adenocarcinoma of colon extending through muscularis propria focally into pericolonic fat, tumor is completely excised with clear surgical margins, tumor size 6 x 5 cm in the cecum, low-grade type, no vascular invasion identified,, no perforation, e.g. pT3 7 out of 19 lymph nodes showed metastatic disease e.g.pN2 Stage IIIB Labs done on 02/17/2020 shows white blood count 4.4 hemoglobin 7.9 hematocrit 27 platelets 177,000 MCV 85.4 CMP within normal limits except glucose 409, AST 43, albumin 2.9, and CEA 28.4.repeat CEA on December 27 clinically was 5.2 She started on adjuvant chemotherapy with Xeloda 2 weeks on 1 week off for 6-8 cycles on 01/07/2020. Her treatment was put on hold after the third cycle due to hallucinations and confusion. She reported that she underwent extensive work-up for Alzheimer's at [facility] office and it was inconclusive. She did resume her fourth cycle of Xeloda on April 12, 2020. Came for follow-up, denies any specific complaint except generalized weakness and fatigue but no nausea or vomiting no diarrhea constipation, no melena hematochezia, no jaundice, no mouth sores, appetite is reasonable., Patient has completed 7 cycles of adjuvant therapy with Xeloda.Completed 7/8 cycles of adjuvant therapy with modified Xeloda on July 09, 2020 ,,8th cycle was not given because of persistent But fluctuating mild hyperbilirubinemia, with discontinue of chemotherapy it did resolve Came for follow-up, denies any specific complaint, no fever chills, no nausea or vomiting, no diarrhea constipation, no melena or hematochezia, no jaundice as per patient she underwent CT scan of chest abdomen pelvis ordered by her PMD on October 27, 2020 which showed no evidence of metastatic disease to the chest abdomen or pelvis. A focal area of mild soft tissue thickening involving the rectosigmoid junction of uncertain etiology and a 3 mm new area of decreased density right lobe of the liver cannot further classify due to small size. Follow-up CT scan of abdomen pelvis recommended in 3 to 4 months. As per patient she is scheduled for another CT scan of abdomen in the morning and she was also referred to Dr. Kwon for sigmoidoscopy. And she is scheduled see him on November 19, 2020 Medications: Acetaminophen 1 - 2 Tablet (of 325 mg) Oral daily PRN, Cholecalciferol 1 (50,000 Units) Capsule Oral every am on W, Co Q 10 1 Capsule (of 100 mg) Oral daily, Crestor 1 (20 mg) Tablet Oral every am, Eliquis 1 (5 mg) Tablet Oral b.i.d., Isosorbide Mononitrate 1 (30 mg) Tablet Oral b.i.d., Losartan Potassium 1 (50 mg) Tablet Oral b.i.d., Metoprolol Tartrate 1 (50 mg) Tablet Oral b.i.d., Nitrostat 1 Tablet (of 0.4 mg) Tablet, sublingual Sublingual daily PRN, Ondansetron HCl 1 Tablet (of 4 mg) Oral t.i.d. PRN, Pantoprazole Sodium 1 (40 mg) Tablet, enteric coated Oral daily, Plavix 1 (75 mg) Tablet Oral every am, Stool Softener Tablet Oral, Zoloft 1 Tablet (of 100 mg) Oral b.i.d. Allergies: Belladonna, Imipramine HCl, Macrobid, Morphine Derivatives, and sulfabenzamide. Review of Systems: Constitutional - Appetite is poor and weight is stable. No fever, chills, hot flashes, or night sweats. Energy level is fair, ENMT - No sinus congestion/drainage. No mouth sores. No sore throat or difficulty swallowing, Hematologic/Lymphatic - Positive for easy bruising, Respiratory - Positive for shortness of breath. No cough. No pleuritic pain or hemoptysis, Cardiovascular - No chest pain or heart palpitations, Gastrointestinal - Positive for nausea, no vomiting. No heartburn or acid reflux. No diarrhea or constipation. No blood in the stool or black stools, Genitourinary (F) - No dysuria or hematuria. No urinary frequency. No urgency. Positive for incontinence, Musculoskeletal - Positive for joint pain, Neurologic - No headache or dizziness. No numbness/paresthesias or other focal neurologic symptoms, Psychiatric - Positive for depression and anxiety. Pt continues to report confusion. Vital Signs: Performed on Nov 11, 2020 15:14 Height - 62.00 in Weight - 151.6 lbs (LOW) BSA - 1.70 sq.m BMI - 27.73 Temperature - 96.0 F (LOW) Pulse - 75 /min Respiration - 18 /min BP - 166/76 mm(hg) (HIGH) O2 Sat - 93 % (LOW) Pain - 0 Performance Status: 1 - No physically strenuous activity, but ambulatory and able to carry out light or sedentary work (e.g. office work, light house work). (ECOG) Physical Examination: ENMT - No mouth sores, no thrush, no jaundice, Respiratory - Lungs are clear to auscultation, Cardiovascular - Regular rate and rhythm of heart, Abdomen - Soft, bowel sounds present, Extremities - No visible edema. Lab/Imaging: Test performed on Aug 10, 2020 13:09 Sodium 137 mmol/L Potassium 4.4 mmol/L Chloride 103 mmol/L CO2 26 mmol/L Anion Gap 12.4 BUN 20 mg/dL Creatinine 0.8 mg/dL Cr Clearance (Est) 57.4600 mL/min Glucose 86 mg/dL Osmolality - Calculated 286 mOsm/kg Calcium 9.0 mg/dL Protein, Total 6.9 g/dL Albumin 4.3 g/dL Globulin 2.6 g/dL Bilirubin, Total 0.9 mg/dL ALT (SGPT) 14 U/L AST (SGOT) 23 U/L Alkaline Phosphatase 80 IU/L WBC 6.2 10 3/uL RBC 3.83 10 6/uL HGB 11.6 g/dL HCT 36.9 % MCV 96.3 fL MCH 30.3 pg MCHC 31.4 g/dL RDW 17.7 % Platelet Count 235 10 3/cmm MPV 9.8 fL Neutrophils 2.54 10 3/uL Lymphocytes 2.9 10 3/uL Monocytes 0.6 10 3/uL Eosinophils 0.2 10 3/uL Basophils 0.1 10 3/uL Neutrophil % 40.7 % Lymphocyte % 45.7 % Monocyte % 9.9 % Eosinophil % 2.7 % Basophils % 0.8 % NRBC % 0 % Impression: Moderately differentiated adenocarcinoma of the cecum status post right hemicolectomy done on 11/17/2019, final pathology report showed moderately differentiated adenocarcinoma of the colon extending through muscularis propria focally into pericolonic fat, low-grade, no vascular invasion seen, clear surgical margins,pT3 7 out of 19 lymph nodes showed metastatic disease pN2 Stage IIIB CEA checked on 11/19/2019 was 28.4, again right hemicolectomy was done on 11/17/2019, question whether lab was drawn before surgery but he reported on 02/17/2020 or ? Metastases repeat CEA level on 12/18/2019 was 5.2 started on adjuvant chemotherapy with Xeloda 750 mg/m??? twice a day for 2 weeks on 1 week off for 6-8 cycles on 01/07/2020 And completed 7/8 cycles of adjuvant chemotherapy with modified oral Xeloda on July 09, 2020, 8 cycle was not given because of persistent but fluctuating mild hyperbilirubinemia, which did resolve with the discontinuation of chemotherapy Normocytic normochromic anemia,due to B12 deficiency Plan: Discussed with patient regarding her labs white blood count 8 hemoglobin 12.1 hematocrit 38.7 platelets 210,000 CMP within normal limits CEA 4 compared to 3.4 on July 09, 2020 Clinically, patient is doing well with no new signs symptom suggestive of recurrence of disease but as per patient her PMD ordered CT scan of chest abdomen pelvis which showed no evidence of metastatic disease but 3 mm lesion in the liver and focal area of mild soft tissue thickening in the rectosigmoid junction and as per patient she is getting repeat CT scan of abdomen in the morning and also scheduled to see Dr. Kwon for possible sigmoidoscopy. Today's lab work-up shows no abnormality, tumor marker CEA is also within normal range. We will follow with Dr. Kwon's evaluation and she will return to clinic in 3 months with CBC CMP CEA and and follow-up CT scan of abdomen if ordered by PMD. Signed By: Allyssa Call M.D. <<Signature on File>>
== END 2020-11-11 05:52 | disposition home or self-care (01) ==
LOC: ONCMED 05:53
PROVIDERS: PCP Family Medicine; Visit Provider Internal Medicine Hematology & Oncology
DX: Z08 Encounter for follow-up examination after completed treatment for malignant neoplasm (principal); Z85.038 Personal history of other malignant neoplasm of large intestine; K76.9 Liver disease, unspecified; D51.9 Vitamin B12 deficiency anemia, unspecified; Z90.49 Acquired absence of other specified parts of digestive tract; Z92.21 Personal history of antineoplastic chemotherapy
CPT/HCPCS: 99214

== ENCOUNTER → 2020-12-16 10:37 | Outpatient (BNVA) | payer MEDICARE, MEDICAID, SELFPAY | PROVIDERS: PCP Family Medicine; Visit Provider Surgery | DX: C18.2 Malignant neoplasm of ascending colon (principal); Z20.822 Contact with and (suspected) exposure to COVID-19 | CPT/HCPCS: 87635 ==

== ENCOUNTER 2020-12-21 09:46 | Day surgery (SDC) | payer MEDICARE, MEDICAID, SELFPAY ==
[2020-12-17 10:26] VITALS: BMI 28.7
--- NOTE | 2020-12-21 10:12 | ANES.PREANE2 ---
Pre-Anesthetic Assessment Pre-Anesthetic Assessment: Height/Weight: Height 1.55 m Weight 68.946 kg Preop Diagnosis: Ascending colon mass Proposed Procedure: Operation Date: 12/21/20 11:15 Proposed Procedures p Colonoscopy 26130 c18.2(Not Applicable) - Torey Kwon MD Was Beta Daniel taken within 24 hours: Yes Social: Social History: No alcohol and No tobacco Exam: Pre-Anes Outpt Exam: alert, oriented x 3, clear to auscultation bilaterally and regular rate & rhythm Airway: Submandibular: WNL Cervical ROM: WNL MP: 2 Dentition: Partials Pulmonary: Pulmonary: POLANCO CV/HEM: CV/HEM: CAD, CHF and HTN : : None reported Hepatic: Hepatic: None reported GI: GI: GERD Comments: Abnormal CT of Abdomen Metabolic: Metabolic: Hyperlipidemia Musc/skel: Musc/skel: None reported Neuropsych: Neuropsych: None reported Anesthetic Plan: ASA status: 3 Anesthesia: MAC PFSH Anesthesia PFSH: Medical History Congestive heart failure (CHF) Coronary arteriosclerosis Hypertension Primary adenocarcinoma of ascending colon [id number] adenocarcinoma of the ascending colon 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 Most likely occurred 3 months prior based off symptoms. Urinary incontinence Surgical History History of hysterectomy Status post colonoscopy Status post partial colectomy 11/13/2019: Laparoscopic extended right hemicolectomy Family History Sister Cancer Mother Cardiac complication Father Cardiac complication Denies family history of Anesthesia complication Bleeding disorder Social History Smoking and tobacco status: former smoker Quit status (tobacco): has quit using tobacco Second hand smoke exposure: No Smoking risk assessment/counseling performed?: No Alcohol intake: former Desire information about alcohol rehabilitation?: No Counseling given: No Lives independently: Yes Household members: spouse Marital status: Number of children: 5 Number of grandchildren: 29 Highest education level completed: High School Graduate service: No Current occupational status: retired Pets and animals: Yes History of recent travel: No Data Anesthesia Cardiac Studies: No Data to Display
[2020-12-21 10:26] VITALS: BP 145/66; PULSE 73; RESP 16; TEMP 36.6; O2SAT 93
[2020-12-21] MEDS: sodium chloride 0.9% 1,000 ML 30 ML IV (10:47)
--- NOTE | 2020-12-21 12:15 | W.PM.OPSFHP ---
Same Day Surgery H&P Indication for Procedure/HPI DATE OF PROCEDURE: December 21, 2020 CHIEF COMPLAINT/INDICATIONFOR SURGICAL PROCEDURE: History of colon cancer for surveillance colonoscopy PREOP DIAGNOSIS: diagnostic PLANNED PROCEDRUE: Operation Date: 12/21/20 11:15 Proposed Procedures p Colonoscopy 54706 c18.2(Not Applicable) - Torey Kwon MD Medications/Allergies* Home Medications Medication Instructions Recorded Confirmed Type acetaminophen [Tylenol Extra 500 mg PO DAILY PRN 10/21/19 12/21/20 History Strength] clopidogrel [Plavix] 75 mg PO DAILY 10/21/19 12/21/20 History coenzyme Q10 [CoQ-10] 100 mg PO BEDTIME 10/21/19 12/21/20 History isosorbide mononitrate 30 mg PO BID 10/21/19 12/21/20 History losartan 100 mg PO DAILY 10/21/19 12/21/20 History nitroglycerin [Nitrostat] 0.4 mg SUBLINGUAL Q5M PRN 10/21/19 12/21/20 History sertraline [Zoloft] 100 mg PO BID 10/21/19 12/21/20 History glucosamine sulfate [Glucosamine] 1,000 mg PO DAILY 11/04/19 12/21/20 History rosuvastatin [Crestor] 20 mg PO BEDTIME 11/04/19 12/21/20 History ondansetron HCl 4 mg tablet 4 mg PO Q4H PRN tab 12/01/19 12/21/20 History Eliquis DVT-PE Treat 30D Start 5 mg PO BID 05/03/20 12/21/20 History cholecalciferol (vitamin D3) 25 mcg PO DAILY 12/17/20 12/21/20 History [Vitamin D3] Allergies/Adverse Reactions Allergy/AdvReac Type Severity Reaction Status Date / Time Sulfa (Sulfonamide Allergy Unknown Unknown Verified 12/17/20 10:25 Antibiotics) belladonna alkaloids Allergy Unknown Verified 12/17/20 10:25 imipramine Allergy Unknown Verified 12/17/20 10:25 nitrofurantoin Allergy Unknown Verified 12/17/20 10:25 morphine AdvReac Mild sleepy Verified 12/17/20 10:25 Current Medications: Generic Name Dose Route Start Last Admin Trade Name Freq PRN Reason Stop Dose Admin Sodium Chloride 1,000 mls @ 30 mls/hr 12/21/20 10:30 12/21/20 10:47 Sodium Chloride 0.9% IV 12/22/20 10:29 30 mls/hr .Q24H NICK Administration Pertinent History/Comorbid Conditions* Medical History (Updated 11/19/20 @ 10:09 by Torey Kwon MD) Congestive heart failure (CHF) Coronary arteriosclerosis Hypertension Primary adenocarcinoma of ascending colon [id number] adenocarcinoma of the ascending colon 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 Most likely occurred 3 months prior based off symptoms. Urinary incontinence Surgical History (Updated 12/26/19 @ 13:17 by Torey Kwon MD) History of hysterectomy Status post colonoscopy Status post partial colectomy 11/13/2019: Laparoscopic extended right hemicolectomy Family History (Updated 12/01/19 @ 15:48 by WILFREDO Mahmood) Cardiac complication Mother Father Cancer Sister Denies family history of Anesthesia complication Bleeding disorder Social History Smoking and tobacco status: former smoker Quit status (tobacco): has quit using tobacco Second hand smoke exposure: No Smoking risk assessment/counseling performed?: No Alcohol intake: former Desire information about alcohol rehabilitation?: No Counseling given: No Lives independently: Yes Household members: spouse Marital status: Number of children: 5 Number of grandchildren: 29 Highest education level completed: High School Graduate service: No Current occupational status: retired Pets and animals: Yes History of recent travel: No Pertinent Exam Findings alert, oriented x 3 and regular rate & rhythm Recommendations Surgery/Procedure today Coding Level of Care Code Acute 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
[2020-12-21 12:40] VITALS: BP 121/62; PULSE 65; RESP 16; TEMP 36.1; O2SAT 93
[2020-12-21 12:55] VITALS: BP 149/63; PULSE 68; RESP 16; TEMP 36.4; O2SAT 96
--- NOTE | 2020-12-21 12:59 | ANE.PACU2 ---
Inpatient post-anesthesia follow up: Airway intact: Yes Vital signs: Temperature 97.0 F Pulse Rate 65 Respiratory Rate 16 Blood Pressure 121/62 Pulse Oximetry 93 Oxygen Delivery Me thod Room Air Oxygen Flow Rate Fraction of Inspir ed Oxygen Hydration adequate: Yes Nausea and vomiting: No Pain level: 1 Mental status: Baseline
== END 2020-12-21 13:15 | disposition home or self-care (01) ==
PROVIDERS: PCP Family Medicine; Visit Provider Surgery
PROC: 0DJD8ZZ Inspection of Lower Intestinal Tract, Via Natural or Artificial Opening Endoscopic (ICD-10-PCS; CPT 45378; principal; 2020-12-21 11:15)
DX: Z12.11 Encounter for screening for malignant neoplasm of colon (principal); Z90.49 Acquired absence of other specified parts of digestive tract; Z85.038 Personal history of other malignant neoplasm of large intestine; K57.30 Diverticulosis of large intestine without perforation or abscess without bleeding; Z79.01 Long term (current) use of anticoagulants; I11.0 Hypertensive heart disease with heart failure; I50.9 Heart failure, unspecified; Z86.711 Personal history of pulmonary embolism; Z87.891 Personal history of nicotine dependence; I25.10 Atherosclerotic heart disease of native coronary artery without angina pectoris; E78.5 Hyperlipidemia, unspecified
CPT/HCPCS: 45378; 96360; 96361; J2704; J7030

== ENCOUNTER 2021-02-09 13:01 | Outpatient (CLI) | payer MEDICARE, MEDICAID, SELFPAY ==
[2021-02-09 14:07] LABS: Basophils % 0.4 %; Eosinophils # 0.2 10^3/uL (0.0-0.8); Eosinophils % 3.4 %; Hemoglobin 11.6 g/dL (11.5-15.3); Lymphocytes # 3.4 10^3/uL (0.8-4.8); Lymphocytes % 50.4 %; Mean Corpuscular HGB Conc 30.5 g/dL (30.0-36.0); Mean Corpuscular Hemoglobin 26.7 pg (28.0-34.0); Mean Corpuscular Volume 87.6 fL (81-99); Mean Platelet Volume 10.6 fL (7.4-10.4); Monocytes # 0.6 10^3/uL (0.2-0.9); Monocytes % 8.5 %; Neutrophils # 2.46 10^3/uL (1.8-7.7); Nucleated Red Blood Cells % 0 %; Platelet Count 236 10^3/cmm (130-400); Red Blood Count 4.34 10^6/uL (4.1-5.3); Red Cell Distribution Width 15.8 % (12.1-15.1); White Blood Count 6.7 10^3/uL (4.0-10.0)
[2021-02-09 14:35] LABS: Carcinoembryonic Antigen 5.1 ng/mL (0.0-4.7)
[2021-02-09 14:46] LABS: Alanine Aminotransferase 17 U/L (0-33); Albumin Level 4.1 g/dL (3.5-5.2); Alkaline Phosphatase 92 IU/L (35-105); Anion Gap 14.2 (5-19); Aspartate Amino Transferase 22 U/L (0-32); Blood Urea Nitrogen 17 mg/dL (8-23); Calcium 8.7 mg/dL (8.5-10.5); Carbon Dioxide 26 mmol/L (22-29); Chloride 105 mmol/L (98-107); Globulin 2.8 g/dL (1.3-4.6); Glucose 110 mg/dL (65-115); Osmolality Calculated 294 mOsm/kg (285-295); Potassium 4.2 mmol/L (3.5-5.1); Sodium 141 mmol/L (136-145); Total Bilirubin 0.9 mg/dL (0.15-1.2); Total Protein 6.9 g/dL (6.6-8.7)
--- NOTE | 2021-02-09 15:53 | ONC FU_ITS ---
Dr. Call follow up note Patient: Ana Laurent Unit #: [id number]: [id number] Dicatated By: Allyssa Call M.D.Date of Visit:Feb 09, 2021 Onc Med Follow-up/Prog Note History of Present Illness: Mrs. Laurent is a 85-year-old female with history of progressive generalized weakness and fatigue and abdominal pain. She underwent CT scan of abdomen pelvis on 11/04/2019 which showed annular constricting carcinoma ascending colon, causing partial obstruction with mild interval increase. Abnormal pericolonic lymphadenopathy. Nonspecific mild posterior pelvic peritoneal fluid. Post hysterectomy. Liver normal. 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 and (colonic adenocarcinoma with this phenotype associated with improved disease-free and overall survival in untreated stage II and III colorectal carcinomas and most commonly found in sporadic colonic glandular neoplasms, additional testing for MLH 1 gene caused by premotor hyper methylation or Ronquillo syndrome is probably not indicated) Subsequently on 11/17/2019 patient underwent right hemicolectomy and final pathology report showed moderately differentiated adenocarcinoma of colon extending through muscularis propria focally into pericolonic fat, tumor is completely excised with clear surgical margins, tumor size 6 x 5 cm in the cecum, low-grade type, no vascular invasion identified,, no perforation, e.g. pT3 7 out of 19 lymph nodes showed metastatic disease e.g.pN2 Stage IIIB Labs done on 02/17/2020 shows white blood count 4.4 hemoglobin 7.9 hematocrit 27 platelets 177,000 MCV 85.4 CMP within normal limits except glucose 409, AST 43, albumin 2.9, and CEA 28.4.repeat CEA on December 27 clinically was 5.2 She started on adjuvant chemotherapy with Xeloda 2 weeks on 1 week off for 6-8 cycles on 01/07/2020. Her treatment was put on hold after the third cycle due to hallucinations and confusion. She reported that she underwent extensive work-up for Alzheimer's at [facility] office and it was inconclusive. She did resume her fourth cycle of Xeloda on April 12, 2020. Follow-up colonoscopy done on December 21, 2020 showed ileocolonic anastomosis patent, no evidence of recurrence. Otherwise unremarkable Came for follow-up, denies any specific complaint except generalized weakness and fatigue and forgetfulness, her PMD is evaluating and managing her dementia/depression. As per patient she recently underwent colonoscopy by Dr. Kwon and she was told it was unremarkable and next 1 she will need in 5 to 10 years. Denies any abdominal pain denies any melena hematochezia denies any hemoptysis hematemesis denies any jaundice denies any weight loss denies any poor appetite. Medications: Acetaminophen 1 - 2 Tablet (of 325 mg) Oral daily PRN, Cholecalciferol 1 (50,000 Units) Capsule Oral every am on W, Co Q 10 1 Capsule (of 100 mg) Oral daily, Crestor 1 (20 mg) Tablet Oral every am, Eliquis 1 (5 mg) Tablet Oral b.i.d., Isosorbide Mononitrate 1 (30 mg) Tablet Oral b.i.d., Losartan Potassium 1 (50 mg) Tablet Oral b.i.d., Metoprolol Tartrate 1 (50 mg) Tablet Oral b.i.d., Nitrostat 1 Tablet (of 0.4 mg) Tablet, sublingual Sublingual daily PRN, Ondansetron HCl 1 Tablet (of 4 mg) Oral t.i.d. PRN, Pantoprazole Sodium 1 (40 mg) Tablet, enteric coated Oral daily, Plavix 1 (75 mg) Tablet Oral every am, Stool Softener Tablet Oral Allergies: Belladonna, Imipramine HCl, Macrobid, Morphine Derivatives, and sulfabenzamide. Review of Systems: Review of Systems is not available for this patient. Vital Signs: Performed on Feb 09, 2021 15:00 Height - 62.00 in Weight - 155.6 lbs (HIGH) BSA - 1.72 sq.m BMI - 28.46 Temperature - 97.5 F (LOW) Pulse - 70 /min Respiration - 18 /min BP - 144/78 mm(hg) (HIGH) O2 Sat - 95 % (LOW) Pain - 0 Performance Status: 1 - No physically strenuous activity, but ambulatory and able to carry out light or sedentary work (e.g. office work, light house work). (ECOG) Physical Examination: ENMT - No mouth sores, no thrush, no jaundice, Respiratory - Lungs are clear to auscultation , Cardiovascular - Regular rate and rhythm of heart, Abdomen - Soft, bowel sounds present, Extremities - No visible edema. Lab/Imaging: Test performed on Nov 09, 2020 09:10 Sodium 139 mmol/L Potassium 4.2 mmol/L Chloride 104 mmol/L CO2 25 mmol/L Anion Gap 14.2 BUN 17 mg/dL Creatinine 0.8 mg/dL Cr Clearance (Est) 57.84 mL/min Glucose 98 mg/dL Osmolality - Calculated 290 mOsm/kg Calcium 9.3 mg/dL Protein, Total 7.6 g/dL Albumin 4.2 g/dL Globulin 3.4 g/dL Bilirubin, Total 0.9 mg/dL ALT (SGPT) 19 U/L AST (SGOT) 26 U/L Alkaline Phosphatase 95 IU/L WBC 8.0 10 3/uL RBC 4.34 10 6/uL HGB 12.1 g/dL HCT 38.7 % MCV 89.2 fL MCH 27.9 pg MCHC 31.3 g/dL RDW 14.9 % Platelet Count 210 10 3/cmm MPV 10.6 fL Neutrophils 3.76 10 3/uL Lymphocytes 3.1 10 3/uL Monocytes 0.8 10 3/uL Eosinophils 0.2 10 3/uL Basophils 0.0 10 3/uL Neutrophil % 47.2 % Lymphocyte % 38.9 % Monocyte % 10.3 % Eosinophil % 2.9 % Basophils % 0.4 % NRBC % 0 % CEA 4.0 ng/mL Impression: Moderately differentiated adenocarcinoma of the cecum status post right hemicolectomy done on 11/17/2019, final pathology report showed moderately differentiated adenocarcinoma of the colon extending through muscularis propria focally into pericolonic fat, low-grade, no vascular invasion seen, clear surgical margins,pT3 7 out of 19 lymph nodes showed metastatic disease pN2 Stage IIIB CEA checked on 11/19/2019 was 28.4, again right hemicolectomy was done on 11/17/2019, question whether lab was drawn before surgery but he reported on 02/17/2020 or ? Metastases repeat CEA level on 12/18/2019 was 5.2 started on adjuvant chemotherapy with Xeloda 750 mg/m??? twice a day for 2 weeks on 1 week off for 6-8 cycles on 01/07/2020 And completed 7/8 cycles of adjuvant chemotherapy with modified oral Xeloda on July 09, 2020, 8 cycle was not given because of persistent but fluctuating mild hyperbilirubinemia, which did resolve with the discontinuation of chemotherapy Normocytic normochromic anemia,due to B12 deficiency Follow-up, as could be done on December 21, 2020 showed ileocolonic anastomosis, patent, no evidence of recurrence and otherwise unremarkable Plan: Discussed with patient regarding her labs white blood count 6.7 hemoglobin 11.6 hematocrit 38 platelets 236,000 CMP within normal limits CEA 5.1 compared to 4 previously and 3.4 prior to that on July 09, 2020. Clinically, patient is doing well with no new signs symptoms history of recurrence of disease, she recently underwent colonoscopy which showed no abnormality, ileocolonic anastomosis patent and no evidence of recurrence. Her follow-up lab work-up is within normal range but CEA has gone up to 5.1 compared to 3.4 on July 09, 2020 , We will repeat her CEA in 1 month if it continues to go up, will consider CT scan of abdomen pelvis to rule out recurrence. Return to clinic in 1 month with CEA Signed By: Allyssa Call M.D. <<Signature on File>>
== END 2021-02-09 13:02 | disposition home or self-care (01) ==
PROVIDERS: PCP Family Medicine; Visit Provider Internal Medicine Hematology & Oncology
DX: C18.2 Malignant neoplasm of ascending colon (principal); C77.8 Secondary and unspecified malignant neoplasm of lymph nodes of multiple regions; E80.6 Other disorders of bilirubin metabolism; D51.9 Vitamin B12 deficiency anemia, unspecified; K63.89 Other specified diseases of intestine; Z79.899 Other long term (current) drug therapy
CPT/HCPCS: 80053; 82378; 85025; 99214

== ENCOUNTER 2021-03-02 10:57 | Outpatient (CLI) | payer MEDICARE, MEDICAID, SELFPAY ==
[2021-03-02 13:36] LABS: Carcinoembryonic Antigen 5.4 ng/mL (0.0-4.7)
--- NOTE | 2021-03-02 14:05 | ONC FU_ITS ---
Dr. Call follow up note Patient: Ana Laurent Unit #: [id number]: [id number] Dicatated By: Allyssa Call M.D.Date of Visit:March 02, 2021 Onc Med Follow-up/Prog Note History of Present Illness: Mrs. Laurent is a 85-year-old female with history of progressive generalized weakness and fatigue and abdominal pain. She underwent CT scan of abdomen pelvis on 11/04/2019 which showed annular constricting carcinoma ascending colon, causing partial obstruction with mild interval increase. Abnormal pericolonic lymphadenopathy. Nonspecific mild posterior pelvic peritoneal fluid. Post hysterectomy. Liver normal. 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 and (colonic adenocarcinoma with this phenotype associated with improved disease-free and overall survival in untreated stage II and III colorectal carcinomas and most commonly found in sporadic colonic glandular neoplasms, additional testing for MLH 1 gene caused by premotor hyper methylation or Ronquillo syndrome is probably not indicated) Subsequently on 11/17/2019 patient underwent right hemicolectomy and final pathology report showed moderately differentiated adenocarcinoma of colon extending through muscularis propria focally into pericolonic fat, tumor is completely excised with clear surgical margins, tumor size 6 x 5 cm in the cecum, low-grade type, no vascular invasion identified,, no perforation, e.g. pT3 7 out of 19 lymph nodes showed metastatic disease e.g.pN2 Stage IIIB Labs done on 02/17/2020 shows white blood count 4.4 hemoglobin 7.9 hematocrit 27 platelets 177,000 MCV 85.4 CMP within normal limits except glucose 409, AST 43, albumin 2.9, and CEA 28.4.repeat CEA on December 27 clinically was 5.2 She started on adjuvant chemotherapy with Xeloda 2 weeks on 1 week off for 6-8 cycles on 01/07/2020. Her treatment was put on hold after the third cycle due to hallucinations and confusion. She reported that she underwent extensive work-up for Alzheimer's at [facility] office and it was inconclusive. She did resume her fourth cycle of Xeloda on April 12, 2020. Follow-up colonoscopy done on December 21, 2020 showed ileocolonic anastomosis patent, no evidence of recurrence. Otherwise unremarkable Came for follow-up, denies any specific complaints, no fever chills, no nausea or vomiting, no diarrhea constipation, no melena or hematochezia, no jaundice Medications: Acetaminophen 1 - 2 Tablet (of 325 mg) Oral daily PRN, ALPRAZolam 0.5 Tablet (of 0.25 mg) Oral b.i.d., Cholecalciferol 1 (50,000 Units) Capsule Oral every am on , Co Q 10 1 Capsule (of 100 mg) Oral daily, Crestor 1 (20 mg) Tablet Oral every am, Eliquis 1 (5 mg) Tablet Oral b.i.d., Isosorbide Mononitrate 1 (30 mg) Tablet Oral b.i.d., Losartan Potassium 1 (50 mg) Tablet Oral b.i.d., Metoprolol Tartrate 1 (50 mg) Tablet Oral b.i.d., Nitrostat 1 Tablet (of 0.4 mg) Tablet, sublingual Sublingual daily PRN, Ondansetron HCl 1 Tablet (of 4 mg) Oral t.i.d. PRN, Pantoprazole Sodium 1 (40 mg) Tablet, enteric coated Oral daily, Plavix 1 (75 mg) Tablet Oral every am, Stool Softener Tablet Oral Allergies: Belladonna, Imipramine HCl, Macrobid, Morphine Derivatives, and sulfabenzamide. Review of Systems: Review of Systems is not available for this patient. Vital Signs: Performed on March 02, 2021 13:12 Height - 62.00 in Weight - 157.6 lbs (HIGH) BSA - 1.73 sq.m BMI - 28.83 Temperature - 97.0 F (LOW) Pulse - 71 /min Respiration - 18 /min BP - 133/68 mm(hg) O2 Sat - 95 % (LOW) Pain - 0 Performance Status: 0 - Fully active, able to carry on all predisease activities without restrictions. (ECOG) Physical Examination: ENMT - No mouth sores, no thrush, no jaundice, Respiratory - Lungs are clear to auscultation, Cardiovascular - Regular rate and rhythm of heart, Abdomen - Soft, bowel sounds present, Extremities - No visible edema. Lab/Imaging: Test performed on Nov 09, 2020 09:10 Sodium 139 mmol/L Potassium 4.2 mmol/L Chloride 104 mmol/L CO2 25 mmol/L Anion Gap 14.2 BUN 17 mg/dL Creatinine 0.8 mg/dL Cr Clearance (Est) 57.84 mL/min Glucose 98 mg/dL Osmolality - Calculated 290 mOsm/kg Calcium 9.3 mg/dL Protein, Total 7.6 g/dL Albumin 4.2 g/dL Globulin 3.4 g/dL Bilirubin, Total 0.9 mg/dL ALT (SGPT) 19 U/L AST (SGOT) 26 U/L Alkaline Phosphatase 95 IU/L WBC 8.0 10 3/uL RBC 4.34 10 6/uL HGB 12.1 g/dL HCT 38.7 % MCV 89.2 fL MCH 27.9 pg MCHC 31.3 g/dL RDW 14.9 % Platelet Count 210 10 3/cmm MPV 10.6 fL Neutrophils 3.76 10 3/uL Lymphocytes 3.1 10 3/uL Monocytes 0.8 10 3/uL Eosinophils 0.2 10 3/uL Basophils 0.0 10 3/uL Neutrophil % 47.2 % Lymphocyte % 38.9 % Monocyte % 10.3 % Eosinophil % 2.9 % Basophils % 0.4 % NRBC % 0 % CEA 4.0 ng/mL Impression: Moderately differentiated adenocarcinoma of the cecum status post right hemicolectomy done on 11/17/2019, final pathology report showed moderately differentiated adenocarcinoma of the colon extending through muscularis propria focally into pericolonic fat, low-grade, no vascular invasion seen, clear surgical margins,pT3 7 out of 19 lymph nodes showed metastatic disease pN2 Stage IIIB CEA checked on 11/19/2019 was 28.4, again right hemicolectomy was done on 11/17/2019, question whether lab was drawn before surgery but he reported on 02/17/2020 or ? Metastases repeat CEA level on 12/18/2019 was 5.2 started on adjuvant chemotherapy with Xeloda 750 mg/m??? twice a day for 2 weeks on 1 week off for 6-8 cycles on 01/07/2020 And completed 7/8 cycles of adjuvant chemotherapy with modified oral Xeloda on July 09, 2020, 8 cycle was not given because of persistent but fluctuating mild hyperbilirubinemia, which did resolve with the discontinuation of chemotherapy Normocytic normochromic anemia,due to B12 deficiency Follow-up, as could be done on December 21, 2020 showed ileocolonic anastomosis, patent, no evidence of recurrence and otherwise unremarkable Plan: Discussed with patient regarding her labs CEA is 5.4 compared to 5.1 on February 09, 2021 Clinically, patient is doing well with no new signs suggestive of recurrence of disease but her follow-up lab shows persistently mildly elevated CEA, now 5.4 compared to 5.1 previously At this point we will continue to monitor she return to clinic in 1 month with CBC CMP and CEA, if CEA continues to go up, may consider CT scan of abdomen pelvis or CT PET scan as recently done colonoscopy was unremarkable Signed By: Allyssa Call M.D. <<Signature on File>>
== END 2021-03-02 10:58 | disposition home or self-care (01) ==
LOC: ONCMED 11:00
PROVIDERS: PCP Family Medicine; Visit Provider Internal Medicine Hematology & Oncology
DX: C18.0 Malignant neoplasm of cecum (principal); C77.8 Secondary and unspecified malignant neoplasm of lymph nodes of multiple regions; E80.6 Other disorders of bilirubin metabolism; K63.89 Other specified diseases of intestine; D51.9 Vitamin B12 deficiency anemia, unspecified; Z79.899 Other long term (current) drug therapy
CPT/HCPCS: 36415; 82378; 99214

== ENCOUNTER 2021-04-04 14:17 | Outpatient (CLI) | payer MEDICARE, MEDICAID, SELFPAY ==
[2021-04-04 14:46] LABS: Basophils # 0.1 10^3/uL (0.0-0.1); Basophils % 0.7 %; Eosinophils # 0.3 10^3/uL (0.0-0.8); Hematocrit 36.7 % (37.0-47.0); Hemoglobin 11.5 g/dL (11.5-15.3); Lymphocytes # 3.1 10^3/uL (0.8-4.8); Lymphocytes % 43.8 %; Mean Corpuscular HGB Conc 31.3 g/dL (30.0-36.0); Mean Corpuscular Hemoglobin 27.9 pg (28.0-34.0); Mean Corpuscular Volume 89.1 fL (81-99); Mean Platelet Volume 10.5 fL (7.4-10.4); Monocytes # 0.6 10^3/uL (0.2-0.9); Monocytes % 9.1 %; Neutrophils # 2.96 10^3/uL (1.8-7.7); Neutrophils % 42.3 %; Nucleated Red Blood Cells % 0 %; Platelet Count 240 10^3/cmm (130-400); Red Blood Count 4.12 10^6/uL (4.1-5.3); Red Cell Distribution Width 15.8 % (12.1-15.1)
[2021-04-04 15:38] LABS: Alanine Aminotransferase 9 U/L (0-33); Albumin Level 4.2 g/dL (3.5-5.2); Alkaline Phosphatase 87 IU/L (35-105); Anion Gap 15.3 (5-19); Aspartate Amino Transferase 16 U/L (0-32); Blood Urea Nitrogen 21 mg/dL (8-23); Calcium 9.3 mg/dL (8.5-10.5); Carbon Dioxide 27 mmol/L (22-29); Chloride 106 mmol/L (98-107); Globulin 2.6 g/dL (1.3-4.6); Glucose 90 mg/dL (65-115); Osmolality Calculated 301 mOsm/kg (285-295); Potassium 4.3 mmol/L (3.5-5.1); Sodium 144 mmol/L (136-145); Total Bilirubin 1.4 mg/dL (0.15-1.2); Total Protein 6.8 g/dL (6.6-8.7)
--- NOTE | 2021-04-04 16:38 | ONC FU_ITS ---
Dr. Call follow up note Patient: Ana Laurent Unit #: [id number]: 1935 Dicatated By: Allyssa Call M.D.Date of Visit:Apr 04, 2021 Onc Med Follow-up/Prog Note History of Present Illness: Mrs. Laurent is a 85-year-old female with history of progressive generalized weakness and fatigue and abdominal pain. She underwent CT scan of abdomen pelvis on 11/04/2019 which showed annular constricting carcinoma ascending colon, causing partial obstruction with mild interval increase. Abnormal pericolonic lymphadenopathy. Nonspecific mild posterior pelvic peritoneal fluid. Post hysterectomy. Liver normal. 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 and (colonic adenocarcinoma with this phenotype associated with improved disease-free and overall survival in untreated stage II and III colorectal carcinomas and most commonly found in sporadic colonic glandular neoplasms, additional testing for MLH 1 gene caused by premotor hyper methylation or Ronquillo syndrome is probably not indicated) Subsequently on 11/17/2019 patient underwent right hemicolectomy and final pathology report showed moderately differentiated adenocarcinoma of colon extending through muscularis propria focally into pericolonic fat, tumor is completely excised with clear surgical margins, tumor size 6 x 5 cm in the cecum, low-grade type, no vascular invasion identified,, no perforation, e.g. pT3 7 out of 19 lymph nodes showed metastatic disease e.g.pN2 Stage IIIB Labs done on 02/17/2020 shows white blood count 4.4 hemoglobin 7.9 hematocrit 27 platelets 177,000 MCV 85.4 CMP within normal limits except glucose 409, AST 43, albumin 2.9, and CEA 28.4.repeat CEA on December 27 clinically was 5.2 She started on adjuvant chemotherapy with Xeloda 2 weeks on 1 week off for 6-8 cycles on 01/07/2020. Her treatment was put on hold after the third cycle due to hallucinations and confusion. She reported that she underwent extensive work-up for Alzheimer's at [facility] office and it was inconclusive. She did resume her fourth cycle of Xeloda on April 12, 2020. Follow-up colonoscopy done on December 21, 2020 showed ileocolonic anastomosis patent, no evidence of recurrence. Otherwise unremarkable Came for follow-up, denies any specific complaint except bruising involving left arm, as per patient she torn muscle while lifting heavy object at home, she was on Eliquis and her PMD held Eliquis for 3 days now ecchymosis is improving. Other than that no melena or hematochezia, no hemoptysis hematemesis, no jaundice, no abdominal pain, no weight loss, appetite is good. Medications: Acetaminophen 1 - 2 Tablet (of 325 mg) Oral daily PRN, busPIRone HCl 1 Tablet (of 15 mg) Oral b.i.d., Cholecalciferol 1 (50,000 Units) Capsule Oral every am on W, Co Q 10 1 Capsule (of 100 mg) Oral daily, Crestor 1 (20 mg) Tablet Oral every am, Eliquis 1 (5 mg) Tablet Oral b.i.d., Isosorbide Mononitrate 1 (30 mg) Tablet Oral b.i.d., Losartan Potassium 1 (50 mg) Tablet Oral b.i.d., Metoprolol Tartrate 1 (50 mg) Tablet Oral b.i.d., Nitrostat 1 Tablet (of 0.4 mg) Tablet, sublingual Sublingual daily PRN, Ondansetron HCl 1 Tablet (of 4 mg) Oral t.i.d. PRN, Pantoprazole Sodium 1 (40 mg) Tablet, enteric coated Oral daily, Plavix 1 (75 mg) Tablet Oral every am, Stool Softener Tablet Oral Allergies: Belladonna, Imipramine HCl, Macrobid, Morphine Derivatives, and sulfabenzamide. Review of Systems: Review of Systems is not available for this patient. Vital Signs: Performed on Apr 04, 2021 16:08 Height - 62.00 in Weight - 155.4 lbs (LOW) BSA - 1.72 sq.m BMI - 28.42 Temperature - 97.9 F (LOW) Pulse - 68 /min Respiration - 18 /min BP - 136/72 mm(hg) O2 Sat - 98 % Pain - 0 Performance Status: 0 - Fully active, able to carry on all predisease activities without restrictions. (ECOG) Physical Examination: ENMT - No mouth sores, no thrush, no jaundice, Respiratory - Lungs are clear to auscultation, Cardiovascular - Regular rate and rhythm of heart, Abdomen - Soft, bowel sounds present, Extremities - No visible edema but large ecchymosis involving left upper extremity. Lab/Imaging: Test performed on Nov 09, 2020 09:10 Sodium 139 mmol/L Potassium 4.2 mmol/L Chloride 104 mmol/L CO2 25 mmol/L Anion Gap 14.2 BUN 17 mg/dL Creatinine 0.8 mg/dL Cr Clearance (Est) 57.84 mL/min Glucose 98 mg/dL Osmolality - Calculated 290 mOsm/kg Calcium 9.3 mg/dL Protein, Total 7.6 g/dL Albumin 4.2 g/dL Globulin 3.4 g/dL Bilirubin, Total 0.9 mg/dL ALT (SGPT) 19 U/L AST (SGOT) 26 U/L Alkaline Phosphatase 95 IU/L WBC 8.0 10 3/uL RBC 4.34 10 6/uL HGB 12.1 g/dL HCT 38.7 % MCV 89.2 fL MCH 27.9 pg MCHC 31.3 g/dL RDW 14.9 % Platelet Count 210 10 3/cmm MPV 10.6 fL Neutrophils 3.76 10 3/uL Lymphocytes 3.1 10 3/uL Monocytes 0.8 10 3/uL Eosinophils 0.2 10 3/uL Basophils 0.0 10 3/uL Neutrophil % 47.2 % Lymphocyte % 38.9 % Monocyte % 10.3 % Eosinophil % 2.9 % Basophils % 0.4 % NRBC % 0 % CEA 4.0 ng/mL Impression: Moderately differentiated adenocarcinoma of the cecum status post right hemicolectomy done on 11/17/2019, final pathology report showed moderately differentiated adenocarcinoma of the colon extending through muscularis propria focally into pericolonic fat, low-grade, no vascular invasion seen, clear surgical margins,pT3 7 out of 19 lymph nodes showed metastatic disease pN2 Stage IIIB CEA checked on 11/19/2019 was 28.4, again right hemicolectomy was done on 11/17/2019, question whether lab was drawn before surgery but he reported on 02/17/2020 or ? Metastases repeat CEA level on 12/18/2019 was 5.2 started on adjuvant chemotherapy with Xeloda 750 mg/m??? twice a day for 2 weeks on 1 week off for 6-8 cycles on 01/07/2020 And completed 7/8 cycles of adjuvant chemotherapy with modified oral Xeloda on July 09, 2020, 8 cycle was not given because of persistent but fluctuating mild hyperbilirubinemia, which did resolve with the discontinuation of chemotherapy Normocytic normochromic anemia,due to B12 deficiency Follow-up, as could be done on December 21, 2020 showed ileocolonic anastomosis, patent, no evidence of recurrence and otherwise unremarkable Plan: Discussed with patient regarding her labs white blood count 7 hemoglobin 11.5 g compared to 11.6 creatinine January 2021 hematocrit 36.7 platelets 240,000 CMP within normal limit except bilirubin 1.4 compared to 2.9 previously but ALT AST within normal range as well as alk phos, CEA 4.0 compared to 5.4 previously Clinically, patient doing well with no new signs symptoms suggestive of recurrence of disease earlier her PSA was progressing but now repeat PSA shows downward trend, LFTs within normal limit but mildly elevated bilirubin etiology unclear,, could be due to large hematoma/ecchymosis involving left arm due to trauma while she was on Eliquis, will monitor, patient return to clinic in 3 months with CBC CMP and CEA Signed By: Allyssa Call M.D. <<Signature on File>>
== END 2021-04-04 14:18 | disposition home or self-care (01) ==
PROVIDERS: PCP Family Medicine; Visit Provider Internal Medicine Hematology & Oncology
DX: C18.0 Malignant neoplasm of cecum (principal); C77.8 Secondary and unspecified malignant neoplasm of lymph nodes of multiple regions; D51.9 Vitamin B12 deficiency anemia, unspecified; Z79.01 Long term (current) use of anticoagulants; Z79.899 Other long term (current) drug therapy; Z92.21 Personal history of antineoplastic chemotherapy
CPT/HCPCS: 36415; 80053; 82378; 85025; 99214

== ENCOUNTER → 2021-04-29 13:15 | Outpatient (BNVA) | payer MEDICARE, MEDICAID, SELFPAY | PROVIDERS: PCP Family Medicine; Visit Provider Emergency Medicine | DX: Z20.822 Contact with and (suspected) exposure to COVID-19 (principal) | CPT/HCPCS: 87635 ==

== ENCOUNTER 2021-07-13 12:14 | Outpatient (CLI) | payer MEDICARE, MEDICAID, SELFPAY ==
[2021-07-13 13:01] LABS: Basophils % 0.5 %; Eosinophils # 0.2 10^3/uL (0.0-0.8); Eosinophils % 2.9 %; Hematocrit 35.2 % (37.0-47.0); Hemoglobin 11.4 g/dL (11.5-15.3); Lymphocytes # 2.8 10^3/uL (0.8-4.8); Lymphocytes % 51.1 %; Mean Corpuscular HGB Conc 32.4 g/dL (30.0-36.0); Mean Corpuscular Hemoglobin 29.3 pg (28.0-34.0); Mean Corpuscular Volume 90.5 fl (81-99); Mean Platelet Volume 9.9 fL (7.4-10.4); Monocytes # 0.5 10^3/uL (0.2-0.9); Monocytes % 8.7 %; Neutrophils # 2.02 10^3/uL (1.8-7.7); Neutrophils % 36.6 %; Nucleated Red Blood Cells % 0 %; Platelet Count 215 10^3/cmm (130-400); Red Blood Count 3.89 10^6/uL (4.1-5.3); Red Cell Distribution Width 14.9 % (12.1-15.1); White Blood Count 5.5 10^3/uL (4.0-10.0)
[2021-07-13 13:27] LABS: Alanine Aminotransferase 11 U/L (0-33); Albumin Level 3.8 g/dL (3.5-5.2); Alkaline Phosphatase 72 IU/L (35-105); Anion Gap 12.3 (5-19); Aspartate Amino Transferase 15 U/L (0-32); Blood Urea Nitrogen 14 mg/dL (8-23); Calcium 8.8 mg/dL (8.5-10.5); Carbon Dioxide 27 mmol/L (22-29); Chloride 104 mmol/L (98-107); Globulin 2.8 g/dL (1.3-4.6); Glucose 92 mg/dL (65-115); Osmolality Calculated 288 mOsm/kg (285-295); Potassium 4.3 mmol/L (3.5-5.1); Sodium 139 mmol/L (136-145); Total Bilirubin 0.7 mg/dL (0.15-1.2); Total Protein 6.6 g/dL (6.6-8.7)
[2021-07-13 14:19] LABS: Carcinoembryonic Antigen 4.4 ng/mL (0.0-4.7)
--- NOTE | 2021-07-13 17:03 | ONC FU_ITS ---
Dr. Call follow up note Patient: Ana Laurent Unit #: [id number]: 1935 Dicatated By: Allyssa Call M.D.Date of Visit:Jul 13, 2021 Onc Med Follow-up/Prog Note History of Present Illness: Mrs. Laurent is a 86-year-old female with history of progressive generalized weakness and fatigue and abdominal pain. She underwent CT scan of abdomen pelvis on 11/04/2019 which showed annular constricting carcinoma ascending colon, causing partial obstruction with mild interval increase. Abnormal pericolonic lymphadenopathy. Nonspecific mild posterior pelvic peritoneal fluid. Post hysterectomy. Liver normal. 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 and (colonic adenocarcinoma with this phenotype associated with improved disease-free and overall survival in untreated stage II and III colorectal carcinomas and most commonly found in sporadic colonic glandular neoplasms, additional testing for MLH 1 gene caused by premotor hyper methylation or Ronquillo syndrome is probably not indicated) Subsequently on 11/17/2019 patient underwent right hemicolectomy and final pathology report showed moderately differentiated adenocarcinoma of colon extending through muscularis propria focally into pericolonic fat, tumor is completely excised with clear surgical margins, tumor size 6 x 5 cm in the cecum, low-grade type, no vascular invasion identified,, no perforation, e.g. pT3 7 out of 19 lymph nodes showed metastatic disease e.g.pN2 Stage IIIB Labs done on 02/17/2020 shows white blood count 4.4 hemoglobin 7.9 hematocrit 27 platelets 177,000 MCV 85.4 CMP within normal limits except glucose 409, AST 43, albumin 2.9, and CEA 28.4.repeat CEA on December 27 clinically was 5.2 She started on adjuvant chemotherapy with Xeloda 2 weeks on 1 week off for 6-8 cycles on 01/07/2020. Her treatment was put on hold after the third cycle due to hallucinations and confusion. She reported that she underwent extensive work-up for Alzheimer's at [facility] office and it was inconclusive. She did resume her fourth cycle of Xeloda on April 12, 2020. Follow-up colonoscopy done on December 21, 2020 showed ileocolonic anastomosis patent, no evidence of recurrence. Otherwise unremarkable Came for follow-up, denies any specific complaints, no fever chills, no nausea or vomiting, no diarrhea constipation, no melena or hematochezia, no hemoptysis hematemesis, no abdominal pain, no jaundice, appetite is good Medications: Acetaminophen 1 - 2 Tablet (of 325 mg) Oral daily PRN, Cholecalciferol 1 (50,000 Units) Capsule Oral every am on W, Eliquis 1 (5 mg) Tablet Oral b.i.d., Isosorbide Mononitrate 1 (30 mg) Tablet Oral b.i.d., Losartan Potassium 1 (50 mg) Tablet Oral b.i.d., Metoprolol Tartrate 1 (50 mg) Tablet Oral b.i.d., Nitrostat 1 Tablet (of 0.4 mg) Tablet, sublingual Sublingual daily PRN, Pantoprazole Sodium 1 (40 mg) Tablet, enteric coated Oral daily, Plavix 1 (75 mg) Tablet Oral every am Allergies: Belladonna, Imipramine HCl, Macrobid, Morphine Derivatives, and sulfabenzamide. Review of Systems: Review of Systems is not available for this patient. Vital Signs: Performed on Jul 13, 2021 16:35 Height - 62.00 in Weight - 161.2 lbs (HIGH) BSA - 1.74 sq.m BMI - 29.48 Temperature - 98.0 F (LOW) Pulse - 70 /min Respiration - 18 /min BP - 155/76 mm(hg) (HIGH) O2 Sat - 96 % Pain - 0 Fatigue - 5 Performance Status: 0 - Fully active, able to carry on all predisease activities without restrictions. (ECOG) Physical Examination: ENMT - No mouth sores, no thrush, no jaundice, Respiratory - Lungs are clear to auscultation, Cardiovascular - Regular rate and rhythm of heart, Abdomen - Soft, bowel sounds present, Extremities - No visible edema. Lab/Imaging: Most recent lab results are not available for this patient. Impression: Moderately differentiated adenocarcinoma of the cecum status post right hemicolectomy done on 11/17/2019, final pathology report showed moderately differentiated adenocarcinoma of the colon extending through muscularis propria focally into pericolonic fat, low-grade, no vascular invasion seen, clear surgical margins,pT3 7 out of 19 lymph nodes showed metastatic disease pN2 Stage IIIB CEA checked on 11/19/2019 was 28.4, again right hemicolectomy was done on 11/17/2019, question whether lab was drawn before surgery but he reported on 02/17/2020 or ? Metastases repeat CEA level on 12/18/2019 was 5.2 started on adjuvant chemotherapy with Xeloda 750 mg/m??? twice a day for 2 weeks on 1 week off for 6-8 cycles on 01/07/2020 And completed 7/8 cycles of adjuvant chemotherapy with modified oral Xeloda on July 09, 2020, 8 cycle was not given because of persistent but fluctuating mild hyperbilirubinemia, which did resolve with the discontinuation of chemotherapy Normocytic normochromic anemia,due to B12 deficiency Follow-up, as could be done on December 21, 2020 showed ileocolonic anastomosis, patent, no evidence of recurrence and otherwise unremarkable Plan: Discussed with patient regarding her labs white blood count 5.5 hemoglobin 11.4 g compared to 11.5 g in March 2021 hematocrit 35.2 platelets 215,000 CMP within normal limits, CEA 4.4 Clinically, patient is doing well with no new signs symptoms just of recurrence of disease, lab work-up is within normal range except mild drop in her hemoglobin, will continue to monitor return to clinic in 6 months with CBC CMP and CEA, patient was advised in case there is evidence of gross bleeding or jaundice or progressive abdominal pain she need to call us otherwise return to clinic as scheduled in 6 months Signed By: Allyssa Call M.D. <<Signature on File>>
== END 2021-07-13 12:15 | disposition home or self-care (01) ==
PROVIDERS: PCP Family Medicine; Visit Provider Internal Medicine Hematology & Oncology
DX: Z08 Encounter for follow-up examination after completed treatment for malignant neoplasm (principal); Z85.038 Personal history of other malignant neoplasm of large intestine; D64.9 Anemia, unspecified; E53.8 Deficiency of other specified B group vitamins; Z79.01 Long term (current) use of anticoagulants; Z79.899 Other long term (current) drug therapy
CPT/HCPCS: 36415; 80053; 82378; 85025; 99214

== ENCOUNTER 2021-08-08 20:00 | Outpatient (CLI) | payer MEDICARE, MEDICAID, SELFPAY | END 2021-08-08 20:01 | disposition home or self-care (01) | LOC: SLEEP 08-09 04:03 | PROVIDERS: PCP Family Medicine; Visit Provider Family Medicine | DX: G47.33 Obstructive sleep apnea (adult) (pediatric) (principal) | CPT/HCPCS: 95810 ==

== ENCOUNTER 2021-08-21 14:16 | Emergency (ER) | payer MEDICARE, MEDICAID, SELFPAY ==
[2021-08-21 14:18] VITALS: BP 220/97; PULSE 74; RESP 16; O2SAT 96
--- NOTE | 2021-08-21 14:45 | ECG_ITS ---
[facility] Test Date: 2021-08-21 Pat Name: Ana Laurent Department: Room: Gender: Female Inspector Health Care Facilities: : 1935 Requested By: Soto Catalan Order Number: [id number] Rj MD: Christiano Villegas M.D. Measurements Intervals Williams Rate: 63 P: 69 CO: 181 QRS: -38 QRSD: 82 T: 29 QT: 411 QTc: 422 Interpretive Statements SINUS RHYTHM LEFT AXIS DEVIATION [QRS AXIS < -30] SEPTAL MYOCARDIAL INFARCTION , PROBABLY OLD [40+ ms Q WAVE IN V1/V2] Compared to ECG 05/03/2020 11:06:44 Myocardial infarct finding now present Electronically Signed On 08-21-2021 21:54:43 FOLDER INSPECTOR by Christiano Villegas M.D. [email or web address]
--- NOTE | 2021-08-21 14:45 | XRR_ITS ---
PROCEDURE INFORMATION: Exam: XR Chest Exam date and time: 08/21/2021 2:45 PM Age: 86 years old Clinical indication: Pain; Chest pressure; Additional info: Chest pain TECHNIQUE: Imaging protocol: XR of the chest. Views: 1 view. COMPARISON: CT chest abd pel w con* 10/27/2020 10:09 AM FINDINGS: Lungs: The lungs are clear. Pleural spaces: Unremarkable. No pleural effusion. No pneumothorax. Heart/Mediastinum: The heart is normal in size. Coronary artery and aortic arch calcifications are noted. Bones/joints: Unremarkable. Soft tissues: Surgical clips are again seen in the left supraclavicular region. XR/XR chest 1V portable [id number] IMPRESSION: 1. No acute pulmonary abnormality. 2. Atherosclerosis and coronary artery disease Radiation Dose CTDIVOL = (mGy): DLP = (mGy-cm)
[2021-08-21 14:50] VITALS: BP 179/79; PULSE 63; RESP 15; O2SAT 96
[2021-08-21 15:03] LABS: Basophils % 0.8 %; Eosinophils # 0.1 10^3/uL (0.0-0.8); Eosinophils % 2.4 %; Hematocrit 36.9 % (37.0-47.0); Hemoglobin 11.9 g/dL (11.5-15.3); Lymphocytes # 2.2 10^3/uL (0.8-4.8); Lymphocytes % 44.7 %; Mean Corpuscular HGB Conc 32.2 g/dL (30.0-36.0); Mean Corpuscular Hemoglobin 28.2 pg (28.0-34.0); Mean Corpuscular Volume 87.4 fl (81-99); Mean Platelet Volume 10.2 fL (7.4-10.4); Monocytes # 0.4 10^3/uL (0.2-0.9); Monocytes % 8.2 %; Neutrophils # 2.18 10^3/uL (1.8-7.7); Neutrophils % 43.7 %; Nucleated Red Blood Cells % 0 %; Platelet Count 263 10^3/cmm (130-400); Red Blood Count 4.22 10^6/uL (4.1-5.3)
[2021-08-21 15:07] LABS: INR 1.28 (0.8-1.2)
--- NOTE | 2021-08-21 15:08 | ED_ITS ---
HPI - Chest Pain General: Chief Complaint: Chest Pain Stated Complaint: CHEST PAIN Time Seen by Provider: 08/21/21 14:17 Source: patient and EMS Mode of arrival: EMS History of Present Illness: HPI narrative: 86-year-old female with known history of cardiac disease presents to the emergency department chief complaint of midsternal chest pain with no radiation has been ongoing for the last 1 day patient reports having a history of 7 cardiac stents as well as one angioplasty in the last 1 year. 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 She reports she did take 1 nitroglycerin tablet prior to arrival with mild improvement of her symptoms. Upon EMS arrival EKG look appeared unremarkable. Patient reports no recent medication changes reports that the last time she had any work-up was the angioplasty due to the small vessel that could not be stented. Patient also reports having a history of pulmonary embolisms bilaterally which she has an IVC filter as she did at one time have a small stroke due to this. Patient reports her chest pain is worse with activity relieved with rest. 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 Onset (ago): day(s) (1) Onset: during exertion Pain location: substernal Pain radiation: none Severity: moderate Quality: tightness and aching Relieving factors: nitroglycerin and rest Exacerbating factors: exertion Associated symptoms: Reports no associated symptoms; Deny abdominal pain, dyspnea, fever(s), nausea, palpitations or vomiting Review of Systems General: Reports: 10 or more systems reviewed and unremarkable except in HPI and below Const: Denies: fever(s), chills, fatigue or malaise Eyes: Denies: change in vision or blurry vision Card: Reports: chest pain; Denies: palpitations Resp: Denies: dyspnea or productive cough GI: Denies: abdominal pain, nausea or vomiting : Denies: flank pain Musc: Denies: extremity pain or extremity swelling Skin/Breast: Denies: rash or pruritus Neuro: Denies: headache(s) Psych: Denies: anxiety or depression Delvis/Lymph: Denies: easy bleeding All/Imm: Denies: urticaria, throat swelling or facial swelling PFS ED PFSH: Medical History Congestive heart failure (CHF) Coronary arteriosclerosis Hypertension Primary adenocarcinoma of ascending colon T4N2M0 adenocarcinoma of the ascending colon 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 Most likely occurred 3 months prior based off symptoms. Urinary incontinence Surgical History History of hysterectomy Status post colonoscopy (12/21/20) Status post partial colectomy 11/13/2019: Laparoscopic extended right hemicolectomy Family History Sister Cancer Mother Cardiac complication Father Cardiac complication Denies family history of Anesthesia complication Bleeding disorder Social History Smoking and tobacco status: former smoker Quit status (tobacco): has quit using tobacco Second hand smoke exposure: No Smoking risk assessment/counseling performed?: No Alcohol intake: former Desire information about alcohol rehabilitation?: No Counseling given: No Lives independently: Yes Household members: spouse Marital status: Number of children: 5 Number of grandchildren: 29 Highest education level completed: High School Graduate service: No Current occupational status: retired Pets and animals: Yes History of recent travel: No Female Reproductive History: Spontaneous abortions: No Physical Exam Const: COMMON NORMALS: no acute distress, patient oriented x3 and healthy appearing HENMT: COMMON NORMALS: normocephalic and atraumatic HEAD & SCALP: normocephalic and atraumatic Eye: COMMON NORMALS: Equal, round and reactive pupils present and EOMs intact bilaterally PUPIL: Yes Equal, round and reactive pupils present Neck/C-Spine: COMMON NORMALS: full ROM, supple and no JVD Lymph: LYMPHATIC: no lymphadenopathy noted Chest: COMMONS NORMALS: normal inspection of the chest and normal palpation of entire chest wall Resp: COMMON NORMALS: normal respiratory effort, No retractions and clear to auscultation bilaterally EFFORT & INSPECTION: Yes able to speak in complete sentences and Yes symmetric chest movement AUSCULTATION: clear to auscultation bilaterally Cardio: COMMON NORMALS: no JVD, regular rate and regular rhythm RATE: regular rate RHYTHM: regular rhythm GI: COMMON NORMALS: Normal to inspection, nondistended, normoactive bowel sounds present, Soft to palpation and non-tender INSPECTION: Yes normal to inspection PALPATION: Yes Soft to palpation : COMMON NORMALS: Yes no CVA tenderness BLADDER/KIDNEY EXAM: Yes no CVA tenderness Back/Pelvis: COMMON NORMALS: no CVA tenderness Extremity: COMMON NORMALS: normal to inspection and full ROM Neuro: COMMON NORMALS: patient oriented x3, CN's II-XII intact bilaterally, moves all extremities and no focal motor deficits Psych: COMMON NORMALS: mental status grossly normal, Normal thought process present, cooperative and normal affect THOUGHT PROCESS: Normal thought process present Skin: COMMON NORMALS: no rashes or lesions noted GENERAL SKIN EXAM: no rashes or lesions noted Course Vital Signs: Vital signs: Vital Signs Pulse Rate 66 08/21/21 17:12 Respiratory Rate 16 08/21/21 17:12 Blood Pressure 160/65 08/21/21 17:12 Pulse Oximetry 95 08/21/21 17:12 MDM - Chest Pain MDM Narrative: Medical decision making narrative: Due to the patient's symptoms and condition lab work and imaging will be obtained the patient currently patient asymptomatic will be providing her nitroglycerin tablets for pain returns initial EKG looks quite unremarkable no obvious STEMI will continue to follow with cardiac enzymes including B?MB and troponins. Lab Data: Labs: Lab Results 08/21/21 08/21/21 08/21/21 14:35 14:35 14:35 WBC 5.0 10^3/uL 10^3/ uL (4.0-10.0) RBC 4.22 10^6/uL 10^6 /uL (4.1-5.3) Hgb 11.9 g/dL g/dL (11.5-15.3) Hct 36.9 % L % (37.0-47.0) MCV 87.4 fl fl (81-99) MCH 28.2 pg pg (28.0-34.0) MCHC 32.2 g/dL g/dL (30.0-36.0) RDW 14.0 % % (12.1-15.1) Plt Count 263 10^3/cmm 10^3 /cmm (130-400) MPV 10.2 fL fL (7.4-10.4) Neut % (Auto) 43.7 % % Lymph % (Auto) 44.7 % % [place] % (Auto) 8.2 % % Eos % (Auto) 2.4 % % Baso % (Auto) 0.8 % % Neut # (Auto) 2.18 10^3/uL 10^3 /uL (1.8-7.7) Lymph # (Auto) 2.2 10^3/uL 10^3/ uL (0.8-4.8) [place] # (Auto) 0.4 10^3/uL 10^3/ uL (0.2-0.9) Eos # (Auto) 0.1 10^3/uL 10^3/ uL (0.0-0.8) Baso # (Auto) 0.0 10^3/uL 10^3/ uL (0.0-0.1) Nucleated RBC % (a uto) 0 % % Nucleated RBCs # 0.0 /100WBC /100W BC PT 16.40 SECONDS H S ECONDS (12.1-14.9) INR 1.28 H (0.8-1.2) APTT 32.0 SECONDS SECO NDS (23.9-36.7) Sodium 139 mmol/L mmol/L (136-145) Potassium 3.9 mmol/L mmol/L (3.5-5.1) Chloride 105 mmol/L mmol/L (98-107) Carbon Dioxide 22 mmol/L mmol/L (22-29) Anion Gap 15.9 (5-19) BUN 11 mg/dL mg/dL (8-23) Creatinine 0.6 mg/dL mg/dL (0.5-0.9) GFR Calculation Not Reportable Glucose 104 mg/dL mg/dL (65-115) Calculated Osmolal ity 288 mOsm/kg mOsm/ kg (285-295) Calcium 9.2 mg/dL mg/dL (8.5-10.5) Total Bilirubin 1.1 mg/dL mg/dL (0.15-1.2) AST 15 U/L U/L (0-32) ALT 10 U/L U/L (0-33) Alkaline Phosphata se 70 IU/L IU/L (35-105) Troponin T Baselin e Troponin T 120 Min native Delta Troponin T NT-Pro-B Natriuret Pep 1252 pg/mL H pg/m L (0-450) Total Protein 6.8 g/dL g/dL (6.6-8.7) Albumin 3.9 g/dL g/dL (3.5-5.2) Globulin 2.9 g/dL g/dL (1.3-4.6) Lipase 27 U/L U/L (13-60) 08/21/21 08/21/21 14:35 16:30 WBC RBC Hgb Hct MCV MCH MCHC RDW Plt Count MPV Neut % (Auto) Lymph % (Auto) [place] % (Auto) Eos % (Auto) Baso % (Auto) Neut # (Auto) Lymph # (Auto) [place] # (Auto) Eos # (Auto) Baso # (Auto) Nucleated RBC % (a uto) Nucleated RBCs # PT INR APTT Sodium Potassium Chloride Carbon Dioxide Anion Gap BUN Creatinine GFR Calculation Glucose Calculated Osmolal ity Calcium Total Bilirubin AST ALT Alkaline Phosphata se Troponin T Baselin e 9 ng/L ng/L (0-10) Troponin T 120 Min native 9.26 ng/L ng/L (0-10) Delta Troponin T 0.26 ABS# ABS# (0-10) NT-Pro-B Natriuret Pep Total Protein Albumin Globulin Lipase EKG Data^: EKG 1: Attestation: I personally reviewed and interpreted this EKG as follows: EKG interpretation date: 08/21/21 EKG interpretation time: 14:57 Ischemic changes: non-specific ST-T wave changes Interpretation: Normal sinus rhythm rate is [address] segment elevations or depressions appreciated. Mild left axis deviation noted Pacemaker function: normal pacer function Discharge Plan Discharge Condition: Stable Prescriptions: No Action ondansetron HCl [Zofran] 4 mg tablet 4 mg PO Q4H PRN (Reason: Nausea) RF: 0 metoprolol tartrate 50 mg tablet 50 mg PO BID Qty: 180 RF: 3 clopidogrel [Plavix] 75 mg Tablet 75 mg PO DAILY RF: 0 isosorbide mononitrate 30 mg Tablet Extended Release 24 Hr 30 mg PO BID RF: 0 losartan 50 mg Tablet 100 mg PO DAILY RF: 0 sertraline [Zoloft] 100 mg Tablet 100 mg PO BID RF: 0 nitroglycerin [Nitrostat] 0.4 mg Tablet, Sublingual 0.4 mg SUBLINGUAL Q5M PRN (Reason: Chest Pain) RF: 0 acetaminophen [Tylenol Extra Strength] 500 mg Tablet 500 mg PO DAILY PRN (Reason: Pain) RF: 0 coenzyme Q10 [CoQ-10] 100 mg Capsule 100 mg PO BEDTIME RF: 0 glucosamine sulfate [Glucosamine] 500 mg Tablet 1,000 mg PO DAILY RF: 0 rosuvastatin [Crestor] 20 mg Tablet 20 mg PO BEDTIME RF: 0 Eliquis DVT-PE Treat 30D Start 5 mg (74 tabs) tablets,dose pack 5 mg PO BID RF: 0 cholecalciferol (vitamin D3) [Vitamin D3] 25 mcg (1,000 unit) Tablet 25 mcg PO DAILY RF: 0 Referrals: Ousmane Reaves MD [Primary Care Provider] - Coding Level of Care Code ED Neurological Surgeon for Chg Fwd Exam Comprehensive
[2021-08-21 15:17] LABS: Troponin(5th) Baseline 9 ng/L (0-10)
[2021-08-21 15:31] LABS: Alanine Aminotransferase 10 U/L (0-33); Albumin Level 3.9 g/dL (3.5-5.2); Alkaline Phosphatase 70 IU/L (35-105); Anion Gap 15.9 (5-19); Aspartate Amino Transferase 15 U/L (0-32); Blood Urea Nitrogen 11 mg/dL (8-23); Calcium 9.2 mg/dL (8.5-10.5); Carbon Dioxide 22 mmol/L (22-29); Chloride 105 mmol/L (98-107); Globulin 2.9 g/dL (1.3-4.6); Glucose 104 mg/dL (65-115); Lipase 27 U/L (13-60); NT Pro B Type Natriuretic Pept 1252 pg/mL (0-450); Osmolality Calculated 288 mOsm/kg (285-295); Potassium 3.9 mmol/L (3.5-5.1); Sodium 139 mmol/L (136-145); Total Bilirubin 1.1 mg/dL (0.15-1.2); Total Protein 6.8 g/dL (6.6-8.7)
--- NOTE | 2021-08-21 15:38 | ED_ITS ---
HPI - Chest Pain General: Chief Complaint: Chest Pain Stated Complaint: CHEST PAIN Time Seen by Provider: 08/21/21 14:17 Source: patient, EMS and old records reviewed Mode of arrival: EMS Limitations: no limitations History of Present Illness: HPI narrative: This is a duplicate chart please remove and delete 86-year-old female presents to [facility] she did report that she had recent angioplasty in the past 1 year and so she did have one lesion that was understandable. Rgency department chief complaint of having chest pain. Patient reports having a history of 7 cardiac stents. She reports took 1 nitroglycerin tablet prior to arrival reporting having a approximate 1 day history of intermittent chest pain with no radiation she reports no shortness of breath or palpitations associated with it. 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 Patient also reports history of pulmonary embolism which she is on anticoagulation for which she has a prior history of thrombotic stroke as well as a IVC filter MD complaint: chest pain and chest heaviness Pertinent past history: coronary artery disease and prior [place] Onset (ago): day(s) (1) Timing of current episode: episodic Onset: during exertion Pain location: substernal [facility] ED PFSH: Medical History Congestive heart failure (CHF) Coronary arteriosclerosis Hypertension Primary adenocarcinoma of ascending colon T4N2M0 adenocarcinoma of the ascending colon 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 Most likely occurred 3 months prior based off symptoms. Urinary incontinence Surgical History History of hysterectomy Status post colonoscopy (12/21/20) Status post partial colectomy 11/13/2019: Laparoscopic extended right hemicolectomy Family History Sister Cancer Mother Cardiac complication Father Cardiac complication Denies family history of Anesthesia complication Bleeding disorder Social History Smoking and tobacco status: former smoker Quit status (tobacco): has quit using tobacco Second hand smoke exposure: No Smoking risk assessment/counseling performed?: No Alcohol intake: former Desire information about alcohol rehabilitation?: No Counseling given: No Lives independently: Yes Household members: spouse Marital status: Number of children: 5 Number of grandchildren: 29 Highest education level completed: High School Graduate service: No Current occupational status: retired Pets and animals: Yes History of recent travel: No Female Reproductive History: Spontaneous abortions: No Course Vital Signs: Vital signs: Vital Signs Pulse Rate 63 08/21/21 14:50 Respiratory Rate 15 08/21/21 14:50 Blood Pressure 179/79 08/21/21 14:50 Pulse Oximetry 96 08/21/21 14:50 MDM - Chest Pain Lab Data: Labs: Lab Results 08/21/21 08/21/21 08/21/21 14:35 14:35 14:35 WBC 5.0 10^3/uL 10^3/ uL (4.0-10.0) RBC 4.22 10^6/uL 10^6 /uL (4.1-5.3) Hgb 11.9 g/dL g/dL (11.5-15.3) Hct 36.9 % L % (37.0-47.0) MCV 87.4 fl fl (81-99) MCH 28.2 pg pg (28.0-34.0) MCHC 32.2 g/dL g/dL (30.0-36.0) RDW 14.0 % % (12.1-15.1) Plt Count 263 10^3/cmm 10^3 /cmm (130-400) MPV 10.2 fL fL (7.4-10.4) Neut % (Auto) 43.7 % % Lymph % (Auto) 44.7 % % [place] % (Auto) 8.2 % % Eos % (Auto) 2.4 % % Baso % (Auto) 0.8 % % Neut # (Auto) 2.18 10^3/uL 10^3 /uL (1.8-7.7) Lymph # (Auto) 2.2 10^3/uL 10^3/ uL (0.8-4.8) [place] # (Auto) 0.4 10^3/uL 10^3/ uL (0.2-0.9) Eos # (Auto) 0.1 10^3/uL 10^3/ uL (0.0-0.8) Baso # (Auto) 0.0 10^3/uL 10^3/ uL (0.0-0.1) Nucleated RBC % (a uto) 0 % % Nucleated RBCs # 0.0 /100WBC /100W BC PT 16.40 SECONDS H S ECONDS (12.1-14.9) INR 1.28 H (0.8-1.2) APTT 32.0 SECONDS SECO NDS (23.9-36.7) Sodium 139 mmol/L mmol/L (136-145) Potassium 3.9 mmol/L mmol/L (3.5-5.1) Chloride 105 mmol/L mmol/L (98-107) Carbon Dioxide 22 mmol/L mmol/L (22-29) Anion Gap 15.9 (5-19) BUN 11 mg/dL mg/dL (8-23) Creatinine 0.6 mg/dL mg/dL (0.5-0.9) GFR Calculation Not Reportable Glucose 104 mg/dL mg/dL (65-115) Calculated Osmolal ity 288 mOsm/kg mOsm/ kg (285-295) Calcium 9.2 mg/dL mg/dL (8.5-10.5) Total Bilirubin 1.1 mg/dL mg/dL (0.15-1.2) AST 15 U/L U/L (0-32) ALT 10 U/L U/L (0-33) Alkaline Phosphata se 70 IU/L IU/L (35-105) Troponin T Baselin e NT-Pro-B Natriuret Pep 1252 pg/mL H pg/m L (0-450) Total Protein 6.8 g/dL g/dL (6.6-8.7) Albumin 3.9 g/dL g/dL (3.5-5.2) Globulin 2.9 g/dL g/dL (1.3-4.6) Lipase 27 U/L U/L (13-60) 08/21/21 14:35 WBC RBC Hgb Hct MCV MCH MCHC RDW Plt Count MPV Neut % (Auto) Lymph % (Auto) [place] % (Auto) Eos % (Auto) Baso % (Auto) Neut # (Auto) Lymph # (Auto) [place] # (Auto) Eos # (Auto) Baso # (Auto) Nucleated RBC % (a uto) Nucleated RBCs # PT INR APTT Sodium Potassium Chloride Carbon Dioxide Anion Gap BUN Creatinine GFR Calculation Glucose Calculated Osmolal ity Calcium Total Bilirubin AST ALT Alkaline Phosphata se Troponin T Baselin e 9 ng/L ng/L (0-10) NT-Pro-B Natriuret Pep Total Protein Albumin Globulin Lipase Discharge Plan Discharge Condition: Stable Prescriptions: No Action ondansetron HCl [Zofran] 4 mg tablet 4 mg PO Q4H PRN (Reason: Nausea) RF: 0 metoprolol tartrate 50 mg tablet 50 mg PO BID Qty: 180 RF: 3 clopidogrel [Plavix] 75 mg Tablet 75 mg PO DAILY RF: 0 isosorbide mononitrate 30 mg Tablet Extended Release 24 Hr 30 mg PO BID RF: 0 losartan 50 mg Tablet 100 mg PO DAILY RF: 0 sertraline [Zoloft] 100 mg Tablet 100 mg PO BID RF: 0 nitroglycerin [Nitrostat] 0.4 mg Tablet, Sublingual 0.4 mg SUBLINGUAL Q5M PRN (Reason: Chest Pain) RF: 0 acetaminophen [Tylenol Extra Strength] 500 mg Tablet 500 mg PO DAILY PRN (Reason: Pain) RF: 0 coenzyme Q10 [CoQ-10] 100 mg Capsule 100 mg PO BEDTIME RF: 0 glucosamine sulfate [Glucosamine] 500 mg Tablet 1,000 mg PO DAILY RF: 0 rosuvastatin [Crestor] 20 mg Tablet 20 mg PO BEDTIME RF: 0 Eliquis DVT-PE Treat 30D Start 5 mg (74 tabs) tablets,dose pack 5 mg PO BID RF: 0 cholecalciferol (vitamin D3) [Vitamin D3] 25 mcg (1,000 unit) Tablet 25 mcg PO DAILY RF: 0 Referrals: Ousmane Reaves MD [Primary Care Provider] - Coding Level of Care Code ED Welder Apprentice Arc for [place] Fwlorri
--- NOTE | 2021-08-21 16:45 | ECG_ITS ---
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 Measurements Intervals [place] Rate: 62 P: 62 ID: [id number] QRS: -38 QRSD: 84 T: 16 QT: 407 QTc: 413 Interpretive Statements SINUS RHYTHM LEFT AXIS DEVIATION [QRS AXIS < -30] Compared to ECG 08/21/2021 14:48:29 Myocardial infarct finding no longer present Electronically Signed On 08-21-2021 21:58:39 DIRECTOR OF SALES AND MARKETING by Christiano Villegas M.D. [email or web address] [id number]
[2021-08-21 17:03] LABS: Troponin 5 2HR 9.26 ng/L (0-10); Troponin 5 2HR Delta 0.26 ABS# (0-10)
[2021-08-21] MEDS: sodium chloride 0.9% 500 ML 999 ML IV (17:11)
[2021-08-21 17:12] VITALS: BP 160/65; PULSE 66; RESP 16; O2SAT 95
[2021-08-21 18:43] VITALS: BP 162/83; PULSE 73; RESP 14; O2SAT 96
== END 2021-08-21 18:42 | disposition home or self-care (01) ==
PROVIDERS: Emergency Provider Emergency Medicine; PCP Family Medicine
DX: R07.9 Chest pain, unspecified (principal); Z79.02 Long term (current) use of antithrombotics/antiplatelets; Z79.01 Long term (current) use of anticoagulants; I11.0 Hypertensive heart disease with heart failure; I50.9 Heart failure, unspecified; I25.10 Atherosclerotic heart disease of native coronary artery without angina pectoris; Z85.038 Personal history of other malignant neoplasm of large intestine; Z86.711 Personal history of pulmonary embolism; Z87.891 Personal history of nicotine dependence
CPT/HCPCS: 71045; 80053; 83690; 83880; 84484; 85025; 85610; 85730; 93005; 99283; J7040

== ENCOUNTER 2021-10-19 08:48 | Outpatient (CLI) | payer MEDICARE, MEDICAID, SELFPAY ==
[2021-10-19 09:19] LABS: Basophils % 0.4 %; Eosinophils # 0.1 10^3/uL (0.0-0.8); Eosinophils % 1.6 %; Hematocrit 37.2 % (37.0-47.0); Lymphocytes # 1.4 10^3/uL (0.8-4.8); Lymphocytes % 20.8 %; Mean Corpuscular HGB Conc 32.3 g/dL (30.0-36.0); Mean Corpuscular Hemoglobin 27.9 pg (28.0-34.0); Mean Corpuscular Volume 86.5 fl (81-99); Mean Platelet Volume 9.6 fL (7.4-10.4); Monocytes # 0.7 10^3/uL (0.2-0.9); Monocytes % 9.8 %; Neutrophils # 4.59 10^3/uL (1.8-7.7); Neutrophils % 67.1 %; Nucleated Red Blood Cells % 0 %; Platelet Count 263 10^3/cmm (130-400); Red Cell Distribution Width 13.7 % (12.1-15.1); White Blood Count 6.8 10^3/uL (4.0-10.0)
[2021-10-19 09:55] LABS: Carcinoembryonic Antigen 3.3 ng/mL (0.0-4.7)
[2021-10-19 10:06] LABS: Alanine Aminotransferase 8 U/L (0-33); Albumin Level 3.7 g/dL (3.5-5.2); Alkaline Phosphatase 79 IU/L (35-105); Anion Gap 14.9 (5-19); Aspartate Amino Transferase 12 U/L (0-32); Blood Urea Nitrogen 11 mg/dL (8-23); Calcium 8.7 mg/dL (8.5-10.5); Carbon Dioxide 24 mmol/L (22-29); Chloride 104 mmol/L (98-107); Globulin 2.6 g/dL (1.3-4.6); Glucose 79 mg/dL (65-115); Osmolality Calculated 286 mOsm/kg (285-295); Potassium 3.9 mmol/L (3.5-5.1); Sodium 139 mmol/L (136-145); Total Bilirubin 0.8 mg/dL (0.15-1.2); Total Protein 6.3 g/dL (6.6-8.7)
--- NOTE | 2021-10-19 10:58 | ONC FU_ITS ---
Dr. Call follow up note Patient: Ana Laurent Unit #: [id number]: 1935 Dicatated By: Allyssa Call M.D.Date of Visit:Oct 19, 2021 Onc Med Follow-up/Prog Note History of Present Illness: Mrs. Laurent is a 86-year-old female with history of progressive generalized weakness and fatigue and abdominal pain. She underwent CT scan of abdomen pelvis on 11/04/2019 which showed annular constricting carcinoma ascending colon, causing partial obstruction with mild interval increase. Abnormal pericolonic lymphadenopathy. Nonspecific mild posterior pelvic peritoneal fluid. Post hysterectomy. Liver normal. 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 and (colonic adenocarcinoma with this phenotype associated with improved disease-free and overall survival in untreated stage II and III colorectal carcinomas and most commonly found in sporadic colonic glandular neoplasms, additional testing for MLH 1 gene caused by premotor hyper methylation or Ronquillo syndrome is probably not indicated) Subsequently on 11/17/2019 patient underwent right hemicolectomy and final pathology report showed moderately differentiated adenocarcinoma of colon extending through muscularis propria focally into pericolonic fat, tumor is completely excised with clear surgical margins, tumor size 6 x 5 cm in the cecum, low-grade type, no vascular invasion identified,, no perforation, e.g. pT3 7 out of 19 lymph nodes showed metastatic disease e.g.pN2 Stage IIIB Labs done on 02/17/2020 shows white blood count 4.4 hemoglobin 7.9 hematocrit 27 platelets 177,000 MCV 85.4 CMP within normal limits except glucose 409, AST 43, albumin 2.9, and CEA 28.4.repeat CEA on December 27 clinically was 5.2 She started on adjuvant chemotherapy with Xeloda 2 weeks on 1 week off for 6-8 cycles on 01/07/2020. Her treatment was put on hold after the third cycle due to hallucinations and confusion. She reported that she underwent extensive work-up for Alzheimer's at PMDs office and it was inconclusive. She did resume her fourth cycle of Xeloda on April 12, 2020. Follow-up colonoscopy done on December 21, 2020 showed ileocolonic anastomosis patent, no evidence of recurrence. Otherwise unremarkable Came for follow-up, denies any specific complaint except generalized weakness and fatigue, anxiety for which Xanax prescribed by PMD. Denies any abdominal pain, denies any melena or hematochezia denies any hemoptysis hematemesis, denies any jaundice but weight loss due to poor appetite. Medications: Acetaminophen 1 Tablet (of 500 mg) Oral at bedtime, Acetaminophen 1 - 2 Tablet (of 325 mg) Oral daily PRN, ALPRAZolam 0.5 Tablet (of 0.25 mg) Oral b.i.d. & at bedtime PRN, Cholecalciferol 1 (50,000 Units) Capsule Oral every am on W, Cholecalciferol (1500 Unit(s)) Capsule Oral every am, Clobetasol Prop Emollient Base Cream Topical PRN, [facility] Glucosamine 1 Tablet (of 1500 mg) Oral every am, Eliquis 1 (5 mg) Tablet Oral b.i.d., Furosemide 1 Tablet (of 40 mg) Oral PRN, Isosorbide Mononitrate 1 (30 mg) Tablet Oral b.i.d., K-Tab 1 Tablet (of 10 meq) Tablet, controlled release Oral PRN, Losartan Potassium 1 (50 mg) Tablet Oral b.i.d., Metoprolol Tartrate 1 (50 mg) Tablet Oral b.i.d., Nitroglycerin Tablet, sublingual Sublingual PRN, Nitrostat 1 Tablet (of 0.4 mg) Tablet, sublingual Sublingual daily PRN, Pantoprazole Sodium 1 (40 mg) Tablet, enteric coated Oral daily, Plavix 1 (75 mg) Tablet Oral every am, RisperDAL 0.5 Tablet (of 1 mg) Oral at bedtime Allergies: Belladonna, Imipramine HCl, Macrobid, Morphine Derivatives, and sulfabenzamide. Review of Systems: Review of Systems is not available for this patient. Vital Signs: Performed on Oct 19, 2021 10:06 Height - 62.00 in Weight - 150.0 lbs (LOW) BSA - 1.69 sq.m BMI - 27.44 Temperature - 98.4 F Pulse - 72 /min Respiration - 16 /min BP - 165/78 mm(hg) (HIGH) O2 Sat - 98 % Pain - 2 Fatigue - 5 Performance Status: 0 - Fully active, able to carry on all predisease activities without restrictions. (ECOG) Physical Examination: ENMT - No mouth sores, no thrush, no jaundice, no lymphadenopathy, Respiratory - Lungs are clear to auscultation, Cardiovascular - Regular rate and rhythm of heart, Abdomen - Soft, bowel sounds present, Extremities - No visible edema. Lab/Imaging: Most recent lab results are not available for this patient. Impression: Moderately differentiated adenocarcinoma of the cecum status post right hemicolectomy done on 11/17/2019, final pathology report showed moderately differentiated adenocarcinoma of the colon extending through muscularis propria focally into pericolonic fat, low-grade, no vascular invasion seen, clear surgical margins,pT3 7 out of 19 lymph nodes showed metastatic disease pN2 Stage IIIB CEA checked on 11/19/2019 was 28.4, again right hemicolectomy was done on 11/17/2019, question whether lab was drawn before surgery but he reported on 02/17/2020 or ? Metastases repeat CEA level on 12/18/2019 was 5.2 started on adjuvant chemotherapy with Xeloda 750 mg/m??? twice a day for 2 weeks on 1 week off for 6-8 cycles on 01/07/2020 And completed 7/8 cycles of adjuvant chemotherapy with modified oral Xeloda on July 09, 2020, 8 cycle was not given because of persistent but fluctuating mild hyperbilirubinemia, which did resolve with the discontinuation of chemotherapy Normocytic normochromic anemia,due to B12 deficiency Follow-up, as could be done on December 21, 2020 showed ileocolonic anastomosis, patent, no evidence of recurrence and otherwise unremarkable Plan: Discussed with patient regarding her labs white blood count 6.8 hemoglobin 12 g compared to 11.4 previously hematocrit 37.2 platelets 263,000 CMP within normal limits CEA 3.3 compared to 4.4 previously Clinically, patient doing well with no new signs symptoms history of recurrence of disease her lab work-up is within normal range including tumor marker., We will continue to monitor As far as generalized weakness and fatigue is concerned, could be due to antianxiety medication or adjustment disorder or depression, now being managed by PMD. She will return to clinic in 3 months with CBC CMP and CEA Signed By: Allyssa Call M.D. <<Signature on File>>
== END 2021-10-19 08:49 | disposition home or self-care (01) ==
LOC: ONCMED 08:54
PROVIDERS: PCP Family Medicine; Visit Provider Internal Medicine Hematology & Oncology
DX: Z08 Encounter for follow-up examination after completed treatment for malignant neoplasm (principal); Z85.038 Personal history of other malignant neoplasm of large intestine; D51.9 Vitamin B12 deficiency anemia, unspecified; R53.1 Weakness; R53.83 Other fatigue; F43.21 Adjustment disorder with depressed mood; Z79.899 Other long term (current) drug therapy; Z92.21 Personal history of antineoplastic chemotherapy
CPT/HCPCS: 36415; 80053; 82378; 85025; 99214

== ENCOUNTER 2022-01-27 09:10 | Emergency (ER) | payer MEDICARE, MEDICAID, SELFPAY ==
[2022-01-27 09:16] VITALS: BP 132/60; PULSE 68; RESP 16; TEMP 36.1; O2SAT 94; BMI 24.7
--- NOTE | 2022-01-27 09:46 | ECG_ITS ---
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 Measurements Intervals [place] Rate: 63 P: 53 LA: 186 QRS: -51 QRSD: 87 T: 33 QT: 420 QTc: 430 Interpretive Statements SINUS RHYTHM LEFT ANTERIOR FASCICULAR BLOCK [QRS AXIS <= -45, QR IN I, RS IN II] SEPTAL MYOCARDIAL INFARCTION , PROBABLY OLD [40+ ms Q WAVE IN V1/V2] INTERPRETATION BASED ON A DEFAULT AGE OF 40 YEARS Compared to ECG 08/21/2021 16:40:26 Left anterior fascicular block now present Myocardial infarct finding now present Left-axis deviation no longer present Electronically Signed On 01-27-2022 18:18:24 CDT by Reynaldo Helm M.D. [id number]
--- NOTE | 2022-01-27 09:53 | W.ED.SYNCOPE ---
HPI - Syncope General: Chief Complaint: Syncope Stated Complaint: FALL/PASSED OUT Time Seen by Provider: 01/27/22 09:16 History of Present Illness: Patient comes in after a syncopal event this morning. States that she was straining to have a bowel movement then went and took a laxative. States that after the laxative she felt like she needed to go to the bathroom and got up in a hurry. States when she got up she said she felt off like she was going to pass out. On the way to the bathroom she did pass out. Her was with her and the patient laid over on the bed and he lowered her to the floor. She did not fall to the floor. She states she woke up and had had a bowel movement while passed out. States that it was liquid stool. She denies chest pain, shortness of breath, fever, cough, congestion. She is asymptomatic at this time. Associated symptoms: Deny abdominal pain, chest pain, fever(s), headache(s) or nausea Review of Systems Const: Denies: fever(s) or body aches Eyes: Denies: change in vision or blurry vision ENMT: Denies: throat pain or odynophagia Card: Denies: chest pain or palpitations Resp: Denies: dyspnea or productive cough GI: Denies: abdominal pain, nausea or vomiting : Denies: flank pain or dysuria Musc: Denies: neck pain or back pain Skin/Breast: Denies: rash or pruritus Neuro: Reports: other (Syncope); Denies: headache(s) or numbness in extremities Psych: Denies: anxiety or change in appetite Endo: Denies: polyuria or excessive sweating FOR[facility]LY [facility], [facility] ED PFSH: Medical History (Updated 01/27/22 @ 12:46 by William Roque MD) Congestive heart failure (CHF) Coronary arteriosclerosis Hypertension Primary adenocarcinoma of ascending colon [id number] adenocarcinoma of the ascending colon Psychiatric care 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 Most likely occurred 3 months prior based off symptoms. Urinary incontinence Surgical History History of hysterectomy Status post colonoscopy (12/21/20) Status post partial colectomy 11/13/2019: Laparoscopic extended right hemicolectomy Family History Sister Cancer Mother Cardiac complication Father Cardiac complication Denies family history of Anesthesia complication Bleeding disorder Social History Smoking and tobacco status: former smoker Quit status (tobacco): has quit using tobacco Second hand smoke exposure: No Smoking risk assessment/counseling performed?: No Alcohol intake: former Desire information about alcohol rehabilitation?: No Counseling given: No Lives independently: Yes Household members: spouse Marital status: Number of children: 5 Number of grandchildren: 29 Highest education level completed: High School Graduate service: No Current occupational status: retired Pets and animals: Yes History of recent travel: No Female Reproductive History: Spontaneous abortions: No Physical Exam Const: COMMON NORMALS: no acute distress, patient oriented x3, healthy appearing and alert HENMT: COMMON NORMALS: normocephalic and atraumatic HEAD & SCALP: normocephalic and atraumatic Eye: COMMON NORMALS: Equal, round and reactive pupils present and EOMs intact bilaterally PUPIL: Yes Equal, round and reactive pupils present Neck/C-Spine: COMMON NORMALS: full ROM and supple Resp: COMMON NORMALS: normal respiratory effort, No retractions and No use of accessory muscles Cardio: COMMON NORMALS: regular rate and regular rhythm RATE: regular rate RHYTHM: regular rhythm GI: COMMON NORMALS: Normal to inspection, nondistended, normoactive bowel sounds present, Soft to palpation and non-tender PALPATION: Yes Soft to palpation Back/Pelvis: COMMON NORMALS: thoracic and lumbar spine normal to inspection and no thoracic nor lumbar tenderness Extremity: COMMON NORMALS: normal to inspection and full ROM Neuro: COMMON NORMALS: patient oriented x3 SENSORIUM/ORIENTATION: Yes alert Psych: COMMON NORMALS: mental status grossly normal and cooperative Skin: COMMON NORMALS: no rashes or lesions noted and no wounds GENERAL SKIN EXAM: no rashes or lesions noted Course Vital Signs: Vital signs: Vital Signs Temperature 96.9 F L 01/27/22 09:16 Pulse Rate 68 01/27/22 09:16 Respiratory Rate 16 01/27/22 09:16 Blood Pressure 132/60 01/27/22 09:16 Pulse Oximetry 94 01/27/22 09:16 MDM - Syncope Medical Decision Making Patient comes in after a syncopal event this morning. States that she was straining to have a bowel movement then went and took a laxative. States that after the laxative she felt like she needed to go to the bathroom and got up in a hurry. States when she got up she said she felt off like she was going to pass out. On the way to the bathroom she did pass out. Her was with her and the patient laid over on the bed and he lowered her to the floor. She did not fall to the floor. She states she woke up and had had a bowel movement while passed out. States that it was liquid stool. She denies chest pain, shortness of breath, fever, cough, congestion. She is asymptomatic at this time. Physical exam is unremarkable will check labs, EKG, and reassess. On reassessment I talked to the patient about the test results. Will discharge home at this time with precautions to return for worsening or changing symptoms. Lab Data : 01/27/22 11:01 01/27/22 11:01 Laboratory Results WBC 7.3 10^3/uL (4.0-10.0) 01/27/22 11:01 RBC 4.48 10^6/uL (4.1-5.3) 01/27/22 11:01 Hgb 12.6 g/dL (11.5-15.3) 01/27/22 11:01 Hct 38.3 % (37.0-47.0) 01/27/22 11:01 MCV 85.5 fl (81-99) 01/27/22 11:01 MCH 28.1 pg (28.0-34.0) 01/27/22 11:01 MCHC 32.9 g/dL (30.0-36.0) 01/27/22 11:01 RDW 14.8 % (12.1-15.1) 01/27/22 11:01 Plt Count 351 10^3/cmm (130-400) 01/27/22 11:01 MPV 9.3 fL (7.4-10.4) 01/27/22 11:01 Neut % (Auto) 54.3 % 01/27/22 11:01 Lymph % (Auto) 37.1 % 01/27/22 11:01 [place] % (Auto) 7.0 % 01/27/22 11:01 Eos % (Auto) 1.0 % 01/27/22 11:01 Baso % (Auto) 0.5 % 01/27/22 11:01 Neut # (Auto) 3.96 10^3/uL (1.8-7.7) 01/27/22 11:01 Lymph # (Auto) 2.7 10^3/uL (0.8-4.8) 01/27/22 11:01 [place] # (Auto) 0.5 10^3/uL (0.2-0.9) 01/27/22 11:01 Eos # (Auto) 0.1 10^3/uL (0.0-0.8) 01/27/22 11:01 Baso # (Auto) 0.0 10^3/uL (0.0-0.1) 01/27/22 11:01 Nucleated RBC % (auto) 0 % 01/27/22 11:01 Nucleated RBCs # 0.0 /100WBC 01/27/22 11:01 Sodium 133 mmol/L (136-145) L 01/27/22 11:01 Potassium 3.9 mmol/L (3.5-5.1) 01/27/22 11:01 Chloride 97 mmol/L (98-107) L 01/27/22 11:01 Carbon Dioxide 23 mmol/L (22-29) 01/27/22 11:01 Anion Gap 16.9 (5-19) 01/27/22 11:01 BUN 17 mg/dL (8-23) 01/27/22 11:01 Creatinine 0.9 mg/dL (0.5-0.9) 01/27/22 11:01 GFR Calculation Not Reportable 01/27/22 11:01 Glucose 123 mg/dL (65-115) H 01/27/22 11:01 Calculated Osmolality 279 mOsm/kg (285-295) L 01/27/22 11:01 Calcium 8.8 mg/dL (8.5-10.5) 01/27/22 11:01 Total Bilirubin 1.4 mg/dL (0.15-1.2) H 01/27/22 11:01 AST 17 U/L (0-32) 01/27/22 11:01 ALT 17 U/L (0-33) 01/27/22 11:01 Alkaline Phosphatase 73 IU/L (35-105) 01/27/22 11:01 Troponin T Baseline 12 ng/L (0-10) H 01/27/22 11:01 Total Protein 6.7 g/dL (6.6-8.7) 01/27/22 11:01 Albumin 4.3 g/dL (3.5-5.2) 01/27/22 11:01 Globulin 2.4 g/dL (1.3-4.6) 01/27/22 11:01 Discharge Plan Discharge Patient Disposition: Home Clinical Impression: Syncope Condition: Stable Prescriptions: No Action alprazolam [Xanax] 0.25 mg tablet 0.25 mg PO BID PRN (Reason: Anxiety) 0RF pantoprazole [Protonix] 40 mg tablet,delayed release (DR/EC) 40 mg PO QAM 0RF metoprolol tartrate 50 mg tablet 50 mg PO BID Qty: 180 3RF clopidogrel [Plavix] 75 mg Tablet 75 mg PO QAM 0RF isosorbide mononitrate 30 mg Tablet Extended Release 24 Hr 30 mg PO BID 0RF losartan 50 mg Tablet 50 mg PO BID 0RF nitroglycerin [Nitrostat] 0.4 mg Tablet, Sublingual 0.4 mg SUBLINGUAL Q5M PRN (Reason: Chest Pain) 0RF acetaminophen [Tylenol Extra Strength] 500 mg Tablet 500 mg PO BEDTIME 0RF cholecalciferol (vitamin D3) [Vitamin D3] 25 mcg (1,000 unit) Tablet 25 mcg PO QPM 0RF hydrochlorothiazide 12.5 mg tablet 6.25 mg PO QAM 0RF Eliquis 5 mg tablet 5 mg PO BID 0RF Zoloft 50 mg tablet 50 mg PO QAM 0RF Discharge Orders: Discharge ED (Routine); Ordered 01/27/22 Ordered By: William Roque Referrals: Ousmane Reaves MD [Primary Care Provider] - Coding Level of Care Code ED Special Equipment Technician for Chg Fwd Exam Comprehensive
[2022-01-27 11:11] LABS: Basophils % 0.5 %; Eosinophils # 0.1 10^3/uL (0.0-0.8); Hematocrit 38.3 % (37.0-47.0); Hemoglobin 12.6 g/dL (11.5-15.3); Lymphocytes # 2.7 10^3/uL (0.8-4.8); Lymphocytes % 37.1 %; Mean Corpuscular HGB Conc 32.9 g/dL (30.0-36.0); Mean Corpuscular Hemoglobin 28.1 pg (28.0-34.0); Mean Corpuscular Volume 85.5 fl (81-99); Mean Platelet Volume 9.3 fL (7.4-10.4); Monocytes # 0.5 10^3/uL (0.2-0.9); Neutrophils # 3.96 10^3/uL (1.8-7.7); Neutrophils % 54.3 %; Nucleated Red Blood Cells % 0 %; Platelet Count 351 10^3/cmm (130-400); Red Blood Count 4.48 10^6/uL (4.1-5.3); Red Cell Distribution Width 14.8 % (12.1-15.1); White Blood Count 7.3 10^3/uL (4.0-10.0)
[2022-01-27 11:35] LABS: Alanine Aminotransferase 17 U/L (0-33); Albumin Level 4.3 g/dL (3.5-5.2); Alkaline Phosphatase 73 IU/L (35-105); Anion Gap 16.9 (5-19); Aspartate Amino Transferase 17 U/L (0-32); Blood Urea Nitrogen 17 mg/dL (8-23); Calcium 8.8 mg/dL (8.5-10.5); Carbon Dioxide 23 mmol/L (22-29); Chloride 97 mmol/L (98-107); Globulin 2.4 g/dL (1.3-4.6); Glucose 123 mg/dL (65-115); Osmolality Calculated 279 mOsm/kg (285-295); Potassium 3.9 mmol/L (3.5-5.1); Sodium 133 mmol/L (136-145); Total Bilirubin 1.4 mg/dL (0.15-1.2); Total Protein 6.7 g/dL (6.6-8.7)
[2022-01-27 11:37] LABS: Troponin(5th) Baseline 12 ng/L (0-10)
--- NOTE | 2022-01-27 11:45 | PC.PHAR ---
pts and daughter verified pts medications-pts states he gives the pt half of a 12.5mg hctz tab pts states the pt takes 6.25mg daily-pts and daughter states ritalin 10mg bid and 20mg bid last filled 01/17/22 30d/s was dced from on 01/23/22 states pt last took 01/22/22-daughter states risperidone was dced also-
[2022-01-27 12:30] VITALS: BP 117/59; PULSE 57; O2SAT 96
[2022-01-27 13:01] VITALS: BP 146/67; PULSE 58; RESP 16; O2SAT 96
== END 2022-01-27 13:33 | disposition home or self-care (01) ==
PROVIDERS: Emergency Provider Emergency Medicine; PCP Family Medicine
DX: R55 Syncope and collapse (principal); I11.0 Hypertensive heart disease with heart failure; I50.9 Heart failure, unspecified; Z79.01 Long term (current) use of anticoagulants; Z86.711 Personal history of pulmonary embolism
CPT/HCPCS: 80053; 84484; 85025; 93005; 99283

== ENCOUNTER 2022-02-09 09:58 | Outpatient (CLI) | payer MEDICARE, MEDICAID, SELFPAY ==
[2022-02-09 10:19] LABS: Basophils % 0.5 %; Eosinophils # 0.2 10^3/uL (0.0-0.8); Eosinophils % 1.9 %; Hematocrit 38.3 % (37.0-47.0); Hemoglobin 12.5 g/dL (11.5-15.3); Lymphocytes % 38.3 %; Mean Corpuscular HGB Conc 32.6 g/dL (30.0-36.0); Mean Corpuscular Hemoglobin 28.1 pg (28.0-34.0); Mean Corpuscular Volume 86.1 fl (81-99); Mean Platelet Volume 9.1 fL (7.4-10.4); Monocytes # 0.8 10^3/uL (0.2-0.9); Monocytes % 10.4 %; Neutrophils # 3.82 10^3/uL (1.8-7.7); Neutrophils % 48.6 %; Nucleated Red Blood Cells % 0 %; Platelet Count 335 10^3/cmm (130-400); Red Blood Count 4.45 10^6/uL (4.1-5.3); Red Cell Distribution Width 14.3 % (12.1-15.1); White Blood Count 7.9 10^3/uL (4.0-10.0)
[2022-02-09 10:48] LABS: Carcinoembryonic Antigen 4.1 ng/mL (0.0-4.7)
[2022-02-09 10:59] LABS: Alanine Aminotransferase 19 U/L (0-33); Albumin Level 4.1 g/dL (3.5-5.2); Alkaline Phosphatase 67 IU/L (35-105); Aspartate Amino Transferase 17 U/L (0-32); Blood Urea Nitrogen 8 mg/dL (8-23); Calcium 8.9 mg/dL (8.5-10.5); Carbon Dioxide 25 mmol/L (22-29); Chloride 94 mmol/L (98-107); Globulin 2.5 g/dL (1.3-4.6); Glucose 84 mg/dL (65-115); Osmolality Calculated 268 mOsm/kg (285-295); Sodium 130 mmol/L (136-145); Total Protein 6.6 g/dL (6.6-8.7)
--- NOTE | 2022-02-12 17:11 | ONC FU_ITS ---
Dr. Call follow up note Patient: Ana Laurent Unit #: [id number]: 1935 Dicatated By: Allyssa Call M.D.Date of Visit:Feb 09, 2022 Onc Med Follow-up/Prog Note History of Present Illness: Mrs. Laurent is a 86-year-old female with history of progressive generalized weakness and fatigue and abdominal pain. She underwent CT scan of abdomen pelvis on 11/04/2019 which showed annular constricting carcinoma ascending colon, causing partial obstruction with mild interval increase. Abnormal pericolonic lymphadenopathy. Nonspecific mild posterior pelvic peritoneal fluid. Post hysterectomy. Liver normal. 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 and (colonic adenocarcinoma with this phenotype associated with improved disease-free and overall survival in untreated stage II and III colorectal carcinomas and most commonly found in sporadic colonic glandular neoplasms, additional testing for MLH 1 gene caused by premotor hyper methylation or Ronquillo syndrome is probably not indicated) Subsequently on 11/17/2019 patient underwent right hemicolectomy and final pathology report showed moderately differentiated adenocarcinoma of colon extending through muscularis propria focally into pericolonic fat, tumor is completely excised with clear surgical margins, tumor size 6 x 5 cm in the cecum, low-grade type, no vascular invasion identified,, no perforation, e.g. pT3 7 out of 19 lymph nodes showed metastatic disease e.g.pN2 Stage IIIB Labs done on 02/17/2020 shows white blood count 4.4 hemoglobin 7.9 hematocrit 27 platelets 177,000 MCV 85.4 CMP within normal limits except glucose 409, AST 43, albumin 2.9, and CEA 28.4.repeat CEA on December 27 clinically was 5.2 She started on adjuvant chemotherapy with Xeloda 2 weeks on 1 week off for 6-8 cycles on 01/07/2020. Her treatment was put on hold after the third cycle due to hallucinations and confusion. She reported that she underwent extensive work-up for Alzheimer's at [facility] office and it was inconclusive. She did resume her fourth cycle of Xeloda on April 12, 2020. Follow-up colonoscopy done on December 21, 2020 showed ileocolonic anastomosis patent, no evidence of recurrence. Otherwise unremarkable Came for follow-up, denies any specific complaints, except depression, she is on antidepressant, no scheduled to psychiatry in first week of March 2022, patient denies suicidal ideation, no fever chills, no nausea or vomiting no diarrhea or constipation, no melena or hematochezia, no hemoptysis hematemesis, no jaundice, appetite is good Medications: Acetaminophen 1 Tablet (of 500 mg) Oral at bedtime, Cholecalciferol (1000 Unit(s)) Capsule Oral every am, Clobetasol Prop Emollient Base Cream Topical PRN, diazePAM 0.5 - 1 Tablet (of 5 mg) Oral t.i.d. PRN, Eliquis 1 (5 mg) Tablet Oral b.i.d., hydroCHLOROthiazide 0.5 Tablet (of 12.5 mg) Oral daily, Isosorbide Mononitrate 1 (30 mg) Tablet Oral b.i.d., Losartan Potassium 1 (50 mg) Tablet Oral b.i.d., Metoprolol Tartrate 1 (50 mg) Tablet Oral b.i.d., Nitrostat 1 Tablet (of 0.4 mg) Tablet, sublingual Sublingual daily PRN, Pantoprazole Sodium 1 (40 mg) Tablet, enteric coated Oral daily, Plavix 1 (75 mg) Tablet Oral every am Allergies: Belladonna, Imipramine HCl, Macrobid, Morphine Derivatives, and sulfabenzamide. Review of Systems: Review of Systems is not available for this patient. Vital Signs: Performed on Feb 09, 2022 11:41 Height - 62.00 in Weight - 132.4 lbs (LOW) BSA - 1.60 sq.m BMI - 24.22 Temperature - 98.6 F Pulse - 50 /min (LOW) Respiration - 18 /min BP - 150/66 mm(hg) (HIGH) O2 Sat - 98 % Pain - 0 Fatigue - 8 Performance Status: 0 - Fully active, able to carry on all predisease activities without restrictions. (ECOG) Physical Examination: ENMT - No mouth sores, no thrush, no jaundice, Respiratory - Lungs are clear to auscultation, Cardiovascular - Regular rate and rhythm of heart, Abdomen - Soft, bowel sounds present, Extremities - No visible edema. Lab/Imaging: Most recent lab results are not available for this patient. Impression: Moderately differentiated adenocarcinoma of the cecum status post right hemicolectomy done on 11/17/2019, final pathology report showed moderately differentiated adenocarcinoma of the colon extending through muscularis propria focally into pericolonic fat, low-grade, no vascular invasion seen, clear surgical margins,pT3 7 out of 19 lymph nodes showed metastatic disease pN2 Stage IIIB CEA checked on 11/19/2019 was 28.4, again right hemicolectomy was done on 11/17/2019, question whether lab was drawn before surgery but he reported on 02/17/2020 or ? Metastases repeat CEA level on 12/18/2019 was 5.2 started on adjuvant chemotherapy with Xeloda 750 mg/m??? twice a day for 2 weeks on 1 week off for 6-8 cycles on 01/07/2020 And completed 7/8 cycles of adjuvant chemotherapy with modified oral Xeloda on July 09, 2020, 8 cycle was not given because of persistent but fluctuating mild hyperbilirubinemia, which did resolve with the discontinuation of chemotherapy Normocytic normochromic anemia,due to B12 deficiency Follow-up, as could be done on December 21, 2020 showed ileocolonic anastomosis, patent, no evidence of recurrence and otherwise unremarkable Plan: Discussed with patient regarding her labs white blood count 7.9 hemoglobin 12.5 hematocrit 38.3 platelets 335,000 CMP within normal limits CEA 4.1 Clinically, patient doing well with no new signs symptom suggestive of disease progression, lab work-up including tumor marker CEA is also within normal range. At this point, we will continue to monitor she will return to clinic in 6 months with CBC CMP and CEA As far as history of depression is concerned, patient is being treated by PMD with antidepressant and antianxiety medication, patient is scheduled to see psychiatrist in first week of March 2022 Signed By: Allyssa Call M.D. <<Signature on File>>
== END 2022-02-09 09:59 | disposition home or self-care (01) ==
PROVIDERS: PCP Family Medicine; Visit Provider Internal Medicine Hematology & Oncology
DX: Z08 Encounter for follow-up examination after completed treatment for malignant neoplasm (principal); Z85.038 Personal history of other malignant neoplasm of large intestine; D51.9 Vitamin B12 deficiency anemia, unspecified; F32.A Depression, unspecified; Z79.899 Other long term (current) drug therapy; Z92.21 Personal history of antineoplastic chemotherapy
CPT/HCPCS: 36415; 80053; 82378; 85025; 99214

== ENCOUNTER 2022-03-27 09:39 | Outpatient (CLI) | payer MEDICARE, MEDICAID, SELFPAY ==
--- NOTE | 2022-03-27 09:51 | XRR_ITS ---
PROCEDURE INFORMATION: Exam: XR Chest Exam date and time: 03/27/2022 9:56 AM Age: 86 years old Clinical indication: Dyspnea; Additional info: Dyspnea on exertion/cad/htn TECHNIQUE: Imaging protocol: XR of the chest. Views: 2 views. Total images: 2 COMPARISON: CR XR chest 1V portable [id number] 08/21/2021 4:04 PM FINDINGS: Lungs: Unremarkable. No consolidation. Pleural spaces: Unremarkable. No pleural effusion. No pneumothorax. Heart/Mediastinum: Coronary stents noted. Heart size is stable when compared to the prior exam. Vasculature: Atherosclerosis is evident. Bones/joints: Osseous structures are unchanged from the prior exam. Other findings: Stable postsurgical changes. XR/XR chest 2V* [id number] IMPRESSION: No acute cardiopulmonary process.
--- NOTE | 2022-03-27 09:51 | USCV_ITS ---
Ana Mckeon Age: 86 Gender: F : 1935 Exam Date: 03/27/2022 10:23 Ordering Phys: Ousmane Reaves MD Technologist: LNYDA [place] [facility] [place]: Dyspnea/CAD/HTN BP: 138 / 90 HR: 53 Rhythm: Sinus Technical Quality: Suboptimal MEASUREMENTS (Male / Female) Normal Values 2D ECHO LV Diastolic Diameter PLAX 3.1 cm 4.2 - 5.9 / 3.9 - 5.3 cm LV Systolic Diameter PLAX 2.2 cm IVS Diastolic Thickness 1.4 cm 0.6 - 1.0 / 0.6 - 0.9 cm IVS Systolic Thickness 1.4 cm LVPW Diastolic Thickness 1.3 cm 0.6 - 1.0 / 0.6 - 0.9 cm LVPW Systolic Thickness 1.4 cm LVOT Diameter 2.0 cm LV Ejection Fraction 2D Teich 54.6 % LA Diameter 2.3 cm Aorta at Sinotubular Diameter 2.2 cm M-MODE Aortic Annulus Diameter 2.6 cm LA Ao Ratio MM 1.0 MV E Point Septal Separation 0.5 cm DOPPLER AV Peak Velocity 119.0 cm/s LVOT Peak Velocity 69.0 cm/s AV Area Cont Eq vti 2.5 cm squared AV Area Cont Eq pk 1.8 cm squared MV Area PHT 3.1 cm squared Mitral E to A Ratio 0.8 MV E' Velocity 36.0 cm/s Mitral E to MV E' Ratio 10.3 Mitral E to LV E' Lateral Ratio 10.8 Mitral E to LV E' Septal Ratio 9.8 TR Peak Velocity 249.7 cm/s TR Peak Gradient 24.9 mmHg TV Peak E Velocity 34.0 cm/s RV Acceleration Time 0.1 s RV Ejection Time 0.4 s RV AcT/ET 0.4 FINDINGS Left Ventricle Normal left ventricular size. LV systolic function is normal with EF of 55-60%. No regional wall motion abnormalities. Grade 1 diastolic dysfunction is seen. Right Ventricle The right ventricle is normal in size and function. Right Atrium Not well-visualized Left Atrium Not well-visualized Mitral Valve Moderate mitral annular calcification without significant stenosis or prolapse. There is no mitral regurgitation. Aortic Valve Not well-visualized. No significant stenosis or regurgitation is seen. Tricuspid Valve Grossly normal without significant stenosis. Mild tricuspid regurgitation. Pulmonary artery systolic pressure is normal. Pulmonic Valve Not well-visualized Pericardium Normal pericardium without effusion. Aorta Normal ascending aorta dimension. IVC CONCLUSIONS Technically limited quality echocardiogram because of poor ultrasonic windows. Normal LV systolic function with EF 55 to 60%. Grade 1 diastolic dysfunction. Moderate mitral annular calcification. Mild tricuspid regurgitation Compared to prior echocardiogram from 10/07/2020, no significant changes are seen. Christiano Villegas MD (Electronically Signed) Final Date: 31 March 2022 23:03 S
== END 2022-03-27 09:40 | disposition home or self-care (01) ==
LOC: RAD 09:40
PROVIDERS: PCP Family Medicine; Visit Provider Family Medicine
DX: R06.00 Dyspnea, unspecified (principal); I25.10 Atherosclerotic heart disease of native coronary artery without angina pectoris; I10 Essential (primary) hypertension; I07.1 Rheumatic tricuspid insufficiency
CPT/HCPCS: 71046; 93306

== ENCOUNTER 2022-08-11 09:30 | Oncology outpatient (recurring) (ONCR) | payer MEDICARE, MEDICAID, SELFPAY ==
[2022-08-11 09:58] LABS: Basophils # 0.1 10^3/uL (0.0-0.1); Basophils % 0.9 %; Eosinophils # 0.3 10^3/uL (0.0-0.8); Eosinophils % 3.6 %; Hematocrit 38.7 % (37.0-47.0); Lymphocytes # 3.2 10^3/uL (0.8-4.8); Lymphocytes % 45.7 %; Mean Corpuscular Hemoglobin 26.5 pg (28.0-34.0); Mean Corpuscular Volume 85.6 fl (81-99); Mean Platelet Volume 9.8 fL (7.4-10.4); Monocytes # 0.6 10^3/uL (0.2-0.9); Monocytes % 8.4 %; Neutrophils # 2.91 10^3/uL (1.8-7.7); Neutrophils % 41.3 %; Nucleated Red Blood Cells % 0 %; Platelet Count 276 10^3/cmm (130-400); Red Blood Count 4.52 10^6/uL (4.1-5.3); Red Cell Distribution Width 14.6 % (12.1-15.1)
[2022-08-11 10:23] LABS: Carcinoembryonic Antigen 6.1 ng/mL (0.0-4.7)
[2022-08-11 10:34] LABS: Alanine Aminotransferase 14 U/L (0-33); Albumin Level 3.7 g/dL (3.5-5.2); Alkaline Phosphatase 94 U/L (35-105); Anion Gap 14.1 (5-19); Aspartate Amino Transferase 17 U/L (0-32); Blood Urea Nitrogen 21 mg/dL (8-23); Calcium 9.3 mg/dL (8.5-10.5); Carbon Dioxide 27 mmol/L (22-29); Chloride 102 mmol/L (98-107); Glucose 76 mg/dL (65-115); Osmolality Calculated 290 mOsm/kg (285-295); Potassium 4.1 mmol/L (3.5-5.1); Sodium 139 mmol/L (136-145); Total Bilirubin 0.7 mg/dL (0.15-1.2); Total Protein 6.7 g/dL (6.6-8.7)
== END 2022-08-14 23:59 | disposition home or self-care (01) ==
PROVIDERS: Internal Medicine Hematology & Oncology; PCP Family Medicine; Visit Provider Internal Medicine Medical Oncology
DX: C18.2 Malignant neoplasm of ascending colon (principal); C77.8 Secondary and unspecified malignant neoplasm of lymph nodes of multiple regions; R97.0 Elevated carcinoembryonic antigen [CEA]; Z90.49 Acquired absence of other specified parts of digestive tract; Z92.21 Personal history of antineoplastic chemotherapy; Z87.891 Personal history of nicotine dependence
CPT/HCPCS: 36415; 80053; 82378; 85025; 99214

== ENCOUNTER → 2022-09-20 09:13 | Outpatient (BNVA) | payer MEDICARE, MEDICAID, SELFPAY | PROVIDERS: PCP Family Medicine; Visit Provider Family Medicine | DX: I10 Essential (primary) hypertension (principal); I50.9 Heart failure, unspecified; F32.A Depression, unspecified; D64.9 Anemia, unspecified; I25.10 Atherosclerotic heart disease of native coronary artery without angina pectoris | CPT/HCPCS: 80053; 80061; 83880 ==

== ENCOUNTER 2022-09-21 08:15 | Oncology outpatient (recurring) (ONCR) | payer MEDICARE, MEDICAID, SELFPAY | END 2022-10-14 23:59 | disposition home or self-care (01) | PROVIDERS: Internal Medicine Hematology & Oncology; PCP Family Medicine; Visit Provider Internal Medicine Medical Oncology | DX: Z87.891 Personal history of nicotine dependence; Z08 Encounter for follow-up examination after completed treatment for malignant neoplasm; Z90.49 Acquired absence of other specified parts of digestive tract; Z85.038 Personal history of other malignant neoplasm of large intestine; R97.0 Elevated carcinoembryonic antigen [CEA] | CPT/HCPCS: 82378; 99214 ==

== ENCOUNTER 2022-10-21 11:45 | Outpatient (CLI) | payer MEDICARE, MEDICAID, SELFPAY ==
--- NOTE | 2022-10-21 | PETR_ITS ---
PROCEDURE INFORMATION: Exam: PET/CT Skull Base to Mid-thigh Exam date and time: 10/21/2022 12:39 PM Age: 87 years old Clinical indication: Condition or disease; Primary cancer: Moderately differentiated adenocarcinoma of colon. Extending through muscularis propria focally into pericolonic fat, tumor is completely excised with clear surgical margins. Follow-up oncological assessment; Condition/disease: F/u colon CA. Follow-up lab work-up shows progressive CEA level, now gone up to 8 compared to 6.1 previously; Prior surgery; Surgery date: 6+ months; Surgery type: 11/17/2019 patient underwent right hemicolectomy. LABS AND CLINICAL REPORTS: Glucose: 111 mg/dl Treatment strategy for malignancy (PET staging): Restaging (PS) TECHNIQUE: Imaging protocol: Following at least four-hour fasting and following the injection of F-18-FDG, low dose CT images were obtained. Then, PET images were obtained. Attenuation corrected images were constructed using the CT scan. Fused images of PET and CT were reviewed. The standardized uptake values (SUV) reported below are maximum values within a region of interest, expressed in gm/ml. Exam includes orbital meatal line to mid-thigh. Radiopharmaceutical: 12.88 mCi F-18 FDG (Fluorodeoxyglucose), IV. Time of imaging post radiopharmaceutical administration: 1 hour Injection site: Information not provided. COMPARISON: CT chest abd pel w con* 10/27/2020, CT abdomen pelvis 11/09/2019 FINDINGS: Brain: Visualized brain has normal physiologic uptake. Pharynx: No abnormal uptake. Larynx: Bilateral symmetric activity in the larynx is benign physiologic in nature. Lungs, pleura and trachea: No abnormal uptake. No lung nodules or masses. No pleural effusion Heart: Normal physiologic uptake. There is no cardiomegaly. Severe coronary artery calcification is present. There is no pericardial effusion. Mediastinal space: No abnormal uptake. Liver: 2 cm subcapsular hypodense lesion in the segment 4 on image 73 with the highest uptake of 5.5 SUV is suggestive of metastasis. It is located in the same area where 0.6 cm hypodensity with documented on 10/27/2020, and no lesion was seen on 11/09/2019. Gallbladder and bile ducts: No abnormal uptake. No calcified gallstones. Pancreas: No abnormal uptake. Spleen: No abnormal uptake. No splenomegaly. Adrenal glands: No abnormal uptake. No nodules. Kidneys and ureters: Normal physiologic uptake. No hydronephrosis. Stomach and bowel: About 1.5 cm focus of high uptake of 7.9 SUV in the upper aspect of descending colon close to the splenic flexure on image 82 and about 1 cm focus of increased uptake of 4.7 SUV in the inferior aspect of descending colon on image [address] abnormality are indeterminate. No abnormal dilatation of the bowel. Status post right hemicolectomy with no abnormality at the ileocolic anastomosis. Intraperitoneal and retroperitoneal spaces: No abnormal uptake. No ascites. Bladder: Normal physiologic uptake. Reproductive: No abnormal uptake. The uterus is absent post surgically. Vasculature: No abnormal uptake. Lymph nodes: No abnormal uptake. No lymphadenopathy in the head, neck, chest, abdomen, pelvis, and extremities. Bones/joints: Bilateral symmetric synovial uptake in the shoulders reflects benign inflammatory degenerative findings. No suspicious lytic or sclerotic bone lesions. Soft tissues: About 1 cm focus of borderline uptake of 1.1 SUV in the upper outer quadrant of the right breast associated with a couple of punctate calcifications on image 53 is indeterminate. Only 1 calcification was present in the corresponding location on the prior exam on 10/27/2020 (series 2, image 22). Surgical clips in the left supraclavicular area. [facility] [id number] IMPRESSION: 1. 2 cm subcapsular liver metastasis in the segment 4. No FDG avid lymphadenopathy, no ascites, no measurable peritoneal or omental implants, no suspicious lung nodules to suggest additional metastatic sites. 2. Two foci of increased uptake in descending colon superiorly and inferiorly are indeterminate for correlation with colonoscopy. No FDG avid abnormality at the ileocolic anastomosis to suggest local recurrence. 3. About 1 cm focus of low uptake of 1.1 SUV in the upper outer quadrant of the right breast associated with a couple of tiny calcifications while only 1 calcification was present at this location on the prior exam on 10/27/2020. If clinically warranted correlation with mammogram is recommended to assess for possibility of 2nd primary.
== END 2022-10-21 11:46 | disposition home or self-care (01) ==
LOC: RAD 10-23 06:33
PROVIDERS: PCP Family Medicine; Visit Provider Internal Medicine Medical Oncology
DX: C18.2 Malignant neoplasm of ascending colon (principal); C78.7 Secondary malignant neoplasm of liver and intrahepatic bile duct
CPT/HCPCS: 78815; A9552

== ENCOUNTER 2022-10-30 14:00 | Oncology outpatient (recurring) (ONCR) | payer MEDICARE, MEDICAID, SELFPAY ==
[2022-10-30 14:32] LABS: Basophils % 0.6 %; Eosinophils # 0.2 10^3/uL (0.0-0.8); Eosinophils % 3.4 %; Hematocrit 39.1 % (37.0-47.0); Hemoglobin 11.9 g/dL (11.5-15.3); Lymphocytes # 2.9 10^3/uL (0.8-4.8); Lymphocytes % 43.4 %; Mean Corpuscular HGB Conc 30.4 g/dL (30.0-36.0); Mean Corpuscular Hemoglobin 25.9 pg (28.0-34.0); Mean Corpuscular Volume 85.2 fl (81-99); Mean Platelet Volume 9.9 fL (7.4-10.4); Monocytes # 0.4 10^3/uL (0.2-0.9); Monocytes % 6.1 %; Neutrophils # 3.13 10^3/uL (1.8-7.7); Neutrophils % 46.4 %; Nucleated Red Blood Cells % 0 %; Platelet Count 260 10^3/cmm (130-400); Red Blood Count 4.59 10^6/uL (4.1-5.3); Red Cell Distribution Width 14.8 % (12.1-15.1); White Blood Count 6.8 10^3/uL (4.0-10.0)
[2022-10-30 15:06] LABS: Carcinoembryonic Antigen 8.6 ng/mL (0.0-4.7)
[2022-10-30 15:17] LABS: Alanine Aminotransferase 12 U/L (0-33); Alkaline Phosphatase 95 U/L (35-105); Anion Gap 14.4 (5-19); Aspartate Amino Transferase 18 U/L (0-32); Blood Urea Nitrogen 19 mg/dL (8-23); Calcium 8.7 mg/dL (8.5-10.5); Carbon Dioxide 28 mmol/L (22-29); Chloride 103 mmol/L (98-107); Globulin 2.8 g/dL (1.3-4.6); Glucose 109 mg/dL (65-115); Osmolality Calculated 295 mOsm/kg (285-295); Potassium 4.4 mmol/L (3.5-5.1); Sodium 141 mmol/L (136-145); Total Bilirubin 0.7 mg/dL (0.15-1.2); Total Protein 6.8 g/dL (6.6-8.7)
== END 2022-11-14 23:59 | disposition home or self-care (01) ==
PROVIDERS: Internal Medicine Hematology & Oncology; PCP Family Medicine; Visit Provider Internal Medicine Medical Oncology
DX: C18.2 Malignant neoplasm of ascending colon (principal); C78.5 Secondary malignant neoplasm of large intestine and rectum; C77.8 Secondary and unspecified malignant neoplasm of lymph nodes of multiple regions; N63.15 Unspecified lump in the right breast, overlapping quadrants; R97.0 Elevated carcinoembryonic antigen [CEA]; K76.89 Other specified diseases of liver; Z92.21 Personal history of antineoplastic chemotherapy; Z90.49 Acquired absence of other specified parts of digestive tract; Z87.891 Personal history of nicotine dependence
CPT/HCPCS: 36415; 80053; 82378; 85025; 99214

== ENCOUNTER 2022-11-03 10:00 | Outpatient (CLI) | payer MEDICARE, MEDICAID, SELFPAY ==
--- NOTE | 2022-11-03 10:11 | MM_ITS ---
WS: [id number] DIAGNOSTIC BILATERAL DIGITAL BREAST TOMOSYNTHESIS MAMMOGRAPHY WITH CAD RIGHT breast ultrasound, limited HISTORY: Right Breast Mass Seen On PET COMPARISON: PET/CT 10/21/2022, prior mammogram 10/02/2007. TECHNIQUE: Bilateral craniocaudad, mediolateral oblique, and mediolateral views are submitted with to mosynthesis and . Computer detection utilized. Breast composition: There are scattered areas of fibroglandular density. Dense coarse calcifications in the upper-outer quadrant of the RIGHT breast correspond to the palpable marker. Associated with th jackie calcifications is increased soft tissue which is slightly irregular and spiculated. The entire co mplex containing the mass and calcifications measures 15 x 9 mm at a middle depth. The calcifications were present on the prior study from 2006. There is been increase in both the soft tissue and the ca lcific burden since the prior study. Negative LEFT breast for mass. Benign coarse calcifications in t he LEFT breast. Bilateral breast arterial calcifications. RIGHT breast ultrasound, limited. Ultrasound directed to the 11:00 axis at the palpable site. There is a large amount shadowing from th e calcifications and probably also the soft tissue mass. The entire complex measures 1.2 x 1.4 x 1.5 cm. Mass is at 11:00 5 cm from the nipple. There is increased vascularity within a portion of the lo id tissue. MM/[place] [id number] IMPRESSION: BI-RADS: 5-Highly Suggestive of Malignancy FOLLOW UP: Biopsy Recommended Ultrasound-guided biopsy recommended of the solid mass with calcifications RIGH T breast at 11:00, 5 cm from the nipple. Notified Allyssa Call MD at 11/03/2022 11:32 AM.
== END 2022-11-03 10:01 | disposition home or self-care (01) ==
LOC: RAD 10:02
PROVIDERS: PCP Family Medicine; Visit Provider Internal Medicine Hematology & Oncology
DX: C18.9 Malignant neoplasm of colon, unspecified; N63.11 Unspecified lump in the right breast, upper outer quadrant; R92.1 Mammographic calcification found on diagnostic imaging of breast
CPT/HCPCS: 76642; 77062; G0279

== ENCOUNTER 2022-11-27 07:13 | Outpatient (CLI) | payer MEDICARE, MEDICAID, SELFPAY ==
[2022-11-15 08:24] VITALS: BMI 24.9
[2022-11-27] VITALS (16 sets, daily range): BP systolic 186–237; BP diastolic 66–91; PULSE 55–62; RESP 16–22; TEMP 36.1–36.9; O2SAT 93–99
--- NOTE | 2022-11-27 | US_ITS ---
WS: [id number] ULTRASOUND-GUIDED LIVER BIOPSY CLINICAL INFORMATION: Liver Lesion on PET COMPARISON: PET/CT October 21, 2022 FINDINGS: The procedure including risks, benefits, and complications were discussed with the patient who agreed to proceed. Timeout was performed. Using sterile technique patient was prepped and draped in the usu al sterile fashion. After 1% lidocaine utilizing real-time ultrasound guidance 4 18-gauge cores were obtained of the hepatic lesion in the dome of the liver. Lesion was somewhat difficult to access due to location dome of the liver and directly behind the ribs. No immediate complications. US/US biopsy liver [id number] IMPRESSION: 1. Uncomplicated ultrasound-guided hepatic lesion biopsy 2. Pathology is pending
[2022-11-27] MEDS: sodium chloride 0.9% 1,000 ML 30 ML IV (07:50)
[2022-11-27 08:14] LABS: INR 1.02 (0.8-1.2)
--- NOTE | 2022-11-27 09:02 | PC.NURSE ---
Addendum entered by Ziggy Echavarria RN 11/27/22 10:53: See documentation by [place] RDMS pertaining to breast biopsy. Ziggy Echavarria RN present during breast biopsy. Patient monitored q5min during breast biopsy, see hoang moderate sedation for vitals/loc. Time between end of breast biopsy and liver biopsy start used by Dr. Duncan to locate liver lesion. 11 ml 1%lidocaine used on right upper quadrant prior to biopsy. Original Note: Breast biopsy to precede Liver biopsy. [place] RDMS and Dr. Duncan to perform breast biopsy.
--- NOTE | 2022-11-27 09:30 | US_ITS ---
WS: [id number] ULTRASOUND-GUIDED RIGHT BREAST BIOPSY CLINICAL INFORMATION: Right Breast Mass COMPARISON: November 03, 2022 FINDINGS: The procedure including risks, benefits, and complications were discussed with the patient who agreed to proceed. Using sterile technique patient was prepped and draped in the usual sterile fashion. Aft er 1% lidocaine utilizing real-time ultrasound guidance 5 14-gauge cores were obtained of the RIGHT b reast lesion at the 11 o'clock position 5 cm from the nipple. Subsequently a titanium clip was placed in the biopsy cavity. No immediate complications. Pathology demonstrates: Right breast 11:00: 1. Invasive ductal carcinoma 2. Nuclear grade 2-3 3. Tumor size 8mm (glass slide measurement) 4. Microcalcifications present 5. No precursor lesion identified 6. Breast profile pending US/[place] [id number] IMPRESSION: 1. Uncomplicated ultrasound-guided RIGHT breast biopsy. 2. The pathology demonstrates invasive ductal carcinoma. 3. Breast cancer prognostic profile pending. BI-RADS: 6-Known Biopsy-Proven Malignancy FOLLOW UP: Surgical Biopsy Recommended RECOMMEND BREAST SURGERY CONSULTATION.
[2022-11-27] MEDS: fentaNYL 50 mcg/mL INJ 2mL 25 MCG IVP ×2 (09:54→10:00)
[2022-11-27] MEDS: midazolam 1 mg/mL INJ 2 mL IVP ×2 (09:54→10:00)
--- NOTE | 2022-11-27 11:03 | PC.NURSE ---
dressings to right breast and right rib area have remained clean, dry and intact
[2022-12-04 11:19] LABS: Breast Profile ER,PR,HER2,Ki-6 See Report
== END 2022-11-27 11:20 | disposition home or self-care (01) ==
PROVIDERS: Radiology Neuroradiology; PCP Family Medicine; Visit Provider Internal Medicine Hematology & Oncology
DX: K76.9 Liver disease, unspecified (principal); N63.10 Unspecified lump in the right breast, unspecified quadrant; C50.911 Malignant neoplasm of unspecified site of right female breast
CPT/HCPCS: 19083; 47000; 76942; 85610; 88305; 88307; 88342; 88361; 88374; 96374; 96375; 99152; J2250; J3010; J7030

== ENCOUNTER 2022-12-14 13:13 | Oncology outpatient (recurring) (ONCR) | payer MEDICARE, MEDICAID, SELFPAY ==
[2022-12-14 14:08] LABS: Carcinoembryonic Antigen 8.8 ng/mL (0.0-4.7)
[2022-12-14 14:19] LABS: Alanine Aminotransferase 10 U/L (0-33); Albumin Level 3.7 g/dL (3.5-5.2); Alkaline Phosphatase 98 U/L (35-105); Anion Gap 13.1 (5-19); Aspartate Amino Transferase 16 U/L (0-32); Blood Urea Nitrogen 16 mg/dL (8-23); Carbon Dioxide 28 mmol/L (22-29); Chloride 102 mmol/L (98-107); Globulin 3.1 g/dL (1.3-4.6); Glucose 90 mg/dL (65-115); Osmolality Calculated 289 mOsm/kg (285-295); Potassium 4.1 mmol/L (3.5-5.1); Sodium 139 mmol/L (136-145); Total Bilirubin 0.7 mg/dL (0.15-1.2); Total Protein 6.8 g/dL (6.6-8.7)
== END 2023-01-12 23:59 | disposition home or self-care (01) ==
PROVIDERS: Internal Medicine Hematology & Oncology; PCP Family Medicine; Visit Provider Internal Medicine Medical Oncology
DX: C50.811 Malignant neoplasm of overlapping sites of right female breast; Z17.0 Estrogen receptor positive status [ER+]; C78.7 Secondary malignant neoplasm of liver and intrahepatic bile duct; C77.8 Secondary and unspecified malignant neoplasm of lymph nodes of multiple regions; Z85.038 Personal history of other malignant neoplasm of large intestine; Z92.21 Personal history of antineoplastic chemotherapy; Z92.3 Personal history of irradiation; Z87.891 Personal history of nicotine dependence
CPT/HCPCS: 36415; 80053; 82378; 99214

== ENCOUNTER 2023-03-01 13:03 | Oncology outpatient (recurring) (ONCR) | payer MEDICARE, MEDICAID, SELFPAY ==
--- NOTE | 2023-03-01 14:06 | N.ONRAD NP_ITS ---
Radiation Oncology Consultation Patient Name: Ana Mckeon Date of : 1935 Date of Service: 03/01/2023 Attending Physician: Adarsh Ramires M.D. Ana Mckeon was seen in consultation this morning at the request of Pipe Call M.D. for consideration of adjuvant breast radiotherapy in the management of breast cancer. The patient was evaluated for a palpable right breast mass. A bilateral diagnostic mammogram (independently reviewed in [facility]) ordered on November 03, 2022 identified a 1.5 cm x 0.9 cm mass within the upper-outer quadrant of the right breast. Ultrasonography confirmed at the 11 o'clock position in the right a 1.2 cm x 1.4 cm x 1.5 cm mass that was 5 cm from the nipple. An ultrasound guided needle core biopsy completed on November 27, 2022 diagnosed a grade 2, invasive ductal carcinoma. The breast cancer prognostic profile reported positivity for estrogen receptor (95%) and negative for progesterone receptor (< 1%) and HER-2 overexpression (IHC 2+; HER-2 ratio 1.2). The Ki-67 was 5%. A right lumpectomy with axillary sentinel lymph node biopsy was performed by Glen Mackey M.D. on 2022 the pathology report confirmed a 1.7 cm, grade 2, invasive, ductal carcinoma. A low-grade DCIS measuring 0.15 mm was present. All surgical margins were uninvolved by malignancy. A total of 1 sentinel lymph node was harvested harboring metastatic disease. The lymph node measured 1.5 cm with extranodal extension present. The Oncotype DX breast recurrence score was 22. The patient was evaluated for adjuvant breast radiotherapy. I discussed with Ms. Mckeon The [place] Joint Commission on Cancer staging for breast cancer and specifically the patient's pathological stage IIA (T1cN1a) specific to her breast cancer diagnosis and The National Comprehensive Cancer Network Guidelines for adjuvant radiotherapy and The National Comprehensive Cancer Network Guidelines recommending adjuvant breast and regional giovanni radiotherapy. I also reviewed the classic studies by the [place] Breast Cancer Cooperative Group and the Early Breast Cancer Trialists??? Collaborative Group. She is aware that these studies demonstrated an overall survival improvement in patients treated with post-mastectomy radiotherapy with extrapolation to patients electing lumpectomy. I would endorse a five week course of adjuvant right breast and regional lymph node radiotherapy. A computed tomographic radiotherapy planning scan with contrast in the treatment position will be acquired to identify the clinical tumor volumes prior to beginning treatment. The potential toxicities of breast and regional lymph node irradiation were canvassed. The patient has verbalized understanding would like to defer a decision until she speaks with her family. The patient's medical treatment plan was discussed with Allyssa Call M.D. Signed by: Adarsh Ramires 03/01/2023 2:05:35 PM
== END 2023-03-14 23:59 | disposition home or self-care (01) ==
PROVIDERS: PCP Family Medicine; Visit Provider Radiology Radiation Oncology
DX: C50.811 Malignant neoplasm of overlapping sites of right female breast (principal); Z17.0 Estrogen receptor positive status [ER+]; C78.7 Secondary malignant neoplasm of liver and intrahepatic bile duct; C77.8 Secondary and unspecified malignant neoplasm of lymph nodes of multiple regions; Z85.038 Personal history of other malignant neoplasm of large intestine; Z92.21 Personal history of antineoplastic chemotherapy; Z92.3 Personal history of irradiation; Z87.891 Personal history of nicotine dependence
CPT/HCPCS: 99205; 99214

== ENCOUNTER 2023-03-16 09:42 | Oncology outpatient (recurring) (ONCR) | payer MEDICARE, MEDICAID, SELFPAY ==
[2023-03-16 10:10] VITALS: BP 133/64; PULSE 80; TEMP 36.7; O2SAT 95
[2023-03-16 10:33] LABS: Basophils # 0.1 10^3/uL (0.0-0.1); Basophils % 0.7 %; Eosinophils # 0.2 10^3/uL (0.0-0.8); Eosinophils % 3.1 %; Hematocrit 36.7 % (37.0-47.0); Hemoglobin 11.4 g/dL (11.5-15.3); Lymphocytes # 2.7 10^3/uL (0.8-4.8); Lymphocytes % 38.7 %; Mean Corpuscular HGB Conc 31.1 g/dL (30.0-36.0); Mean Corpuscular Hemoglobin 26.5 pg (28.0-34.0); Mean Corpuscular Volume 85.2 fl (81-99); Mean Platelet Volume 9.4 fL (7.4-10.4); Monocytes # 0.8 10^3/uL (0.2-0.9); Monocytes % 11.4 %; Neutrophils # 3.16 10^3/uL (1.8-7.7); Nucleated Red Blood Cells % 0 %; Platelet Count 301 10^3/cmm (130-400); Red Blood Count 4.31 10^6/uL (4.1-5.3); Red Cell Distribution Width 15.5 % (12.1-15.1); White Blood Count 6.9 10^3/uL (4.0-10.0)
[2023-03-16 10:54] LABS: Alanine Aminotransferase 14 U/L (0-33); Albumin Level 3.7 g/dL (3.5-5.2); Alkaline Phosphatase 99 U/L (35-105); Anion Gap 15.5 (5-19); Aspartate Amino Transferase 21 U/L (0-32); Blood Urea Nitrogen 16 mg/dL (8-23); Calcium 9.1 mg/dL (8.5-10.5); Carbon Dioxide 25 mmol/L (22-29); Chloride 100 mmol/L (98-107); Globulin 3.1 g/dL (1.3-4.6); Glucose 85 mg/dL (65-115); Osmolality Calculated 282 mOsm/kg (285-295); Potassium 4.5 mmol/L (3.5-5.1); Sodium 136 mmol/L (136-145); Total Bilirubin 0.5 mg/dL (0.15-1.2); Total Protein 6.8 g/dL (6.6-8.7)
== END 2023-04-13 23:59 | disposition home or self-care (01) ==
PROVIDERS: PCP Family Medicine; Visit Provider Internal Medicine Hematology & Oncology
DX: C50.811 Malignant neoplasm of overlapping sites of right female breast (principal); C18.2 Malignant neoplasm of ascending colon; R97.0 Elevated carcinoembryonic antigen [CEA]; Z17.0 Estrogen receptor positive status [ER+]; C78.7 Secondary malignant neoplasm of liver and intrahepatic bile duct; C77.8 Secondary and unspecified malignant neoplasm of lymph nodes of multiple regions; Z85.038 Personal history of other malignant neoplasm of large intestine; Z92.21 Personal history of antineoplastic chemotherapy; Z92.3 Personal history of irradiation; Z87.891 Personal history of nicotine dependence; C78.5 Secondary malignant neoplasm of large intestine and rectum; N63.15 Unspecified lump in the right breast, overlapping quadrants; K76.89 Other specified diseases of liver; Z90.49 Acquired absence of other specified parts of digestive tract; Z08 Encounter for follow-up examination after completed treatment for malignant neoplasm
CPT/HCPCS: 36415; 80053; 85025; 99214

== ENCOUNTER → 2023-03-21 08:57 | Outpatient (BNVA) | payer MEDICARE, MEDICAID, SELFPAY | PROVIDERS: PCP Family Medicine; Visit Provider Nurse Practitioner Family | DX: R39.9 Unspecified symptoms and signs involving the genitourinary system (principal); N30.01 Acute cystitis with hematuria | CPT/HCPCS: 81000 ==

== ENCOUNTER 2023-05-03 11:22 | Outpatient (CLI) | payer MEDICARE, MEDICAID, SELFPAY ==
--- NOTE | 2023-05-03 11:24 | XR_ITS ---
WS: [id number] Exam: XR chest 2V* [id number] Date/Time of Exam: 05/03/2023 11:32 AM Reason For Exam: chest pain Comparison 03/27/2022. The lungs are hyperinflated and clear. Cardiomediastinal silhouette is unremarkable. Coronary artery stent noted. No pleural effusions. Bony structures are intact. Surgical clips seen in the left pulmon oscar apex and also the region of the right breast. Moderate degenerative changes of the thoracic and v isualized lumbar spine with slight scoliosis. XR/XR chest 2V* [id number] IMPRESSION: 1. No acute cardiopulmonary finding.
== END 2023-05-03 11:23 | disposition home or self-care (01) ==
PROVIDERS: PCP Family Medicine; Visit Provider Family Medicine
DX: R07.9 Chest pain, unspecified (principal)
CPT/HCPCS: 71046

== ENCOUNTER 2023-06-06 13:49 | Oncology outpatient (recurring) (ONCR) | payer MEDICARE, MEDICAID, SELFPAY ==
[2023-06-06 14:46] VITALS: BP 120/65; PULSE 80; RESP 18; TEMP 36.7; O2SAT 95
[2023-06-06 14:50] LABS: Hematocrit 36.1 % (36-47); Mean Corpuscular Volume 85.3 fl (85-98); Red Blood Count 4.23 10^6/uL (3.85-5.65); White Blood Count 7.76 10^3/uL (3.29-11.43)
[2023-06-06 14:51] LABS: Basophils % 0.5 %; Eosinophils # 0.2 10^3/uL (0.0-0.8); Eosinophils % 2.4 %; Lymphocytes # 3.7 10^3/uL (0.8-4.8); Lymphocytes % 47.8 %; Mean Corpuscular HGB Conc 32.1 g/dL (30-55); Mean Corpuscular Hemoglobin 27.4 pg (27-33); Monocytes # 0.8 10^3/uL (0.2-0.9); Monocytes % 9.7 %; Neutrophils # 3.05 10^3/uL (1.8-7.7); Neutrophils % 39.3 %; Nucleated Red Blood Cells % 0 %; Platelet Count 320 10^3/cmm (157-399); Red Cell Distribution Width 15.1 % (12.1-15.1)
[2023-06-06 15:25] LABS: Alanine Aminotransferase 12 U/L (0-33); Albumin Level 3.9 g/dL (3.5-5.2); Alkaline Phosphatase 100 U/L (35-105); Anion Gap 15.5 (5-19); Aspartate Amino Transferase 21 U/L (0-32); Blood Urea Nitrogen 18 mg/dL (8-23); Carbon Dioxide 26 mmol/L (22-29); Chloride 100 mmol/L (98-107); Globulin 2.9 g/dL (1.3-4.6); Glucose 132 mg/dL (65-115); Osmolality Calculated 288 mOsm/kg (285-295); Potassium 4.5 mmol/L (3.5-5.1); Sodium 137 mmol/L (136-145); Total Bilirubin 0.5 mg/dL (0.15-1.2); Total Protein 6.8 g/dL (6.6-8.7)
== END 2023-06-14 23:59 | disposition home or self-care (01) ==
PROVIDERS: Internal Medicine Medical Oncology; PCP Family Medicine; Visit Provider Internal Medicine Hematology & Oncology
DX: C50.811 Malignant neoplasm of overlapping sites of right female breast (principal); C18.2 Malignant neoplasm of ascending colon; R97.0 Elevated carcinoembryonic antigen [CEA]; Z17.0 Estrogen receptor positive status [ER+]; C78.7 Secondary malignant neoplasm of liver and intrahepatic bile duct; C77.8 Secondary and unspecified malignant neoplasm of lymph nodes of multiple regions; Z85.038 Personal history of other malignant neoplasm of large intestine; Z92.21 Personal history of antineoplastic chemotherapy; Z92.3 Personal history of irradiation; Z87.891 Personal history of nicotine dependence; C78.5 Secondary malignant neoplasm of large intestine and rectum; N63.15 Unspecified lump in the right breast, overlapping quadrants; K76.89 Other specified diseases of liver; Z90.49 Acquired absence of other specified parts of digestive tract; Z08 Encounter for follow-up examination after completed treatment for malignant neoplasm
CPT/HCPCS: 36415; 80053; 85025; 99214

== ENCOUNTER 2023-07-03 16:03 | Outpatient (CLI) | payer MEDICARE, MEDICAID, SELFPAY ==
--- NOTE | 2023-07-03 16:30 | CT_ITS ---
WS: [id number] CTA OF THE CHEST WITH PULMONARY EMBOLISM PROTOCOL TECHNIQUE: High-resolution contrast enhanced CTA of the chest with coronal and sagittal reformatted i timothys with pulmonary embolism protocol. MIP images are also reviewed. CLINICAL INFORMATION: dyspnea. History of colon cancer and breast cancer. COMPARISON: PET/CT 10/21/2022 DLP: 237.[address] scans at [facility] use at least one of these dose optimization techniques: automated e xposure control; mA and/or kV adjustment per patient size (includes targeted exams where dose is matc hed to clinical indication); or iterative reconstruction. FINDINGS: Proximal main pulmonary arteries are normal. Normal segmental and subsegmental pulmonary arteries. No evidence of pulmonary embolus. Previously biopsied hepatic lesion in liver dome appears larger today with a small amount of central calcification. This measures approximately 4.1 x 4.0 cm. Recommend additional biopsy considering incr easing size and history of breast and colon carcinoma. Metastatic disease versus primary liver neopla sm are are considerations. Associated capsular liver thickening. Lungs are well aerated. No acute pulmonary infiltrates. Mild chronic emphysematous changes. Post lump ectomy changes RIGHT breast with central low-attenuation change likely seroma. Recommend continued prescott rveillance with diagnostic mammography and ultrasound. Hypertrophic changes thoracic spine. Mild thoracic kyphosis. Tiny esophageal hernia. Splenic artery c alcifications. Adrenal glands are normal. IMPRESSION: 1. No evidence of pulmonary embolus. 2. Mild chronic emphysematous changes. No acute pulmonary infiltrates. No suspicious pulmonary paren chymal opacities. 3. Increasing liver lesion previously biopsied. Today this measures approximately 4.1 x 4.0 cm with capsular thickening suspicious for neoplasm or metastatic disease. Recommend additional ultrasound-gu ided biopsy. Small amount of central calcification today. 4. Postoperative changes RIGHT lumpectomy with surgical clips. Central low-attenuation likely seroma . Recommend continued surveillance with diagnostic mammography and ultrasound. Notified Ousmane Reaves MD at 07/04/2023 9:58 AM.
[2023-07-03] MEDS: iohexol 350 mg/mL 500 mL Btl (per mL) IV (16:50)
== END 2023-07-03 16:04 | disposition home or self-care (01) ==
LOC: RAD 16:10
PROVIDERS: PCP Family Medicine; Visit Provider Family Medicine
DX: I25.10 Atherosclerotic heart disease of native coronary artery without angina pectoris (principal); I26.99 Other pulmonary embolism without acute cor pulmonale; R06.00 Dyspnea, unspecified; K76.9 Liver disease, unspecified; Z85.3 Personal history of malignant neoplasm of breast; Z85.038 Personal history of other malignant neoplasm of large intestine
CPT/HCPCS: 71275; Q9967

== ENCOUNTER 2023-07-09 08:02 | Outpatient (CLI) | payer MEDICARE, MEDICAID, SELFPAY ==
--- NOTE | 2023-07-09 | ECG_ITS ---
[facility] Test Date: 2023-07-09 Pat Name: Ana Mckeon Department: Room: Gender: Female [employer] Consultant: Aureliano David : 1935 Requested By: Ousmane Vigil Order Number: [id number] Rj MD: Reynaldo Helm M.D. Interpretive Statements NAME OF STUDY: LEXISCAN SESTAMIBI STRESS TEST INDICATION: Dyspnea, PROCEDURE: At the baseline, the EKG revealed normal sinus rhythm with poor R wave progression. Left axis deviation. Some nonspecific T wave changes. Rare PVCs. The baseline heart was 65 bpm with a blood pressue of 180/64 mm of Hg Lexiscan was infused over a period of 20 seconds. A total of 0.4 milligrams of Lexiscan was infused. The stress phase was continued for a total of 5 minutes. Heart rate at the end of the stress phase was 76 bpm with a blood pressure 176/63 mm of Hg. The EKG at the peak infusion revealed no significant changes. Sestamibi was injected 20 seconds after the Lexiscan infusion. Heart rate at the end of the recovery phase was 75 bpm with a blood pressure of 176/65 mm of Hg. CONCLUSION: 1. No significant EKG changes with the LexiScan infusion 2. No LexiScan induced chest pain or cardiac arrhythmia 3. Normal blood pressure and heart rate response 4. Sestamibi/sestamibi perfusion scan pending; see separate report. Electronically Signed On 07-12-2023 23:31:38 CDT by Reynaldo Helm M.D. [id number]
[2023-07-09 08:29] VITALS: BMI 23.9
--- NOTE | 2023-07-09 08:29 | NMCV_ITS ---
NM gunnar perf SPECT r/s* [id number] Ana Mckeon Age: 88 Gender: F : 1935 Exam Date: 07/09/2023 09:14 Ordering Phys: Ousmane Reaves MD Technologist: LIVIA Matson Exam Location: [facility] Indications: ATHEROSCLEROTIC HEART DISEASE, SHORTNESS OF BREATH STRESS TEST Please see separate stress test report in [facility] for full findings IMAGE PROTOCOL Rest/Stress 1 Lexiscan Day Radiopharmaceutical Dose (mCi) Administration Site Administered by Rest: Tc-99m 10.8 IV LIVIA Pina Sestamibi Stress:Tc-99m 32.4 IV LIVIA Pina Sestamibi Rest: 09-Jul-2023 60 Discovery 630 Stress: 09-Jul-2023 30 Discovery 630 0.4mg Lexiscan. Images obtained in supine and prone position. SPECT RESULTS Technical Quality: Excellent Raw Data Analysis: Normal Image Corrections: No attenuation or motion correction applied Summed Stress Score: 1 Summed Rest Score: 0 Summed Difference Score: 1 PERFUSION FINDINGS A very small area of slightly decreased tracer uptake was noted in the LV apex with some reversibility, only with the supine imaging. With the prone imaging, no significant reversible defects were noted FUNCTIONAL RESULTS (calculated via Gated SPECT) Stress Image LV EF (%): 80 Stress EDV (mL):64 TID: 1 Stress ESV (mL):13 FUNCTIONAL FINDINGS: LV wall motion analysis revealing no gross wall motion abnormalities. IMPRESSIONS 1. Myocardial perfusion imaging revealing a very small area of inconsistent was noted in the LV apex, most likely artifactual 2. Normal LV ejection fraction of 80%. 3. LV wall motion analysis revealing no gross wall motion abnormalities. 4. Normal LV volume Low probability for coronary ischemia, based on the above findings Dr Reynaldo Helm MD FACC (Electronically Signed) Final Date: 09 July 2023 13:14 S
[2023-07-09] MEDS: regadenoson 0.4 Mg/5 ml Syringe IVP (10:12)
[2023-07-09 10:30] VITALS: BP 179/67; PULSE 77
== END 2023-07-09 08:03 | disposition home or self-care (01) ==
LOC: CDL 08:03
PROVIDERS: PCP Family Medicine; Visit Provider Family Medicine
DX: R06.00 Dyspnea, unspecified (principal); I25.10 Atherosclerotic heart disease of native coronary artery without angina pectoris; R06.02 Shortness of breath
CPT/HCPCS: 36415; 78452; 93017; 96374; A9500; J2785

== ENCOUNTER 2023-07-26 11:22 | Outpatient (CLI) | payer MEDICARE, MEDICAID, SELFPAY ==
[2023-07-26] VITALS (13 sets, daily range): BP systolic 114–148; BP diastolic 55–77; PULSE 59–64; RESP 13–22; TEMP 36.1–36.6; O2SAT 88–98
[2023-07-26] MEDS: sodium chloride 0.9% 1,000 ML 30 ML IV (11:52)
[2023-07-26 12:25] LABS: INR 1.06 (0.8-1.2)
--- NOTE | 2023-07-26 12:45 | US_ITS ---
WS: [id number] ULTRASOUND-GUIDED LIVER BIOPSY. CLINICAL INFORMATION: liver nodule COMPARISON: CTA chest 07/03/2023 TECHNIQUE: The procedure including risk, benefits, and complications were discussed with the patient who agreed to proceed. Timeout was performed. Conscious sedation was utilized. Using sterile technique, the patient was prepped and draped in the usual sterile fashion. Patient was positioned supine and LEFT side down with ultrasound images obtained through the liver. The hypoech oic mass in the dome of the liver was selected. After 1% lidocaine using ultrasound guidance, an 18-g auge coaxial needle was advanced into the liver mass. Approximately 8 samples were obtained. Post pro cedure ultrasound images demonstrate no significant hematoma. No immediate complications. Patient rem ained in the GI lab 1 hour post procedure and was discharged in stable condition. IMPRESSION: 1. Multiple 18-gauge core samples were obtained of the hypoechoic liver mass. No immediate complicat ions. 2. Patient was discharged 1 hour postprocedure in stable condition.
[2023-07-26] MEDS: fentaNYL 50 mcg/mL INJ 2mL 25 MCG IVP ×2 (13:00→13:05)
[2023-07-26] MEDS: midazolam 1 mg/mL INJ 2 mL IVP ×2 (13:01→13:06)
== END 2023-07-26 15:00 | disposition home or self-care (01) ==
PROVIDERS: Radiology Neuroradiology; PCP Family Medicine; Visit Provider Family Medicine
DX: R16.0 Hepatomegaly, not elsewhere classified (principal)
CPT/HCPCS: 36415; 47000; 76942; 85610; 88307; 88341; 88342; 88360; 88381; 96374; 99152; 99153; J2250; J3010; J7030

== ENCOUNTER 2023-08-07 09:48 | Oncology outpatient (recurring) (ONCR) | payer MEDICARE, MEDICAID, SELFPAY ==
[2023-08-07 10:53] LABS: Basophils % 0.6 %; Eosinophils # 0.2 10^3/uL (0.0-0.8); Eosinophils % 2.8 %; Hematocrit 35.1 % (36-47); Lymphocytes # 2.8 10^3/uL (0.8-4.8); Lymphocytes % 40.3 %; Mean Corpuscular HGB Conc 31.1 g/dL (30-55); Mean Corpuscular Hemoglobin 26.7 pg (27-33); Mean Platelet Volume 9.3 fL (7.4-10.4); Monocytes # 0.5 10^3/uL (0.2-0.9); Monocytes % 7.6 %; Neutrophils # 3.33 10^3/uL (1.8-7.7); Neutrophils % 48.4 %; Nucleated Red Blood Cells % 0 %; Platelet Count 326 10^3/cmm (157-399); Red Blood Count 4.08 10^6/uL (3.85-5.65); Red Cell Distribution Width 15.1 % (12.1-15.1); White Blood Count 6.87 10^3/uL (3.29-11.43)
[2023-08-07 11:20] LABS: Carcinoembryonic Antigen 27.2 ng/mL (0.0-4.7)
[2023-08-07 11:31] LABS: Alanine Aminotransferase 11 U/L (0-33); Albumin Level 3.8 g/dL (3.5-5.2); Alkaline Phosphatase 115 U/L (35-105); Aspartate Amino Transferase 16 U/L (0-32); Blood Urea Nitrogen 14 mg/dL (8-23); Calcium 9.4 mg/dL (8.5-10.5); Carbon Dioxide 28 mmol/L (22-29); Chloride 100 mmol/L (98-107); Globulin 2.8 g/dL (1.3-4.6); Glucose 130 mg/dL (65-115); Osmolality Calculated 286 mOsm/kg (285-295); Sodium 137 mmol/L (136-145); Total Bilirubin 0.5 mg/dL (0.15-1.2); Total Protein 6.6 g/dL (6.6-8.7)
== END 2023-08-14 23:59 | disposition home or self-care (01) ==
PROVIDERS: Internal Medicine Medical Oncology; PCP Family Medicine; Visit Provider Internal Medicine Hematology & Oncology
DX: C50.811 Malignant neoplasm of overlapping sites of right female breast (principal); C18.2 Malignant neoplasm of ascending colon; R97.0 Elevated carcinoembryonic antigen [CEA]; Z17.0 Estrogen receptor positive status [ER+]; C78.7 Secondary malignant neoplasm of liver and intrahepatic bile duct; C77.8 Secondary and unspecified malignant neoplasm of lymph nodes of multiple regions; Z85.038 Personal history of other malignant neoplasm of large intestine; Z92.21 Personal history of antineoplastic chemotherapy; Z92.3 Personal history of irradiation; Z87.891 Personal history of nicotine dependence; C78.5 Secondary malignant neoplasm of large intestine and rectum; N63.15 Unspecified lump in the right breast, overlapping quadrants; K76.89 Other specified diseases of liver; Z90.49 Acquired absence of other specified parts of digestive tract; Z08 Encounter for follow-up examination after completed treatment for malignant neoplasm
CPT/HCPCS: 36415; 80053; 82378; 85025; 99215

== ENCOUNTER 2023-08-21 14:57 | Outpatient (CLI) | payer MEDICARE, MEDICAID, SELFPAY ==
--- NOTE | 2023-08-21 09:30 | PETR_ITS ---
PROCEDURE INFORMATION: Exam: PET/CT Skull Base to Mid-thigh Exam date and time: 08/21/2023 9:53 AM Age: 88 years old Clinical indication: Condition or disease; Primary cancer: Metastatic colon cancer. Previously provided history of breast cancer. Recent ultrasound-guided liver biopsy 07/26/2023. LABS AND CLINICAL REPORTS: Glucose: 116 mg/dl Treatment strategy for malignancy (PET staging): Restaging (PS) TECHNIQUE: Imaging protocol: Following at least four-hour fasting and following the injection of radiopharmaceutical, low dose CT images were obtained. Then, PET images were obtained. Attenuation corrected images were constructed using the CT scan. Fused images of PET and CT were reviewed. The standardized uptake values (SUV) reported below are maximum values within a region of interest, expressed in gm/ml. Exam includes orbital meatal line to mid-thigh. Radiopharmaceutical: 8.45 mCi F-18 FDG (Fluorodeoxyglucose), IV. Time of imaging post radiopharmaceutical administration: 1 hour Injection site: Not specified COMPARISON: CTA chest 07/03/2023, PT PET skulltothi SUBSEQ [id number] 10/21/2022 12:39 PM FINDINGS: Brain: Visualized brain has normal physiologic uptake. Oral cavity: There is physiologic appearing uptake in the anterior tongue without evidence of a discrete lesion on the CT images. Pharynx: No abnormal uptake. Larynx: No abnormal uptake. Lungs, pleura and trachea: No abnormal uptake. Heart: Normal physiologic uptake. Mediastinal space: No abnormal uptake. Liver: A radiotracer avid lesion in the anterior dome of the liver currently demonstrates elevated uptake in its periphery with an SUV max 8.6 (previously 5.5). This is within a region of hypodensity measuring approximately 6 cm in diameter (previously approximately 4 cm in diameter on the prior PET-CT). Gallbladder and bile ducts: No abnormal uptake. Pancreas: No abnormal uptake. Spleen: No abnormal uptake. Adrenal glands: No abnormal uptake. Kidneys and ureters: Normal physiologic uptake. Stomach and bowel: There is physiologic appearing uptake within the stomach and bowel. Postoperative changes of right colectomy. Vasculature: No abnormal uptake. There are diffuse atherosclerotic changes. Lymph nodes: No abnormal uptake. No lymphadenopathy in the head, neck, chest, abdomen, pelvis, and extremities. Bones/joints: Mild elevated uptake in the anterior humeral head near the bicipital groove is noted in a region measuring approximately 1 cm, SUV max 4.3 (previously 4.1) without a well-defined lesion on the CT images. Postoperative changes within the humeral head in this region appear similar. Moderate bilateral glenohumeral joint primary osteoarthritic changes are noted. Uzzn-pt-ntobbawu right hip primary osteoarthritic changes are noted. Degenerative changes in the spine are noted.The bones appear demineralized. Soft tissues: No abnormal uptake in the visualized head, neck, chest, abdomen, pelvis, and extremities. Surgical clips in the superolateral right breast surround a thin walled non radiotracer avid fluid collection measuring 2.3 cm in diameter on series 3, image 129 compatible with interval postoperative changes since the prior PET-CT. METRICS: Mediastinal blood pool: SUV max 2.3 [facility] [id number] IMPRESSION: Interval increase in size of a previously noted radiotracer avid metastatic lesion within the liver compared with the prior PET-CT with interval increase in uptake compatible with increased neoplastic involvement. No additional areas of radiotracer avid malignancy. Probable degenerative or inflammatory uptake in the right humeral head. A new small fluid collection in the superolateral right breast is noted compared with the prior PET-CT compatible with a postoperative seroma. Additional nonurgent findings as detailed above.
== END 2023-08-21 14:58 | disposition home or self-care (01) ==
LOC: RAD 14:57
PROVIDERS: PCP Internal Medicine Medical Oncology; Visit Provider Family Medicine
DX: C78.5 Secondary malignant neoplasm of large intestine and rectum (principal); C78.7 Secondary malignant neoplasm of liver and intrahepatic bile duct; Z85.3 Personal history of malignant neoplasm of breast
CPT/HCPCS: 78815; A9552

== ENCOUNTER 2023-09-14 09:13 | Oncology outpatient (recurring) (ONCR) | payer MEDICARE, MEDICAID, SELFPAY ==
[2023-09-14 09:47] LABS: Basophils % 0.5 %; Eosinophils # 0.2 10^3/uL (0.0-0.8); Eosinophils % 2.4 %; Hematocrit 40.3 % (36-47); Lymphocytes # 3.2 10^3/uL (0.8-4.8); Lymphocytes % 40.1 %; Mean Corpuscular Hemoglobin 26.9 pg (27-33); Mean Corpuscular Volume 86.9 fl (85-98); Mean Platelet Volume 8.9 fL (7.4-10.4); Monocytes # 0.7 10^3/uL (0.2-0.9); Monocytes % 8.5 %; Neutrophils # 3.82 10^3/uL (1.8-7.7); Neutrophils % 48.4 %; Nucleated Red Blood Cells % 0 %; Platelet Count 393 10^3/cmm (157-399); Red Blood Count 4.64 10^6/uL (3.85-5.65); Red Cell Distribution Width 15.5 % (12.1-15.1); White Blood Count 7.89 10^3/uL (3.29-11.43)
[2023-09-14 10:12] LABS: Carcinoembryonic Antigen 42.2 ng/mL (0.0-4.7)
[2023-09-14 10:23] LABS: Alanine Aminotransferase 12 U/L (0-33); Alkaline Phosphatase 133 U/L (35-105); Anion Gap 16.2 (5-19); Aspartate Amino Transferase 20 U/L (0-32); Blood Urea Nitrogen 16 mg/dL (8-23); Calcium 9.8 mg/dL (8.5-10.5); Carbon Dioxide 28 mmol/L (22-29); Chloride 98 mmol/L (98-107); Globulin 3.4 g/dL (1.3-4.6); Glucose 107 mg/dL (65-115); Osmolality Calculated 288 mOsm/kg (285-295); Potassium 4.2 mmol/L (3.5-5.1); Sodium 138 mmol/L (136-145); Total Bilirubin 0.5 mg/dL (0.15-1.2); Total Protein 7.4 g/dL (6.6-8.7)
== END 2023-10-14 23:59 | disposition home or self-care (01) ==
PROVIDERS: Internal Medicine Medical Oncology; PCP Family Medicine; Visit Provider Internal Medicine Hematology & Oncology
DX: C50.811 Malignant neoplasm of overlapping sites of right female breast (principal); C18.2 Malignant neoplasm of ascending colon
CPT/HCPCS: 36415; 80053; 82378; 85025

== ENCOUNTER 2023-11-08 14:08 | Observation (INO) | payer MEDICARE, MEDICAID, SELFPAY ==
[2023-11-08] VITALS (10 sets, daily range): BP systolic 103–173; BP diastolic 54–85; PULSE 67–113; RESP 16–17; TEMP 36.6–36.8; O2SAT 91–97
--- NOTE | 2023-11-08 14:29 | ECG_ITS ---
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 Measurements Intervals Russell Rate: 75 P: 70 MN: 173 QRS: -39 QRSD: 94 T: 52 QT: 423 QTc: 475 Interpretive Statements SINUS RHYTHM LEFT AXIS DEVIATION [QRS AXIS < -30] SEPTAL MYOCARDIAL INFARCTION , OF INDETERMINATE AGE [40+ ms Q WAVE IN V1/V2] Compared to ECG 01/27/2022 10:21:43 Left-axis deviation now present Left anterior fascicular block no longer present Myocardial infarct finding still present Electronically Signed On 11-09-2023 6:49:52 CAMPGROUND CARETAKER by Jeffy Logan M.D. [id number]
--- NOTE | 2023-11-08 14:29 | CTR_ITS ---
PROCEDURE INFORMATION: Exam: CTA Head Without And With Contrast, Arteriography Exam date and time: 11/08/2023 2:39 PM Age: 88 years old Clinical indication: Stroke-like symptoms; Left facial droop; Lt upper extremity weakness; Additional info: Acute CVA TECHNIQUE: Imaging protocol: Computed tomographic angiography of the head without and with contrast. Exam focused on the arteries. 3D rendering (Not supervised by radiologist): MIP and/or 3D reconstructed images were created by the technologist. Radiation optimization: All CT scans at this facility use at least one of these dose optimization techniques: automated exposure control; mA and/or kV adjustment per patient size (includes targeted exams where dose is matched to clinical indication); or iterative reconstruction. Contrast material: OMNI 350; Contrast volume: 100 ml; Contrast route: INTRAVENOUS (IV); Other technique: STROKE PROTOCOL was implemented. COMPARISON: MR head wo/w con [id number] 11/05/2019 1:50 PM RADIATION DOSE METRICS: Total DLP (mGy-cm): 981 FINDINGS: ANTERIOR CIRCULATION: Right internal carotid artery: Intracranial segment is patent with no significant stenosis or occlusion. No aneurysm. Right middle cerebral artery: Focal stenosis at the junction of the M1-M2 segments of the right MCA. No large vessel occlusion. Right anterior cerebral artery: No occlusion or significant stenosis. No aneurysm. Left internal carotid artery: Intracranial segment is patent with no significant stenosis. No aneurysm. Left middle cerebral artery: No occlusion or significant stenosis. No aneurysm. Left anterior cerebral artery: No occlusion or significant stenosis. No aneurysm. POSTERIOR CIRCULATION: Right vertebral artery: No occlusion or significant stenosis. No aneurysm. Left vertebral artery: No occlusion or significant stenosis. No aneurysm. Basilar artery: No occlusion or significant stenosis. No aneurysm. Right posterior cerebral artery: No occlusion or significant stenosis. No aneurysm. Left posterior cerebral artery: No occlusion or significant stenosis. No aneurysm. HEAD: Brain: Irregular shaped hypodensity right occipital lobe likely secondary to infarct likely subacute or chronic. No compelling evidence of acute infarct. Vague areas of decreased attenuation the periventricular white matter likely secondary to chronic microvascular changes. No evidence of intracranial hemorrhage. Cortical sulci are unremarkable for age. Cerebral ventricles: Normal. No ventriculomegaly. Bones/joints: Unremarkable. No acute fracture. Paranasal sinuses: Visualized sinuses are normal. No fluid levels. Mastoid air cells: Visualized mastoids are normal. No mastoid effusion. Soft tissues: Unremarkable. PROCEDURE INFORMATION: Exam: CTA Neck Without And With Contrast Exam date and time: 11/08/2023 2:39 PM Age: 88 years old Clinical indication: Stroke-like symptoms; Left facial droop; Lt upper extremity weakness; Additional info: Acute CVA TECHNIQUE: Imaging protocol: Computed tomographic angiography of the neck without and with contrast. Exam focused on the cervical segments of the vasculature. 3D rendering (Not supervised by radiologist): MIP and/or 3D reconstructed images were created by the technologist. Radiation optimization: All CT scans at this facility use at least one of these dose optimization techniques: automated exposure control; mA and/or kV adjustment per patient size (includes targeted exams where dose is matched to clinical indication); or iterative reconstruction. Contrast material: OMNI 350; Contrast volume: 100 ml; Contrast route: INTRAVENOUS (IV); COMPARISON: CT angio chest PE protcl [id number] 07/03/2023 4:37 PM RADIATION DOSE METRICS: Total DLP (mGy-cm): 981 FINDINGS: Right common carotid artery: No stenosis. No dissection or occlusion. Right internal carotid artery: Calcified plaque origin right ICA with approximately 60-76% stenosis. Right external carotid artery: No occlusion or stenosis of the origin. Left common carotid artery: Focal calcification midportion left common carotid artery with mild stenosis (less than 50%.) Left internal carotid artery: Calcified plaque origin left ICA with tight stenosis estimated at 70-80%. Left external carotid artery: No occlusion or stenosis of the origin. Right vertebral artery: No stenosis. No dissection or occlusion. Left vertebral artery: No stenosis. No dissection or occlusion. Soft tissues: Normal. No significant soft tissue swelling. Bones/joints: Multilevel degenerative changes throughout the cervical spine with degenerative spondylolisthesis C3-C4 and C4-C5 resulting in at least moderate spinal stenosis at the C4-C5. CT/CT angio headneck* [id number] IMPRESSION: 1. Focal stenosis involving junction of the M1 and M2 segments of the right MCA. No large vessel occlusion. 2. Irregular shaped hypodensity right occipital lobe likely secondary to subacute or chronic infarct. Findings could be better assessed on MRI exam if clinically warranted. ASSESSMENT: ASPECTS ([place] Stroke Program Early CT Score) is 10. IMPRESSION: 1. Severe stenosis left ICA (70-80%.). 2. Moderate-severe stenosis right ICA (60-70%). 3. No evidence vertebrobasilar insufficiency. REFERENCES: NASCET CRITERIA. The degree of stenosis in the cervical segment of the internal carotid artery is based on NASCET criteria. Normal is no stenosis. Mild is less than 50% stenosis. Moderate is 50-69% stenosis. Severe is 70% to 99% stenosis. Total occlusion is no detectable patent lumen.
[2023-11-08] MEDS: iohexol 350 mg/mL 500 mL Btl (per mL) IV (14:41)
[2023-11-08 14:49] LABS: Basophils % 0.4 %; Eosinophils # 0.2 10^3/uL (0.0-0.8); Eosinophils % 1.6 %; Hematocrit 36.2 % (36-47); Lymphocytes # 2.3 10^3/uL (0.8-4.8); Lymphocytes % 25.1 %; Mean Corpuscular HGB Conc 31.5 g/dL (30-55); Mean Corpuscular Hemoglobin 27.5 pg (27-33); Mean Corpuscular Volume 87.2 fl (85-98); Mean Platelet Volume 9.2 fL (7.4-10.4); Monocytes # 0.9 10^3/uL (0.2-0.9); Monocytes % 9.9 %; Neutrophils # 5.82 10^3/uL (1.8-7.7); Neutrophils % 62.6 %; Nucleated Red Blood Cells % 0 %; Platelet Count 427 10^3/cmm (157-399); Red Blood Count 4.15 10^6/uL (3.85-5.65); Red Cell Distribution Width 15.9 % (12.1-15.1)
--- NOTE | 2023-11-08 14:50 | PC.NURSE ---
PT HAS HOME HEALTH AID AT BEDSIDE. AID STATES LAST NIGHT PT WAS OK BUT WHEN SHE ARRIVED TO THE HOUSE THIS MORNING PT WAS CONFUSED AND FAVORING HER RIGHT ARM. PT STATES SHE IS ON ANTICOAGULANTS FOR PRIOR STENT PLACEMENT. PT ALSO STATES SHE IS CURRENTLY UNDERGOING TREATMENT FOR LIVER CANCER. PT IS ALERT AND ORIENTED WITH EVEN, UNLABORED RESPIRATIONS WITH PATENT AIRWAY.
--- NOTE | 2023-11-08 15:19 | PC.PHAR ---
SPOUSE STATES PT HAS HAD 1 NORCO 5-325 AND 1 TYLENOL 500 TODAY. NO OTHER MEDS TAKEN YET. SPOUSE STATES PT HAS BEEN TAKEN OF ARIMIDEX 1 MG BY PHYSICIAN. PT ALSO TAKES CALCIUM 600 MG AND VITAMIN D3 1,000 SEPARATELY DUE TO EXPENSE OF CALCIUM+D.
--- NOTE | 2023-11-08 15:23 | W.ED.NEUROSD ---
HPI - Neuro Symptoms/Deficit General: Chief Complaint: Neuro Symptoms/Deficit Stated Complaint: dr hogue, stroke symptoms Time Seen by Provider: 11/08/23 14:29 Source: patient Mode of arrival: ambulatory History of Present Illness: 87-year-old female presents emergency room left-sided facial droop left-sided weakness. Last known well last evening per the woke up with some symptoms this morning went to primary care doctor's office and was redirected to the emergency room. She is awake alert follows instructions. Initial NIH score of 3. She is well outside the window for thrombolytic intervention at this point, additionally she is on anticoagulants for history of PE. Patient has a known history of colon cancer with metastasis Onset (ago): unknown Time: 14:08 Last Observed Normal: 22:00 Timing confirmed by: spouse Location: speech, left face and left arm Severity: mild Quality: weak Relieving factors: none Exacerbating factors: none Context: other (Awoke with symptoms) On Anticoagulants: Yes Associated symptoms: Deny chest pain Review of Systems Const: Denies: fever(s) or chills Card: Denies: chest pain Resp: Denies: dyspnea GI: Denies: abdominal pain : Denies: dysuria, urinary frequency or urinary urgency Musc: Denies: neck pain or back pain Skin/Breast: Denies: rash PFSH ED PFSH: Medical History Dysphagia 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 Most likely occurred 3 months prior based off symptoms. Coronary arteriosclerosis Surgical History Status post partial colectomy 11/13/2019: Laparoscopic extended right hemicolectomy Status post colonoscopy (12/21/20) History of hysterectomy Family History Sister Cancer Mother Cardiac complication Father Cardiac complication Denies family history of Anesthesia complication Bleeding disorder Social History Smoking and tobacco/nicotine status: former use of tobacco/nicotine Quit status (tobacco/nicotine): has quit using Year quit tobacco: 1981 Former quit date comment: 5 years approx. Second hand smoke exposure: No Alcohol intake: former Year of sobriety/quit date alcohol: 1981 Substance/Drug Use: never Lives independently: Yes Household members: spouse Marital status: Number of children: 5 Number of grandchildren: 29 Highest education level completed: High School Graduate service: No Current occupational status: retired Pets and animals: Yes Female Reproductive History: Spontaneous abortions: No NIH stroke score NIHSS: Level Of Consciousness - 1a: 0 Level Of Consciousness Questions - 1b: Both Correct Level Of Consciousness Commands - 1c: Both Correct Best Gaze - 2: Normal Visual Wong - 3: No Visual Loss Facial Palsy - 4: Minor Paralysis Motor Arm Right - 5: No Drift Motor Arm Left - 5: No Drift (Slight weakness left compared to right but no arm drift) Motor Leg Right - 6: No Drift Motor Leg Left - 6: No Drift Limb Ataxia - 7: Present In One Limb Sensory - 8: Normal Best Language - 9: No Aphasia Dysarthia - 10: Mild/Moderate Dysarthia Extinction And Inattention - 11: 0 Score: Total Score: 3 Physical Exam Const: COMMON NORMALS: no acute distress GENERAL APPEARANCE: cooperative and comfortable ORIENTATION/CONSCIOUSNESS: Yes awake, Yes oriented to person, Yes oriented to place and Yes oriented to time HENMT: COMMON NORMALS: normocephalic, atraumatic and hearing grossly normal bilaterally HEAD & SCALP: normocephalic and atraumatic Resp: COMMON NORMALS: normal respiratory effort, No retractions, No use of accessory muscles and clear to auscultation bilaterally AUSCULTATION: clear to auscultation bilaterally Cardio: COMMON NORMALS: regular rate, regular rhythm and No murmurs present (Cardio) RATE: regular rate RHYTHM: regular rhythm GI: COMMON NORMALS: Soft to palpation and No hepatosplenomegaly present AUSCULTATION: Yes normoactive bowel sounds PALPATION: Yes Soft to palpation, No Tenderness to palpation present (GI), No Guarding due to palpation present (GI) and Yes No hepatosplenomegaly present Extremity: COMMON NORMALS: normal to inspection, capillary refill normal, no clubbing, cyanosis or edema, no calf tenderness and no pedal edema Neuro: SENSORIUM/ORIENTATION: Yes oriented to person, Yes oriented to place and Yes oriented to time Skin: COMMON NORMALS: no rashes or lesions noted GENERAL SKIN EXAM: no rashes or lesions noted Course Vital Signs: Vital signs: Vital Signs Temperature 97.6 F 11/09/23 12:35 Pulse Rate 82 11/09/23 12:35 Respiratory Rate 18 11/09/23 12:35 Blood Pressure 173/73 11/09/23 12:35 Pulse Oximetry 93 11/09/23 12:35 Oxygen Delivery Me thod Room Air 11/09/23 08:24 MDM - Neuro Symptoms/Deficit Medical Decision Making CTA done does not show any embolic disease amenable to intervention. Discussed with on-call neurology. Will admit for acute stroke secondary preventions and initiation of therapies. Orders written discussed with hospitalist Medical Records I reviewed the patient's medical records. Lab Data I reviewed the patient's lab results. 11/09/23 03:14 11/09/23 03:14 Radiology Impressions Head/Neck CTA 11/08/23 14:29 IMPRESSION: 1. Focal stenosis involving junction of the M1 and M2 segments of the right MCA. No large vessel occlusion. 2. Irregular shaped hypodensity right occipital lobe likely secondary to subacute or chronic infarct. Findings could be better assessed on MRI exam if clinically warranted. ASSESSMENT: ASPECTS ([place] Stroke Program Early CT Score) is 10. IMPRESSION: 1. Severe stenosis left ICA (70-80%.). 2. Moderate-severe stenosis right ICA (60-70%). 3. No evidence vertebrobasilar insufficiency. REFERENCES: NASCET CRITERIA. The degree of stenosis in the cervical segment of the internal carotid artery is based on NASCET criteria. Normal is no stenosis. Mild is less than 50% stenosis. Moderate is 50-69% stenosis. Severe is 70% to 99% stenosis. Total occlusion is no detectable patent lumen. Laboratory Results WBC 9.30 10^3/uL (3.29-11.43) 11/08/23 14:35 RBC 4.15 10^6/uL (3.85-5.65) 11/08/23 14:35 Hgb 11.40 g/dL (11.27-16.99) 11/08/23 14:35 Hct 36.2 % (36-47) 11/08/23 14:35 MCV 87.2 fl (85-98) 11/08/23 14:35 MCH 27.5 pg (27-33) 11/08/23 14:35 MCHC 31.5 g/dL (30-55) 11/08/23 14:35 RDW 15.9 % (12.1-15.1) H 11/08/23 14:35 Plt Count 427 10^3/cmm (157-399) H 11/08/23 14:35 MPV 9.2 fL (7.4-10.4) 11/08/23 14:35 Neut % (Auto) 62.6 % 11/08/23 14:35 Lymph % (Auto) 25.1 % 11/08/23 14:35 [place] % (Auto) 9.9 % 11/08/23 14:35 Eos % (Auto) 1.6 % 11/08/23 14:35 Baso % (Auto) 0.4 % 11/08/23 14:35 Neut # (Auto) 5.82 10^3/uL (1.8-7.7) 11/08/23 14:35 Lymph # (Auto) 2.3 10^3/uL (0.8-4.8) 11/08/23 14:35 [place] # (Auto) 0.9 10^3/uL (0.2-0.9) 11/08/23 14:35 Eos # (Auto) 0.2 10^3/uL (0.0-0.8) 11/08/23 14:35 Baso # (Auto) 0.0 10^3/uL (0.0-0.1) 11/08/23 14:35 Nucleated RBC % (auto) 0 % 11/08/23 14:35 Nucleated RBCs # 0.0 /100WBC 11/08/23 14:35 PT 16.50 SECONDS (12.1-14.9) H 11/08/23 15:14 INR 1.29 (0.8-1.2) H 11/08/23 15:14 APTT 23.2 SECONDS (23.9-36.7) L 11/08/23 15:14 Sodium 135 mmol/L (136-145) L 11/08/23 15:14 Potassium 4.7 mmol/L (3.5-5.1) 11/08/23 15:14 Chloride 98 mmol/L (98-107) 11/08/23 15:14 Carbon Dioxide 26 mmol/L (22-29) 11/08/23 15:14 Anion Gap 15.7 (5-19) 11/08/23 15:14 BUN 16 mg/dL (8-23) 11/08/23 15:14 Creatinine 0.8 mg/dL (0.5-0.9) 11/08/23 15:14 GFR Calculation Not Reportable 11/08/23 15:14 Glucose 103 mg/dL (65-115) 11/08/23 15:14 POC Glucose 87 mg/dL (70-110) 11/08/23 16:03 Calculated Osmolality 281 mOsm/kg (285-295) L 11/08/23 15:14 Calcium 9.2 mg/dL (8.5-10.5) 11/08/23 15:14 Iron 30 ug/dL (37-145) L 11/08/23 15:14 TIBC 296 mcg/dl 11/08/23 15:14 % Saturation 10.1 % (20-50) L 11/08/23 15:14 Unsat Iron Binding 266 ug/dL (112-347) 11/08/23 15:14 Total Bilirubin 0.4 mg/dL (0.15-1.2) 11/08/23 15:14 AST 25 U/L (0-32) 11/08/23 15:14 ALT 9 U/L (0-33) 11/08/23 15:14 Alkaline Phosphatase 128 U/L (35-105) H 11/08/23 15:14 Total Protein 6.7 g/dL (6.6-8.7) 11/08/23 15:14 Albumin 3.4 g/dL (3.5-5.2) L 11/08/23 15:14 Globulin 3.3 g/dL (1.3-4.6) 11/08/23 15:14 Vitamin B12 427 pg/mL (232-1245) 11/08/23 15:14 TSH 5.86 uIU/mL (0.27-4.20) H 11/08/23 15:14 Free T4 1.06 ng/dL (0.82-1.77) 11/08/23 15:14 Urine Color Yellow (Yellow) 11/08/23 15:49 Urine Appearance Clear (CLEAR) 11/08/23 15:49 Urine pH 6.5 (5-7) 11/08/23 15:49 Ur Specific [place] 1.005 (1.005-1.030) 11/08/23 15:49 Urine Protein 1+ (Negative) H 11/08/23 15:49 Urine Glucose (UA) Norm (Normal) 11/08/23 15:49 Urine Ketones Negative (Negative) 11/08/23 15:49 Urine Blood Neg (Negative) 11/08/23 15:49 Urine Nitrate Negative (Negative) 11/08/23 15:49 Urine Bilirubin 1+ (Negative) H 11/08/23 15:49 Urine Urobilinogen Norm mg/dL (Negative) 11/08/23 15:49 Ur Leukocyte Esterase Trace (Negative) H 11/08/23 15:49 Urine RBC 0-4 /hpf (0-2) H 11/08/23 15:49 Urine WBC 0-4 /hpf (0-5) H 11/08/23 15:49 Ur Squamous Epith Cells 0-4 /hpf (0-5) H 11/08/23 15:49 Ur Transition Epith Cell 0-4 /hpf 11/08/23 15:49 Ur Renal Epithelial Cell 0-4 /hpf 11/08/23 15:49 Amorphous Sediment Not Reportable 11/08/23 15:49 Urine Bacteria None /hpf (NONE) 11/08/23 15:49 Hyaline Casts 0-4 /lpf H 11/08/23 15:49 Urine Mucus None /hpf 11/08/23 15:49 Urine Opiates Screen Positive ng/mL (Negative) H 11/08/23 15:49 Ur Barbiturates Screen Negative ng/mL (Negative) 11/08/23 15:49 Ur Phencyclidine Scrn Negative ng/mL (Negative) 11/08/23 15:49 Ur Amphetamines Screen Negative ng/mL (Negative) 11/08/23 15:49 U Benzodiazepines Scrn Negative ng/mL (Negative) 11/08/23 15:49 Urine Cocaine Screen Negative ng/mL (Negative) 11/08/23 15:49 U Marijuana (THC) Screen Negative ng/mL (Negative) 11/08/23 15:49 All radiology interpretation(s) finalized by discharge Discharge Plan Discharge Patient Disposition: Placed in Observation Admit Provider: Ari Fishman Clinical Impression: CVA (cerebral vascular accident), Primary adenocarcinoma of ascending colon, Coronary arteriosclerosis, Congestive heart failure (CHF), Hypertension Discharge Diet: Cardiac Discharge Activity: Resume usual activity and Increase activity as tolerated Coding Level of Care Code ED [employer] Installer for Ketan Reddy
[2023-11-08 15:39] LABS: INR 1.29 (0.8-1.2); Partial Thromboplastin Time 23.2 SECONDS (23.9-36.7)
[2023-11-08 15:41] LABS: Alanine Aminotransferase 9 U/L (0-33); Albumin Level 3.4 g/dL (3.5-5.2); Alkaline Phosphatase 128 U/L (35-105); Anion Gap 15.7 (5-19); Aspartate Amino Transferase 25 U/L (0-32); Blood Urea Nitrogen 16 mg/dL (8-23); Calcium 9.2 mg/dL (8.5-10.5); Carbon Dioxide 26 mmol/L (22-29); Chloride 98 mmol/L (98-107); Globulin 3.3 g/dL (1.3-4.6); Glucose 103 mg/dL (65-115); Osmolality Calculated 281 mOsm/kg (285-295); Potassium 4.7 mmol/L (3.5-5.1); Sodium 135 mmol/L (136-145); Total Bilirubin 0.4 mg/dL (0.15-1.2); Total Protein 6.7 g/dL (6.6-8.7)
[2023-11-08 16:07] LABS: Glucose Point of Care 87 mg/dL (70-110)
[2023-11-08 16:20] LABS: Amphetamines Screen Urine Negative (Negative); Barbiturates Screen Urine Negative (Negative); Benzodiazepines Screen Urine Negative (Negative); Cocaine Screen Urine Negative (Negative); Opiate Screen Urine Positive (Negative); PCP Screen Urine Negative (Negative); THC Screen Urine Negative (Negative)
[2023-11-08 16:29] LABS: Urine Appearance Clear (CLEAR); Urine Color Yellow (Yellow)
[2023-11-08 16:30] LABS: Add Urine Microscopic? YES; Bilirubin Urine 1+ (Negative); Blood Urine Neg (Negative); Glucose Urine UA Norm (Normal); Ketones Urine Negative (Negative); Leukocyte Esterase Urine Trace (Negative); Nitrate Urine Negative (Negative); Protein Urine 1+ (Negative); Specific Gravity, Urine 1.005 (1.005-1.030); Urobilinogen Urine Norm (Negative); pH Urine 6.5 (5-7)
[2023-11-08 16:36] LABS: Hyaline Casts Urine 0-4 /lpf; RBC Urine 0-4 /hpf (0-2); Renal Epithelial Cells Urine 0-4 /hpf; Squamous Epithelial Cell Urine 0-4 /hpf (0-5); Transitional Epi Cells Urine 0-4 /hpf; WBC Urine 0-4 /hpf (0-5)
[2023-11-08 16:37] LABS: Add Urine Culture? No
--- NOTE | 2023-11-08 17:04 | PM.HP ---
Providers/Chief Complaint Primary Care Provider: Ousmane Reaves MD Chief Complaint: dr hogue, stroke symptoms History of Present Illness Ana Mckeon is a 88 year old female with past medical history of breast cancer, colon cancer with possible metastasis to liver who underwent mapping 2 weeks ago and is due for possible or for liver mets with surgeon and Danny in 1 week, history of pulmonary embolism on Eliquis, congestive heart failure, CAD presented to the ER from outpatient clinic because of left-sided weakness and facial droop. As per the who is at bedside patient had slight confusion on and off since yesterday afternoon but since he woke up today morning she had left-sided weakness, heaviness along with slight droop on the left side. The had an appointment with his primary care provider in the afternoon so where they waited and has been sent in from primary care's office now because of persistent weakness. Seen with at bedside. Patient is awake and alert, pleasant. Denies any nausea vomiting, headache. States weakness in the left arm is improving. Blood work and vitals appreciated. Review of Systems General: Reports: 10 or more systems reviewed and unremarkable except in HPI and below Const: Denies: fever(s), chills, body aches, change in appetite, change in weight, malaise, night sweats, diaphoresis, change in sleep pattern, daytime sleepiness or snoring Eyes: Denies: change in vision, blurry vision, photophobia, eye discomfort or eye discharge ENMT: Denies: throat pain, enlarged tonsils, hoarseness, mouth pain, oral sores, dry mouth, tinnitus, nasal congestion or post nasal drip Card: Denies: chest pain, palpitations, irregular heart rhythm, edema, swelling of feet/ankles, lightheadedness, syncope, pre-syncope, dyspnea on exertion, orthopnea, leg pain with exertion or acrocyanosis Resp: Denies: dyspnea, productive cough, non-productive cough, wheezing, stridor, pain on inspiration, change in phlegm color, hemoptysis or chest congestion GI: Denies: abdominal pain, nausea, vomiting, hematemesis, coffee ground emesis, dysphagia, heartburn, diarrhea, constipation, bloating, GI cramping, change in bowel habits, pain on defecation, hematochezia or melena : Denies: flank pain, dysuria, urinary frequency, urinary urgency, urinary hesitancy, nocturia or hematuria Musc: Denies: neck pain, back pain, extremity pain, joint pain, joint swelling, joint redness, joint stiffness or limited range of motion Neuro: Denies: headache(s), numbness in extremities, weakness in extremities, sensory changes, lack of coordination, difficulty walking, frequent falls, dizziness, vertigo, confusion, Slurred speech present, difficulty communicating thoughts or seizure-like activity Psych: Denies: anxiety, depression, mood swings, panic attacks, hopelessness or irritability Endo: Denies: polyuria, polydipsia, tired all the time, cold intolerance, excessive sweating, flushing or heat intolerance Delvis/Lymph: Denies: easy bruising or easy bleeding All/Imm: Denies: tongue swelling, facial swelling or acute wheezing Medications/Allergies Home Medications Medication Instructions Recorded Confirmed Last Taken Type Rollator walker with seat #1 ea 06/20/22 11/08/23 Unknown Rx apixaban 5 mg tablet (Eliquis) 2.5 mg PO BID 11/15/22 11/08/23 11/07/23 History clopidogrel 75 mg tablet 75 mg PO DAILY 11/15/22 11/08/23 11/07/23 History amlodipine 5 mg tablet 5 mg PO DAILY #30 tabs 12/20/22 11/08/23 11/07/23 Rx isosorbide mononitrate 30 mg 60 mg (2 x 30 mg) PO DAILY #180 06/05/23 11/08/23 11/07/23 Rx tablet,extended release 24 hr tabs pantoprazole 40 mg tablet,delayed 40 mg PO BID 07/24/23 11/08/23 11/07/23 History release metoprolol tartrate 50 mg tablet 25 mg (1/2 x 50 mg) PO BID #90 tabs 08/27/23 11/08/23 11/07/23 Rx acetaminophen 500 mg tablet 500 mg PO Q4H PRN Pain 09/27/23 11/08/23 11/08/23 History (Tylenol Extra Strength) duloxetine 60 mg capsule,delayed 60 mg PO DAILY #30 caps 10/18/23 11/08/23 11/07/23 Rx release hydrocodone 5 mg-acetaminophen 325 1 tab PO Q8H PRN pain 2 weeks #30 10/24/23 11/08/23 11/08/23 Rx mg tablet tabs nitroglycerin 0.4 mg sublingual 0.4 mg sublingual Q5M PRN Chest 11/01/23 11/08/23 Unknown Rx tablet (Nitrostat) Pain #30 tabs calcium carbonate 600 mg calcium 600 mg PO DAILY 11/08/23 11/08/23 11/07/23 History (1,500 mg) tablet (Calcium) cholecalciferol (vitamin D3) 25 25 mcg PO DAILY 11/08/23 11/08/23 11/07/23 History mcg (1,000 unit) capsule (Vitamin D3) trazodone 50 mg tablet 50 mg PO BEDTIME PRN insomnia 11/08/23 11/08/23 Unknown History Allergies Allergy/AdvReac Type Severity Reaction Status Date / Time Sulfa (Sulfonamide Allergy Unknown Unknown Verified 09/27/23 10:53 Antibiotics) belladonna alkaloids Allergy Unknown Verified 09/27/23 10:53 imipramine Allergy Unknown Verified 09/27/23 10:53 nitrofurantoin Allergy Unknown Verified 09/27/23 10:53 methylphenidate AdvReac Intermediate anxiety Verified 09/27/23 10:53 [From Ritalin] morphine AdvReac Mild sleepy Verified 09/27/23 10:53 microbide Allergy Unknown Unknown Uncoded 09/27/23 10:53 PFSH Acute PFSH: Medical History (Updated 11/08/23 @ 17:06 by Ari Fishman MD) Dysphagia 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 Most likely occurred 3 months prior based off symptoms. Coronary arteriosclerosis Surgical History Status post partial colectomy 11/13/2019: Laparoscopic extended right hemicolectomy Status post colonoscopy (12/21/20) History of hysterectomy Family History Sister Cancer Mother Cardiac complication Father Cardiac complication Denies family history of Anesthesia complication Bleeding disorder Social History Smoking and tobacco/nicotine status: former use of tobacco/nicotine Quit status (tobacco/nicotine): has quit using Year quit tobacco: 1981 Former quit date comment: 5 years approx. Second hand smoke exposure: No Alcohol intake: former Year of sobriety/quit date alcohol: 1981 Substance/Drug Use: never Lives independently: Yes Household members: spouse Marital status: Number of children: 5 Number of grandchildren: 29 Highest education level completed: High School Graduate service: No Current occupational status: retired Pets and animals: Yes Female Reproductive History: Spontaneous abortions: No Vitals/I&O/Wt Last Vital Signs Temp 97.8 F 11/08/23 14:12 Resp 16 11/08/23 14:12 BP 103/58 11/08/23 14:12 O2 Del Method Room Air 11/08/23 14:12 Weight last 48 hrs Weight 55.792 kg Physical Exam Narrative: General: No acute distress, AO x3, pleasant HEENT: PERRLA, pupils bilaterally equal and reactive Chest: Normal vesicular breath sounds, no added sounds, equal good air entry bilaterally, right-sided mastectomy CVS: S1-S2 regular, no murmurs, no tachycardia, no gallops, no rubs Abdomen: Soft, nontender, no organomegaly, bowel sounds present Neuro: Facial droop on the left side, AO x 3, power left upper limb 3/5, all other limbs 5/5, left limb ataxia NIH score 2 Data 11/09/23 03:14 11/09/23 03:14 Other Labs: Radiology Impressions Head/Neck CTA 11/08/23 14:29 IMPRESSION: 1. Focal stenosis involving junction of the M1 and M2 segments of the right MCA. No large vessel occlusion. 2. Irregular shaped hypodensity right occipital lobe likely secondary to subacute or chronic infarct. Findings could be better assessed on MRI exam if clinically warranted. ASSESSMENT: ASPECTS ([place] Stroke Program Early CT Score) is 10. IMPRESSION: 1. Severe stenosis left ICA (70-80%.). 2. Moderate-severe stenosis right ICA (60-70%). 3. No evidence vertebrobasilar insufficiency. REFERENCES: NASCET CRITERIA. The degree of stenosis in the cervical segment of the internal carotid artery is based on NASCET criteria. Normal is no stenosis. Mild is less than 50% stenosis. Moderate is 50-69% stenosis. Severe is 70% to 99% stenosis. Total occlusion is no detectable patent lumen. Laboratory Results WBC 9.30 10^3/uL (3.29-11.43) 11/08/23 14:35 RBC 4.15 10^6/uL (3.85-5.65) 11/08/23 14:35 Hgb 11.40 g/dL (11.27-16.99) 11/08/23 14:35 Hct 36.2 % (36-47) 11/08/23 14:35 MCV 87.2 fl (85-98) 11/08/23 14:35 MCH 27.5 pg (27-33) 11/08/23 14:35 MCHC 31.5 g/dL (30-55) 11/08/23 14:35 RDW 15.9 % (12.1-15.1) H 11/08/23 14:35 Plt Count 427 10^3/cmm (157-399) H 11/08/23 14:35 MPV 9.2 fL (7.4-10.4) 11/08/23 14:35 Neut % (Auto) 62.6 % 11/08/23 14:35 Lymph % (Auto) 25.1 % 11/08/23 14:35 [place] % (Auto) 9.9 % 11/08/23 14:35 Eos % (Auto) 1.6 % 11/08/23 14:35 Baso % (Auto) 0.4 % 11/08/23 14:35 Neut # (Auto) 5.82 10^3/uL (1.8-7.7) 11/08/23 14:35 Lymph # (Auto) 2.3 10^3/uL (0.8-4.8) 11/08/23 14:35 [place] # (Auto) 0.9 10^3/uL (0.2-0.9) 11/08/23 14:35 Eos # (Auto) 0.2 10^3/uL (0.0-0.8) 11/08/23 14:35 Baso # (Auto) 0.0 10^3/uL (0.0-0.1) 11/08/23 14:35 Nucleated RBC % (auto) 0 % 11/08/23 14:35 Nucleated RBCs # 0.0 /100WBC 11/08/23 14:35 PT 16.50 SECONDS (12.1-14.9) H 11/08/23 15:14 INR 1.29 (0.8-1.2) H 11/08/23 15:14 APTT 23.2 SECONDS (23.9-36.7) L 11/08/23 15:14 Sodium 135 mmol/L (136-145) L 11/08/23 15:14 Potassium 4.7 mmol/L (3.5-5.1) 11/08/23 15:14 Chloride 98 mmol/L (98-107) 11/08/23 15:14 Carbon Dioxide 26 mmol/L (22-29) 11/08/23 15:14 Anion Gap 15.7 (5-19) 11/08/23 15:14 BUN 16 mg/dL (8-23) 11/08/23 15:14 Creatinine 0.8 mg/dL (0.5-0.9) 11/08/23 15:14 GFR Calculation Not Reportable 11/08/23 15:14 Glucose 103 mg/dL (65-115) 11/08/23 15:14 POC Glucose 87 mg/dL (70-110) 11/08/23 16:03 Calculated Osmolality 281 mOsm/kg (285-295) L 11/08/23 15:14 Calcium 9.2 mg/dL (8.5-10.5) 11/08/23 15:14 Total Bilirubin 0.4 mg/dL (0.15-1.2) 11/08/23 15:14 AST 25 U/L (0-32) 11/08/23 15:14 ALT 9 U/L (0-33) 11/08/23 15:14 Alkaline Phosphatase 128 U/L (35-105) H 11/08/23 15:14 Total Protein 6.7 g/dL (6.6-8.7) 11/08/23 15:14 Albumin 3.4 g/dL (3.5-5.2) L 11/08/23 15:14 Globulin 3.3 g/dL (1.3-4.6) 11/08/23 15:14 Urine Color Yellow (Yellow) 11/08/23 15:49 Urine Appearance Clear (CLEAR) 11/08/23 15:49 Urine pH 6.5 (5-7) 11/08/23 15:49 Ur Specific [place] 1.005 (1.005-1.030) 11/08/23 15:49 Urine Protein 1+ (Negative) H 11/08/23 15:49 Urine Glucose (UA) Norm (Normal) 11/08/23 15:49 Urine Ketones Negative (Negative) 11/08/23 15:49 Urine Blood Neg (Negative) 11/08/23 15:49 Urine Nitrate Negative (Negative) 11/08/23 15:49 Urine Bilirubin 1+ (Negative) H 11/08/23 15:49 Urine Urobilinogen Norm mg/dL (Negative) 11/08/23 15:49 Ur Leukocyte Esterase Trace (Negative) H 11/08/23 15:49 Urine RBC 0-4 /hpf (0-2) H 11/08/23 15:49 Urine WBC 0-4 /hpf (0-5) H 11/08/23 15:49 Ur Squamous Epith Cells 0-4 /hpf (0-5) H 11/08/23 15:49 Ur Transition Epith Cell 0-4 /hpf 11/08/23 15:49 Ur Renal Epithelial Cell 0-4 /hpf 11/08/23 15:49 Amorphous Sediment Not Reportable 11/08/23 15:49 Urine Bacteria None /hpf (NONE) 11/08/23 15:49 Hyaline Casts 0-4 /lpf H 11/08/23 15:49 Urine Mucus None /hpf 11/08/23 15:49 Urine Opiates Screen Positive ng/mL (Negative) H 11/08/23 15:49 Ur Barbiturates Screen Negative ng/mL (Negative) 11/08/23 15:49 Ur Phencyclidine Scrn Negative ng/mL (Negative) 11/08/23 15:49 Ur Amphetamines Screen Negative ng/mL (Negative) 11/08/23 15:49 U Benzodiazepines Scrn Negative ng/mL (Negative) 11/08/23 15:49 Urine Cocaine Screen Negative ng/mL (Negative) 11/08/23 15:49 U Marijuana (THC) Screen Negative ng/mL (Negative) 11/08/23 15:49 A&P Assessment and plan (1) Occipital stroke: Seen on CT done in the ER. CT also consistent with severe left ICA stenosis, moderate to severe right ICA stenosis along with focal stenosis at the junction of M1 M2 segment of the right MCA. Patient has been off her Plavix and Eliquis for procedure being planned for infiltrating neoplasm of the liver. Keep NPO. Start diet as per speech evaluation. PT/OT evaluation. Restart Plavix, statin. Check A1c, lipid panel. Check echocardiogram. Last echo from 2021 shows EF of 55 to 60% granula grade 1 diastolic dysfunction. Permissible hypertension. Hold off on antihypertensives for now except metoprolol 25 mg twice daily to prevent patient from going into tachycardia. (2) Hypertension: Permissible hypertension. As above. (3) Coronary arteriosclerosis: No active chest pain. Restarted Plavix. Last stress test from 2022 shows small area of inconsistent and LV apex probably artifactual, EF 80%. (4) Congestive heart failure (CHF): (5) Pulmonary embolism: Currently on room air. Eliquis is on hold as above. (6) Primary adenocarcinoma of ascending colon: Follows up with Dr. Coleman as an outpatient. 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 She states her DPOA is currently her daughter Ms. Burch. Does not want any kind of heroic measures including chest compression or neck support. DNR/DNI N.p.o. till speech evaluation Protonix for PUD prophylaxis Eliquis will suffice as DVT prophylaxis. 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
[2023-11-08 17:30] LABS: Iron 30 ug/dL (37-145); Percent Saturation 10.1 % (20-50); Total Iron Binding Capacity 296 mcg/dl; Unsaturated Iron Binding 266 ug/dL (112-347)
[2023-11-08 17:45] LABS: Vitamin B12 427 pg/mL (232-1245)
[2023-11-08] MEDS: apixaban 5 mg Tablet 2.5 MG PO (18:01)
--- NOTE | 2023-11-08 19:41 | USCV_ITS ---
Ana Mckeon Age: 88 Gender: F : 1935 Exam Date: 11/08/2023 21:32 Ordering Phys: Ari Fishman MD Technologist: RODGER Exam Location: [facility] [place] Indication: stroke -- left facial droop and left hemiparesis today. History of cardiac stenting. BP: 155 / 85 HR: 71 Rhythm: Sinus Technical Quality: Adequate MEASUREMENTS (Male / Female) Normal Values 2D ECHO LV Diastolic Diameter PLAX 3.5 cm 4.2 - 5.9 / 3.9 - 5.3 cm LV Systolic Diameter PLAX 2.2 cm IVS Diastolic Thickness 1.4 cm 0.6 - 1.0 / 0.6 - 0.9 cm IVS Systolic Thickness 2.1 cm LVPW Diastolic Thickness 0.8 cm 0.6 - 1.0 / 0.6 - 0.9 cm LVPW Systolic Thickness 1.0 cm LVOT Diameter 2.0 cm LV Ejection Fraction 2D Teich 69.8 % LV Ejection Fraction MOD 2C 54.3 % LV Ejection Fraction 2C AL 54.2 % LA Diameter 2.3 cm LA Width 2.1 cm LA Height 2.8 cm RA Width 2.8 cm RA Height 3.2 cm Aorta at Sinotubular Diameter 2.9 cm IVC Diameter 0.5 cm M-MODE Aortic Annulus Diameter 3.0 cm LA Ao Ratio MM 0.7 MV E Point Septal Separation 0.4 cm DOPPLER AV Peak Velocity 110.0 cm/s LVOT Peak Velocity 63.0 cm/s AV Area Cont Eq vti 2.0 cm squared AV Area Cont Eq pk 1.8 cm squared MV Peak Velocity 129.0 cm/s MV Area PHT 4.5 cm squared Mitral E to A Ratio 0.7 MV E' Velocity 84.0 cm/s TR Peak Velocity 218.0 cm/s TR Peak Gradient 19.0 mmHg TV Peak E Velocity 52.0 cm/s Right Atrial Pressure 5.0 mmHg Pulmonary Artery Systolic Pressu 24.0 mmHg PV Peak Velocity 77.0 cm/s RV Acceleration Time 0.1 s RV Ejection Time 0.3 s RV AcT/ET 0.2 FINDINGS Left Ventricle Left ventricle is normal in size. LV systolic function is normal with EF 50-55%. No regional wall motion abnormalities are seen. Grade 1 diastolic dysfunction Right Ventricle Normal in size and function Right Atrium Normal in size Left Atrium Normal in size Mitral Valve Grossly normal. Trace mitral regurgitation. Aortic Valve Grossly normal aortic valve. No significant aortic stenosis. Tricuspid Valve Trace tricuspid regurgitation. Insufficient TR jet to calculate RVSP Pulmonic Valve Not well visualized Pericardium Normal Aorta Normal in size IVC Appears to be normal CONCLUSIONS LV systolic function is normal with EF of 50-55% Grade 1 diastolic dysfunction Trace mitral regurgitation Trace tricuspid regurgitation Compared to prior echocardiogram from 2021, no significant changes are noted. Christiano Villegas MD (Electronically Signed) Final Date: 09 November 2023 12:12 S
[2023-11-08 21:01] LABS: Thyroid Stimulating Hormone 5.86 uIU/mL (0.27-4.20)
[2023-11-08] MEDS: metoprolol tartrate 25 mg Tablet PO (21:07)
[2023-11-08] MEDS: atorvastatin 40 mg Tablet PO (21:08)
[2023-11-08] MEDS: sodium chloride 0.9% 1,000 ML 50 ML IV (21:08)
[2023-11-08] MEDS: pantoprazole DR 40 mg Tablet PO (21:08)
[2023-11-08] MEDS: acetaminophen 325 mg Tablet 650 MG PO (22:39)
[2023-11-08 23:12] LABS: Free T4 Free Thyroxine 1.06 ng/dL (0.82-1.77)
[2023-11-09] VITALS: BP 120/68; PULSE 117; RESP 18; TEMP 36.8; O2SAT 97
[2023-11-09 01:00] VITALS: RESP 16
[2023-11-09 03:55] LABS: Basophils % 0.5 %; Eosinophils # 0.1 10^3/uL (0.0-0.8); Eosinophils % 1.7 %; Hematocrit 34.4 % (36-47); Lymphocytes # 2.4 10^3/uL (0.8-4.8); Lymphocytes % 30.4 %; Mean Corpuscular HGB Conc 31.7 g/dL (30-55); Mean Corpuscular Hemoglobin 27.3 pg (27-33); Mean Platelet Volume 9.2 fL (7.4-10.4); Monocytes # 0.7 10^3/uL (0.2-0.9); Monocytes % 9.2 %; Neutrophils # 4.63 10^3/uL (1.8-7.7); Neutrophils % 57.8 %; Nucleated Red Blood Cells % 0 %; Platelet Count 365 10^3/cmm (157-399); Red Cell Distribution Width 15.9 % (12.1-15.1); White Blood Count 8.02 10^3/uL (3.29-11.43)
[2023-11-09 04:00] VITALS: BP 159/70; PULSE 98; RESP 18; TEMP 36.7; O2SAT 95
[2023-11-09 04:18] LABS: Chol HDL Ratio 5.46 mg/dL (0.0-4.40); Cholesterol 191 mg/dL (0-200); HDL Cholesterol 35 mg/dL (60-100); LDL Cholesterol Calculated 119 mg/dL (50-129); Triglycerides 183 mg/dL (0-150)
[2023-11-09 04:19] LABS: Alanine Aminotransferase 10 U/L (0-33); Albumin Level 3.4 g/dL (3.5-5.2); Alkaline Phosphatase 130 U/L (35-105); Anion Gap 15.8 (5-19); Aspartate Amino Transferase 19 U/L (0-32); Blood Urea Nitrogen 15 mg/dL (8-23); Calcium 9.6 mg/dL (8.5-10.5); Carbon Dioxide 27 mmol/L (22-29); Chloride 101 mmol/L (98-107); Globulin 3.4 g/dL (1.3-4.6); Glucose 101 mg/dL (65-115); Magnesium 1.6 mg/dL (1.7-2.3); Osmolality Calculated 291 mOsm/kg (285-295); Phosphorus 3.3 mg/dL (2.5-4.5); Potassium 3.8 mmol/L (3.5-5.1); Sodium 140 mmol/L (136-145); Total Bilirubin 0.5 mg/dL (0.15-1.2); Total Protein 6.8 g/dL (6.6-8.7)
[2023-11-09] MEDS: HYDROcodone-acetaminophen 5-325 mg Tablet 1 TAB PO (04:24)
[2023-11-09 04:29] LABS: Estmated Average Glucose 123; Hemoglobin A1C 5.9 % (4.0-6.0)
[2023-11-09 04:51] LABS: Folate Level > 20.0 ng/mL (4.8-37.3)
[2023-11-09 08:24] VITALS: BP 173/73; PULSE 82; RESP 18; TEMP 36.4; O2SAT 93
[2023-11-09] MEDS: clopidogrel 75 mg Tablet PO (08:59)
[2023-11-09] MEDS: apixaban 5 mg Tablet 2.5 MG PO (08:59)
[2023-11-09] MEDS: pantoprazole DR 40 mg Tablet PO (08:59)
[2023-11-09] MEDS: acetaminophen 325 mg Tablet 650 MG PO (09:00)
[2023-11-09] MEDS: duloxetine 60 mg Capsule PO (09:00)
[2023-11-09] MEDS: metoprolol tartrate 25 mg Tablet PO (09:02)
--- NOTE | 2023-11-09 09:26 | PC.CHAP ---
Pastoral Care Encounter/Spiritual Assessment Type of Contact [] Declined vpk teacher visit [] Patient/Family/Request visit [] Outpatient visit [] Follow-up visit [] Physician referral [] Code/Alert [x] Routine visit [] Staff referral [] Actively dying [] Patient sleeping [x] Family support [] [] Out of room [] Palliative care [] [] Receiving care in room [] Pre-surgical visit [] Trauma [] Long length of stay [] ICU visit [] Other: Relational/Emotional Strength [x] Patient feels connected with others/family/visitors/staff [] Distress [] Loneliness/isolation [] Abandonment Spirituality of Patient [x] Person of Bonny [] Attends Taoist of their [place] [x] Believes in Prayer [] Reads Bible or Baptist materials [] There are Spiritual issues to be addressed 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 Interventions [x] Prayer [x] Active listening [] Non-anxious presence [x] Spiritual/emotional support [] Crisis/trauma care [] Spiritual counseling [] Bereavement support [] Provided bereavement packet [] Provided Bible/devotional materials [] Provided toy/stuffed animal, coloring book to patient or family member [] Provided Communion [] Anointing/[place] [] Salvation [] Completed spiritual assessment [] Other: Impact on Illness or Injury [] Angry [] Fearful [] Anxious [] Often cries [] Exhaustion [] Unable to work [] Unable to attend mandaen [] Unable to walk/stand [] Unable to read [] Unable to drive [] Unable to eat/drink [] Unable to sleep [] Unable to be with family [] Patient intubated [] Other: Summary Time spent with patient 10 min
--- NOTE | 2023-11-09 09:35 | P.DS_ITS ---
Discharge Providers Date of Admission: 11/08/23 17:02 Date of Discharge: November 09, 2023 Attending Provider at Admission: Ari Fishman MD Attending Provider at Discharge: Ari Fishman MD Primary Care Provider: Ousmane Reaves MD Diagnoses at Discharge Discharge Diagnosis (1) Occipital stroke: Status: Acute (2) Hypertension: Status: Acute (3) Coronary arteriosclerosis: Status: Acute (4) Congestive heart failure (CHF): Status: Acute (5) Pulmonary embolism: Status: Acute Permanent problem details: Diagnosed on 10/22/2019 as a saddle embolism. Most likely occurred 3 months prior based off symptoms. 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 As per the who is at bedside patient had slight confusion on and off since yesterday afternoon but since he woke up today morning she had left-sided weakness, heaviness along with slight droop on the left side. The had an appointment with his primary care provider in the afternoon so where they waited and has been sent in from primary care's office now because of persistent weakness. Patient was admitted to the hospital further evaluation and management of stroke. On admission she had CTA head and neck done which showed right occipital acute to chronic infarct with stenosis at M1 M2 segment of right MCA, severe left ICA stenosis and moderate right ICA stenosis. On admission care were discussed in detail with on-call neurologist who advised patient to have aggressive medical therapy. Patient worked well with physical therapy and had counseled improvement. She has been discharged hemodynamically stable condition with continuation of her home dose of Plavix and Eliquis along with addition of low-dose atorvastatin 10 mg oral daily. She is advised to follow-up with neurology in 2 weeks and [facility] primary [facility] provider in 1 week. She is also advised to discuss again with her outpatient surgeon for with home she had surgery planned in 1 week for liver mets for possible postponement of the procedure given acute stroke. Patient states given her goals of care and life expectancy she might not go ahead and have surgery anymore. Family cannot decide further before making any decisions. CODE STATUS during hospitalization was changed to DNR/DNI. Physical Exam Narrative: General: No acute distress, AO x3, pleasant HEENT: PERRLA, pupils bilaterally equal and reactive Chest: Normal vesicular breath sounds, no added sounds, equal good air entry bilaterally, right-sided mastectomy CVS: S1-S2 regular, no murmurs, no tachycardia, no gallops, no rubs Abdomen: Soft, nontender, no organomegaly, bowel sounds present Neuro: Facial droop on the left side, AO x 3, power in all limbs 5/5, left upper limb ataxia resolved Discharge Data Studies Completed and Pending Completed Studies During Hospitalization Category Date Time Status CT angio headneck* [id number] Stat Cat Scan 11/08/23 14:29 Completed Pending at discharge Category Date Time Status CV. echo complete* [id number] Routine Ultrasound 11/08/23 19:41 Taken Radiology Impressions Head/Neck CTA 11/08/23 14:29 IMPRESSION: 1. Focal stenosis involving junction of the M1 and M2 segments of the right MCA. No large vessel occlusion. 2. Irregular shaped hypodensity right occipital lobe likely secondary to subacute or chronic infarct. Findings could be better assessed on MRI exam if clinically warranted. ASSESSMENT: ASPECTS (Zoe Stroke Program Early CT Score) is 10. IMPRESSION: 1. Severe stenosis left ICA (70-80%.). 2. Moderate-severe stenosis right ICA (60-70%). 3. No evidence vertebrobasilar insufficiency. REFERENCES: NASCET CRITERIA. The degree of stenosis in the cervical segment of the internal carotid artery is based on NASCET criteria. Normal is no stenosis. Mild is less than 50% stenosis. Moderate is 50-69% stenosis. Severe is 70% to 99% stenosis. Total occlusion is no detectable patent lumen. Laboratory Results WBC 8.02 10^3/uL (3.29-11.43) 11/09/23 03:14 RBC 4.00 10^6/uL (3.85-5.65) 11/09/23 03:14 Hgb 10.90 g/dL (11.27-16.99) L 11/09/23 03:14 Hct 34.4 % (36-47) L 11/09/23 03:14 MCV 86.0 fl (85-98) 11/09/23 03:14 MCH 27.3 pg (27-33) 11/09/23 03:14 MCHC 31.7 g/dL (30-55) 11/09/23 03:14 RDW 15.9 % (12.1-15.1) H 11/09/23 03:14 Plt Count 365 10^3/cmm (157-399) 11/09/23 03:14 MPV 9.2 fL (7.4-10.4) 11/09/23 03:14 Neut % (Auto) 57.8 % 11/09/23 03:14 Lymph % (Auto) 30.4 % 11/09/23 03:14 [place] % (Auto) 9.2 % 11/09/23 03:14 Eos % (Auto) 1.7 % 11/09/23 03:14 Baso % (Auto) 0.5 % 11/09/23 03:14 Neut # (Auto) 4.63 10^3/uL (1.8-7.7) 11/09/23 03:14 Lymph # (Auto) 2.4 10^3/uL (0.8-4.8) 11/09/23 03:14 [place] # (Auto) 0.7 10^3/uL (0.2-0.9) 11/09/23 03:14 Eos # (Auto) 0.1 10^3/uL (0.0-0.8) 11/09/23 03:14 Baso # (Auto) 0.0 10^3/uL (0.0-0.1) 11/09/23 03:14 Nucleated RBC % (auto) 0 % 11/09/23 03:14 Nucleated RBCs # 0.0 /100WBC 11/09/23 03:14 PT 16.50 SECONDS (12.1-14.9) H 11/08/23 15:14 INR 1.29 (0.8-1.2) H 11/08/23 15:14 APTT 23.2 SECONDS (23.9-36.7) L 11/08/23 15:14 Sodium 140 mmol/L (136-145) 11/09/23 03:14 Potassium 3.8 mmol/L (3.5-5.1) 11/09/23 03:14 Chloride 101 mmol/L (98-107) 11/09/23 03:14 Carbon Dioxide 27 mmol/L (22-29) 11/09/23 03:14 Anion Gap 15.8 (5-19) 11/09/23 03:14 BUN 15 mg/dL (8-23) 11/09/23 03:14 Creatinine 0.8 mg/dL (0.5-0.9) 11/09/23 03:14 GFR Calculation Not Reportable 11/09/23 03:14 Glucose 101 mg/dL (65-115) 11/09/23 03:14 POC Glucose 87 mg/dL (70-110) 11/08/23 16:03 Estimat Average Glucose 123 11/09/23 03:14 Hemoglobin A1c 5.9 % (4.0-6.0) 11/09/23 03:14 Calculated Osmolality 291 mOsm/kg (285-295) 11/09/23 03:14 Calcium 9.6 mg/dL (8.5-10.5) 11/09/23 03:14 Phosphorus 3.3 mg/dL (2.5-4.5) 11/09/23 03:14 Magnesium 1.6 mg/dL (1.7-2.3) L 11/09/23 03:14 Iron 30 ug/dL (37-145) L 11/08/23 15:14 TIBC 296 mcg/dl 11/08/23 15:14 % Saturation 10.1 % (20-50) L 11/08/23 15:14 Unsat Iron Binding 266 ug/dL (112-347) 11/08/23 15:14 Total Bilirubin 0.5 mg/dL (0.15-1.2) 11/09/23 03:14 AST 19 U/L (0-32) 11/09/23 03:14 ALT 10 U/L (0-33) 11/09/23 03:14 Alkaline Phosphatase 130 U/L (35-105) H 11/09/23 03:14 Total Protein 6.8 g/dL (6.6-8.7) 11/09/23 03:14 Albumin 3.4 g/dL (3.5-5.2) L 11/09/23 03:14 Globulin 3.4 g/dL (1.3-4.6) 11/09/23 03:14 Triglycerides 183 mg/dL (0-150) H 11/09/23 03:14 Cholesterol 191 mg/dL (0-200) 11/09/23 03:14 LDL Cholesterol, Calc 119 mg/dL (50-129) 11/09/23 03:14 HDL Cholesterol 35 mg/dL (60-100) L 11/09/23 03:14 LDL/HDL Ratio 3.40 RATIO (0.00-3.22) H 11/09/23 03:14 Cholesterol/HDL Ratio 5.46 mg/dL (0.0-4.40) H 11/09/23 03:14 Vitamin B12 427 pg/mL (232-1245) 11/08/23 15:14 Folate > 20.0 ng/mL (4.8-37.3) 11/09/23 03:14 TSH 5.86 uIU/mL (0.27-4.20) H 11/08/23 15:14 Free T4 1.06 ng/dL (0.82-1.77) 11/08/23 15:14 Urine Color Yellow (Yellow) 11/08/23 15:49 Urine Appearance Clear (CLEAR) 11/08/23 15:49 Urine pH 6.5 (5-7) 11/08/23 15:49 Ur Specific [place] 1.005 (1.005-1.030) 11/08/23 15:49 Urine Protein 1+ (Negative) H 11/08/23 15:49 Urine Glucose (UA) Norm (Normal) 11/08/23 15:49 Urine Ketones Negative (Negative) 11/08/23 15:49 Urine Blood Neg (Negative) 11/08/23 15:49 Urine Nitrate Negative (Negative) 11/08/23 15:49 Urine Bilirubin 1+ (Negative) H 11/08/23 15:49 Urine Urobilinogen Norm mg/dL (Negative) 11/08/23 15:49 Ur Leukocyte Esterase Trace (Negative) H 11/08/23 15:49 Urine RBC 0-4 /hpf (0-2) H 11/08/23 15:49 Urine WBC 0-4 /hpf (0-5) H 11/08/23 15:49 Ur Squamous Epith Cells 0-4 /hpf (0-5) H 11/08/23 15:49 Ur Transition Epith Cell 0-4 /hpf 11/08/23 15:49 Ur Renal Epithelial Cell 0-4 /hpf 11/08/23 15:49 Amorphous Sediment Not Reportable 11/08/23 15:49 Urine Bacteria None /hpf (NONE) 11/08/23 15:49 Hyaline Casts 0-4 /lpf H 11/08/23 15:49 Urine Mucus None /hpf 11/08/23 15:49 Urine Opiates Screen Positive ng/mL (Negative) H 11/08/23 15:49 Ur Barbiturates Screen Negative ng/mL (Negative) 11/08/23 15:49 Ur Phencyclidine Scrn Negative ng/mL (Negative) 11/08/23 15:49 Ur Amphetamines Screen Negative ng/mL (Negative) 11/08/23 15:49 U Benzodiazepines Scrn Negative ng/mL (Negative) 11/08/23 15:49 Urine Cocaine Screen Negative ng/mL (Negative) 11/08/23 15:49 U Marijuana (THC) Screen Negative ng/mL (Negative) 11/08/23 15:49 Vitals Last Vital Signs Temp 97.6 F 11/09/23 08:24 Pulse 82 11/09/23 08:24 Resp 18 11/09/23 08:24 BP 173/73 11/09/23 08:24 Pulse Ox 93 11/09/23 08:24 O2 Del Method Room Air 11/09/23 08:24 Discharge Plan Discharge Patient Disposition: Home Condition: Stable Prescriptions: New atorvastatin 10 mg tablet 10 mg PO DAILY Qty: 30 0RF Continued metoprolol tartrate 50 mg tablet 25 mg PO BID Qty: 90 11RF nitroglycerin [Nitrostat] 0.4 mg tablet, sublingual 0.4 mg SUBLINGUAL Q5M PRN (Reason: Chest Pain) Qty: 30 11RF (DME) Rollator walker with seat See Rx Instructions .Route .MEDSUPPLY Qty: 1 0RF Rx Instructions: As directed duloxetine 60 mg capsule,delayed release(DR/EC) 60 mg PO DAILY Qty: 30 2RF hydrocodone-acetaminophen 5-325 mg tablet 1 tab PO Q8H PRN (Reason: pain) 14 Days Qty: 30 0RF acetaminophen [Tylenol Extra Strength] 500 mg tablet 500 mg PO Q4H PRN (Reason: Pain) clopidogrel 75 mg tablet 75 mg PO DAILY Hold Instructions: Resume on 07/29/23. Eliquis 5 mg tablet 2.5 mg PO BID Hold Instructions: Resume on 07/29/23. pantoprazole 40 mg tablet,delayed release (DR/EC) 40 mg PO BID Calcium 600 600 mg calcium (1,500 mg) Tablet 600 mg PO DAILY Vitamin D3 25 mcg (1,000 unit) Capsule 25 mcg PO DAILY trazodone 50 mg tablet 50 mg PO BEDTIME PRN (Reason: insomnia) Held amlodipine 5 mg tablet 5 mg PO DAILY Qty: 30 11RF Hold Instructions: Home Medication placed on hold at Doctor's office isosorbide mononitrate 30 mg tablet extended release 24 hr 60 mg PO DAILY Qty: 180 7RF Hold Instructions: Resume on 11/10/23. Discharge Orders: Discharge Order (Routine); Ordered 11/09/23 Ordered By: Ari Fishman Referrals: Corinne Amaya MD [Physician] - 2 weeks (We have notified your physician's clinic of the need for a follow-up appointment to be scheduled. If you have not heard from them within the next 2 business days, please call them directly. ) Ousmane Reaves MD [Primary Care Provider] - 7-10 days (We have notified your physician's clinic of the need for a follow-up appointment to be scheduled. If you have not heard from them within the next 2 business days, please call them directly. ) Discharge Diet: Cardiac Discharge Activity: Resume usual activity and Increase activity as tolerated Patient Instructions: Opioid Safety Activity Restrictions/Additional Instructions: Restart your blood pressure medications including Imdur and amlodipine tomorrow. Continue with home dose of Plavix and Eliquis. Please follow-up with a primary care provider within next [address] Amaya from neurology in 2 weeks. Discharge Attestations Time Spent in Discharge Care*: greater than 30 min Specific Discharge Activities: educating patient, educating and/or supporting family/caregiver, discussing with pcp/other providers, discussing with manager of case/social workers/dc planners, documenting/other paperwork and evaluating patient/reviewing data Status at Discharge: Cognitive status at discharge: cognitively intact , Behavioral status at discharge: cooperative , Functional status at discharge: uses cane/walker , Overall status at discharge: patient is back to baseline Quality Metrics Clinical Quality Measures [ Cerebrovascular Accident { Contraindication to Antithrombotic: None; antithrombotic prescribed; Contraindication to Anticoagulation: None; anticoagulation prescribed; Contraindication to Statin: None; Statin prescribed; Contraindication to tPA: Did not meet criteria;}] Coding Level of Care Code 15661 Total time (in minutes) for Discharge: 60 Diagnoses Occipital stroke I63.9 Hypertension I10 Coronary arteriosclerosis I25.10 Congestive heart failure (CHF) I50.9 Pulmonary embolism I26.99 Primary adenocarcinoma of ascending colon C18.2 Secondary malignant neoplasm of liver and intrahepatic bile duct C78.7 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
[2023-11-09] MEDS: magnesium sulfate premix 1 GM/100 ML PIGGYBACK IV (09:39)
[2023-11-09 12:35] VITALS: BP 173/73; PULSE 82; RESP 18; TEMP 36.4; O2SAT 93
== END 2023-11-09 12:45 | disposition home or self-care (01) ==
LOC: ER 17:49 → MEDSURG 18:38
PROVIDERS: Admitting Provider Student in an Organized Health Care Education/Training Program; Emergency Provider Family Medicine; PCP Family Medicine; Visit Provider Student in an Organized Health Care Education/Training Program
DX: I63.9 Cerebral infarction, unspecified (principal); I25.10 Atherosclerotic heart disease of native coronary artery without angina pectoris; I11.0 Hypertensive heart disease with heart failure; I26.99 Other pulmonary embolism without acute cor pulmonale; C18.2 Malignant neoplasm of ascending colon; C78.7 Secondary malignant neoplasm of liver and intrahepatic bile duct; C50.411 Malignant neoplasm of upper-outer quadrant of right female breast; Z79.02 Long term (current) use of antithrombotics/antiplatelets; Z79.01 Long term (current) use of anticoagulants; Z66 Do not resuscitate; Z86.711 Personal history of pulmonary embolism; Z87.891 Personal history of nicotine dependence
CPT/HCPCS: 36415; 36416; 70496; 70498; 80053; 80061; 80306; 81001; 82607; 82746; 82962; 83036; 83540; 83550; 83735; 84100; 84439; 84443; 85025; 85610; 85730; 92523; 92610; 93005; 93306; 94664; 96365; 97161; 97166; 97530; 99285; G0378; J3475; J7030; Q9967

== ENCOUNTER 2023-11-26 11:56 | Outpatient (CLI) | payer MEDICARE, MEDICAID, SELFPAY ==
[2023-11-26] MEDS: iohexol 350 mg/mL 500 mL Btl (per mL) PO (13:07)
[2023-11-26] MEDS: iohexol 350 mg/mL 500 mL Btl (per mL) IV (13:30)
--- NOTE | 2023-11-26 13:30 | CT_ITS ---
WS: [id number] CT CHEST, ABDOMEN AND PELVIS WITH CONTRAST HISTORY: colon cancer TECHNIQUE: Contiguous 5 mm axial imaging performed through the chest, abdomen and pelvis with IV cont rast, oral contrast has been provided. Coronal and sagittal reformats chest. Coronal and sagittal ref ormats through the abdomen and pelvis. All CT scans at [facility] use at least one of these d ose optimization techniques: automated exposure control; mA and/or kV adjustment per patient size (in cludes targeted exams where dose is matched to clinical indication); or iterative reconstruction. CONTRAST: Omnipaque 350; 100 mL IV. DLP: 574.53 mGy.cm COMPARISON: PET/CT 08/21/2023, CT chest, abdomen and pelvis. Chest CT: Mild elevation of the RIGHT hemidiaphragm. No pulmonary mass or nodule. No pleural effusion or pericardial effusion. Moderate atherosclerosis aorta. Normal central pulmonary artery. Heart is t op normal size. Postsurgical changes and lumpectomy site in the RIGHT breast. Abdomen CT: Reidentified is the PET/CT positive low-attenuation mass in the central liver. Mass measu res 6.7 x 6.5 x 6.5 cm. There is an additional LEFT lobe 0.8 cm nodule which may be a small cyst or a n additional metastatic site. Gallbladder is negative. No bile duct dilatation. Negative spleen. Panc reatic atrophy is mild. No pancreatic duct dilatation. Normal adrenal glands. No renal obstruction or mass. Moderate atherosclerosis aorta and mesenteric arteries. No GI tract obstruction. No mucosa. Mo derate diffuse constipation. Pelvic CT: No free fluid or adenopathy. Prior hysterectomy. No destructive bone lesions. There is osteopenia. IMPRESSION: 1. Reidentified is a PET/CT positive hepatic mass measuring 6.7 x 6.5 x 6.5 cm. Very minimal increas e in size since the PET/CT of 08/21/2023. 2. No metastatic pulmonary nodules or adrenal mass. 3. Postsurgical changes RIGHT breast are unchanged. 4. There is an additional 0.8 cm nodule in the LEFT lobe of the liver which may be a tiny satellite lesion or cyst. Too small to characterize. Not present on prior study from 11/09/2019.
== END 2023-11-26 11:57 | disposition home or self-care (01) ==
LOC: RAD 11:57
PROVIDERS: PCP Family Medicine; Visit Provider Internal Medicine Medical Oncology
DX: C50.411 Malignant neoplasm of upper-outer quadrant of right female breast (principal); C78.7 Secondary malignant neoplasm of liver and intrahepatic bile duct; C18.2 Malignant neoplasm of ascending colon
CPT/HCPCS: 71260; 74177; Q9967

== ENCOUNTER 2023-12-06 08:00 | Oncology outpatient (recurring) (ONCR) | payer MEDICARE, MEDICAID, SELFPAY ==
[2023-11-19 11:03] LABS: Basophils % 0.6 %; Eosinophils # 0.2 10^3/uL (0.0-0.8); Eosinophils % 2.6 %; Hematocrit 35.4 % (36-47); Lymphocytes # 2.8 10^3/uL (0.8-4.8); Lymphocytes % 39.9 %; Mean Corpuscular HGB Conc 31.4 g/dL (30-55); Mean Corpuscular Hemoglobin 27.2 pg (27-33); Mean Corpuscular Volume 86.8 fl (85-98); Mean Platelet Volume 8.8 fL (7.4-10.4); Monocytes # 0.6 10^3/uL (0.2-0.9); Monocytes % 8.3 %; Neutrophils # 3.39 10^3/uL (1.8-7.7); Neutrophils % 48.5 %; Nucleated Red Blood Cells % 0 %; Platelet Count 335 10^3/cmm (157-399); Red Blood Count 4.08 10^6/uL (3.85-5.65); Red Cell Distribution Width 15.9 % (12.1-15.1); White Blood Count 6.99 10^3/uL (3.29-11.43)
[2023-11-19 11:36] LABS: Carcinoembryonic Antigen 74.4 ng/mL (0.0-4.7)
[2023-11-19 11:47] LABS: Alanine Aminotransferase 9 U/L (0-33); Albumin Level 3.7 g/dL (3.5-5.2); Alkaline Phosphatase 145 U/L (35-105); Aspartate Amino Transferase 26 U/L (0-32); Blood Urea Nitrogen 13 mg/dL (8-23); Calcium 9.7 mg/dL (8.5-10.5); Carbon Dioxide 27 mmol/L (22-29); Chloride 99 mmol/L (98-107); Globulin 3.3 g/dL (1.3-4.6); Glucose 97 mg/dL (65-115); Osmolality Calculated 284 mOsm/kg (285-295); Sodium 137 mmol/L (136-145); Total Bilirubin 0.4 mg/dL (0.15-1.2)
[2023-11-19 11:49] LABS: Anion Gap 15.2 (5-19); Potassium 4.2 mmol/L (3.5-5.1)
[2023-12-06 08:07] LABS: Basophils % 0.1 %; Eosinophils % 0.3 %; Hematocrit 36.2 % (36-47); Lymphocytes # 3.3 10^3/uL (0.8-4.8); Mean Corpuscular HGB Conc 31.5 g/dL (30-55); Mean Corpuscular Hemoglobin 28.1 pg (27-33); Mean Corpuscular Volume 89.2 fl (85-98); Mean Platelet Volume 8.9 fL (7.4-10.4); Monocytes # 0.5 10^3/uL (0.2-0.9); Monocytes % 5.1 %; Neutrophils # 6.41 10^3/uL (1.8-7.7); Nucleated Red Blood Cells % 0 %; Platelet Count 289 10^3/cmm (157-399); Red Blood Count 4.06 10^6/uL (3.85-5.65); Red Cell Distribution Width 15.9 % (12.1-15.1); White Blood Count 10.34 10^3/uL (3.29-11.43)
[2023-12-06 08:35] LABS: Alanine Aminotransferase 15 U/L (0-33); Albumin Level 3.5 g/dL (3.5-5.2); Alkaline Phosphatase 114 U/L (35-105); Blood Urea Nitrogen 16 mg/dL (8-23); Calcium 8.6 mg/dL (8.5-10.5); Carbon Dioxide 25 mmol/L (22-29); Chloride 101 mmol/L (98-107); Cortisol Random 2.46 ug/dL (2.47-19.5); Globulin 2.9 g/dL (1.3-4.6); Glucose 90 mg/dL (65-115); Osmolality Calculated 289 mOsm/kg (285-295); Sodium 139 mmol/L (136-145); Total Bilirubin 0.6 mg/dL (0.15-1.2); Total Protein 6.4 g/dL (6.6-8.7)
[2023-12-06 08:46] LABS: Anion Gap 16.8 (5-19); Aspartate Amino Transferase 26 U/L (0-32); Potassium 3.8 mmol/L (3.5-5.1)
[2023-12-06] MEDS: pembrolizumab 200 MG in sodium chloride 0.9% 250 ML 516 MG IV (10:39)
[2023-12-06 11:35] VITALS: BP 187/79; PULSE 62; RESP 17; TEMP 36.2; O2SAT 100
== END 2023-12-06 23:59 | disposition home or self-care (01) ==
PROVIDERS: PCP Family Medicine; Visit Provider Internal Medicine Medical Oncology
DX: Z51.12 Encounter for antineoplastic immunotherapy; C18.2 Malignant neoplasm of ascending colon; C50.411 Malignant neoplasm of upper-outer quadrant of right female breast; Z17.0 Estrogen receptor positive status [ER+]; C78.7 Secondary malignant neoplasm of liver and intrahepatic bile duct; R53.83 Other fatigue; Z87.891 Personal history of nicotine dependence; Z79.52 Long term (current) use of systemic steroids; Z79.899 Other long term (current) drug therapy; Z53.9 Procedure and treatment not carried out, unspecified reason
CPT/HCPCS: 36415; 80053; 82378; 82533; 84443; 85025; 96413; 99215; A4222; J7050; J9271

== ENCOUNTER 2023-12-13 10:01 | Oncology outpatient (recurring) (ONCR) | payer MEDICARE, MEDICAID, SELFPAY ==
[2023-12-13 10:21] LABS: Basophils % 0.2 %; Eosinophils # 0.1 10^3/uL (0.0-0.8); Eosinophils % 0.6 %; Hematocrit 35.3 % (36-47); Lymphocytes # 1.5 10^3/uL (0.8-4.8); Lymphocytes % 16.4 %; Mean Corpuscular HGB Conc 30.9 g/dL (30-55); Mean Corpuscular Hemoglobin 27.6 pg (27-33); Mean Corpuscular Volume 89.4 fl (85-98); Mean Platelet Volume 8.5 fL (7.4-10.4); Monocytes # 0.5 10^3/uL (0.2-0.9); Monocytes % 5.3 %; Neutrophils # 6.82 10^3/uL (1.8-7.7); Neutrophils % 77.2 %; Nucleated Red Blood Cells % 0 %; Platelet Count 292 10^3/cmm (157-399); Red Blood Count 3.95 10^6/uL (3.85-5.65); Red Cell Distribution Width 15.9 % (12.1-15.1); White Blood Count 8.84 10^3/uL (3.29-11.43)
[2023-12-13 10:51] LABS: Alanine Aminotransferase 16 U/L (0-33); Albumin Level 3.5 g/dL (3.5-5.2); Alkaline Phosphatase 119 U/L (35-105); Anion Gap 13.6 (5-19); Aspartate Amino Transferase 21 U/L (0-32); Blood Urea Nitrogen 12 mg/dL (8-23); Calcium 9.3 mg/dL (8.5-10.5); Carbon Dioxide 27 mmol/L (22-29); Chloride 104 mmol/L (98-107); Globulin 2.9 g/dL (1.3-4.6); Glucose 103 mg/dL (65-115); Osmolality Calculated 292 mOsm/kg (285-295); Potassium 3.6 mmol/L (3.5-5.1); Sodium 141 mmol/L (136-145); Total Bilirubin 0.5 mg/dL (0.15-1.2); Total Protein 6.4 g/dL (6.6-8.7)
== END 2023-12-13 23:59 | disposition home or self-care (01) ==
LOC: ONCMED 10:02
PROVIDERS: Nurse Practitioner Family; PCP Family Medicine; Visit Provider Internal Medicine Medical Oncology
DX: C18.2 Malignant neoplasm of ascending colon (principal)
CPT/HCPCS: 36415; 80053; 85025

== ENCOUNTER → 2023-12-14 14:03 | Outpatient (BNVA) | payer MEDICARE, MEDICAID, SELFPAY | PROVIDERS: PCP Family Medicine; Visit Provider Specialist | DX: I63.9 Cerebral infarction, unspecified (principal); Z09 Encounter for follow-up examination after completed treatment for conditions other than malignant neoplasm; I63.511 Cerebral infarction due to unspecified occlusion or stenosis of right middle cerebral artery; C18.2 Malignant neoplasm of ascending colon; C78.7 Secondary malignant neoplasm of liver and intrahepatic bile duct; C50.411 Malignant neoplasm of upper-outer quadrant of right female breast; M54.81 Occipital neuralgia | CPT/HCPCS: 64405; 99205; J1030; J3490 ==

== ENCOUNTER → 2023-12-24 14:15 | Outpatient (BNVA) | payer MEDICARE, MEDICAID, SELFPAY | PROVIDERS: PCP Family Medicine; Visit Provider Nurse Practitioner | DX: U07.1 COVID-19 (principal) | CPT/HCPCS: 87426 ==

== ENCOUNTER 2023-12-27 10:05 | Observation (INO) | payer MEDICARE, MEDICAID, SELFPAY ==
[2023-12-27] VITALS (16 sets, daily range): BP systolic 104–154; BP diastolic 43–72; PULSE 81–127; RESP 15–17; TEMP 36.4–36.6; O2SAT 91–94; BMI 20.6; BMI 21.9
--- NOTE | 2023-12-27 09:45 | ECG_ITS ---
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 Measurements Intervals [place] Rate: 106 P: 60 HI: 174 QRS: -46 QRSD: 95 T: 61 QT: 347 QTc: 462 Interpretive Statements SINUS TACHYCARDIA WITH FREQUENT SUPRAVENTRICULAR PREMATURE COMPLEXES LEFT ANTERIOR FASCICULAR BLOCK [QRS AXIS <= -45, QR IN I, RS IN II] ANTEROSEPTAL MYOCARDIAL INFARCTION , OF INDETERMINATE AGE [40+ ms Q WAVE IN V1-V4] Compared to ECG 11/08/2023 14:50:41 Left anterior fascicular block now present Sinus rhythm no longer present Left-axis deviation no longer present Myocardial infarct finding still present Electronically Signed On 12-27-2023 15:19:43 CDT by Jeffy Logan M.D. [id number]
--- NOTE | 2023-12-27 10:11 | XRR_ITS ---
PROCEDURE INFORMATION: Exam: XR Chest Exam date and time: 12/27/2023 10:30 AM Age: 88 years old Clinical indication: Other: Weakness TECHNIQUE: Imaging protocol: Radiologic exam of the chest. Views: 1 view. COMPARISON: CT chest abdpel w/*[id number] 11/26/2023 1:25 PM FINDINGS: Tubes, catheters and devices: Surgical clips at the base of the neck on the left. Lungs: Unremarkable. No consolidation. Pleural spaces: Unremarkable. No pleural effusion. No pneumothorax. Heart/Mediastinum: Widening of the superior mediastinum due to ectatic brachiocephalic vasculature is demonstrated on a recent CT scan. Bones/joints: Unremarkable. XR/XR chest 1V portable [id number] IMPRESSION: No acute findings.
--- NOTE | 2023-12-27 10:11 | CT_ITS ---
WS: [id number] CT HEAD NONCONTRAST HISTORY: weakness TECHNIQUE: Contiguous axial imaging performed through the brain in 2.5 mm imaging. Bone and soft tiss ue windows. Sagittal and coronal reformats reviewed. All CT scans at [facility] use at least one of these dose optimization techniques: automated exposure control; mA and/or kV adjustment per pa tient size (includes targeted exams where dose is matched to clinical indication); or iterative recon struction. DLP: 1184.22 mGy.cm COMPARISON: 11/08/2023 No acute intracranial hemorrhage, midline shift or mass effect. Moderate symmetric atrophy and small vessel ischemic disease. Remote infarct RIGHT occipital lobe. Pr ior lacunar infarct in the RIGHT parietal lobe towards the vertex. Ventricles: Ventricles and extra-axial spaces are mildly prominent on the basis of atrophy. No inferior displacement of the cerebellar tonsils. Paranasal sinuses: As visualized are clear. Mastoid air cells: Well pneumatized. Calvarium and scalp: Hyperostosis frontalis interna. IMPRESSION: 1. No acute intracranial hemorrhage or edema. 2. Large remote RIGHT occipital lobe infarct. Prior lacunar infarct in the RIGHT parietal lobe towar ds the vertex. 3. Moderate atrophy with volume loss and small vessel disease. Notified Millie Wilson MD at 12/27/2023 10:42 AM.
--- NOTE | 2023-12-27 10:11 | CT_ITS ---
WS: [id number] CT ANGIOGRAM CEREBRAL AND CAROTID ARTERIES HISTORY: weakness TECHNIQUE: CT angiogram is performed of the carotid and cerebral arteries. During arterial injection imaging is obtained from the skull vertex to the aortic arch in 1.25 mm imaging. Coronal and sagittal reformats are submitted. Additional multi planar reformats of the carotid and cerebral arteries are submitted, MIP imaging also reviewed. NASCET criteria utilized. All CT scans at [facility] us e at least one of these dose optimization techniques: automated exposure control; mA and/or kV adjust ment per patient size (includes targeted exams where dose is matched to clinical indication); or iter ative reconstruction. CONTRAST: Omnipaque 350; 100 mL IV. DLP: 399.29 mGy.cm COMPARISON: 11/08/2023 Carotid Angiogram: Right carotid: Common carotid artery: Arises normally from the innominate artery. Mild plaque. No high-grade stenosi s. Internal carotid artery: Focal plaque at the bifurcation. 50% stenosis origin RIGHT ICA. External carotid artery: Patent. Left carotid: Common carotid artery: Arises normally from the aorta. No significant plaque or stenosis. Internal carotid artery: Increasing plaque towards the bifurcation. 50% stenosis at the bifurcation. External carotid artery: Patent. Right vertebral artery: Dominant. Left vertebral artery: Patent. Subclavian arteries: Extremely small caliber and diminutive proximal LEFT subclavian artery from the aorta. Patient is status post LEFT common carotid artery to subclavian artery bypass graft. Upper thorax: Normal. Thyroid gland: Normal. Osseous structures: C3 anterolisthesis by 3 mm. Advanced facet joint disease in disc base narrowing. CEREBRAL ANGIOGRAM: Intracranial vertebral arteries: Normal with no significant atherosclerosis. Basilar artery: No significant stenosis or occlusion. No aneurysm. Intracranial Internal carotid arteries: Atherosclerotic plaque through the cavernous carotid sinuses. Stenosis estimated near 50%. Middle cerebral arteries: Reidentified is a change in caliber between the RIGHT M1 and A2 segments co nsistent with a stenosis. Similar to the prior study. Middle cerebral artery on the LEFT is negative. Anterior cerebral arteries and ACOM: Normal. Posterior cerebral arteries and PCOM's: Normal. Dural venous sinuses are normally enhancing. Mastoid air cells: Normal. Paranasal sinuses: Normal. Calvarium: Normal. IMPRESSION: 1. Bilateral cervical carotid artery stenosis estimated at 50%. 2. Reidentified is a change in caliber involving the RIGHT M1 and M2 segment consistent with a steno sis in the distal RIGHT M1 segment. 3. Extremely small caliber LEFT subclavian artery with surrounding atherosclerotic disease. High-gra de, near complete occlusion. Patient is status post LEFT common carotid artery to LEFT subclavian art neda bypass which is intact. 4. 50% stenosis intracranial cavernous carotid arteries.
--- NOTE | 2023-12-27 10:14 | ED_ITS ---
HPI - General Adult 2 General: Chief complaint: Weakness Stated complaint: stroke alert possible Time Seen by Provider: 12/27/23 10:06 Source: patient and EMS Mode of arrival: EMS Limitations: altered mental status History of Present Illness: 88-year-old female whose had a history o f stroke in the past per EMS custodial patient was seen at normal this morning at 8 AM custodial states that when they checked on her she had more left-sided facial droop and left-sided weakness at her baseline. Patient has weakness to her left side chronically from an old stroke. Patient is able answer some questions but does have some slight confusion states she is just felt very weak. She is on Eliquis patient was in A-fib with RVR with EMS was given Cardizem and route Review of Systems 2 General: Reports: ROS unobtainable due to mental status PFSH ED 2 PFSH: Medical History CVA (cerebral vascular accident) Dysphagia Swallowing study in October 22, 2019 showed dysmotility Breast cancer Colon cancer Depression Psychiatric care Hypertension Congestive heart failure (CHF) Urinary incontinence 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 Most likely occurred 3 months prior based off symptoms. Coronary arteriosclerosis Surgical History Status post partial colectomy 11/13/2019: Laparoscopic extended right hemicolectomy Status post colonoscopy (12/21/20) History of hysterectomy Family History Sister Cancer Mother Cardiac complication Father Cardiac complication Denies family history of Anesthesia complication Bleeding disorder Social History Smoking and tobacco/nicotine status: former use of tobacco/nicotine Quit status (tobacco/nicotine): has quit using Year quit tobacco: 1981 Former quit date comment: 5 years approx. Second hand smoke exposure: No Alcohol intake: former Year of sobriety/quit date alcohol: 1981 Substance/Drug Use: never Lives independently: Yes Household members: spouse Marital status: Number of children: 5 Number of grandchildren: 29 Highest education level completed: High School Graduate service: No Current occupational status: retired Pets and animals: Yes Female Reproductive History: Spontaneous abortions: No Physical Exam 2 Const: COMMON NORMALS: no acute distress and healthy appearing HENMT: COMMON NORMALS: normocephalic and atraumatic HEAD & SCALP: n ormocephalic and atraumatic Neck/C-Spine: COMMON NORMALS: full ROM and supple Chest: COMMONS NORMALS: normal inspection of the chest Resp: COMMON NORMALS: normal respiratory effort, No retractions, No use of accessory muscles and clear to auscultation bilaterally AUSCULTATION: clear to auscultation bilaterally GI: COMMON NORMALS: Normal to inspection, nondistended, normoactive bowel sounds present, Soft to palpation, non-tender and no masses PALPATION: Yes Soft to palpation Extremity: COMMON NORMALS: normal to inspection and full ROM Neuro: OTHER: left sided weakness and facial dropp Psych: COMMON NORMALS: cooperative Skin: COMMON NORMALS: no rashes or lesions noted and no wounds GENERAL SKIN EXAM: no rashes or lesions noted Course 2 Vital Signs: Vital signs: Vital Signs Temperature 97.8 F 12/27/23 10:06 Pulse Rate 94 12/27/23 12:46 Respiratory Rate 17 12/27/23 10:06 Blood Pressure 125/53 12/27/23 12:30 Pulse Oximetry 94 12/27/23 12:46 Oxygen Delivery Me thod Room Air 12/27/23 12:46 MDM - General Adult Medical Decision Making Patient presents with left-sided weakness with a possible stroke she has had a stroke in the past she is not a lytic candidate as she is on Eliquis. I spoke to the hospitalist will admit at this time. Medical Records I reviewed the patient's medical records. Lab Data I reviewed the patient's lab results. 12/27/23 09:46 12/27/23 09:46 Radiology Impressions Chest X-Ray 12/27/23 10:11 IMPRESSION: No acute findings. Laboratory Results WBC 12.42 10^3/uL (3.29-11.43) H 12/27/23 09:46 RBC 4.80 10^6/uL (3.85-5.65) 12/27/23 09:46 Hgb 13.40 g/dL (11.27-16.99) 12/27/23 09:46 Hct 41.7 % (36-47) 12/27/23 09:46 MCV 86.9 fl (85-98) 12/27/23 09:46 MCH 27.9 pg (27-33) 12/27/23 09:46 MCHC 32.1 g/dL (30-55) 12/27/23 09:46 RDW 15.9 % (12.1-15.1) H 12/27/23 09:46 Plt Count 401 10^3/cmm (157-399) H 12/27/23 09:46 MPV 9.1 fL (7.4-10.4) 12/27/23 09:46 Neut % (Auto) 76.5 % 12/27/23 09:46 Lymph % (Auto) 16.7 % 12/27/23 09:46 [place] % (Auto) 5.9 % 12/27/23 09:46 Eos % (Auto) 0.1 % 12/27/23 09:46 Baso % (Auto) 0.1 % 12/27/23 09:46 Neut # (Auto) 9.51 10^3/uL (1.8-7.7) H 12/27/23 09:46 Lymph # (Auto) 2.1 10^3/uL (0.8-4.8) 12/27/23 09:46 [place] # (Auto) 0.7 10^3/uL (0.2-0.9) 12/27/23 09:46 Eos # (Auto) 0.0 10^3/uL (0.0-0.8) 12/27/23 09:46 Baso # (Auto) 0.0 10^3/uL (0.0-0.1) 12/27/23 09:46 Nucleated RBC % (auto) 0 % 12/27/23 09:46 Nucleated RBCs # 0.0 /100WBC 12/27/23 09:46 PT 16.10 SECONDS (12.1-14.9) H 12/27/23 09:46 INR 1.25 (0.8-1.2) H 12/27/23 09:46 Sodium 137 mmol/L (136-145) 12/27/23 09:46 Potassium 3.6 mmol/L (3.5-5.1) 12/27/23 09:46 Chloride 92 mmol/L (98-107) L 12/27/23 09:46 Carbon Dioxide 22 mmol/L (22-29) 12/27/23 09:46 Anion Gap 26.6 (5-19) H 12/27/23 09:46 BUN 14 mg/dL (8-23) 12/27/23 09:46 Creatinine 0.9 mg/dL (0.5-0.9) 12/27/23 09:46 GFR Calculation Not Reportable 12/27/23 09:46 Glucose 107 mg/dL (65-115) 12/27/23 09:46 Calculated Osmolality 285 mOsm/kg (285-295) 12/27/23 09:46 Calcium 9.7 mg/dL (8.5-10.5) 12/27/23 09:46 Magnesium 1.5 mg/dL (1.7-2.3) L 12/27/23 09:46 Total Bilirubin 0.8 mg/dL (0.15-1.2) 12/27/23 09:46 AST 28 U/L (0-32) 12/27/23 09:46 ALT 19 U/L (0-33) 12/27/23 09:46 Alkaline Phosphatase 175 U/L (35-105) H 12/27/23 09:46 Total Protein 7.5 g/dL (6.6-8.7) 12/27/23 09:46 Albumin 3.8 g/dL (3.5-5.2) 12/27/23 09:46 Globulin 3.7 g/dL (1.3-4.6) 12/27/23 09:46 TSH 2.16 uIU/mL (0.27-4.20) 12/27/23 09:46 Urine Color Straw (Yellow) 12/27/23 11:40 Urine Appearance Clear (CLEAR) 12/27/23 11:40 Urine pH 7 (5-7) 12/27/23 11:40 Ur Specific [place] 1.000 (1.005-1.030) L 12/27/23 11:40 Urine Protein Trace (Negative) 12/27/23 11:40 Urine Glucose (UA) Norm (Normal) 12/27/23 11:40 Urine Ketones Negative (Negative) 12/27/23 11:40 Urine Blood Neg (Negative) 12/27/23 11:40 Urine Nitrate Negative (Negative) 12/27/23 11:40 Urine Bilirubin Neg (Negative) 12/27/23 11:40 Urine Urobilinogen Norm mg/dL (Negative) 12/27/23 11:40 Ur Leukocyte Esterase Trace (Negative) H 12/27/23 11:40 Urine RBC Rare /hpf (0-2) 12/27/23 11:40 Urine WBC 0-4 /hpf (0-5) H 12/27/23 11:40 Ur Squamous Epith Cells None /hpf (0-5) 12/27/23 11:40 Amorphous Sediment Not Reportable 12/27/23 11:40 Urine Bacteria None /hpf (NONE) 12/27/23 11:40 Urine Mucus None /hpf 12/27/23 11:40 All radiology interpretation(s) finalized by discharge EKG Data EKG 1: I personally reviewed and interpreted this EKG as follows: EKG interpretation date: 12/27/23 EKG interpretation time: 09:45 Interpretation: sinus tach hr [address] or t wave abnormalities qrs 95 qtc 409 Computer generated interpretation: Chest X-Ray 12/27/23 10:11 IMPRESSION: No acute findings. Discharge Plan Discharge Patient Disposition: Admitted As Inpatient Clinical Impression: CVA (cerebral vascular accident) Condition: Stable Prescriptions: No Action amlodipine 5 mg tablet 5 mg PO DAILY Qty: 30 11RF Hold Instructions: Resume on 11/10/23. isosorbide mononitrate 30 mg tablet extended release 24 hr 60 mg PO DAILY Qty: 180 7RF Hold Instructions: Resume on 11/10/23. metoprolol tartrate 50 mg tablet 25 mg PO BID Qty: 90 11RF nitroglycerin [Nitrostat] 0.4 mg tablet, sublingual 0.4 mg SUBLINGUAL Q5M PRN (Reason: Chest Pain) Qty: 30 11RF senna 8.6 mg capsule 8.6 mg PO DAILY docusate calcium 240 mg capsule 240 mg PO DAILY lorazepam 1 mg tablet 0.5 - 1 mg PO Q6H PRN (Reason: Severe Nausea) Qty: 30 3RF duloxetine 30 mg capsule,delayed release(DR/EC) 30 mg PO DAILY Qty: 30 2RF (DME) Rollator walker with seat See Rx Instructions .Route .MEDSUPPLY Qty: 1 0RF Rx Instructions: As directed prednisone 10 mg tablet 10 mg PO BID Qty: 60 1RF oxycodone 10 mg tablet 10 mg PO Q6H PRN (Reason: pain) 30 Days Qty: 120 0RF acetaminophen [Tylenol Extra Strength] 500 mg tablet 500 mg PO Q4H PRN (Reason: Pain) prochlorperazine maleate [Compazine] 10 mg tablet 10 mg PO Q4H PRN (Reason: Mild Nausea) Qty: 30 3RF Eliquis 5 mg tablet 2.5 mg PO BID Hold Instructions: Resume on 07/29/23. pantoprazole 40 mg tablet,delayed release (DR/EC) 40 mg PO BID calcium carbonate [Calcium 600] 600 mg calcium (1,500 mg) Tablet 600 mg PO DAILY cholecalciferol (vitamin D3) [Vitamin D3] 25 mcg (1,000 unit) Capsule 25 mcg PO DAILY trazodone 50 mg tablet 50 mg PO BEDTIME PRN (Reason: insomnia) Milk of Magnesia 400 mg/5 mL Suspension 30 ml PO BID PRN (Reason: Constipation) Dulcolax (bisacodyl) 10 mg Suppository 10 mg WI DAILY PRN (Reason: Constipation) Fleet Enema 19-7 gram/118 mL Enema 118 ml WI DAILY PRN (Reason: Constipation) Lipitor 10 mg tablet 10 mg PO QPM clopidogrel 75 mg tablet 75 mg PO DAILY Referrals: Ousmane Reaves MD [Primary Care Provider] - Coding Level of Care Code ED Lap Grinder for [place] Emeliad NIH stroke score NIHSS Level Of Consciousness - 1a: 0 Level Of Consciousness Questions - 1b: One Correct Level Of Consciousness Commands - 1c: Both Correct Best Gaze - 2: Normal Visual Wong - 3: No Visual Loss Facial Palsy - 4: Complete Paralysis Motor Arm Right - 5: No Drift Motor Arm Left - 5: No Effort Against [place] Motor Leg Right - 6: No Drift Motor Leg Left - 6: No Effort Against [place] Limb Ataxia - 7: Absent Sensory - 8: Normal Best Language - 9: No Aphasia Dysarthia - 10: Mild/Moderate Dysarthia Extinction And Inattention - 11: 0 Score Total Score: 11
[2023-12-27 10:26] LABS: Basophils % 0.1 %; Eosinophils % 0.1 %; Hematocrit 41.7 % (36-47); Lymphocytes # 2.1 10^3/uL (0.8-4.8); Lymphocytes % 16.7 %; Mean Corpuscular HGB Conc 32.1 g/dL (30-55); Mean Corpuscular Hemoglobin 27.9 pg (27-33); Mean Corpuscular Volume 86.9 fl (85-98); Mean Platelet Volume 9.1 fL (7.4-10.4); Monocytes # 0.7 10^3/uL (0.2-0.9); Monocytes % 5.9 %; Neutrophils # 9.51 10^3/uL (1.8-7.7); Neutrophils % 76.5 %; Nucleated Red Blood Cells % 0 %; Platelet Count 401 10^3/cmm (157-399); Red Cell Distribution Width 15.9 % (12.1-15.1); White Blood Count 12.42 10^3/uL (3.29-11.43)
[2023-12-27 10:35] LABS: INR 1.25 (0.8-1.2)
[2023-12-27] MEDS: iohexol 350 mg/mL 500 mL Btl (per mL) IV (10:38)
[2023-12-27] MEDS: sodium chloride 0.9% 1,000 ML 999 ML IV (10:39)
[2023-12-27 10:48] LABS: Alanine Aminotransferase 19 U/L (0-33); Albumin Level 3.8 g/dL (3.5-5.2); Alkaline Phosphatase 175 U/L (35-105); Anion Gap 26.6 (5-19); Aspartate Amino Transferase 28 U/L (0-32); Blood Urea Nitrogen 14 mg/dL (8-23); Calcium 9.7 mg/dL (8.5-10.5); Carbon Dioxide 22 mmol/L (22-29); Chloride 92 mmol/L (98-107); Globulin 3.7 g/dL (1.3-4.6); Glucose 107 mg/dL (65-115); Magnesium 1.5 mg/dL (1.7-2.3); Osmolality Calculated 285 mOsm/kg (285-295); Potassium 3.6 mmol/L (3.5-5.1); Sodium 137 mmol/L (136-145); Thyroid Stimulating Hormone 2.16 uIU/mL (0.27-4.20); Total Bilirubin 0.8 mg/dL (0.15-1.2); Total Protein 7.5 g/dL (6.6-8.7)
[2023-12-27 11:56] LABS: Add Urine Microscopic? YES; Bilirubin Urine Neg (Negative); Blood Urine Neg (Negative); Glucose Urine UA Norm (Normal); Ketones Urine Negative (Negative); Leukocyte Esterase Urine Trace (Negative); Nitrate Urine Negative (Negative); Protein Urine Trace (Negative); Urine Appearance Clear (CLEAR); Urine Color Straw (Yellow); Urobilinogen Urine Norm (Negative); pH Urine 7 (5-7)
[2023-12-27 12:23] LABS: RBC Urine RARE /hpf (0-2); WBC Urine 0-4 /hpf (0-5)
[2023-12-27 12:24] LABS: Add Urine Culture? No
--- NOTE | 2023-12-27 13:31 | PC.NURSE ---
ATTEMPTED TO CALL REPORT AT 1330, WAS TOLD TO CALL BACK IN 10 MINUTES.
--- NOTE | 2023-12-27 15:14 | PC.NURSE ---
Bedside nursing swallow test, no coughing , choking or other issues.
[2023-12-27] MEDS: apixaban 5 mg Tablet 2.5 MG PO (18:03)
[2023-12-27] MEDS: metoprolol tartrate 50 mg Tablet 25 MG PO (18:03)
[2023-12-27] MEDS: pantoprazole DR 40 mg Tablet PO (18:04)
[2023-12-27] MEDS: predniSONE 10 mg Tablet PO (18:04)
--- NOTE | 2023-12-27 19:40 | P.HP_ITS ---
Providers/Chief Complaint 2 Admitting Physician: Fernie Guillen Primary Care Provider: Ousmane Reaves MD Chief Complaint: stroke alert possible History of Present Illness Very pleasant 88-year-old lady with colon cancer, hepatic mass, has been on immunotherapy, stroke about a month ago, dementia, pulmonary embolism, other medical problems, was brought in for evaluation to ER after she has noticed that her previously present facial droop was worse and she has history of weakness on the left side from prior stroke but was entirely limp and with decerebrate posturing left upper extremity, could not lift her lower extremity at all which is much worse than usual. She was assessed for possible CVA in ER, not found a candidate for intervention. CT angiogram of the head was obtained, without large vessel occlusion, although is found to have reidentified change in caliber involving right M1 and M2 segments with stenosis in the distal right M1 segment. 50% stenosis intracranial cavernous carotid arteries. Extreme small caliber left subclavian artery with surrounding atherosclerotic disease. 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 Status post left common carotid artery to left clavian artery bypass which is intact. Bilateral cervical carotid artery stenosis estimated at 50%. Per discussion with her daughter unfortunately she has had quite significant decline in health and function ever since the stroke she had about a month ago. Review of Systems 2 Const: Denies: fever(s), chills, body aches or malaise ENMT: Denies: throat pain Card: Denies: chest pain, edema, pre-syncope or dyspnea on exertion Resp: Denies: dyspnea, productive cough, change in phlegm color or hemoptysis GI: Denies: abdominal pain, nausea, vomiting, diarrhea, constipation, hematochezia or melena : Denies: flank pain, urinary frequency or hematuria Musc: Denies: back pain, joint swelling or joint redness Skin/Breast: Denies: rash or new lesions Neuro: Reports: weakness in extremities, difficulty walking and other (Facial droop); Denies: headache(s), dizziness, confusion or seizure-like activity Medications/Allergies Home Medications Medication Instructions Recorded Confirmed Last Taken Type Rollator walker with seat #1 ea 06/20/22 12/27/23 Unknown Rx apixaban 5 mg tablet (Eliquis) 2.5 mg PO BID 11/15/22 12/27/23 12/27/23 History amlodipine 5 mg tablet 5 mg PO DAILY #30 tabs 12/20/22 12/27/23 12/27/23 Rx isosorbide mononitrate 30 mg 60 mg (2 x 30 mg) PO DAILY #180 06/05/23 12/27/23 12/27/23 Rx tablet,extended release 24 hr tabs pantoprazole 40 mg tablet,delayed 40 mg PO BID 07/24/23 12/27/23 12/27/23 History release metoprolol tartrate 50 mg tablet 25 mg (1/2 x 50 mg) PO BID #90 tabs 08/27/23 12/27/23 12/27/23 Rx acetaminophen 500 mg tablet 500 mg PO Q4H PRN Pain 09/27/23 12/27/23 11/08/23 History (Tylenol Extra Strength) nitroglycerin 0.4 mg sublingual 0.4 mg sublingual Q5M PRN Chest 11/01/23 12/27/23 Unknown Rx tablet (Nitrostat) Pain #30 tabs calcium carbonate 600 mg calcium 600 mg PO DAILY 11/08/23 12/27/23 12/27/23 History (1,500 mg) tablet (Calcium) cholecalciferol (vitamin D3) 25 25 mcg PO DAILY 11/08/23 12/27/23 12/27/23 History mcg (1,000 unit) capsule (Vitamin D3) trazodone 50 mg tablet 50 mg PO BEDTIME PRN insomnia 11/08/23 12/27/23 Unknown History oxycodone 10 mg tablet 10 mg PO Q6H PRN pain 30 days #120 11/19/23 12/27/23 Unknown Rx tabs prednisone 10 mg tablet 10 mg PO BID #60 tabs 11/19/23 12/27/23 12/27/23 Rx prochlorperazine maleate 10 mg 10 mg PO Q4H PRN Mild Nausea #30 12/05/23 12/27/23 Unknown Rx tablet (Compazine) tabs docusate calcium 240 mg capsule 240 mg PO DAILY 12/06/23 12/27/23 12/27/23 History lorazepam 1 mg tablet 0.5 - 1 mg (0.5 - 1 x 1 mg) PO Q6H 12/06/23 12/27/23 Unknown Rx PRN Severe Nausea #30 tabs sennosides 8.6 mg capsule (senna) 8.6 mg PO DAILY 12/06/23 12/27/23 12/27/23 History duloxetine 30 mg capsule,delayed 30 mg PO DAILY #30 caps 12/19/23 12/27/23 12/27/23 Rx release atorvastatin 10 mg tablet (Lipitor) 10 mg PO QPM 12/27/23 12/27/23 12/26/23 History bisacodyl 10 mg rectal suppository 10 mg GA DAILY PRN Constipation 12/27/23 12/27/23 Unknown History (Dulcolax (bisacodyl)) clopidogrel 75 mg tablet 75 mg PO DAILY 12/27/23 12/27/23 12/27/23 History magnesium hydroxide 400 mg/5 mL 30 ml PO BID PRN Constipation 12/27/23 12/27/23 Unknown History oral suspension (Milk of Magnesia) sodium phosphates 19 gram-7 118 ml GA DAILY PRN Constipation 12/27/23 12/27/23 Unknown History gram/118 mL enema (Fleet Enema) Allergies Allergy/AdvReac Type Severity Reaction Status Date / Time Sulfa (Sulfonamide Allergy Unknown Unknown Verified 12/27/23 10:52 Antibiotics) belladonna alkaloids Allergy Unknown Verified 12/27/23 10:52 imipramine Allergy Unknown Verified 12/27/23 10:52 nitrofurantoin Allergy Unknown Verified 12/27/23 10:52 methylphenidate AdvReac Intermediate anxiety Verified 12/27/23 10:52 [From Ritalin] morphine AdvReac Mild sleepy Verified 12/27/23 10:52 microbide Allergy Unknown Unknown Uncoded 12/24/23 14:05 PFSH Acute 2 PFSH: Medical History (Updated 12/27/23 @ 19:59 by Fernie Guillen MD) Minor surgery performed CVA (cerebral vascular accident) Dysphagia Swallowing study in October 22, 2019 showed dysmotility Breast cancer Colon cancer Depression Psychiatric care Hypertension Congestive heart failure (CHF) Urinary incontinence 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 Most likely occurred 3 months prior based off symptoms. Coronary arteriosclerosis Surgical History Status post partial colectomy 11/13/2019: Laparoscopic extended right hemicolectomy Status post colonoscopy (12/21/20) History of hysterectomy Family History Sister Cancer Mother Cardiac complication Father Cardiac complication Denies family history of Anesthesia complication Bleeding disorder Social History Smoking and tobacco/nicotine status: former use of tobacco/nicotine Quit status (tobacco/nicotine): has quit using Year quit tobacco: 1981 Former quit date comment: 5 years approx. Second hand smoke exposure: No Alcohol intake: former Year of sobriety/quit date alcohol: 1981 Substance/Drug Use: never Lives independently: Yes Household members: spouse Marital status: Number of children: 5 Number of grandchildren: 29 Highest education level completed: High School Graduate service: No Current occupational status: retired Pets and animals: Yes Female Reproductive History: Spontaneous abortions: No Vitals/I&O/Wt Last Vital Signs Temp 97.6 F 12/27/23 18:08 Pulse 86 12/27/23 18:08 Resp 15 12/27/23 18:08 BP 134/69 12/27/23 18:08 Pulse Ox 92 12/27/23 18:08 O2 Del Method Room Air 12/27/23 18:08 12/27/23 12/27/23 12/27/23 06:59 14:59 22:59 Intake Total 1000 / 1000 120 / 1120 Balance 1000 / 1000 120 / 1120 Weight last 48 hrs Weight 54.295 kg Weight 51.256 kg Physical Exam 2 Narrative: Accompanied by her daughter Const: COMMON NORMALS: patient oriented x3 and alert GENERAL APPEARANCE: c ooperative ORIENTATION/CONSCIOUSNESS: Yes awake HENMT: COMMON NORMALS: oropharynx normal Neck/C-Spine: COMMON NORMALS: no JVD Resp: COMMON NORMALS: normal respiratory effort and clear to auscultation bilaterally AUSCULTATION: clear to auscultation bilaterally Cardio: COMMON NORMALS: no JVD, regular rhythm, S1 normal heart sound present, S2 normal heart sound present and No murmurs present (Cardio) RHYTHM: regular rhythm HEART SOUNDS: S1 normal heart sound present and S2 normal heart sound present GI: COMMON NORMALS: Normal to inspection, nondistended, normoactive bowel sounds present, Soft to palpation and non-tender PALPATION: Yes Soft to palpation Extremity: COMMON NORMALS: no joint enlargement and no pedal edema Neuro: COMMON NORMALS: patient oriented x3 and moves all extremities S ENSORIUM/ORIENTATION: Yes alert OTHER: Awake, following directions, although with some difficulty. No difficulty with horizontal tracking. Facial droop on the left. Mild dysarthria. Left-sided visual field defect. No difficulty with FNF on the right. Left arm drifts down and hits the bed. Drift in left lower extremity. Sensation diminished on the left side. No sensory extinction. Skin: COMMON NORMALS: no rashes or lesions noted GENERAL SKIN EXAM: no rashes or lesions noted Data 12/27/23 09:46 12/27/23 09:46 A&P Assessment and plan (1) TIA (transient ischemic attack): Noted to have worsened facial droop, complete left-sided weakness with some decorticate posturing in the left upper extremity at the assisted this morning. Brought in for evaluation to ER. Not a candidate for thrombolysis. Reviewed vitals, CBC, INR, CMP, UA, head CT, CTA, EKG on my interpretation without atrial fibrillation, without signs of acute ischemia, ER note, discussed with ER provider. Noted intracranial right M1 stenosis, change in caliber right 1 and M2 segments. Was not found to be a candidate for endovascular intervention. Observation requested for additional assessment. Monitor vitals, heart rate, monitor with telemetry. Reassess blood counts is noted to have mild leukocytosis but otherwise no suggestion of infection medically or on UA, chest x-ray. Afebrile. Assessment by PT, OT, ST. Aspiration precautions. Continue Eliquis, Plavix, statin dose to 40 mg. Consider follow-up with neurology. (2) Goals of care, counseling/discussion: AND in case of cardiopulmonary arrest per discussion with her and daughter. She has been on immunotherapy so far for metastatic colon cancer, however, her overall health and condition has declined significantly especially after her stroke a month ago. Per further goals of care considerations they would like to proceed with hospice care at assisted. Will request case management consultation. Plan Metastatic colon cancer with liver mass. Dementia: Fall precautions. HTN: Monitor blood pressures. Continue amlodipine. Attestations 2 Medical Necessity Statement*: Place in observation for additional assessment management of TIA. Diagnoses TIA (transient ischemic attack) G45.9 Goals of care, counseling/discussion Z71.89
[2023-12-27] MEDS: acetaminophen 500 mg Tablet PO (20:29)
[2023-12-27] MEDS: atorvastatin 40 mg Tablet PO (20:29)
[2023-12-28] VITALS: BP 150/73; PULSE 97; RESP 18; TEMP 36.6; O2SAT 90
[2023-12-28 04:00] VITALS: BP 162/68; PULSE 89; RESP 17; TEMP 36.6; O2SAT 93
[2023-12-28 04:59] LABS: Basophils % 0.1 %; Eosinophils % 0.2 %; Hematocrit 34.7 % (36-47); Lymphocytes # 2.3 10^3/uL (0.8-4.8); Lymphocytes % 23.4 %; Mean Corpuscular HGB Conc 32.3 g/dL (30-55); Mean Corpuscular Hemoglobin 28.1 pg (27-33); Mean Platelet Volume 8.8 fL (7.4-10.4); Monocytes # 0.6 10^3/uL (0.2-0.9); Monocytes % 5.8 %; Neutrophils # 6.91 10^3/uL (1.8-7.7); Neutrophils % 69.9 %; Nucleated Red Blood Cells % 0 %; Platelet Count 278 10^3/cmm (157-399); Red Blood Count 3.99 10^6/uL (3.85-5.65); White Blood Count 9.88 10^3/uL (3.29-11.43)
[2023-12-28 05:32] LABS: Anion Gap 16.7 (5-19); Blood Urea Nitrogen 13 mg/dL (8-23); Calcium 8.8 mg/dL (8.5-10.5); Carbon Dioxide 25 mmol/L (22-29); Chloride 98 mmol/L (98-107); Creatinine Clr Calc Pharmacy 41.7649; Glucose 104 mg/dL (65-115); Osmolality Calculated 282 mOsm/kg (285-295); Potassium 3.7 mmol/L (3.5-5.1); Sodium 136 mmol/L (136-145)
[2023-12-28 05:33] LABS: Chol HDL Ratio 2.87 mg/dL (0.0-4.40); Cholesterol 135 mg/dL (0-200); HDL Cholesterol 47 mg/dL (60-100); LDL Cholesterol Calculated 66 mg/dL (50-129); Triglycerides 108 mg/dL (0-150)
[2023-12-28 05:38] LABS: Estmated Average Glucose 120; Hemoglobin A1C 5.8 % (4.0-6.0)
--- NOTE | 2023-12-28 07:59 | PC.OT ---
OT EVAL ORDERS RECEIVED PATIENT HAS BEEN PLACED ON HOSPICE
[2023-12-28 08:00] VITALS: BP 181/89; PULSE 109; RESP 17; TEMP 36.6; O2SAT 92
[2023-12-28] MEDS: pantoprazole DR 40 mg Tablet PO (08:13)
[2023-12-28] MEDS: apixaban 5 mg Tablet 2.5 MG PO (08:14)
[2023-12-28] MEDS: duloxetine 30 mg Capsule PO (08:14)
[2023-12-28] MEDS: clopidogrel 75 mg Tablet PO (08:14)
[2023-12-28] MEDS: sennosides 8.6 mg Tablet 8.59999999999999964 MG PO (08:14)
[2023-12-28] MEDS: predniSONE 10 mg Tablet PO (08:14)
[2023-12-28] MEDS: acetaminophen 500 mg Tablet PO (08:14)
[2023-12-28] MEDS: metoprolol tartrate 50 mg Tablet 25 MG PO (08:14)
[2023-12-28] MEDS: isosorbide mononitrate ER 30 mg Tablet 60 MG PO (08:15)
[2023-12-28] MEDS: amlodipine 5 mg Tablet PO (08:15)
--- NOTE | 2023-12-28 09:44 | PC.CHAP ---
Pastoral Care Encounter/Spiritual Assessment Type of Contact [] Declined entrepreneur visit [] Patient/Family/Request visit [] Outpatient visit [] Follow-up visit [] Physician referral [] Code/Alert [] Routine visit [] Staff referral [] Actively dying [] Patient sleeping [] Family support [] [] Out of room [] Palliative care [] [x] Receiving care in room [] Pre-surgical visit [] Trauma [] Long length of stay [] ICU visit [] Other: Relational/Emotional Strength [] Patient feels connected with others/family/visitors/staff [] Distress [] Loneliness/isolation [] Abandonment Spirituality of Patient [] Person of Bonny [] Attends Cheondoism of their Bonny [] Believes in Prayer [] Reads Bible or Anglican materials [] There are Spiritual issues to be addressed Dowel Sander Operator Interventions [] Prayer [] Active listening [] Non-anxious presence [] Spiritual/emotional support [] Crisis/trauma care [] Spiritual counseling [] Bereavement support [] Provided bereavement packet [] Provided Bible/devotional materials [] Provided toy/stuffed animal, coloring book to patient or family member [] Provided Communion [] Anointing/[place] [] Salvation [] Completed spiritual assessment [] Other: Impact on Illness or Injury [] Angry [] Fearful [] Anxious [] Often cries [] Exhaustion [] Unable to work [] Unable to attend muslim [] Unable to walk/stand [] Unable to read [] Unable to drive [] Unable to eat/drink [] Unable to sleep [] Unable to be with family [] Patient intubated [] Other: Summary Time spent with patient
--- NOTE | 2023-12-28 10:29 | PM.DCS ---
Discharge Providers Date of Admission: 12/27/23 12:13 Date of Discharge: December 28, 2023 Attending Provider at Admission: Fernie Guillen Attending Provider at Discharge: Fernie Guillen Primary Care Provider: Ousmane Reaves MD Diagnoses at Discharge Discharge Diagnosis (1) TIA (transient ischemic attack): Status: Acute (2) Goals of care, counseling/discussion: Status: Acute Reason for Visit Reason for Visit: stroke alert possible Brief History: Very pleasant 88-year-old lady with colon cancer, hepatic mass, has been on immunotherapy, stroke about a month ago, dementia, pulmonary embolism, other medical problems, was brought in for evaluation to ER after she has noticed that her previously present facial droop was worse and she has history of weakness on the left side from prior stroke but was entirely limp and with decerebrate posturing left upper extremity, could not lift her lower extremity at all which is much worse than usual. She was assessed for possible CVA in ER, not found a candidate for intervention. CT angiogram of the head was obtained, without large vessel occlusion, although is found to have reidentified change in caliber involving right M1 and M2 segments with stenosis in the distal right M1 segment. 50% stenosis intracranial cavernous carotid arteries. Extreme small caliber left subclavian artery with surrounding atherosclerotic disease. 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 Status post left common carotid artery to left clavian artery bypass which is intact. Bilateral cervical carotid artery stenosis estimated at 50%. Per discussion with her daughter unfortunately she has had quite significant decline in health and function ever since the stroke she had about a month ago. Hospital Course Hospital Course She was monitored overnight with improvement/resolution of symptoms back to baseline. Without recurrence. No drops in blood pressure, tachycardia, pauses, has been becoming hypertensive. As per discussion with her daughter with significant cerebrovascular stenosis at risk of additional TIA, CVA, atorvastatin dose increased to high intensity, although as discussed may likely not benefit from it given overall condition and prognosis. Continue Plavix, Eliquis. Depending on further goals of care follow-up with neurology. Given overall progressive functional and cognitive decline, metastatic malignancy, continued worsening after stroke a month ago, as per discussion with family she will be set up with end-of-life care at snf facility. Does require assistance, supervision, at risk of falls as with cognitive decline does not realize that she has difficulty with ambulation with chronic left-sided weakness, needing assistance with feeding. Physical Exam Narrative: Accompanied by her daughter Const: COMMON NORMALS: patient oriented x3 and alert GENERAL APPEARANCE: cooperative ORIENTATION/CONSCIOUSNESS: Yes awake HENMT: COMMON NORMALS: oropharynx normal Neck/C-Spine: COMMON NORMALS: no JVD Resp: COMMON NORMALS: normal respiratory effort and clear to auscultation bilaterally AUSCULTATION: clear to auscultation bilaterally Cardio: COMMON NORMALS: no JVD, regular rhythm, S1 normal heart sound present, S2 normal heart sound present and No murmurs present (Cardio) RHYTHM: regular rhythm HEART SOUNDS: S1 normal heart sound present and S2 normal heart sound present GI: COMMON NORMALS: Normal to inspection, nondistended, normoactive bowel sounds present, Soft to palpation and non-tender PALPATION: Yes Soft to palpation Extremity: COMMON NORMALS: no joint enlargement and no pedal edema Neuro: COMMON NORMALS: patient oriented x3 and moves all extremities SENSORIUM/ORIENTATION: Yes alert OTHER: Awake, following directions, although with some difficulty. No difficulty with horizontal tracking. Facial droop on the left. Mild dysarthria. Left-sided visual field defect. No difficulty with FNF on the right. Improved left arm strength, no posturing today. Resolved drift in left lower extremity. Sensation diminished on the left side. No sensory extinction. Skin: COMMON NORMALS: no rashes or lesions noted GENERAL SKIN EXAM: no rashes or lesions noted Discharge Data Studies Completed and Pending Completed Studies During Hospitalization Category Date Time Status CT angio headneck* 33370/13115 Stat Cat Scan 12/27/23 10:[address] head wo con* [id number] Stat Cat Scan 12/27/23 10:11 Completed XR chest 1V portable [id number] Stat Exams 12/27/23 10:11 Completed Pending at discharge Category Date Time Status Basic Metabolic Panel AM LABS Lab 12/29/23 04:00 Ordered Basic Metabolic Panel AM LABS Lab 12/30/23 04:00 Ordered COVID [SARS Covid-2 Antigen] Routine Lab 12/28/23 10:14 Uncollected Complete Blood Count w/Auto AM LABS Lab 12/29/23 04:00 Ordered Complete Blood Count w/Auto AM LABS Lab 12/30/23 04:00 Ordered Radiology Impressions Chest X-Ray 12/27/23 10:11 IMPRESSION: No acute findings. Laboratory Results WBC 9.88 10^3/uL (3.29-11.43) 12/28/23 04:39 RBC 3.99 10^6/uL (3.85-5.65) 12/28/23 04:39 Hgb 11.20 g/dL (11.27-16.99) L 12/28/23 04:39 Hct 34.7 % (36-47) L 12/28/23 04:39 MCV 87.0 fl (85-98) 12/28/23 04:39 MCH 28.1 pg (27-33) 12/28/23 04:39 MCHC 32.3 g/dL (30-55) 12/28/23 04:39 RDW 16.0 % (12.1-15.1) H 12/28/23 04:39 Plt Count 278 10^3/cmm (157-399) D 12/28/23 04:39 MPV 8.8 fL (7.4-10.4) 12/28/23 04:39 Neut % (Auto) 69.9 % 12/28/23 04:39 Lymph % (Auto) 23.4 % 12/28/23 04:39 [place] % (Auto) 5.8 % 12/28/23 04:39 Eos % (Auto) 0.2 % 12/28/23 04:39 Baso % (Auto) 0.1 % 12/28/23 04:39 Neut # (Auto) 6.91 10^3/uL (1.8-7.7) 12/28/23 04:39 Lymph # (Auto) 2.3 10^3/uL (0.8-4.8) 12/28/23 04:39 [place] # (Auto) 0.6 10^3/uL (0.2-0.9) 12/28/23 04:39 Eos # (Auto) 0.0 10^3/uL (0.0-0.8) 12/28/23 04:39 Baso # (Auto) 0.0 10^3/uL (0.0-0.1) 12/28/23 04:39 Nucleated RBC % (auto) 0 % 12/28/23 04:39 Nucleated RBCs # 0.0 /100WBC 12/28/23 04:39 PT 16.10 SECONDS (12.1-14.9) H 12/27/23 09:46 INR 1.25 (0.8-1.2) H 12/27/23 09:46 Sodium 136 mmol/L (136-145) 12/28/23 04:39 Potassium 3.7 mmol/L (3.5-5.1) 12/28/23 04:39 Chloride 98 mmol/L (98-107) 12/28/23 04:39 Carbon Dioxide 25 mmol/L (22-29) 12/28/23 04:39 Anion Gap 16.7 (5-19) 12/28/23 04:39 BUN 13 mg/dL (8-23) 12/28/23 04:39 Creatinine 0.7 mg/dL (0.5-0.9) 12/28/23 04:39 GFR Calculation Not Reportable 12/28/23 04:39 Glucose 104 mg/dL (65-115) 12/28/23 04:39 Estimat Average Glucose 120 12/28/23 04:39 Hemoglobin A1c 5.8 % (4.0-6.0) 12/28/23 04:39 Calculated Osmolality 282 mOsm/kg (285-295) L 12/28/23 04:39 Calcium 8.8 mg/dL (8.5-10.5) 12/28/23 04:39 Magnesium 1.5 mg/dL (1.7-2.3) L 12/27/23 09:46 Total Bilirubin 0.8 mg/dL (0.15-1.2) 12/27/23 09:46 AST 28 U/L (0-32) 12/27/23 09:46 ALT 19 U/L (0-33) 12/27/23 09:46 Alkaline Phosphatase 175 U/L (35-105) H 12/27/23 09:46 Total Protein 7.5 g/dL (6.6-8.7) 12/27/23 09:46 Albumin 3.8 g/dL (3.5-5.2) 12/27/23 09:46 Globulin 3.7 g/dL (1.3-4.6) 12/27/23 09:46 Triglycerides 108 mg/dL (0-150) 12/28/23 04:39 Cholesterol 135 mg/dL (0-200) 12/28/23 04:39 LDL Cholesterol, Calc 66 mg/dL (50-129) 12/28/23 04:39 HDL Cholesterol 47 mg/dL (60-100) L 12/28/23 04:39 LDL/HDL Ratio 1.40 RATIO (0.00-3.22) 12/28/23 04:39 Cholesterol/HDL Ratio 2.87 mg/dL (0.0-4.40) 12/28/23 04:39 TSH 2.16 uIU/mL (0.27-4.20) 12/27/23 09:46 Urine Color Straw (Yellow) 12/27/23 11:40 Urine Appearance Clear (CLEAR) 12/27/23 11:40 Urine pH 7 (5-7) 12/27/23 11:40 Ur Specific [place] 1.000 (1.005-1.030) L 12/27/23 11:40 Urine Protein Trace (Negative) 12/27/23 11:40 Urine Glucose (UA) Norm (Normal) 12/27/23 11:40 Urine Ketones Negative (Negative) 12/27/23 11:40 Urine Blood Neg (Negative) 12/27/23 11:40 Urine Nitrate Negative (Negative) 12/27/23 11:40 Urine Bilirubin Neg (Negative) 12/27/23 11:40 Urine Urobilinogen Norm mg/dL (Negative) 12/27/23 11:40 Ur Leukocyte Esterase Trace (Negative) H 12/27/23 11:40 Urine RBC Rare /hpf (0-2) 12/27/23 11:40 Urine WBC 0-4 /hpf (0-5) H 12/27/23 11:40 Ur Squamous Epith Cells None /hpf (0-5) 12/27/23 11:40 Amorphous Sediment Not Reportable 12/27/23 11:40 Urine Bacteria None /hpf (NONE) 12/27/23 11:40 Urine Mucus None /hpf 12/27/23 11:40 Vitals Last Vital Signs Temp 97.8 F 12/28/23 08:00 Pulse 109 H 12/28/23 08:00 Resp 17 12/28/23 08:00 BP 181/89 12/28/23 08:00 Pulse Ox 92 12/28/23 08:00 O2 Del Method Room Air 12/28/23 08:00 Discharge Plan Discharge Patient Disposition: Hospice - Medical Facility Condition: Fair Prescriptions: New atorvastatin 40 mg Tablet 40 mg PO BEDTIME Qty: 90 0RF Continued amlodipine 5 mg tablet 5 mg PO DAILY Qty: 30 11RF Hold Instructions: Home Medication placed on hold at Doctor's office isosorbide mononitrate 30 mg tablet extended release 24 hr 60 mg PO DAILY Qty: 180 7RF Hold Instructions: Resume on 11/10/23. metoprolol tartrate 50 mg tablet 25 mg PO BID Qty: 90 11RF nitroglycerin [Nitrostat] 0.4 mg tablet, sublingual 0.4 mg SUBLINGUAL Q5M PRN (Reason: Chest Pain) Qty: 30 11RF senna 8.6 mg capsule 8.6 mg PO DAILY docusate calcium 240 mg capsule 240 mg PO DAILY lorazepam 1 mg tablet 0.5 - 1 mg PO Q6H PRN (Reason: Severe Nausea) Qty: 30 3RF duloxetine 30 mg capsule,delayed release(DR/EC) 30 mg PO DAILY Qty: 30 2RF (DME) Rollator walker with seat See Rx Instructions .Route .MEDSUPPLY Qty: 1 0RF Rx Instructions: As directed prednisone 10 mg tablet 10 mg PO BID Qty: 60 1RF oxycodone 10 mg tablet 10 mg PO Q6H PRN (Reason: pain) 30 Days Qty: 120 0RF acetaminophen [Tylenol Extra Strength] 500 mg tablet 500 mg PO Q4H PRN (Reason: Pain) prochlorperazine maleate [Compazine] 10 mg tablet 10 mg PO Q4H PRN (Reason: Mild Nausea) Qty: 30 3RF Eliquis 5 mg tablet 2.5 mg PO BID Hold Instructions: Resume on 07/29/23. pantoprazole 40 mg tablet,delayed release (DR/EC) 40 mg PO BID calcium carbonate [Calcium 600] 600 mg calcium (1,500 mg) Tablet 600 mg PO DAILY cholecalciferol (vitamin D3) [Vitamin D3] 25 mcg (1,000 unit) Capsule 25 mcg PO DAILY trazodone 50 mg tablet 50 mg PO BEDTIME PRN (Reason: insomnia) Milk of Magnesia 400 mg/5 mL Suspension 30 ml PO BID PRN (Reason: Constipation) Dulcolax (bisacodyl) 10 mg Suppository 10 mg SC DAILY PRN (Reason: Constipation) Fleet Enema 19-7 gram/118 mL Enema 118 ml SC DAILY PRN (Reason: Constipation) clopidogrel 75 mg tablet 75 mg PO DAILY Discontinued atorvastatin [Lipitor] 10 mg tablet 10 mg PO QPM Discharge Orders: Discharge Order (Routine); Ordered 12/28/23 Ordered By: Fernie Guillen Referrals: Ousmane Reaves MD [Primary Care Provider] - 4-7 days Patient Instructions: Atorvastatin (By mouth), Transient Ischemic Attack (GEN), Hospice Care (GEN), Opioid Safety Activity Restrictions/Additional Instructions: Follow-up with your primary doctor for reassessment after TIA, intracranial cerebrovascular stenosis. Depending on goals of care consider follow-up with neurology. Maintain fall precaution measures with risk of fall due to dementia as well as prior stroke with residual left-sided upper and lower extremity weakness. Continue aspiration precautions with facial droop residual from prior stroke. Discharge Attestations Time Spent in Discharge Care*: greater than 30 min Status at Discharge: Cognitive status at discharge: cognitively intact, Behavioral status at discharge: cooperative, Quality Metrics Clinical Quality Measures [ Cerebrovascular Accident { Contraindication to Antithrombotic: None; antithrombotic prescribed; Contraindication to Anticoagulation: None; anticoagulation prescribed; Contraindication to Statin: None; Statin prescribed;}] Coding Level of Care Code 10418 Total time (in minutes) for Discharge: 45 Diagnoses TIA (transient ischemic attack) G45.9 Goals of care, counseling/discussion Z71.89
[2023-12-28 11:03] LABS: SARS Covid-2 Antigen negative (Negative)
[2023-12-28 12:25] VITALS: BP 181/89; PULSE 109; RESP 17; TEMP 36.6; O2SAT 92
== END 2023-12-28 12:26 | disposition hospice, inpatient (51) ==
LOC: ER 12:54 → MEDSURG 12-28 07:01
PROVIDERS: Admitting Provider Internal Medicine; Emergency Provider Emergency Medicine; PCP Family Medicine; Visit Provider Internal Medicine
DX: G45.9 Transient cerebral ischemic attack, unspecified (principal); C18.9 Malignant neoplasm of colon, unspecified; F03.90 Unspecified dementia, unspecified severity, without behavioral disturbance, psychotic disturbance, mood disturbance, and anxiety; Z86.711 Personal history of pulmonary embolism; Z71.89 Other specified counseling; F32.A Depression, unspecified; I11.0 Hypertensive heart disease with heart failure; I50.9 Heart failure, unspecified; Z87.891 Personal history of nicotine dependence
CPT/HCPCS: 36415; 70450; 70496; 70498; 71045; 80048; 80053; 80061; 81001; 83036; 83735; 84443; 85025; 85610; 87426; 92610; 93005; 99285; G0378; J7030; J7512; Q9967